=== PATIENT | female | born 1985 | race Caucasian/White ===

== ENCOUNTER 2020-04-01 13:34 | Outpatient (CLI) | payer OTHER, SELFPAY ==
[2020-04-01 15:13] LABS: Free T4 Free Thyroxine 0.86 ng/mL (0.78-2.19)
== END 2020-04-01 13:35 | disposition home or self-care (01) ==
PROVIDERS: PCP Nurse Practitioner Family; Visit Provider Nurse Practitioner Family
DX: E03.9 Hypothyroidism, unspecified (principal)
CPT/HCPCS: 36415; 84439; 84443

== ENCOUNTER 2020-04-13 18:16 | Emergency (ER) | payer BC, OTHER, SELFPAY ==
--- NOTE | ~2020-04-13 | XR_ITS ---
EXAMINATION: XR chest 1V portable DATE: 04/13/2020 19:24 INDICATION: Shortness of breath and cough. TECHNIQUE: A single frontal view of the chest was obtained. COMPARISON: Chest 2 views 06/12/2017 FINDINGS: The chest demonstrates clear lungs without pneumonia, pleural effusion, or pneumothorax. Th e heart size is normal. IMPRESSION: 1. No acute cardiopulmonary disease. Reviewed, dictated and finalized at location A. T SUPPORT SPECIALIST
[2020-04-13 18:21] VITALS: BP 142/91; PULSE 70; RESP 18; TEMP 36.4; O2SAT 99
[2020-04-13 18:38] VITALS: BP 143/58; PULSE 73; RESP 18; O2SAT 97
--- NOTE | 2020-04-13 19:32 | ED.URI ---
HPI - URI/Sore Throat General Chief Complaint: Upper Respiratory Infection Stated Complaint: Cough Time Seen by Provider: 04/13/20 18:40 Source: patient Mode of arrival: ambulatory Limitations: no limitations History of Present Illness HPI Narrative: Patient 34-year-old female who presents with 3 days duration of congestion rhinorrhea nonproductive cough body aches possible sick contacts noted at work patient denies vomiting diarrhea dyspnea. On arrival patient in no distress has not taken anything for her symptoms Related Data Home Medications Medication Instructions Recorded Confirmed Vitamin D3 Complete 03/10/19 albuterol sulfate INHALATION 03/10/19 cetirizine mg 03/10/19 citalopram mg 03/10/19 enalapril maleate 03/10/19 fluticasone propionate INTRANASAL 03/10/19 hydrochlorothiazide 03/10/19 levothyroxine 03/10/19 mirtazapine mg 03/10/19 montelukast mg 03/10/19 norethindrone-e.estradiol-iron tablet 03/10/19 [Microgestin Fe 1.5/30 (28)] tramadol mg 03/10/19 trazodone 03/10/19 famotidine 20 mg PO BID 04/13/20 Allergies Allergy/AdvReac Type Severity Reaction Status Date / Time Sulfa (Sulfonamide Allergy Unknown hives Verified 04/13/20 18:24 Antibiotics) adhesive tape AdvReac Intermediate skin turns Verified 04/13/20 18:24 red Review of Systems Review of Systems: All systems reviewed & are unremarkable except as noted in HPI and below PMFSH Social History Social History (Updated 04/13/20 @ 19:33 by Gregorio Felton PA-C) Smoking status: Never smoker Gender identity (if verbalized by the patient): Female Exam Narrative: Exam Narrative: GENERAL: Well-appearing, obese, and in no acute distress. HEAD: Normocephalic, atraumatic. EYES: PERRLA and EOMI. ENT: Nares clear, no rhinorrhea or epistaxis. Mucous membranes moist. CHEST: Clear to auscultation. No respiratory distress. No wheezes rales or rhonchi HEART: Regular rate and rhythm. No murmur heard. EXTREMITIES: Normal range of motion. No edema. SKIN: Warm, dry, no rash. NEURO: No focal deficits. Alert and oriented x3. PSYCH: Normal mood and affect. Course Course Emergency Course: Patient in the room no distress aware of case findings treatment plan and diagnosis. Patient will be tested for Covid advised to self quarantine to follow with primary care to get Covid results noting that this is the only way she can get them provided with reasons to return. Normal vital signs no pneumonia no hypoxemia will be treated symptomatically Vital Signs Vital signs: Vital Signs Temperature 97.6 F 04/13/20 18:21 Pulse Rate 70 04/13/20 18:21 Respiratory Rate 18 04/13/20 18:21 Blood Pressure 142/91 H 04/13/20 18:21 Pulse Oximetry 99 04/13/20 18:21 Temperature 97.6 F 04/13/20 18:21 Pulse Rate 73 04/13/20 18:38 Respiratory Rate 18 04/13/20 18:38 Blood Pressure 143/58 H 04/13/20 18:38 Pulse Oximetry 97 04/13/20 18:38 MDM - URI/Sore Throat MDM Narrative Medical decision making narrative: Patient in the room no distress felt appropriate for outpatient reevaluation Lab Data Labs: Lab Results 04/13/20 Range/Units 19:00 SARS-CoV-2 RNA (RT-PCR) Pending Discharge Plan Discharge Clinical Impression: Upper respiratory infection Patient Disposition: Home, Self-Care Condition: Stable Instructions: Antibiotic Form, COVID-19 (Coronavirus Disease 2019) (ED) Additional Instructions: Follow up with your primary care provider within 1-2 days to set up for reevaluation and to obtain your COVID-19 result. Go to ER for shortness of breath, difficulty breathing, chest pain, fever/chills, weakness, nauseau/vomitting, etc. or any other concerns. Self quarantine until you have received your results Take any prescribed medications as directed. Stay well-hydrated If you do not have a drug allergy to tylenol or motrin and can tolerate it then take tylenol or motrin as needed for
[2020-04-13 20:05] VITALS: BP 135/96; PULSE 65; RESP 18; O2SAT 96
[2020-04-15 19:06] LABS: SARS-CoV-2 RNA PCR Negative
== END 2020-04-13 20:08 | disposition home or self-care (01) ==
PROVIDERS: Emergency Medicine Emergency Medical Services; Emergency Provider Emergency Medicine; PCP Nurse Practitioner Family
DX: J06.9 Acute upper respiratory infection, unspecified (principal); Z20.822 Contact with and (suspected) exposure to COVID-19
CPT/HCPCS: 71045; 99283; C9803; U0003

== ENCOUNTER 2020-07-06 09:46 | Emergency (ER) | payer BC, SELFPAY ==
--- NOTE | 2020-07-06 09:51 | ED.GENADULT ---
HPI - General Adult General Chief complaint: Upper Respiratory Infection Stated complaint: left ear pain Time Seen by Provider: 07/06/20 09:51 Source: patient Mode of arrival: ambulatory Limitations: no limitations History of Present Illness HPI narrative: 34-year-old female patient presents to the [facility] with complaints of left ear pain that started yesterday. Patient denies fevers, body aches or chills. Patient states she does have history of seasonal allergies. Patient denies any discharge coming from the ear. Related Data Home Medications Medication Instructions Recorded Confirmed Vitamin D3 Complete 03/10/19 albuterol sulfate 2 puff INHALATION Q4-6H PRN 03/10/19 cetirizine mg 03/10/19 citalopram mg 03/10/19 enalapril maleate 03/10/19 hydrochlorothiazide 03/10/19 levothyroxine 175 mcg PO 4XW 03/10/19 07/06/20 mirtazapine mg 03/10/19 montelukast mg 03/10/19 tramadol 50 mg PO BID PRN 03/10/19 07/06/20 trazodone 03/10/19 levothyroxine 200 mcg PO 3XW 07/06/20 07/06/20 Allergies Allergy/AdvReac Type Severity Reaction Status Date / Time Sulfa (Sulfonamide Allergy Unknown hives Verified 07/06/20 10:09 Antibiotics) adhesive tape AdvReac Intermediate skin turns Verified 07/06/20 10:09 red Review of Systems Review of Systems: Narrative: CONSTITUTIONAL: Denies fever, chills, or sweats. EYES: Denies visual changes, redness, or discharge. ENT: Denies rhinorrhea, congestion, sore throat, positive left otalgia. CARDIOVASCULAR: Denies chest pain, palpitations, or edema. RESPIRATORY: Denies cough or dyspnea. GASTROINTESTINAL: Denies abdominal pain, nausea, vomiting, or diarrhea. GENITOURINARY: Denies dysuria or hematuria. SKIN: Denies rash or itching. MUSCULOSKELETAL: Denies back pain, joint pain, or myalgia. NEUROLOGIC: Denies headache, numbness, or weakness. PSYCHIATRIC: Denies anxiety or depression. [facility] Past Medical History Medical History (Updated 07/06/20 @ 10:18 by KASEY Cardozo) Anxiety Asthma Depression GERD (gastroesophageal reflux disease) Hypertension Hypothyroidism Musculoskeletal disorder Compression fracture L1-L2, right foot plantar fasciitis, bone spur Polycystic ovarian disease Seasonal allergies Urinary tract infection Social History Social History Smoking status: Never smoker Gender identity (if verbalized by the patient): Female Comments At the time of my signature I agree with nursing past medical history, surgical, social, and family history. There is no relevant family history pertinent to the presenting complaint. Exam Narrative: Exam Narrative: GENERAL: Well-appearing, well-nourished, and in no acute distress. HEAD: Normocephalic, atraumatic. EYES: PERRLA and EOMI. ENT: Nares clear, no rhinorrhea or epistaxis. Mucous membranes moist. Posterior pharynx with slight post nasal drip present. Left TM does have some erythema noted but no foreign bodies in the canal. NECK: Supple. No lymphadenopathy CHEST: Clear to auscultation. No respiratory distress. HEART: Regular rate and rhythm. No murmur heard. Normal peripheral pulses. ABDOMEN: Soft, nontender, nondistended, normal active bowel sounds. EXTREMITIES: Normal range of motion. No edema. SKIN: Warm, dry, no rash. NEURO: No focal deficits. Alert and oriented x3. Course Reevaluation(s) Reevaluation #1: Reevaluated patient notified her that she does appear to have an ear infection of the left ear. Discussed with patient we will discharge her home with antibiotics. Discussed with her she can take Tylenol and ibuprofen as needed for pain. Patient verbalized understanding denies any other questions or concerns at this time. Date: 07/06/20 Time: 10:21 Vital Signs Vital signs: Vital Signs Temperature 36.8 C 07/06/20 09:58 Pulse Rate 57 L 07/06/20 09:58 Respiratory Rate 16 07/06/20 09:58 Blood Pressure 148/80 H 07/06/20 09:58 Pulse
[2020-07-06 09:58] VITALS: BP 148/80; PULSE 57; RESP 16; TEMP 36.8; O2SAT 99
[2020-07-06 10:09] VITALS: BP 148/80; PULSE 57; RESP 16; TEMP 36.8; O2SAT 99
== END 2020-07-06 10:20 | disposition home or self-care (01) ==
PROVIDERS: Emergency Provider Nurse Practitioner Family; PCP Nurse Practitioner Family
DX: H66.92 Otitis media, unspecified, left ear (principal); F41.9 Anxiety disorder, unspecified; F32.9 Major depressive disorder, single episode, unspecified; J45.909 Unspecified asthma, uncomplicated; K21.9 Gastro-esophageal reflux disease without esophagitis; I10 Essential (primary) hypertension; E03.9 Hypothyroidism, unspecified; E28.2 Polycystic ovarian syndrome
CPT/HCPCS: 99213; G0463

== ENCOUNTER 2021-01-17 14:34 | Emergency (ER) | payer BC, SELFPAY ==
--- NOTE | ~2021-01-17 | XR_ITS ---
EXAMINATION: XR ankle LT min 3V EXAM DATE: 01/17/2021 15:04 INDICATION: Fall X 1 Wk,Lateral Malleolus Pain. TECHNIQUE: Left ankle frontal, lateral and oblique projections obtained and reviewed. Comparison is m michael to prior examination from 02/11/2014. FINDINGS: The left ankle mortise appears intact. There is moderate-sized inferior calcaneal spur. On the steep oblique projection of the ankle, there is lucency along the cortex of the 5th metatarsal base which is suspected most likely a congenital appearance to the contour, correlating with prior a nkle x-ray. This finding has been indicated on the exam; please exclude superimposed acute finding by checking for point tenderness. Otherwise unremarkable exam. IMPRESSION: Left 5th metatarsal base lucency suspected most likely congenital contour groove but clin ical correlation recommended. Reviewed, dictated and finalized at location B. IMPRESSION: Left 5th metatarsal base lucency suspected most likely congenital c ontour groove but clinical correlation recommended.
[2021-01-17 14:44] VITALS: BP 127/88; PULSE 59; RESP 20; TEMP 36.4; O2SAT 99
--- NOTE | 2021-01-17 16:26 | ED.LOWEXIN ---
HPI - Extremity Injury (Lower) General Chief Complaint: Extremity Injury, Lower Stated Complaint: L FOOT/ANKLE PAIN Time Seen by Provider: 01/17/21 15:58 Source: patient History of Present Illness HPI Narrative: Patient presents with left ankle pain. Patient reports she sprained her ankle a few weeks ago continued to work. She also reports a couple days ago she was bowling a lot since that she has had increased pain to her left ankle she was concerned so wanted to come to the ER for evaluation. Pain is achy, constant, radiates up her leg, worse with ambulation and moving her ankle. She denies any focal numbness or weakness. Related Data Home Medications Medication Instructions Recorded Confirmed cetirizine 10 mg PO DAILY 03/10/19 07/06/20 citalopram 20 mg PO QAM 03/10/19 07/06/20 enalapril maleate 10 mg PO DAILY 03/10/19 07/06/20 hydrochlorothiazide 25 mg PO DAILY 03/10/19 07/06/20 levothyroxine 175 mcg PO 4XW 03/10/19 07/06/20 mirtazapine 15 mg PO HS 03/10/19 07/06/20 montelukast 10 mg PO HS 03/10/19 07/06/20 tramadol 50 mg PO BID PRN 03/10/19 07/06/20 trazodone 100 mg PO HS 03/10/19 07/06/20 acetaminophen [Tylenol Extra 500 mg PO Q6H PRN 07/06/20 07/06/20 Strength] cholecalciferol (vitamin D3) 125 mcg PO DAILY 07/06/20 07/06/20 [Vitamin D3] epinephrine 0.3 mg SUBCUT ONCE 07/06/20 07/06/20 levonorgestrel [Mirena] 1 device INTRAUTERINE ONCE 07/06/20 07/06/20 levothyroxine 200 mcg PO 3XW 07/06/20 07/06/20 Allergies Allergy/AdvReac Type Severity Reaction Status Date / Time Sulfa (Sulfonamide Allergy Unknown hives Verified 01/17/21 16:10 Antibiotics) adhesive tape AdvReac Intermediate skin turns Verified 01/17/21 16:10 red Review of Systems Review of Systems: CONSTITUTIONAL: Denies fever, chills, or sweats. EYES: Denies visual changes, redness, or discharge. ENT: Denies rhinorrhea, congestion, sore throat, or otalgia. CARDIOVASCULAR: Denies chest pain, palpitations, or edema. RESPIRATORY: Denies cough or dyspnea. GASTROINTESTINAL: Denies abdominal pain, nausea, vomiting, or diarrhea. GENITOURINARY: Denies dysuria or hematuria. SKIN: Denies rash or itching. MUSCULOSKELETAL: Denies back pain, joint pain, or myalgia. NEUROLOGIC: Denies headache, numbness, or weakness. PSYCHIATRIC: Denies anxiety or depression. All systems reviewed & are unremarkable except as noted in HPI and below PMFSH Past Medical History Medical History Anxiety Asthma Depression GERD (gastroesophageal reflux disease) Hypertension Hypothyroidism Musculoskeletal disorder Compression fracture L1-L2, right foot plantar fasciitis, bone spur Polycystic ovarian disease Seasonal allergies Urinary tract infection Social History Social History Smoking status: Never smoker Gender identity (if verbalized by the patient): Female Exam Narrative: GENERAL: Well-appearing, well-nourished, and in no acute distress. HEAD: Normocephalic, atraumatic. EYES: PERRLA and EOMI. ENT: Nares clear, no rhinorrhea or epistaxis. Mucous membranes moist. NECK: Supple. No masses. No JVD EXTREMITIES: Normal range of motion. Mild diffuse tenderness around the left ankle no ligamentous laxity. Patient has 5 out of 5 strength with dorsi and plantar flexion. Sensation intact to light touch on the left foot. No obvious deformity SKIN: Warm, dry, no rash. NEURO: No focal deficits. Alert and oriented x3. PSYCH: Normal mood and affect. Course Reevaluation(s) Reevaluation #1: Imaging reviewed with patient. Patient comfortable outpatient plan. Date: 01/17/21 Time: 16:22 Vital Signs Vital signs: Vital Signs Temperature 36.4 C L 01/17/21 14:44 Pulse Rate 59 L 01/17/21 14:44 Respiratory Rate 20 01/17/21 14:44 Blood Pressure 127/88 01/17/21 14:44 Pulse Oximetry 99 01/17/21 14:44 Temperature 36.4 C L 01/17/21 14:44 Pulse Ra
[2021-01-17 17:12] VITALS: BP 134/92; PULSE 60; RESP 16; O2SAT 100
== END 2021-01-17 17:13 | disposition home or self-care (01) ==
PROVIDERS: Emergency Provider Emergency Medicine; PCP Nurse Practitioner Family
DX: S93.402A Sprain of unspecified ligament of left ankle, initial encounter (principal); S96.912A Strain of unspecified muscle and tendon at ankle and foot level, left foot, initial encounter; J45.909 Unspecified asthma, uncomplicated; K21.9 Gastro-esophageal reflux disease without esophagitis; I10 Essential (primary) hypertension; E03.9 Hypothyroidism, unspecified; F41.9 Anxiety disorder, unspecified; F32.A Depression, unspecified; E28.2 Polycystic ovarian syndrome; Z87.440 Personal history of urinary (tract) infections; X58.XXXA Exposure to other specified factors, initial encounter; Y93.54 Activity, bowling
CPT/HCPCS: 73610; 99283

== ENCOUNTER 2021-04-04 15:20 | Emergency (ER) | payer BC, SELFPAY ==
--- NOTE | ~2021-04-04 | XR_ITS ---
EXAMINATION: XR chest 1V portable EXAM DATE: 04/04/2021 17:29 INDICATION: Cough. TECHNIQUE: Portable AP frontal chest x-ray was obtained. Comparison is made to prior examination from 04/13/2020. FINDINGS: The lungs are clear. There are no pleural effusions. The cardiomediastinal silhouette is within normal limits. There is no pneumothorax suspected. The bones and soft tissues are unremarkab le. IMPRESSION: No acute cardiopulmonary findings. Reviewed, dictated and finalized at location A. AWAKE COUNSELOR
[2021-04-04 15:47] VITALS: BP 145/94; PULSE 60; RESP 12; TEMP 36.1; O2SAT 100
[2021-04-04] MEDS: IBUPROFEN 600 MG TABLET PO (18:15)
[2021-04-04] MEDS: ONDANSETRON HCL ODT 4 MG TABLET PO (18:15)
--- NOTE | 2021-04-04 18:25 | ED.GENADULT ---
HPI - General Adult General Chief complaint: Upper Respiratory Infection Stated complaint: COVID S/SX BOYFRIEND COVID+ Time Seen by Provider: 04/04/21 17:07 Source: RN notes reviewed History of Present Illness HPI narrative: Patient presents emergency department from home for COVID-19 symptoms. Patient states that symptoms began 3 days ago states that she has had rhinorrhea with sinus pressure associated with mild sore throat a cough that has been nonproductive and nausea. Patient states that her boyfriend tested positive for Covid and she is concerned that she has it. She denies any fevers or chills chest pain shortness of breath abdominal pain vomiting diarrhea or any other symptoms patient states she did receive the COVID-19 vaccinations. States that she is on Flonase and Mucinex at home Related Data Home Medications Medication Instructions Recorded Confirmed cetirizine 10 mg PO DAILY 03/10/19 07/06/20 citalopram 20 mg PO QAM 03/10/19 07/06/20 enalapril maleate 10 mg PO DAILY 03/10/19 07/06/20 hydrochlorothiazide 25 mg PO DAILY 03/10/19 07/06/20 levothyroxine 175 mcg PO 4XW 03/10/19 07/06/20 mirtazapine 15 mg PO HS 03/10/19 07/06/20 montelukast 10 mg PO HS 03/10/19 07/06/20 tramadol 50 mg PO BID PRN 03/10/19 07/06/20 trazodone 100 mg PO HS 03/10/19 07/06/20 acetaminophen [Tylenol Extra 500 mg PO Q6H PRN 07/06/20 07/06/20 Strength] cholecalciferol (vitamin D3) 125 mcg PO DAILY 07/06/20 07/06/20 [Vitamin D3] epinephrine 0.3 mg SUBCUT ONCE 07/06/20 07/06/20 levonorgestrel [Mirena] 1 device INTRAUTERINE ONCE 07/06/20 07/06/20 levothyroxine 200 mcg PO 3XW 07/06/20 07/06/20 Allergies Allergy/AdvReac Type Severity Reaction Status Date / Time Sulfa (Sulfonamide Allergy Unknown hives Verified 01/17/21 16:10 Antibiotics) adhesive tape AdvReac Intermediate skin turns Verified 01/17/21 16:10 red Review of Systems Review of Systems: Gen.: Denies fevers or chills ENT: See HPI Respiratory: Denies shortness of breath with cough CV: Denies chest pain or palpitations GI: Denies abdominal pain emesis or diarrhea reports nausea denies Musculoskeletal: Denies back pain or muscle pain Neuro: Denies numbness, tingling, weakness or focal weakness Skin: Denies rash Except as documented, all other systems reviewed and negative [facility] Past Medical History Medical History Anxiety Asthma Depression GERD (gastroesophageal reflux disease) Hypertension Hypothyroidism Musculoskeletal disorder Compression fracture L1-L2, right foot plantar fasciitis, bone spur Polycystic ovarian disease Seasonal allergies Urinary tract infection Social History Social History Smoking status: Never smoker Gender identity (if verbalized by the patient): Female Exam Narrative: APPEARANCE: No acute distress, nontoxic, resting in bed EYES: EOMI HEENT: Normocephalic, atraumatic, TMs clear bilaterally nares patent or mucosa moist erythema of posterior pharynx bilateral tonsils no exudate uvula midline tolerating own secretions RESPIRATORY: No respiratory distress Clear to auscultation bilaterally with no rhonchi wheezing or rales. CARDIOVASCULAR: Regular rate and rhythm without murmurs rubs or gallops. ABDOMINAL: Soft, nontender, nondistended, no rebound or guarding MUSCULOSKELETAl: Moves all extremities. No clubbing, cyanosis or edema. NEURO: Awake and alert. Following commands, speech normal, no focal deficits SKIN:: Warm, dry. No rashes lesions or abrasions PSYCHIATRIC: Normal affect/mood, Course Course Emergency Course: Discussed with patient results of workup and diagnosis. Discussed need for follow-up with primary care, proper use of medication, and reasons to return to the emergency department. Patient understands and agrees to current treatment planYou need to remain on self-isolation until the results of her C
[2021-04-04 18:53] VITALS: BP 139/86; PULSE 64; RESP 14; O2SAT 100
[2021-04-05 16:52] LABS: SARS-CoV-2 RNA PCR Positive
== END 2021-04-04 18:53 | disposition home or self-care (01) ==
PROVIDERS: Emergency Provider Emergency Medicine; PCP Nurse Practitioner Family
DX: U07.1 COVID-19 (principal); E03.9 Hypothyroidism, unspecified; I10 Essential (primary) hypertension; F41.9 Anxiety disorder, unspecified
CPT/HCPCS: 71045; 87804; 99283; A9270; C9803; U0003; U0005

== ENCOUNTER 2021-04-24 13:55 | Outpatient (CLI) | payer BC, SELFPAY ==
[2021-04-24 14:48] LABS: Alanine Aminotransferase 24 U/L (4-35); Albumin Level 4.5 g/dL (3.5-5.1); Alkaline Phosphatase 81 U/L (38-126); Anion Gap 8 mmol/L (8-16); Aspartate Amino Transferase 21 U/L (14-36); Bilirubin,Total 0.5 mg/dL (0.2-1.3); Blood Urea Nitrogen 17 mg/dL (7-17); Calcium 9.2 mg/dL (8.4-10.2); Carbon Dioxide 29 mmol/L (22-30); Chloride 102 mmol/L (98-107); Cholesterol 208 mg/dL (0-200); Estimated Glomerular Filt Rate > 60; Glucose 93 mg/dL (65-110); HDL Direct 34 mg/dL; Potassium 3.9 mmol/L (3.4-5.0); Sodium 139 mmol/L (137-145); Triglycerides 293 mg/dL (<150)
[2021-04-24 14:59] LABS: LDL Cholesterol Direct 109 mg/dL
== END 2021-04-24 13:56 | disposition home or self-care (01) ==
PROVIDERS: PCP Nurse Practitioner Family; Visit Provider Nurse Practitioner Family
DX: E03.9 Hypothyroidism, unspecified (principal); I10 Essential (primary) hypertension
CPT/HCPCS: 36415; 80053; 80061; 84443

== ENCOUNTER 2021-11-25 13:06 | Outpatient (CLI) | payer BC, SELFPAY ==
[2021-11-25 14:18] LABS: Alanine Aminotransferase 29 U/L (6-35); Albumin Level 4.7 g/dL (3.5-5.1); Alkaline Phosphatase 87 U/L (38-126); Aspartate Amino Transferase 28 U/L (14-36); Bilirubin,Total 0.4 mg/dL (0.2-1.3)
== END 2021-11-25 13:07 | disposition home or self-care (01) ==
PROVIDERS: PCP Nurse Practitioner Family; Visit Provider Podiatrist Foot & Ankle Surgery
DX: B35.1 Tinea unguium (principal)
CPT/HCPCS: 36415; 80076

== ENCOUNTER 2022-04-20 17:13 | Emergency (ER) | payer OTHER, MEDICAID, SELFPAY ==
--- NOTE | 2022-04-20 17:15 | ED.URI ---
HPI - URI/Sore Throat General Chief Complaint: Ear Stated Complaint: Ear Pain/Congestion Time Seen by Provider: 04/20/22 17:14 Source: patient Mode of arrival: ambulatory Limitations: no limitations History of Present Illness HPI Narrative: Dedra is a 36-year-old female patient presenting to the clinic today with complaints of ear pain, cough, and chest congestion times 2-3 days. She reports no fever or chills. Reports that she is hearing herself wheeze at nighttime when she is lying flat. She denies any shortness of breath or chest pain MD elicited complaint: cough, nasal congestion and other (Ear foreign body, ear pain) Related Data Home Medications Medication Instructions Recorded Confirmed cetirizine 10 mg tablet 10 mg PO DAILY 03/10/19 04/20/22 citalopram 20 mg tablet 20 mg PO QAM 03/10/19 04/20/22 levothyroxine 175 mcg tablet 175 mcg PO 4XW 03/10/19 04/20/22 mirtazapine 15 mg tablet 15 mg PO HS 03/10/19 04/20/22 montelukast 10 mg tablet 10 mg PO HS 03/10/19 04/20/22 acetaminophen 500 mg tablet 500 mg PO Q6H PRN Pain 07/06/20 04/20/22 (Tylenol Extra Strength) cholecalciferol (vitamin D3) 125 125 mcg PO DAILY 07/06/20 04/20/22 mcg (5,000 unit) tablet (Vitamin D3) epinephrine 0.3 mg/0.3 mL 0.3 mg subcut ONCE 07/06/20 04/20/22 injection syringe levonorgestrel 20 mcg/24 hours (8 1 device intrauterine ONCE 07/06/20 04/20/22 yrs) 52 mg intrauterine device (Mirena) levothyroxine 200 mcg capsule 200 mcg PO 3XW 07/06/20 04/20/22 Allergies Allergy/AdvReac Type Severity Reaction Status Date / Time Sulfa (Sulfonamide Allergy Unknown hives Verified 01/17/21 16:10 Antibiotics) adhesive tape AdvReac Intermediate skin turns Verified 01/17/21 16:10 red Review of Systems Review of Systems: Pertinent positives per HPI. Patient denies any fever, chills, rash, headache, visual changes, dizziness, shortness of breath, chest pain, palpitations, nausea, vomiting, diarrhea, constipation, abdominal pain, or any urinary issues. [facility] Past Medical History Medical History Anxiety Asthma Depression GERD (gastroesophageal reflux disease) Hypertension Hypothyroidism Musculoskeletal disorder Compression fracture L1-L2, right foot plantar fasciitis, bone spur Polycystic ovarian disease Seasonal allergies Urinary tract infection Social History Social History Smoking status: Never smoker Gender identity (if verbalized by the patient): Female Comments At the time of my signature, I reviewed and agree with the nursing past medical, surgical, social, and family history. There is no relevant family history pertinent to the patient complaint. Exam Narrative: General: Well-developed, obese, in no apparent distress Head: Normocephalic, atraumatic Eyes: Pupils equally round and reactive to light bilaterally, EOM intact, sclera and conjunctive clear, no discharge, lids normal Ears: TMs intact, dull, bulging, rubber foreign body in left ear canal-removed using hemostats and lighted ear curette, ear canals clear, no drainage, grossly hearing normal. Nose: Nares patent, clear nasal discharge, no inflammation, no sinus tenderness. Mouth: Oral pharynx without lesions or masses, good dentition, MMM. Neck: Supple, trachea midline, no enlargement of anterior or posterior cervical nodes, no thyroid masses or goiter palpable. Cardio: Regular rate and rhythm, s1 and s2 normal, no murmur appreciated. Resp: Clear to auscultation bilaterally, no rhonchi, rales, wheezing or rubs Course Course Emergency Course: Portions of this record may have been created with voice recognition software. Level of Care: Express Care Visit Vital Signs Vital signs: Vital signs reviewed MDM - URI/Sore Throat MDM Narrative Medical decision making narrative: At the time of visit patient is resting comforta
[2022-04-20 17:22] VITALS: BP 130/66; PULSE 88; RESP 20; TEMP 37.1; O2SAT 98
== END 2022-04-20 17:43 | disposition home or self-care (01) ==
PROVIDERS: Emergency Provider Nurse Practitioner Family; PCP Nurse Practitioner Family
DX: H69.80 Other specified disorders of Eustachian tube, unspecified ear (principal); J40 Bronchitis, not specified as acute or chronic; T16.2XXA Foreign body in left ear, initial encounter; I10 Essential (primary) hypertension; E03.9 Hypothyroidism, unspecified; X58.XXXA Exposure to other specified factors, initial encounter
CPT/HCPCS: 99213; G0463

== ENCOUNTER 2022-08-30 18:49 | Emergency (ER) | payer OTHER, BC, SELFPAY ==
[2022-08-30 18:55] VITALS: BP 120/85; PULSE 79; RESP 16; TEMP 36.9; O2SAT 99
--- NOTE | 2022-08-30 18:55 | ED.URI ---
HPI - URI/Sore Throat General Chief Complaint: Upper Respiratory Infection Stated Complaint: Headache/Shortness Of Breath Source: patient and RN notes reviewed History of Present Illness HPI Narrative: 36-year-old female presents to urgent care with complaints of congestion, headache, and pressure in her face for the last 3 days. Patient reports ear pressure bilaterally. Patient states she has been coughing and this morning had take her albuterol inhaler because she felt like she was wheezing. Patient denies any fevers, chills, vomiting, diarrhea, throat pain. Patient reports chest pain when she coughs that radiates to her back. Patient states she normally takes Singulair and cetirizine daily but she has been out of her cetirizine for 3 days. Related Data Home Medications Medication Instructions Recorded Confirmed cetirizine 10 mg tablet 10 mg PO DAILY 03/10/19 08/30/22 citalopram 20 mg tablet 20 mg PO QAM 03/10/19 08/30/22 levothyroxine 175 mcg tablet 175 mcg PO 4XW 03/10/19 08/30/22 mirtazapine 15 mg tablet 15 mg PO HS 03/10/19 08/30/22 montelukast 10 mg tablet 10 mg PO HS 03/10/19 08/30/22 acetaminophen 500 mg tablet 500 mg PO Q6H PRN Pain 07/06/20 04/20/22 (Tylenol Extra Strength) cholecalciferol (vitamin D3) 125 125 mcg PO DAILY 07/06/20 08/30/22 mcg (5,000 unit) tablet (Vitamin D3) epinephrine 0.3 mg/0.3 mL 0.3 mg subcut ONCE 07/06/20 04/20/22 injection syringe levonorgestrel 21 mcg/24 hours (8 1 device intrauterine ONCE 07/06/20 08/30/22 yrs) 52 mg intrauterine device (Mirena) albuterol sulfate 90 mcg/actuation 2 puff inhalation QID PRN 08/30/22 08/30/22 aerosol inhaler Shortness Of Breath Or Wheezing enalapril maleate 10 mg tablet 10 mg PO DAILY 08/30/22 08/30/22 famotidine 20 mg tablet 20 mg PO DAILY 08/30/22 08/30/22 hydrochlorothiazide 25 mg tablet 25 mg PO DAILY 08/30/22 08/30/22 tramadol 50 mg tablet 50 mg PO DAILY 08/30/22 08/30/22 Allergies Allergy/AdvReac Type Severity Reaction Status Date / Time adhesive tape Allergy Intermediate skin turns Verified 08/30/22 19:05 red Sulfa (Sulfonamide Allergy Unknown hives Verified 08/30/22 19:05 Antibiotics) Review of Systems Review of Systems: Pertinent positives and pertinent negatives per HPI. [facility] Past Medical History Medical History Anxiety Asthma Depression GERD (gastroesophageal reflux disease) Hypertension Hypothyroidism Musculoskeletal disorder Compression fracture L1-L2, right foot plantar fasciitis, bone spur Polycystic ovarian disease Seasonal allergies Urinary tract infection Social History Social History Smoking status: Never smoker Gender identity (if verbalized by the patient): Female Comments At the time of my signature, I reviewed and agree with the nursing past medical, surgical, social, and family history. There is no relevant family history pertinent to the patient complaint. Exam Narrative: GENERAL: This is a well-nourished, well-developed patient, in no apparent distress. HEAD: normocephalic, atraumatic. EYES: Sclera clear/white. Vision is grossly intact. EARS: External ears normal, auditory canals clear and without drainage, TMs normal without perforation. Hearing grossly intact. NOSE: External nose normal with no obvious nasal discharge, nares without redness, no rhinorrhea. Slightly congested. THROAT: Mucous membranes moist, posterior pharynx clear. NECK: Neck supple, non-tender without lymphadenopathy, masses or thyromegaly. CARDIOVASCULAR: Regular rate and rhythm without murmurs, gallops, or rubs. RESPIRATORY: Clear to auscultation. Breath sounds equal bilaterally. No wheezes, rales, or rhonchi. SKIN: warm, intact with no suspicious lesions or rash, good texture and turgor. NEURO: awake, alert, and oriented to person, place and time. There were no obvious focal neurol
== END 2022-08-30 19:15 | disposition home or self-care (01) ==
PROVIDERS: Emergency Provider Nurse Practitioner Family
DX: J06.9 Acute upper respiratory infection, unspecified (principal); K21.9 Gastro-esophageal reflux disease without esophagitis; I10 Essential (primary) hypertension; E03.9 Hypothyroidism, unspecified; E28.2 Polycystic ovarian syndrome; J45.909 Unspecified asthma, uncomplicated; F41.9 Anxiety disorder, unspecified; F32.A Depression, unspecified
CPT/HCPCS: 99211; G0463

== ENCOUNTER 2023-03-17 15:41 | Emergency (ER) | payer OTHER, MEDICAID, SELFPAY ==
--- NOTE | ~2023-03-17 | XR_ITS ---
EXAMINATION: XR chest 2V Exam Date/Time: 03/17/2023 17:30 CASINO DEALER HISTORY: sob, cough WITH MID ANTERIOR CHEST PAIN X 4 DAYS Comparison: 04/04/2021. RESULT: Lines, tubes, and devices: None. Lungs and pleura: Clear. Cardiomediastinal silhouette: Stable. Other: No acute osseous or upper abdominal finding. IMPRESSION: No acute cardiopulmonary process. Reviewed, dictated and finalized at location K. NO DEALER
[2023-03-17 16:03] VITALS: BP 163/86; PULSE 70; RESP 16; TEMP 37.1; O2SAT 97
[2023-03-17 17:01] LABS: Influenza A QL RT-PCR Negative (Negative); Influenza B QL RT-PCR Negative (Negative); RSV RNA, RT-PCR Negative (Negative); SARS-CoV-2 RNA PCR Negative (Negative)
--- NOTE | 2023-03-17 17:10 | ECG_ITS ---
Measurements Intervals [place] Rate: 61 P: 38 ID: 161 QRS: 59 QRSD: 114 T: 14 QT: 419 QTc: 424 Interpretive Statements SINUS RHYTHM POSSIBLE LEFT ATRIAL ENLARGEMENT [-0.1mV P WAVE IN V1/V2] INFERIOR MYOCARDIAL INFARCTION , PROBABLY OLD [40+ ms Q WAVE AND/OR ST/T ABNORMALITY IN II/aVF] ABNORMAL ECG NO PREVIOUS ECG AVAILABLE FOR COMPARISON Electronically Signed On 03-18-2023 13:52:15 HYDRO SPRAYER OPERATOR by Fan Valencia M.D.
--- NOTE | 2023-03-17 17:12 | ED.URI ---
HPI - URI/Sore Throat General Chief Complaint: Upper Respiratory Infection Stated Complaint: URI, boyfriend has RSV Time Seen by Provider: 03/17/23 16:16 Source: patient Mode of arrival: ambulatory Limitations: no limitations History of Present Illness HPI Narrative: This is a 37 year old female that presents to the ER for cold symptoms present over the last 3 days. Reports cough, congestion, sore throat, wheezing and shortness of breath. Reports her boyfriend recently tested positive for RSV so she was concerned she may have it. Reports chest pain with coughing. Denies fevers. Related Data Home Medications Medication Instructions Recorded Confirmed cetirizine 10 mg tablet 10 mg PO DAILY 03/10/19 08/30/22 citalopram 20 mg tablet 20 mg PO QAM 03/10/19 08/30/22 levothyroxine 175 mcg tablet 175 mcg PO 4XW 03/10/19 08/30/22 mirtazapine 15 mg tablet 15 mg PO HS 03/10/19 08/30/22 montelukast 10 mg tablet 10 mg PO HS 03/10/19 08/30/22 acetaminophen 500 mg tablet 500 mg PO Q6H PRN Pain 07/06/20 08/30/22 (Tylenol Extra Strength) cholecalciferol (vitamin D3) 125 125 mcg PO DAILY 07/06/20 08/30/22 mcg (5,000 unit) tablet (Vitamin D3) levonorgestrel 21 mcg/24 hours (8 1 device intrauterine ONCE 07/06/20 08/30/22 yrs) 52 mg intrauterine device (Mirena) albuterol sulfate 90 mcg/actuation 2 puff inhalation QID PRN 08/30/22 08/30/22 aerosol inhaler Shortness Of Breath Or Wheezing enalapril maleate 10 mg tablet 10 mg PO DAILY 08/30/22 08/30/22 famotidine 20 mg tablet 20 mg PO DAILY 08/30/22 08/30/22 hydrochlorothiazide 25 mg tablet 25 mg PO DAILY 08/30/22 08/30/22 tramadol 50 mg tablet 50 mg PO DAILY 08/30/22 08/30/22 Allergies Allergy/AdvReac Type Severity Reaction Status Date / Time adhesive tape Allergy Intermediate skin turns Verified 08/30/22 19:05 red Sulfa (Sulfonamide Allergy Unknown hives Verified 08/30/22 19:05 Antibiotics) Review of Systems Review of Systems: CONSTITUTIONAL: Denies fever ENT: Report congestion, sore throat. Denies otalgia. CARDIOVASCULAR: Reports chest pain. Denies edema. RESPIRATORY: Reports cough and dyspnea. All systems reviewed & are unremarkable except as noted in HPI and below PMFSH Past Medical History Medical History Anxiety Asthma Depression GERD (gastroesophageal reflux disease) Hypertension Hypothyroidism Musculoskeletal disorder Compression fracture L1-L2, right foot plantar fasciitis, bone spur Polycystic ovarian disease Seasonal allergies Urinary tract infection Social History Social History Smoking status: Never smoker Gender identity (if verbalized by the patient): Female Exam Narrative: GENERAL: Well-appearing, well-nourished, and in no acute distress. HEAD: Normocephalic, atraumatic. EYES: EOMI. ENT: Nares clear, no rhinorrhea or epistaxis. Mucous membranes moist. Oropharynx without tonsillar hypertrophy exudate or other lesions. Bilateral TMs pearly chacon non-bulging NECK: Supple. No adenopathy or masses. CHEST: Clear to auscultation. No respiratory distress. No wheezes rales or rhonchi HEART: Regular rate and rhythm. No murmur heard. Normal peripheral pulses. EXTREMITIES: Normal range of motion. No edema. SKIN: Warm, dry, no rash. NEURO: No focal deficits. Alert and oriented x3. PSYCH: Normal mood and affect Course Course Emergency Course: patient updated on her workup and agrees with plan of care Vital Signs Vital signs: Vital Signs Temperature 98.7 F 03/17/23 16:03 Pulse Rate 70 03/17/23 16:03 Respiratory Rate 16 03/17/23 16:03 Blood Pressure 163/86 H 03/17/23 16:03 Pulse Oximetry 97 03/17/23 16:03 Temperature 98.7 F 03/17/23 16:03 Pulse Rate 70 03/17/23 16:03 Respiratory Rate 16 03/17/23 16:03 Blood Pressure 163/86 H 03/17/23 16:03 Pulse Oximetry 97 03/17/23 16:03
[2023-03-17 18:09] LABS: Basophils Absolute Auto 0.1 K/mm3 (0.0-0.1); Basophils Percent Auto 0.6 % (0.2-1.2); Eosinophils Absolute Auto 0.2 K/mm3 (0-0.3); Eosinophils Percent Auto 2.4 % (0-4.4); Hematocrit 40.7 % (37.0-47.0); Hemoglobin 13.2 g/dL (12.0-15.0); Immature Granulocyte Absolute 0.05 K/mm3 (0.00-0.031); Immature Granulocyte Percent A 0.5 % (0-0.5); Lymphocytes Absolute Auto 2.79 K/mm3 (0.9-3.2); Lymphocytes Percent Auto 28.3 % (18.3-44.2); Mean Corpuscular HGB Conc 32.4 g/dl (32-36); Mean Corpuscular Hemoglobin 29.5 pg (26-34); Mean Corpuscular Volume 91.1 fl (80-100); Mean Platelet Volume 10.4 fl (7.4-10.4); Monocytes Absolute Auto 0.7 K/mm3 (0.1-0.6); Monocytes Percent Auto 6.6 % (2.6-8.5); Neutrophils Absolute Auto 6.1 K/mm3 (1.3-6.7); Neutrophils Percent Auto 61.6 % (45.5-73.1); Platelet Count Result 286 k/mm3 (150-375); Red Blood Count 4.47 M/mm3 (4.2-5.4); Red Cell Distribution Width 12.6 % (11.5-14.5); White Blood Count 9.9 K/mm3 (4.5-10.0)
[2023-03-17 18:19] LABS: Anion Gap 8 mmol/L (8-16); Blood Urea Nitrogen 12 mg/dL (7-17); Calcium 9.9 mg/dL (8.4-10.2); Carbon Dioxide 27 mmol/L (22-30); Chloride 102 mmol/L (98-107); Estimated CRCL calculation 139 ml/min; Estimated Glomerular Filt Rate > 60; Glucose 83 mg/dL (65-110); Potassium 3.9 mmol/L (3.4-5.0); Sodium 137 mmol/L (137-145)
[2023-03-17 18:31] LABS: Troponin I < 0.012 ng/mL (0.000-0.034)
== END 2023-03-17 19:20 | disposition home or self-care (01) ==
PROVIDERS: Emergency Provider Physician Assistant
DX: B34.9 Viral infection, unspecified (principal); Z20.822 Contact with and (suspected) exposure to COVID-19; J45.909 Unspecified asthma, uncomplicated; I10 Essential (primary) hypertension; E03.9 Hypothyroidism, unspecified; E28.2 Polycystic ovarian syndrome; K21.9 Gastro-esophageal reflux disease without esophagitis; F41.9 Anxiety disorder, unspecified; Z87.440 Personal history of urinary (tract) infections; R94.31 Abnormal electrocardiogram [ECG] [EKG]
CPT/HCPCS: 36415; 71046; 80048; 84484; 85025; 87637; 93005; 99283

== ENCOUNTER 2023-05-18 15:56 | Emergency (ER) | payer OTHER, MEDICAID, SELFPAY ==
--- NOTE | ~2023-05-18 | US_ITS ---
EXAMINATION: US venous doppler LE RT DATE: 05/18/2023 17:50 INDICATION: Right lower limb pain TECHNIQUE: Grayscale ultrasound images without and with compression and Doppler ultrasound images of the right lower extremity veins were obtained. COMPARISON: None. FINDINGS: The visualized portions of right common femoral vein, profunda (deep) femoral vein, femoral vein, pop liteal vein, peroneal trunk, posterior tibial veins, peroneal veins and greater saphenous vein outflo w are patent. IMPRESSION: 1. No deep venous thrombosis in the right lower limb. Reviewed, dictated and finalized at location A. STRIAL MANUFACTURING TECHNICIAN
[2023-05-18 16:07] VITALS: BP 157/102; PULSE 61; RESP 20; TEMP 36.5; O2SAT 99
[2023-05-18 18:15] VITALS: BP 129/94; PULSE 62; RESP 16; TEMP 36.3; O2SAT 100
--- NOTE | 2023-05-18 19:12 | ED.GENADULT ---
HPI - General Adult General Chief complaint: Extremity Injury, Lower Stated complaint: knee pain Time Seen by Provider: 05/18/23 17:51 Source: patient Mode of arrival: ambulatory Limitations: no limitations History of Present Illness HPI narrative: This is a 29-year-old female who presents to the ED with chief complaint of right posterior knee pain for the past couple of days. Reports she has had pain in this knee for the past 6 months and has been seeing an orthopedic doctor and was told she has arthritis. Today she comes in because the pain is more posterior rather than anterior she is worried about blood clot. No history of DVT. Denies fevers, chills, nausea, vomiting. Denies numbness or weakness. Related Data Home Medications Medication Instructions Recorded Confirmed cetirizine 10 mg tablet 10 mg PO DAILY 03/10/19 08/30/22 citalopram 20 mg tablet 20 mg PO QAM 03/10/19 08/30/22 levothyroxine 175 mcg tablet 175 mcg PO 4XW 03/10/19 08/30/22 mirtazapine 15 mg tablet 15 mg PO HS 03/10/19 08/30/22 montelukast 10 mg tablet 10 mg PO HS 03/10/19 08/30/22 acetaminophen 500 mg tablet 500 mg PO Q6H PRN Pain 07/06/20 08/30/22 (Tylenol Extra Strength) cholecalciferol (vitamin D3) 125 125 mcg PO DAILY 07/06/20 08/30/22 mcg (5,000 unit) tablet (Vitamin D3) levonorgestrel 21 mcg/24 hours (8 1 device intrauterine ONCE 07/06/20 08/30/22 yrs) 52 mg intrauterine device (Mirena) albuterol sulfate 90 mcg/actuation 2 puff inhalation QID PRN 08/30/22 08/30/22 aerosol inhaler Shortness Of Breath Or Wheezing enalapril maleate 10 mg tablet 10 mg PO DAILY 08/30/22 08/30/22 famotidine 20 mg tablet 20 mg PO DAILY 08/30/22 08/30/22 hydrochlorothiazide 25 mg tablet 25 mg PO DAILY 08/30/22 08/30/22 tramadol 50 mg tablet 50 mg PO DAILY 08/30/22 08/30/22 Allergies Allergy/AdvReac Type Severity Reaction Status Date / Time adhesive tape Allergy Intermediate skin turns Verified 05/18/23 18:17 red Sulfa (Sulfonamide Allergy Unknown hives Verified 05/18/23 18:17 Antibiotics) Review of Systems Review of Systems: All systems as dictated in [facility] Past Medical History Medical History Anxiety Asthma Depression GERD (gastroesophageal reflux disease) Hypertension Hypothyroidism Musculoskeletal disorder Compression fracture L1-L2, right foot plantar fasciitis, bone spur Polycystic ovarian disease Seasonal allergies Urinary tract infection Social History Social History Smoking status: Never smoker Gender identity (if verbalized by the patient): Female Exam Narrative: GENERAL: Well-appearing, well-nourished, and in no acute distress. Morbidly obese. HEAD: Normocephalic, atraumatic. EYES: PERRLA and EOMI. ENT: Nares clear, no rhinorrhea or epistaxis. Mucous membranes moist. Oropharynx without tonsillar hypertrophy exudate or other lesions. NECK: Supple. No adenopathy or masses. CHEST: No respiratory distress. Clear to auscultation. No wheezes rales or rhonchi HEART: Regular rate and rhythm. No murmur heard. Normal peripheral pulses. ABDOMEN: Soft, nontender, nondistended, normal active bowel sounds. MSK: Near full passive range of motion of the right knee. Extension is full, although it is painful. No redness, swelling of the knee. Medial and lateral joint line tenderness present. Mild tenderness to the posterior right knee. Left knee benign. Ambulatory. SKIN: Warm, dry, no rash. NEURO: Alert and oriented x3. No focal deficits. PSYCH: Normal mood and affect. Course Vital Signs Vital signs: Vital Signs Temperature 97.7 F 05/18/23 16:07 Pulse Rate 61 05/18/23 16:07 Respiratory Rate 20 05/18/23 16:07 Blood Pressure 157/102 H 05/18/23 16:07 Pulse Oximetry 99 05/18/23 16:07 Oxygen Delivery Room Air 05/18/23 16:07 Temperature 97.4 F L 05/18/23 18
[2023-05-18 19:57] VITALS: BP 153/97; PULSE 58; RESP 16; O2SAT 100
== END 2023-05-18 21:03 | disposition home or self-care (01) ==
PROVIDERS: Emergency Provider Physician Assistant
DX: M25.561 Pain in right knee (principal); G89.29 Other chronic pain; F41.9 Anxiety disorder, unspecified; J45.909 Unspecified asthma, uncomplicated; F32.A Depression, unspecified; K21.9 Gastro-esophageal reflux disease without esophagitis; I10 Essential (primary) hypertension; E03.9 Hypothyroidism, unspecified
CPT/HCPCS: 93971; 99284

== ENCOUNTER 2023-09-15 12:00 | Emergency (ER) | payer OTHER, MEDICAID, SELFPAY ==
[2023-09-15 12:08] VITALS: BP 148/59; PULSE 71; RESP 18; TEMP 36.6; O2SAT 98
--- NOTE | 2023-09-15 12:36 | PC.NURSE ---
in br to obtain ua spec.
--- NOTE | 2023-09-15 13:03 | ED.NAVMDI ---
HPI - Nausea/Vomiting/Diarrhea General Chief complaint: Nausea/Vomiting/Diarrhea Stated complaint: Diarrhea/Nausea/Abdominal Pain Source: patient and RN notes reviewed Mode of arrival: ambulatory Limitations: no limitations History of Present Illness HPI Narrative: 37-year-old female presented for complaint of nausea and diarrhea; onset yesterday. Reports one episode of diarrhea last night. She was able to eat a few cookies today without diarrhea. Endorses nausea and blood on toilet tissue, history of hemorrhoids. Denies significant abdominal pain, fevers or lethargy. denies hematuria, vomiting, flank pain, constipation. Related Data Home Medications Medication Instructions Recorded Confirmed cetirizine 10 mg tablet 10 mg PO DAILY 03/10/19 08/30/22 citalopram 20 mg tablet 20 mg PO QAM 03/10/19 08/30/22 levothyroxine 175 mcg tablet 175 mcg PO 4XW 03/10/19 08/30/22 mirtazapine 15 mg tablet 15 mg PO HS 03/10/19 08/30/22 montelukast 10 mg tablet 10 mg PO HS 03/10/19 08/30/22 acetaminophen 500 mg tablet 500 mg PO Q6H PRN Pain 07/06/20 08/30/22 (Tylenol Extra Strength) cholecalciferol (vitamin D3) 125 125 mcg PO DAILY 07/06/20 08/30/22 mcg (5,000 unit) tablet (Vitamin D3) levonorgestrel 21 mcg/24 hr (up to 1 device intrauterine ONCE 07/06/20 08/30/22 8 years) 52 mg intrauterine device (Mirena) albuterol sulfate 90 mcg/actuation 2 puff inhalation QID PRN 08/30/22 08/30/22 aerosol inhaler Shortness Of Breath Or Wheezing enalapril maleate 10 mg tablet 10 mg PO DAILY 08/30/22 08/30/22 hydrochlorothiazide 25 mg tablet 25 mg PO DAILY 08/30/22 08/30/22 tramadol 50 mg tablet 50 mg PO DAILY 08/30/22 08/30/22 PreserVision AREDS-2 09/15/23 azelastine 137 mcg (0.1 %) nasal intranasal 09/15/23 spray aerosol beclomethasone dipropionate 80 inhalation 09/15/23 mcg/actuation HFA breath activated aerosol (Qvar RediHaler) celecoxib 200 mg capsule mg 09/15/23 epinephrine 09/15/23 escitalopram oxalate 10 mg tablet mg 09/15/23 09/15/23 gabapentin 300 mg capsule mg 09/15/23 hydrochlorothiazide 25 mg tablet mg 09/15/23 omeprazole 20 mg capsule,delayed mg 09/15/23 release trazodone 100 mg tablet mg 09/15/23 Allergies Allergy/AdvReac Type Severity Reaction Status Date / Time adhesive tape Allergy Intermediate skin turns Verified 09/15/23 12:13 red Sulfa (Sulfonamide Allergy Unknown hives Verified 09/15/23 12:13 Antibiotics) Review of Systems Review of Systems: CONSTITUTIONAL: Denies body aches, fever, chills ENT: Denies rhinorrhea, congestion CARDIOVASCULAR: Denies chest pain, palpitations, or edema. RESPIRATORY: Denies cough or dyspnea. GASTROINTESTINAL: Endorses nausea, diarrhea. Denies vomiting hematemesis GENITOURINARY: Denies dysuria, hematuria, or CVA tenderness. SKIN: Denies rash, itching, or wounds. MUSCULOSKELETAL: Denies back pain, joint pain, or myalgia. NEUROLOGIC: Denies headache, numbness, tingling, or weakness. All systems reviewed & are unremarkable except as noted in HPI and below PMFSH Past Medical History Medical History Anxiety Asthma Depression GERD (gastroesophageal reflux disease) Hypertension Hypothyroidism Musculoskeletal disorder Compression fracture L1-L2, right foot plantar fasciitis, bone spur Polycystic ovarian disease Seasonal allergies Urinary tract infection Social History Social History Smoking status: Never smoker Gender identity (if verbalized by the patient): Female Comments At time of signature, I have reviewed and agree with nursing past medical, surgical, social and family history unless otherwise noted. Please see nursing chart for further information. There is no relevant family history pertinent to the presenting complaint Exam Narrative: GENERAL: Well-appearing, and in no acute distress. EYES: EOMI. Conjunc
== END 2023-09-15 13:12 | disposition home or self-care (01) ==
PROVIDERS: Emergency Provider Nurse Practitioner Family
DX: R19.7 Diarrhea, unspecified (principal); J45.909 Unspecified asthma, uncomplicated; K21.9 Gastro-esophageal reflux disease without esophagitis; I10 Essential (primary) hypertension; E03.9 Hypothyroidism, unspecified; E28.2 Polycystic ovarian syndrome
CPT/HCPCS: 81003; 87086; 87088; 99213; G0463

== ENCOUNTER 2023-09-28 11:22 | Outpatient (CLI) | payer OTHER, MEDICAID, SELFPAY ==
[2023-09-28 12:10] LABS: Anion Gap 9 mmol/L (4-12); Blood Urea Nitrogen 20 mg/dL (7-17); Calcium 9.1 mg/dL (8.4-10.2); Carbon Dioxide 27 mmol/L (22-30); Chloride 102 mmol/L (98-107); Estimated Glomerular Filt Rate > 60; Glucose 89 mg/dL (65-110); Potassium 4.5 mmol/L (3.4-5.0); Sodium 138 mmol/L (137-145)
== END 2023-09-28 11:23 | disposition home or self-care (01) ==
LOC: ANHSURGERY 11:30
PROVIDERS: Anesthesiology; PCP Nurse Practitioner Family; Visit Provider Obstetrics & Gynecology
DX: Z01.818 Encounter for other preprocedural examination (principal); Z79.899 Other long term (current) drug therapy
CPT/HCPCS: 36415; 80048

== ENCOUNTER 2023-09-29 00:26 | Day surgery (SDC) | payer OTHER, MEDICAID, SELFPAY ==
[2023-09-27 11:35] VITALS: BMI 60.0
--- NOTE | 2023-09-27 11:45 | PC.NURSE ---
Report to the Outpatient Waiting Room, entrance under the green pavilion located off [facility], at time _1130_ on date _[id number]_. Planned Procedure Time: _130pm_. Time changes happen often and if your time is changed the preop area will call you the afternoon before. - You and your visitor will be asked to self-screen and do not enter if you have any COVID symptoms. - A mask is optional within the hospital at this time. Patients may have clear liquids (water, carbonated beverages, clear teas, apple juice) until 3 hours prior to surgery with a maximum of 20 ounces. - No food from midnight until time of surgery Take the following medications with a SIP of water the morning of surgery: ___Escitalopram, Gabapentin, Levothyroxine, Qvar, Flonase DO NOT STOP ANY OF YOUR OTHER PRESCRIPTION MEDICATIONS PRIOR TO SURGERY ?EXCEPT THE FOLLOWING Medications to discontinue per physician ____All vitamins Date to take last dose_stop now. Please no make-up, nail serbian, hairspray, perfume, deodorant, or body powder the day of surgery. No jewelry (including any body piercings) or valuables the day of surgery, leave them at home. Please take a shower or bath the night before, or the morning of, surgery with an antibacterial soap. Wear comfortable, loose fitting clothing. - Jewelry must be removed prior to entering the operating room. Rings and piercings that are not removed may be cut off. - The hospital will not accept responsibility for valuables. - Please leave all valuables, including medications, at home the day of surgery. If you are going home after surgery, a licensed [employer] company truck driver must drive you home. - NO public transportation without another adult if you receive anesthesia. - We recommend that an adult stay with you for 24 hours following discharge. - We also recommend that you do not drive, make important decision, drink alcoholic beverages, or take any drugs that were not prescribed by your health care provider for at least 24 hours after your discharge time. Follow any additional instructions given to you from your surgeon. If you or anyone in your household have experienced Covid symptoms in the past week, please notify your surgeon or the nurse liaison at the phone number below for possible testing. Telephone instructions given to ___Dedra and asked if any additional questions and then verbalized understanding. Patient advised to call surgeon office or pre surgery nurse liaison [phone] if any additional questions.
[2023-09-29] VITALS (13 sets, daily range): BP systolic 116–161; BP diastolic 54–86; PULSE 65–82; RESP 12–20; TEMP 36.4–36.6; O2SAT 92–100; BMI 59.3
[2023-09-29] MEDS: LACTATED RINGERS 1,000 ML 30 ML IV CONT ×2 (10:55→14:10)
--- NOTE | 2023-09-29 11:24 | WPDHPUPDATE1 ---
History and Physical Update Update Date/Time: 09/29/23 11:24 History and Physical has been reviewed, including an updated exam of the patient. There are NO changes in the patient's condition. Risks, benefits, and alternatives have been discussed and questions answered. Patient agrees to proceed with procedure.
[2023-09-29] MEDS: KETOROLAC 15 MG/ML VIAL (*BKC) IV PUSH (11:25)
[2023-09-29] MEDS: ACETAMINOPHEN 500 MG TABLET 1000 MG PO (11:25)
--- NOTE | 2023-09-29 11:46 | WPDANESEPPF ---
Anes - Initial Pre Proc Eval Procedure: Operation Date: 09/29/23 13:30 Proposed Procedures p Laparoscopic Left Ovarian Cystectomy - Julio César Rosado MD Date/Time: 09/29/23 11:46 Surgeon: Julio César Rosado MD Pre Op Diagnosis: Left ovary cyst Patient Data Age: 37 Gender: F Height: 1.59 m Weight: 149.6 kg Last Vital Signs Temp 36.4 C 09/29/23 10:40 Pulse 70 09/29/23 10:40 Resp 18 09/29/23 10:40 BP 139/86 09/29/23 10:40 Pulse Ox 98 09/29/23 10:40 O2 Del Method Room Air 09/29/23 10:40 Allergies Allergy/AdvReac Type Severity Reaction Status Date / Time adhesive tape Allergy Intermediate skin turns Verified 09/29/23 10:53 red Sulfa (Sulfonamide Allergy Unknown hives Verified 09/29/23 10:53 Antibiotics) Home Medications Medication Instructions Recorded Confirmed Type cetirizine 10 mg tablet 10 mg PO DAILY 03/10/19 09/27/23 History levothyroxine 175 mcg tablet 175 mcg PO 4XW 03/10/19 09/29/23 History fluticasone propionate 50 2 spray intranasal DAILY #9.9 mL 04/13/20 09/29/23 Rx mcg/actuation nasal spray,suspension (Flonase Allergy Relief) acetaminophen 500 mg tablet 500 mg PO Q6H PRN Pain 07/06/20 09/27/23 History (Tylenol Extra Strength) levonorgestrel 21 mcg/24 hr (up to 1 device intrauterine ONCE 07/06/20 09/27/23 History 8 years) 52 mg intrauterine device (Mirena) albuterol sulfate 90 mcg/actuation 2 puff inhalation QID PRN 08/30/22 09/27/23 History aerosol inhaler Shortness Of Breath Or Wheezing enalapril maleate 10 mg tablet 10 mg PO DAILY 08/30/22 09/27/23 History hydrochlorothiazide 25 mg tablet 25 mg PO DAILY 08/30/22 09/27/23 History tramadol 50 mg tablet 50 mg PO DAILY 08/30/22 09/27/23 History PreserVision AREDS-2 1 tab-cap PO BID 09/15/23 09/29/23 History azelastine 137 mcg (0.1 %) nasal 1 spray intranasal HS 09/15/23 09/27/23 History spray aerosol escitalopram oxalate 10 mg tablet 10 mg PO QAM 09/15/23 09/29/23 History gabapentin 300 mg capsule 300 mg PO TID 09/15/23 09/29/23 History omeprazole 20 mg capsule,delayed 20 mg PO BID 09/15/23 09/27/23 History release trazodone 100 mg tablet 100 mg PO HS 09/15/23 09/27/23 History Lactobacillus 25 billion 1 cap PO DAILY 09/27/23 09/29/23 History cell-Bifido 25 billion [id number] capsule ascorbic acid (vitamin C) 1,000 mg 1 g PO BID 09/27/23 09/29/23 History tablet (Vitamin C) beclomethasone dipropionate 80 2 inh inhalation BID 09/27/23 09/27/23 History mcg/actuation HFA breath activated aerosol (Qvar RediHaler) cholecalciferol (vitamin D3) 50 100 mcg PO DAILY 09/27/23 09/29/23 History mcg (2,000 unit) capsule (Vitamin D3) cyanocobalamin (vitamin B-12) 5,000 mcg sublingual DAILY 09/27/23 09/29/23 History 5,000 mcg sublingual tablet (Vitamin B-12) epinephrine 0.3 mg/0.3 mL 0.3 mg IM Q4H PRN Allergic Reaction 09/27/23 09/27/23 History injection, auto-injector ibuprofen 200 mg tablet 200 mg PO Q6H PRN Pain 09/27/23 09/27/23 History meloxicam 15 mg tablet 15 mg PO QPM 09/27/23 09/27/23 History multivitamin 1 tablet PO DAILY 09/27/23 09/29/23 History Patient hx anesthesia problems: other (low oxygen) Family hx anesthesia problems: none Results Review: All pre-operative results and documents have been reviewed as part of the pre-operative evaluation. [facility] Past Medical History Medical History Anxiety Asthma Depression GERD (gastroesophageal reflux disease) Hypertension Hypothyroidism Musculoskeletal disorder Compression fracture L1-L2, right foot plantar fasciitis, bone spur Polycystic ovarian disease Seasonal allergies Urinary tract infection Social History Social History Smoking status: Never smoker Living arrangements: with family Gender identity (if verbalized by the patient): Female Spiritual care concerns:
--- NOTE | 2023-09-29 12:59 | P.OP_ITS ---
Procedure Note - Detailed Date of Procedure 09/29/23 Pre-op Diagnosis Left ovary cyst Post-op Diagnosis Same Procedure Performed Diagnostic laparoscopy Surgeon Julio César Rosado MD Anesthesia General Indications Pelvic pain Findings 5 cm left ovarian cyst, otherwise normal pelvic anatomy Description of Procedure The patient was taken to the operating room. She was prepped and draped in the dorsal lithotomy position after induction general anesthesia. A 5 mm incision was made with a scalpel on the abdominal skin in the left upper quadrant of the abdomen. A 5 mm trocar was inserted into the intra-abdominal cavity under direct visualization the scope. In the same fashion a 5 mm left lower quadrant trocar was inserted and a 5 mm infraumbilical trocar was inserted. left ovarian cystectomy was performed. It was non was LigaSure cautery. The entire roof of the cyst was removed. This was done with LigaSure cautery. The cyst capsule was then removed with dissection. The open surface on the ovary w as then cauterized thoroughly. It was hemostatic at the end of the cystectomy. The pelvis was irrigated. The pneumoperitoneum was reduced. The trocars were removed. Skin was closed with subcuticular 4 micro. The patient's incisions were covered with Dermabond. She was taken recovery room in stable condition. Sponge lap and needle counts were correct x2. Estimated Blood Loss 10 Pathology Yes Complications No immediate complications Condition Stable Disposition Same day
[2023-09-29] MEDS: fentaNYL CITRATE INJ (*CRX) 100 MCG/2 ML VIAL 25 MCG IV PUSH ×8 (13:29→14:11)
[2023-09-29] MEDS: HYDROmorphone HCL INJ (*CRX) 1 MG/ML SYR IV PUSH ×3 (13:50→14:16)
[2023-09-29] MEDS: oxyCODONE HCL (*CRX) 5 MG TAB IR PO (14:47)
== END 2023-09-29 16:00 | disposition home or self-care (01) ==
PROVIDERS: PCP Nurse Practitioner Family; Visit Provider Obstetrics & Gynecology
PROC: (CPT 49320; principal; 2023-09-29 13:30)
DX: N83.12 Corpus luteum cyst of left ovary (principal); N83.02 Follicular cyst of left ovary; I10 Essential (primary) hypertension; K21.9 Gastro-esophageal reflux disease without esophagitis; E03.9 Hypothyroidism, unspecified; J45.909 Unspecified asthma, uncomplicated; F32.A Depression, unspecified; F41.9 Anxiety disorder, unspecified; M79.9 Soft tissue disorder, unspecified; E66.01 Morbid (severe) obesity due to excess calories; Z68.43 Body mass index [BMI] 50.0-59.9, adult; Z79.51 Long term (current) use of inhaled steroids; Z79.1 Long term (current) use of non-steroidal anti-inflammatories (NSAID); Z79.891 Long term (current) use of opiate analgesic
CPT/HCPCS: 58662; 36415; 80048; 88305; A9270; J0330; J1100; J1170; J1885; J2250; J2405; J2704; J3010; J7030; J7120

== ENCOUNTER 2023-10-08 11:11 | Emergency (ER) | payer MEDICAID, SELFPAY ==
[2023-10-08 11:23] VITALS: BP 152/79; PULSE 79; RESP 16; TEMP 36.6; O2SAT 98
--- NOTE | 2023-10-08 11:54 | ED.GENADULT ---
HPI - General Adult General Chief complaint: Upper Respiratory Infection Stated complaint: throat/fever Source: patient Mode of arrival: ambulatory Limitations: no limitations History of Present Illness HPI narrative: Patient presents for evaluation of sore throat since October 02 of this year. She went to the emergency department at [facility] on October 05. Her strep, COVID, influenza, RSV test were all negative. She was given a prescription for prednisone. Symptoms persist. She is also using Cepacol lozenges. She has underlying sleep apnea but is not using a CPAP. She denies any fever, chills, nausea, vomiting cough, shortness of breath. She does have some nasal congestion and postnasal drainage. She attributes these symptoms to allergies. She missed her last weekly allergy shot. Related Data Home Medications Medication Instructions Recorded Confirmed cetirizine 10 mg tablet 10 mg PO DAILY 03/10/19 09/27/23 levothyroxine 175 mcg tablet 175 mcg PO 4XW 03/10/19 09/29/23 acetaminophen 500 mg tablet 500 mg PO Q6H PRN Pain 07/06/20 09/27/23 (Tylenol Extra Strength) levonorgestrel 21 mcg/24 hr (up to 1 device intrauterine ONCE 07/06/20 09/27/23 8 years) 52 mg intrauterine device (Mirena) albuterol sulfate 90 mcg/actuation 2 puff inhalation QID PRN 08/30/22 09/27/23 aerosol inhaler Shortness Of Breath Or Wheezing enalapril maleate 10 mg tablet 10 mg PO DAILY 08/30/22 09/27/23 hydrochlorothiazide 25 mg tablet 25 mg PO DAILY 08/30/22 09/27/23 tramadol 50 mg tablet 50 mg PO DAILY 08/30/22 09/27/23 PreserVision AREDS-2 1 tab-cap PO BID 09/15/23 09/29/23 azelastine 137 mcg (0.1 %) nasal 1 spray intranasal HS 09/15/23 09/27/23 spray escitalopram oxalate 10 mg tablet 10 mg PO QAM 09/15/23 09/29/23 gabapentin 300 mg capsule 300 mg PO TID 09/15/23 09/29/23 omeprazole 20 mg capsule,delayed 20 mg PO BID 09/15/23 09/27/23 release trazodone 100 mg tablet 100 mg PO HS 09/15/23 09/27/23 Lactobacillus 25 billion 1 cap PO DAILY 09/27/23 09/29/23 cell-Bifido 25 billion [id number] capsule ascorbic acid (vitamin C) 1,000 mg 1 g PO BID 09/27/23 09/29/23 tablet (Vitamin C) beclomethasone dipropionate 80 2 inh inhalation BID 09/27/23 09/27/23 mcg/actuation HFA breath activated aerosol (Qvar RediHaler) cholecalciferol (vitamin D3) 50 100 mcg PO DAILY 09/27/23 09/29/23 mcg (2,000 unit) capsule (Vitamin D3) cyanocobalamin (vitamin B-12) 5,000 mcg sublingual DAILY 09/27/23 09/29/23 5,000 mcg sublingual tablet (Vitamin B-12) epinephrine 0.3 mg/0.3 mL 0.3 mg IM Q4H PRN Allergic Reaction 09/27/23 09/27/23 injection, auto-injector ibuprofen 200 mg tablet 200 mg PO Q6H PRN Pain 09/27/23 09/27/23 meloxicam 15 mg tablet 15 mg PO QPM 09/27/23 09/27/23 multivitamin 1 tablet PO DAILY 09/27/23 09/29/23 Allergies Allergy/AdvReac Type Severity Reaction Status Date / Time adhesive tape Allergy Intermediate skin turns Verified 09/29/23 10:53 red Sulfa (Sulfonamide Allergy Unknown hives Verified 09/29/23 10:53 Antibiotics) Review of Systems Review of Systems: CONSTITUTIONAL: Denies fever, chills, or sweats. EYES: Denies visual changes, redness, or discharge. ENT: Reports sinus congestion, postnasal drainage, sore throat. CARDIOVASCULAR: Denies chest pain, palpitations, or edema. RESPIRATORY: Denies cough or dyspnea. GASTROINTESTINAL: Denies abdominal pain, nausea, vomiting, or diarrhea. GENITOURINARY: Denies dysuria or hematuria. SKIN: Denies rash or itching. MUSCULOSKELETAL: Denies back pain, joint pain, or myalgia. NEUROLOGIC: Denies headache, numbness, dizziness, or weakness. PSYCHIATRIC: Denies anxiety or depression. [facility] Past Medical History Medical History Anxiety Asthma Depression GERD (gastroesophageal reflux disease) Hypertension Hypothyroidism Musculoskeletal disorder Compression fracture L1-L2, right foot ramu
[2023-10-08 12:06] LABS: EDSTREPNEGPOS1 Presumptive Negative
== END 2023-10-08 12:05 | disposition home or self-care (01) ==
PROVIDERS: Emergency Provider Nurse Practitioner; PCP Nurse Practitioner Family
DX: J02.9 Acute pharyngitis, unspecified (principal); G47.30 Sleep apnea, unspecified; Z91.199 Patient's noncompliance with other medical treatment and regimen due to unspecified reason; J45.909 Unspecified asthma, uncomplicated; K21.9 Gastro-esophageal reflux disease without esophagitis; I10 Essential (primary) hypertension; E03.9 Hypothyroidism, unspecified; E28.2 Polycystic ovarian syndrome; F41.9 Anxiety disorder, unspecified; F32.A Depression, unspecified
CPT/HCPCS: 87081; 87880; 99213; G0463

== ENCOUNTER 2023-11-05 16:39 | Emergency (ER) | payer MEDICAID, SELFPAY ==
--- NOTE | ~2023-11-05 | XR_ITS ---
EXAMINATION: XR lumbar spine 2-3V DATE: 11/05/2023 17:31 INDICATION: Chronic low back pain TECHNIQUE: Anteroposterior and lateral views of the lumbar spine, and cone-down lateral view of the l umbosacral junction were obtained. COMPARISON: None. FINDINGS: Hypoplastic riblets at a transitional thoracolumbar segment. There are 5 more caudal nonrib-bearing l umbar segments, L1-L5 the spinous process of L5 remains developmentally unfused. Alignment is normal. Vertebral body heights are normal. Moderate disc height loss at L4-L5. Mild disc height loss at L5-S 1. Visualized portion of the sacrum and bilateral sacroiliac joints are normal. IMPRESSION: 1. Moderate lower lumbar spondylosis. Reviewed, dictated and finalized at location A.
[2023-11-05 16:52] VITALS: BP 157/90; PULSE 98; RESP 18; O2SAT 98
[2023-11-05 17:11] LABS: BEDSIDEPREGUCG Negative
[2023-11-05 17:12] LABS: Add Urine Microscopic? NO; Appearance Urine Clear (Clear); Bilirubin Urine Negative (Negative); Blood Urine Negative (Negative); Color Urine Yellow (Yellow); Glucose Urine UA Negative (Negative); Ketones Urine Negative (Negative); Leukocyte Esterase Ur Negative LEU/UL (Negative); Nitrate Urine Negative (Negative); Protein Urine Negative (Negative); Specific Grav Ur 1.011 (1.001-1.035); Urobilinogen Urine 0.2 mg/dL (<2.0)
--- NOTE | 2023-11-05 17:13 | ED.GENADULT ---
HPI - General Adult General Chief complaint: Back Pain/Injury Stated complaint: back pain Time Seen by Provider: 11/05/23 17:13 patient presents with lower back pain that radiates down left leg. patient states the pain has been increasing for 1 month. patient has a hx of back pain. patient is under pain management. patient also having urinary frequency. no other complaints. PE: A&OX3, BS non-labored, tenderness to Lumbar spine, patient ambulating with no assistance History of Present Illness HPI narrative: 37 y/o female presents with lower back pain that radiates down her left leg that has been going on for a month. patient denies any trauma or injury. patient is under a pain contract with pcp and has been taken tramadol. patient denies imaging. no other complaints. patient is currently being treated with abx for a UTI. Onset (ago): month(s) Related Data Home Medications Medication Instructions Recorded Confirmed cetirizine 10 mg tablet 10 mg PO DAILY 03/10/19 09/27/23 levothyroxine 175 mcg tablet 175 mcg PO 4XW 03/10/19 09/29/23 acetaminophen 500 mg tablet 500 mg PO Q6H PRN Pain 07/06/20 09/27/23 (Tylenol Extra Strength) levonorgestrel 21 mcg/24 hr (up to 1 device intrauterine ONCE 07/06/20 09/27/23 8 years) 52 mg intrauterine device (Mirena) albuterol sulfate 90 mcg/actuation 2 puff inhalation QID PRN 08/30/22 09/27/23 aerosol inhaler Shortness Of Breath Or Wheezing enalapril maleate 10 mg tablet 10 mg PO DAILY 08/30/22 09/27/23 hydrochlorothiazide 25 mg tablet 25 mg PO DAILY 08/30/22 09/27/23 tramadol 50 mg tablet 50 mg PO DAILY 08/30/22 09/27/23 PreserVision AREDS-2 1 tab-cap PO BID 09/15/23 09/29/23 azelastine 137 mcg (0.1 %) nasal 1 spray intranasal HS 09/15/23 09/27/23 spray escitalopram oxalate 10 mg tablet 10 mg PO QAM 09/15/23 09/29/23 gabapentin 300 mg capsule 300 mg PO TID 09/15/23 09/29/23 omeprazole 20 mg capsule,delayed 20 mg PO BID 09/15/23 09/27/23 release trazodone 100 mg tablet 100 mg PO HS 09/15/23 09/27/23 Lactobacillus 25 billion 1 cap PO DAILY 09/27/23 09/29/23 cell-Bifido 25 billion [id number] capsule ascorbic acid (vitamin C) 1,000 mg 1 g PO BID 09/27/23 09/29/23 tablet (Vitamin C) beclomethasone dipropionate 80 2 inh inhalation BID 09/27/23 09/27/23 mcg/actuation HFA breath activated aerosol (Qvar RediHaler) cholecalciferol (vitamin D3) 50 100 mcg PO DAILY 09/27/23 09/29/23 mcg (2,000 unit) capsule (Vitamin D3) cyanocobalamin (vitamin B-12) 5,000 mcg sublingual DAILY 09/27/23 09/29/23 5,000 mcg sublingual tablet (Vitamin B-12) epinephrine 0.3 mg/0.3 mL 0.3 mg IM Q4H PRN Allergic Reaction 09/27/23 09/27/23 injection, auto-injector ibuprofen 200 mg tablet 200 mg PO Q6H PRN Pain 09/27/23 09/27/23 meloxicam 15 mg tablet 15 mg PO QPM 09/27/23 09/27/23 multivitamin 1 tablet PO DAILY 09/27/23 09/29/23 Allergies Allergy/AdvReac Type Severity Reaction Status Date / Time adhesive tape Allergy Intermediate skin turns Verified 11/05/23 16:51 red Sulfa (Sulfonamide Allergy Unknown hives Verified 11/05/23 16:51 Antibiotics) Review of Systems Review of Systems: All systems reviewed & are unremarkable except as noted in HPI and below Musculoskeletal: Musculoskeletal: Reports back pain PMFSH Past Medical History Medical History Anxiety Asthma Depression GERD (gastroesophageal reflux disease) Hypertension Hypothyroidism Musculoskeletal disorder Compression fracture L1-L2, right foot plantar fasciitis, bone spur Polycystic ovarian disease Seasonal allergies Urinary tract infection Surgical History Surgical History History of removal of ovarian cyst Family History Family History Mother Family history non-contributory Social History Social History (Reviewed
[2023-11-05] MEDS: methylPREDNISolone SOD SUCC 125 MG VIAL IM (18:34)
[2023-11-05 18:42] VITALS: BP 130/75; PULSE 70; RESP 18; TEMP 36.6; O2SAT 95
== END 2023-11-05 18:42 | disposition home or self-care (01) ==
LOC: ANHED 18:34
PROVIDERS: Emergency Provider Nurse Practitioner Family; PCP Nurse Practitioner Family
DX: M54.42 Lumbago with sciatica, left side (principal); M54.16 Radiculopathy, lumbar region; N39.0 Urinary tract infection, site not specified; J45.909 Unspecified asthma, uncomplicated; I10 Essential (primary) hypertension; E03.9 Hypothyroidism, unspecified; E28.2 Polycystic ovarian syndrome; K21.9 Gastro-esophageal reflux disease without esophagitis; F32.A Depression, unspecified; F41.9 Anxiety disorder, unspecified
CPT/HCPCS: 72100; 81003; 81025; 96372; 99283; J2919

== ENCOUNTER 2023-11-15 15:58 | Emergency (ER) | payer MEDICAID, SELFPAY ==
--- NOTE | ~2023-11-15 | US_ITS ---
EXAMINATION: US venous doppler LE RT DATE: 11/15/2023 18:14 INDICATION: R LE swelling and pain . TECHNIQUE: Grayscale images without and with compression and Doppler images of the right lower extrem ity veins were obtained. COMPARISON: None FINDINGS: The right common femoral vein, profunda (deep) femoral vein, femoral vein, popliteal vein, peroneal v ein, posterior tibial veins, and greater saphenous vein are patent. IMPRESSION: Patent right lower extremity veins. No evidence of deep venous thrombosis. Reviewed, dictated and finalized at location K.
--- NOTE | ~2023-11-15 | XR_ITS ---
XR knee RT 3V Ordering provider: Eusebia Greco History: . pain RT knee . Comparison: None. FINDINGS: BONES: No acute fracture or dislocation. JOINT SPACES: Normal. SOFT TISSUES: Normal. IMPRESSION: No acute osseous abnormality right knee. Reviewed, dictated and finalized at location A.
[2023-11-15 16:38] VITALS: BP 147/71; PULSE 60; RESP 17; TEMP 36.6; O2SAT 99
--- NOTE | 2023-11-15 17:39 | ED.LOWEXIN ---
HPI - Extremity Injury (Lower) General Chief Complaint: Extremity Injury, Lower Stated Complaint: right knee pain Time Seen by Provider: 11/15/23 17:36 Source: patient and family Mode of arrival: wheelchair Limitations: no limitations History of Present Illness HPI Narrative: HPI: Pt is a 38-year-old female who presents to the ER with R lower extremity pain. It is tender at rest, but increases in pain when she stands and upon palpitation. Pt reports she's never had a blood clot before. On November 09, pt reports she shifted her weight and felt a pop. She went to [facility] that day and had a negative x-ray. Pt has a follow-up appointment scheduled for Wednesday. She reports the pain in her leg became intense today. MD complaint: leg injury Injury: Right: knee Type of Injury: eversion Severity scale (1-10): 10 Relieving factors: NSAID and rest Exacerbating factors: weight bearing, movement and palpation Associated symptoms: snap/pop sensation and swelling Treatments prior to arrival: NSAIDS and other (muscle relaxants) Related Data Home Medications Medication Instructions Recorded Confirmed cetirizine 10 mg tablet 10 mg PO DAILY 03/10/19 09/27/23 levothyroxine 175 mcg tablet 175 mcg PO 4XW 03/10/19 09/29/23 acetaminophen 500 mg tablet 500 mg PO Q6H PRN Pain 07/06/20 09/27/23 (Tylenol Extra Strength) levonorgestrel 21 mcg/24 hr (up to 1 device intrauterine ONCE 07/06/20 09/27/23 8 years) 52 mg intrauterine device (Mirena) albuterol sulfate 90 mcg/actuation 2 puff inhalation QID PRN 08/30/22 09/27/23 aerosol inhaler Shortness Of Breath Or Wheezing enalapril maleate 10 mg tablet 10 mg PO DAILY 08/30/22 09/27/23 hydrochlorothiazide 25 mg tablet 25 mg PO DAILY 08/30/22 09/27/23 tramadol 50 mg tablet 50 mg PO DAILY 08/30/22 09/27/23 PreserVision AREDS-2 1 tab-cap PO BID 09/15/23 09/29/23 azelastine 137 mcg (0.1 %) nasal 1 spray intranasal HS 09/15/23 09/27/23 spray escitalopram oxalate 10 mg tablet 10 mg PO QAM 09/15/23 09/29/23 gabapentin 300 mg capsule 300 mg PO TID 09/15/23 09/29/23 omeprazole 20 mg capsule,delayed 20 mg PO BID 09/15/23 09/27/23 release trazodone 100 mg tablet 100 mg PO HS 09/15/23 09/27/23 Lactobacillus 25 billion 1 cap PO DAILY 09/27/23 09/29/23 cell-Bifido 25 billion [id number] capsule ascorbic acid (vitamin C) 1,000 mg 1 g PO BID 09/27/23 09/29/23 tablet (Vitamin C) beclomethasone dipropionate 80 2 inh inhalation BID 09/27/23 09/27/23 mcg/actuation HFA breath activated aerosol (Qvar RediHaler) cholecalciferol (vitamin D3) 50 100 mcg PO DAILY 09/27/23 09/29/23 mcg (2,000 unit) capsule (Vitamin D3) cyanocobalamin (vitamin B-12) 5,000 mcg sublingual DAILY 09/27/23 09/29/23 5,000 mcg sublingual tablet (Vitamin B-12) epinephrine 0.3 mg/0.3 mL 0.3 mg IM Q4H PRN Allergic Reaction 09/27/23 09/27/23 injection, auto-injector ibuprofen 200 mg tablet 200 mg PO Q6H PRN Pain 09/27/23 09/27/23 meloxicam 15 mg tablet 15 mg PO QPM 09/27/23 09/27/23 multivitamin 1 tablet PO DAILY 09/27/23 09/29/23 Allergies Allergy/AdvReac Type Severity Reaction Status Date / Time adhesive tape Allergy Intermediate skin turns Verified 11/05/23 16:51 red Sulfa (Sulfonamide Allergy Unknown hives Verified 11/05/23 16:51 Antibiotics) Review of Systems Review of Systems: All systems reviewed & are unremarkable except as noted in HPI. All systems reviewed & are unremarkable except as noted in HPI and below PMFSH Past Medical History Medical History Anxiety Asthma Depression GERD (gastroesophageal reflux disease) Hypertension Hypothyroidism Musculoskeletal disorder Compression fracture L1-L2, right foot plantar fasciitis, bone spur Polycystic ovarian disease Seasonal allergies Urinary tract infection Surgical History Surgical History
== END 2023-11-15 18:48 | disposition home or self-care (01) ==
LOC: ANHED 18:44
PROVIDERS: Emergency Provider Registered Nurse; PCP Nurse Practitioner Family
DX: S86.911A Strain of unspecified muscle(s) and tendon(s) at lower leg level, right leg, initial encounter (principal); I10 Essential (primary) hypertension; E03.9 Hypothyroidism, unspecified; E28.2 Polycystic ovarian syndrome; J45.909 Unspecified asthma, uncomplicated; F41.9 Anxiety disorder, unspecified; F32.A Depression, unspecified; Z87.440 Personal history of urinary (tract) infections; Z79.899 Other long term (current) drug therapy; X50.9XXA Other and unspecified overexertion or strenuous movements or postures, initial encounter
CPT/HCPCS: 73562; 93971; 99284

== ENCOUNTER 2023-11-27 12:31 | Emergency (ER) | payer MEDICAID, SELFPAY ==
[2023-11-27 12:40] VITALS: BP 136/89; PULSE 84; RESP 20; TEMP 36.9; O2SAT 97
--- NOTE | 2023-11-27 12:57 | ED.URI ---
HPI - URI/Sore Throat General Chief Complaint: Upper Respiratory Infection Stated Complaint: cough/drainage/headache Time Seen by Provider: 11/27/23 12:57 Source: patient, RN notes reviewed and old records reviewed Mode of arrival: ambulatory Limitations: no limitations History of Present Illness HPI Narrative: 38 year old female presents to express care with complaints of cough, sinus congestion and headache which started this morning and she felt tired yesterday. She reports that her boyfriend has been ill since Wednesday with similar symptoms and he tested positive for COVID today. Patient has not taken any OTC medication for her symptoms. no fever noted. Patient does have a history of asthma no tachypnea noted, SAO2 97% on room air MD elicited complaint: cough Pertinent past history: asthma Onset (ago): day(s) (since yesterday fatigue headache and cough this morning) Severity: moderate Description of mucous: yellow Able to tolerate fluids by mouth: Yes Treatments prior to arrival: none Related Data Home Medications Medication Instructions Recorded Confirmed levothyroxine 175 mcg tablet 175 mcg PO DAILY 03/10/19 11/27/23 levonorgestrel 21 mcg/24 hr (up to 1 device intrauterine ONCE 07/06/20 11/27/23 8 years) 52 mg intrauterine device (Mirena) albuterol sulfate 90 mcg/actuation 2 puff inhalation QID PRN 08/30/22 11/27/23 aerosol inhaler Shortness Of Breath Or Wheezing enalapril maleate 10 mg tablet 10 mg PO DAILY 08/30/22 11/27/23 hydrochlorothiazide 25 mg tablet 25 mg PO DAILY 08/30/22 11/27/23 tramadol 50 mg tablet 50 mg PO DAILY 08/30/22 11/27/23 azelastine 137 mcg (0.1 %) nasal 1 spray intranasal HS 09/15/23 11/27/23 spray escitalopram oxalate 10 mg tablet 10 mg PO QAM 09/15/23 11/27/23 gabapentin 300 mg capsule 300 mg PO TID 09/15/23 11/27/23 omeprazole 20 mg capsule,delayed 20 mg PO BID 09/15/23 11/27/23 release trazodone 100 mg tablet 100 mg PO HS 09/15/23 11/27/23 ascorbic acid (vitamin C) 1,000 mg 1 g PO BID 09/27/23 11/27/23 tablet (Vitamin C) beclomethasone dipropionate 80 2 inh inhalation BID 09/27/23 11/27/23 mcg/actuation HFA breath activated aerosol (Qvar RediHaler) cholecalciferol (vitamin D3) 50 100 mcg PO DAILY 09/27/23 11/27/23 mcg (2,000 unit) capsule (Vitamin D3) cyanocobalamin (vitamin B-12) 5,000 mcg sublingual DAILY 09/27/23 11/27/23 5,000 mcg sublingual tablet (Vitamin B-12) epinephrine 0.3 mg/0.3 mL 0.3 mg IM Q4H PRN Allergic Reaction 09/27/23 11/27/23 injection, auto-injector meloxicam 15 mg tablet 15 mg PO QPM 09/27/23 11/27/23 multivitamin 1 tablet PO DAILY 09/27/23 11/27/23 celecoxib 200 mg capsule 200 mg PO DAILY 11/27/23 11/27/23 cetirizine 10 mg tablet 10 mg PO DAILY 11/27/23 11/27/23 enalapril maleate 10 mg tablet 10 mg PO DAILY 11/27/23 11/27/23 Allergies Allergy/AdvReac Type Severity Reaction Status Date / Time adhesive tape Allergy Intermediate skin turns Verified 11/27/23 13:08 red Sulfa (Sulfonamide Allergy Unknown hives Verified 11/27/23 13:08 Antibiotics) Review of Systems Review of Systems: CONSTITUTIONAL: Reports malaise,no chills, sweats, or fever. EYES: Denies visual changes, redness, or discharge. ENT: Reports rhinorrhea, congestion, sinus pain,no otalgia and no sore throat. CARDIOVASCULAR: Denies chest pain, palpitations, or edema. RESPIRATORY: Reports productive cough.? Denies dyspnea. GASTROINTESTINAL: Denies abdominal pain, nausea, vomiting, diarrhea SKIN: Denies rash or itching. MUSCULOSKELETAL: Denies myalgia. NEUROLOGIC: Reports headache. All systems reviewed & are unremarkable except as noted in HPI and below PMFSH Past Medical History Medical History Anxiety Asthma Depression GERD (gastroesophageal reflux disease) Hypertension Hypothyroidism Musculoskeletal disorder Compression fracture L1-L2, right foot plantar fasciitis, bone spur Polyc
== END 2023-11-27 13:40 | disposition home or self-care (01) ==
PROVIDERS: Emergency Provider Registered Nurse; PCP Nurse Practitioner Family
DX: R05.9 Cough, unspecified (principal); J34.89 Other specified disorders of nose and nasal sinuses; Z20.822 Contact with and (suspected) exposure to COVID-19; J45.909 Unspecified asthma, uncomplicated; K21.9 Gastro-esophageal reflux disease without esophagitis; I10 Essential (primary) hypertension; E03.9 Hypothyroidism, unspecified; E28.2 Polycystic ovarian syndrome; F41.9 Anxiety disorder, unspecified; F32.A Depression, unspecified
CPT/HCPCS: 87426; 99213; G0463

== ENCOUNTER 2024-03-30 16:06 | Emergency (ER) | payer OTHER, SELFPAY ==
--- NOTE | ~2024-03-30 | XR_ITS ---
EXAMINATION: XR chest 2V Exam Date/Time: 03/30/2024 18:11 TRANSLATOR DEAF HISTORY: productive cough Comparison: 03/17/2023. RESULT: Lines, tubes, and devices: None. Lungs and pleura: Clear. Cardiomediastinal silhouette: Stable. Other: No acute osseous or upper abdominal finding. IMPRESSION: No acute cardiopulmonary process. Reviewed, dictated and finalized at location K. SLATOR DEAF
[2024-03-30 16:28] VITALS: BP 146/79; PULSE 72; RESP 18; TEMP 36.2; O2SAT 97
--- NOTE | 2024-03-30 16:28 | ED.NAVMDI ---
HPI - Nausea/Vomiting/Diarrhea General Chief complaint: Nausea/Vomiting/Diarrhea <Magi Veronica PA-C - Last Filed: 04/03/24 18:25> Stated complaint: n/v/d <Magi Veronica PA-C - Last Filed: 04/03/24 18:25> Time Seen by Provider: 03/30/24 16:29 <Magi Veronica PA-C - Last Filed: 04/03/24 18:25> Focused HPI: This is a 38 year old female that presents to the ER for symptoms ongoing over the last weeks. Reports diarrhea, headache, productive cough. She has been wheezing and feeling short of breath. GENERAL: Well-appearing, well-nourished, and in no acute distress. HEAD: Normocephalic, atraumatic. CHEST: No respiratory distress. Mild expiratory wheezing HEART: Regular rate and rhythm.? NEURO: ?Alert and oriented x3. Patient screened in triage and initial orders placed.? ?Additional care and disposition to be based upon?diagnostic testing and treatment. <Magi Veronica PA-C - Last Filed: 04/03/24 18:25> Focused HPI: This is a 38 year old female that presents to the ER for symptoms ongoing over the last weeks. Reports diarrhea, headache, productive cough. She has been wheezing and feeling short of breath. GENERAL: Well-appearing, well-nourished, and in no acute distress. HEAD: Normocephalic, atraumatic. CHEST: No respiratory distress. Mild expiratory wheezing HEART: Regular rate and rhythm.? NEURO: ?Alert and oriented x3. Patient screened in triage and initial orders placed.? ?Additional care and disposition to be based upon?diagnostic testing and treatment. <Geovanna King PA-C - Last Filed: 03/31/24 00:40> Source: patient <PHILIPPE Palacios Last Filed: 03/31/24 00:40> Mode of arrival: ambulatory <PHILIPPE Palacios Last Filed: 03/31/24 00:40> Limitations: no limitations <PHILIPPE Palacios Last Filed: 03/31/24 00:40> History of Present Illness HPI Narrative: Upon my evaluation, patient reports that she had diarrhea last week, which has since resolved. Denies abdominal pain, nausea, vomiting. Denies rectal bleeding or melena. Reports having cough and congestion over the past couple of days, as well as wheezing. States a few of her family members at [facility] have been sick as well. Denies fevers. <Geovanna King PA-C - Last Filed: 03/31/24 00:40> Related Data Home medications: Home Medications ?Medication ?Instructions ?Recorded ?Confirmed ?Last Taken ?Type levothyroxine 175 mcg tablet 175 mcg PO DAILY 03/10/19 11/27/23 09/29/23 09:00 History levonorgestrel (Mirena) 1 device intrauterine ONCE 07/06/20 11/27/23 Unknown History albuterol sulfate 90 mcg/actuation 2 puff inhalation QID PRN 08/30/22 11/27/23 Unknown History aerosol inhaler Shortness Of Breath Or Wheezing enalapril maleate 10 mg tablet 10 mg PO DAILY 08/30/22 11/27/23 Unknown History hydrochlorothiazide 25 mg tablet 25 mg PO DAILY 08/30/22 11/27/23 Unknown History tramadol 50 mg tablet 50 mg PO DAILY 08/30/22 11/27/23 Unknown History azelastine 137 mcg (0.1 %) nasal 1 spray intranasal HS 09/15/23 11/27/23 Unknown History spray escitalopram oxalate 10 mg tablet 10 mg PO QAM 09/15/23 11/27/23 09/29/23 09:00 History gabapentin 300 mg capsule 300 mg PO TID 09/15/23 11/27/23 09/29/23 09:00 History omeprazole 20 mg capsule,delayed 20 mg PO BID 09/15/23 11/27/23 Unknown History release trazodone 100 mg tablet 100 mg PO HS 09/15/23 11/27/23 Unknown History ascorbic acid (vitamin C) 1,000 mg 1 g PO BID 09/27/23 11/27/23 09/27/23 History tablet (Vitamin C) beclomethasone dipropionate 80 2 inh inhalation BID 09/27/23 11/27/23 Unknown History mcg/actuation HFA breath activated aerosol (Qvar RediHaler) cholecalciferol (vitamin D3) 50 100 mcg PO DAILY 09/27/23 11/27/23 09/27/23 History mcg (2,000 unit) capsule (Vitamin D3) cyanocobalamin (vitamin B-12) 5,000 mcg sublingual DAILY 09/27/23 11/27/23 09/27/23 History 5,000 mcg sublingual tablet (Vitamin B-12) epinephrine 0.3 mg/0.3 mL 0.3 mg IM Q4H PRN Allergic Reaction 09/27/23 11/27/23 Unknown History injection, auto-injector meloxicam 15 mg tablet 15 mg PO QPM 09/27/23 11/27/23 Unknown History multivitamin 1 tablet PO DAILY 09/27/23 11/27/23 09/27/23 History celecoxib 200 mg capsule 200 mg PO DAILY 11/27/23 11/27/23 Unknown History cetirizine 10 mg tablet 10 mg PO DAILY 11/27/23 11/27/23 Unknown History enalapril maleate 10 mg tablet 10 mg PO DAILY 11/27/23 11/27/23 Unknown History <Magi Veronica PA-C - Last Filed: 04/03/24 18:25> Allergies/Adverse reactions: Allergies Allergy/AdvReac Type Severity Reaction Status Date / Time adhesive tape Allergy Intermediate skin turns Verified 11/27/23 13:08 red Sulfa (Sulfonamide Allergy Unknown hives Verified 11/27/23 13:08 Antibiotics) <Magi Veronica PA-C - Last Filed: 04/03/24 18:25> Review of Systems Review of Systems: All systems reviewed & are unremarkable except as noted in HPI. <Geovanna King PA-C - Last Filed: 03/31/24 00:40> All systems reviewed & are unremarkable except as noted in HPI and below <Geovanna King PA-C - Last Filed: 03/31/24 00:40> [facility] Past Medical History Medical History: Medical History Anxiety Depression Hypothyroidism Musculoskeletal disorder Compression fracture L1-L2, right foot plantar fasciitis, bone spur Urinary tract infection Polycystic ovarian disease GERD (gastroesophageal reflux disease) Asthma Hypertension Seasonal allergies <Magi Veronica PA-C - Last Filed: 04/03/24 18:25> Surgical History Surgical History: Surgical History Hx of spinal surgery History of removal of ovarian cyst <Magi Veronica PA-C - Last Filed: 04/03/24 18:25> Family History Family History: Family History Mother Family history non-contributory <Magi Veronica PA-C - Last Filed: 04/03/24 18:25> Social History Social History: Social History Smoking status: Never smoker Substance use: never Living arrangements: with family Gender identity (if verbalized by the patient): Female Spiritual care concerns: No <Magi Veronica PA-C - Last Filed: 04/03/24 18:25> Exam Narrative: GENERAL: Well appearing, morbidly obese with BMI of 59.2, non-toxic, in no acute distress. HEAD: Normocephalic, atraumatic. RESPIRATORY: Airway patent, respirations nonlabored. Slightly coarse breath sounds bilaterally in bases. Scattered expiratory wheezing, mostly present throughout right upper lung zones. Hoarse quality to voice. CARDIOVASCULAR: Regular rate and rhythm without murmurs, rubs, or gallops. ABDOMINAL: Soft, nontender, nondistended. Normoactive BS. MUSCULOSKELETAL: Moves all extremities. No gross deformities. SKIN: Warm, dry, normal color. NEURO: A&O X3. Speech clear. Cranial nerves II-XII grossly intact. Steady gait. No ataxic movements. PSYCHIATRIC: Appropriate mood and affect. Normal interaction. <Geovanna King PA-C - Last Filed: 03/31/24 00:40> Course Vital Signs Vital signs: Vital Signs Temperature 97.2 F L 03/30/24 16:28 Pulse Rate 72 03/30/24 16:28 Respiratory Rate 18 03/30/24 16:28 Blood Pressure 146/79 H 03/30/24 16:28 Pulse Oximetry 97 03/30/24 16:28 Oxygen Delivery Room Air 03/30/24 16:28 Temperature 97.2 F L 03/30/24 16:28 Pulse Rate 74 03/31/24 00:15 Respiratory Rate 20 03/31/24 00:15 Blood Pressure 107/90 03/31/24 00:15 Pulse Oximetry 95 03/31/24 00:15 Oxygen Delivery Room Air 03/30/24 16:28 <Magi Veronica PA-C - Last Filed: 04/03/24 18:25> Vital Signs Temperature 97.2 F L 03/30/24 16:28 Pulse Rate 72 03/30/24 16:28 Respiratory Rate 18 03/30/24 16:28 Blood Pressure 146/79 H 03/30/24 16:28 Pulse Oximetry 97 03/30/24 16:28 Oxygen Delivery Room Air 03/30/24 16:28 Temperature 97.2 F L 03/30/24 16:28 Pulse Rate 74 03/31/24 00:15 Respiratory Rate 20 03/31/24 00:15 Blood Pressure 107/90 03/31/24 00:15 Pulse Oximetry 95 03/31/24 00:15 Oxygen Delivery Room Air 03/30/24 16:28 <Geovanna King PA-C - Last Filed: 03/31/24 00:40> MDM - Nausea/Vomiting/Diarrhea MDM Narrative Medical decision making narrative: Patient presented to ED with report of diarrhea last week, now having URI symptoms over the last couple of days. Vital signs are stable upon arrival. Patient is in no acute distress. Given initial breathing treatment upon arrival to the ED with improvement. She does still have slight wheezing upon my evaluation. Will repeat breathing treatment. Laboratory studies are unremarkable. White blood cell count is 10.2. CMP is unremarkable. Stable electrolytes. UA is clear. Viral swabs are negative. CXR is clear. Patient is denying any abdominal pain to suggest need for further imaging. Patient is PERC negative, very low suspicion for PE, no evidence of DVT on exam. Discussed likelihood of a viral URI and continued supportive management of such. Patient has denied any fevers. Low suspicion for pneumonia. Given presence of recurrent wheezing with possible underlying asthma, will discharge patient on short course of steroids. She was given prednisone here. She does have an inhaler at home she can use. Discussed additional [id number] therapies to try. Recommended close follow-up with PCP for further evaluation. Given strict return precautions. She agrees with plan. Discharged in stable condition. <Geovanna King PA-C - Last Filed: 03/31/24 00:40> Medical Records Attestation: I reviewed the patient's medical records. <Geovanna King PA-C - Last Filed: 03/31/24 00:40> Lab Data Attestation: I reviewed the patient's lab results. <Geovanna King PA-C - Last Filed: 03/31/24 00:40> Result diagrams: 03/30/24 18:07 03/30/24 18:07 <Magi Veronica PA-C - Last Filed: 04/03/24 18:25> Labs: Lab Results 03/30/24 03/30/24 03/30/24 Range/Units 18:07 21:26 22:42 WBC 10.2 H (4.5-10.0) K/mm3 RBC 4.14 L (4.2-5.4) M/mm3 Hgb 12.5 (12.0-15.0) g/dL Hct 37.6 (37.0-47.0) % MCV 90.8 (80-100) fl MCH 30.2 (26-34) pg MCHC 33.2 (32-36) g/dl RDW 12.6 (11.5-14.5) % Plt Count 266 (150-375) k/mm3 MPV 10.8 H (7.4-10.4) fl Immature Gran % (Auto) 0.5 (0-0.5) % Neut % (Auto) 66.4 (45.5-73.1) % Lymph % (Auto) 21.0 (18.3-44.2) % Wilkin % (Auto) 7.0 (2.6-8.5) % Eos % (Auto) 4.6 H (0-4.4) % Baso % (Auto) 0.5 (0.2-1.2) % Lymph # (Auto) 2.14 (0.9-3.2) K/mm3 Wilkin # (Auto) 0.7 H (0.1-0.6) K/mm3 Eos # (Auto) 0.5 H (0-0.3) K/mm3 Baso # (Auto) 0.1 (0.0-0.1) K/mm3 Abs Immat Gran (auto) 0.05 H (0.00-0.031) K/mm3 Absolute Neuts (auto) 6.8 H (1.3-6.7) K/mm3 Absolute Nucleated RBC 0.000 (0.0-0.012) K/mm3 Nucleated RBC % 0.0 (0.0-0.2) % Sodium 136 L (137-145) mmol/L Potassium 3.7 (3.4-5.0) mmol/L Chloride 104 (98-107) mmol/L Carbon Dioxide 30 (22-30) mmol/L Anion Gap 2 L (4-12) mmol/L BUN 14 D (7-17) mg/dL Creatinine 0.90 (0.7-1.0) mg/dL Estim Creat Clear Calc 103 ml/min Estimated GFR > 60 (59 - ) Glucose 89 (65-110) mg/dL Calcium 8.7 (8.4-10.2) mg/dL Total Bilirubin 0.3 (0.2-1.3) mg/dL AST 28 (14-36) U/L ALT 27 (6-35) U/L Alkaline Phosphatase 90 (38-126) U/L Total Protein 7.0 (6.3-8.2) g/dL Albumin 3.9 (3.5-5.1) g/dL Lipase 127 (23-300) U/L Urine Color Yellow (Yellow) Urine Appearance Clear (Clear) Urine pH 6.0 (5.0-9.0) Ur Specific Liberal 1.019 (1.001-1.035) Urine Protein Negative (Negative) mg/dL Urine Glucose (UA) Negative (Negative) mg/dL Urine Ketones Negative (Negative) mg/dL Ur Blood (Man) Negative (Negative) Urine Nitrate Negative (Negative) Urine Bilirubin Negative (Negative) Urine Urobilinogen 0.2 (<2.0) mg/dL Leukocyte Esterase Rfl Negative (Negative) ESTHER/UL Urine Test Negative Influenza A (RT-PCR) Negative (Negative) Influenza B (RT-PCR) Negative (Negative) RSV (RT-PCR) Negative (Negative) SARS-CoV-2 RNA (RT-PCR) Negative (Negative) <Magi Veronica PA-C - Last Filed: 04/03/24 18:25> Lab Results 03/30/24 03/30/24 03/30/24 Range/Units 18:07 21:26 22:42 WBC 10.2 H (4.5-10.0) K/mm3 RBC 4.14 L (4.2-5.4) M/mm3 Hgb 12.5 (12.0-15.0) g/dL Hct 37.6 (37.0-47.0) % MCV 90.8 (80-100) fl MCH 30.2 (26-34) pg MCHC 33.2 (32-36) g/dl RDW 12.6 (11.5-14.5) % Plt Count 266 (150-375) k/mm3 MPV 10.8 H (7.4-10.4) fl Immature Gran % (Auto) 0.5 (0-0.5) % Neut % (Auto) 66.4 (45.5-73.1) % Lymph % (Auto) 21.0 (18.3-44.2) % Wilkin % (Auto) 7.0 (2.6-8.5) % Eos % (Auto) 4.6 H (0-4.4) % Baso % (Auto) 0.5 (0.2-1.2) % Lymph # (Auto) 2.14 (0.9-3.2) K/mm3 Wilkin # (Auto) 0.7 H (0.1-0.6) K/mm3 Eos # (Auto) 0.5 H (0-0.3) K/mm3 Baso # (Auto) 0.1 (0.0-0.1) K/mm3 Abs Immat Gran (auto) 0.05 H (0.00-0.031) K/mm3 Absolute Neuts (auto) 6.8 H (1.3-6.7) K/mm3 Absolute Nucleated RBC 0.000 (0.0-0.012) K/mm3 Nucleated RBC % 0.0 (0.0-0.2) % Sodium 136 L (137-145) mmol/L Potassium 3.7 (3.4-5.0) mmol/L Chloride 104 (98-107) mmol/L Carbon Dioxide 30 (22-30) mmol/L Anion Gap 2 L (4-12) mmol/L BUN 14 D (7-17) mg/dL Creatinine 0.90 (0.7-1.0) mg/dL Estim Creat Clear Calc 103 ml/min Estimated GFR > 60 (59 - ) Glucose 89 (65-110) mg/dL Calcium 8.7 (8.4-10.2) mg/dL Total Bilirubin 0.3 (0.2-1.3) mg/dL AST 28 (14-36) U/L ALT 27 (6-35) U/L Alkaline Phosphatase 90 (38-126) U/L Total Protein 7.0 (6.3-8.2) g/dL Albumin 3.9 (3.5-5.1) g/dL Lipase 127 (23-300) U/L Urine Color Yellow (Yellow) Urine Appearance Clear (Clear) Urine pH 6.0 (5.0-9.0) Ur Specific Liberal 1.019 (1.001-1.035) Urine Protein Negative (Negative) mg/dL Urine Glucose (UA) Negative (Negative) mg/dL Urine Ketones Negative (Negative) mg/dL Ur Blood (Man) Negative (Negative) Urine Nitrate Negative (Negative) Urine Bilirubin Negative (Negative) Urine Urobilinogen 0.2 (<2.0) mg/dL Leukocyte Esterase Rfl Negative (Negative) ESTHER/UL Urine Test Negative Influenza A (RT-PCR) Negative (Negative) Influenza B (RT-PCR) Negative (Negative) RSV (RT-PCR) Negative (Negative) SARS-CoV-2 RNA (RT-PCR) Negative (Negative) <Geovanna King PA-C - Last Filed: 03/31/24 00:40> Imaging Data Attestation: I personally reviewed and interpreted this imaging study as follows: <Geovanna King PA-C - Last Filed: 03/31/24 00:40> Radiologist's impression: ITS Impressions Chest X-Ray 03/30/24 18:22 IMPRESSION: No acute cardiopulmonary process. <PHILIPPE Palacios Last Filed: 03/31/24 00:40> Critical Care Time Critical Care Time Critical Care Time: No <Magi Veronica PA-C - Last Filed: 04/03/24 18:25> Discharge Plan Discharge Clinical Impression: Wheezing Upper respiratory infection Qualifiers: URI type: unspecified URI Qualified Code(s): J06.9 - Acute upper respiratory infection, unspecified <PHILIPPE Pate Last Filed: 04/03/24 18:25> Patient Disposition: Home, Self-Care <PHILIPPE Pate Last Filed: 04/03/24 18:25> Condition: Stable <PHILIPPE Pate Last Filed: 04/03/24 18:25> Instructions: Antibiotic Form, Upper Respiratory Infection (ED), Viral Syndrome (ED), Cold Symptoms (ED) <PHILIPPE Pate Last Filed: 04/03/24 18:25> Additional Instructions: Your testing for influenza, RSV, COVID was negative. Your chest x-ray was clear. You likely have a viral upper respiratory infection. Continue inhaler as needed for wheezing. Take steroid pack as prescribed. Stay well-hydrated at home. Recommend electrolyte rich fluids, Gatorade, Pedialyte, body armor. Utilize Tylenol and Ibuprofen for discomfort and/or fevers. Recommend kjzq-oem-wqelhia cough and cold medicines for symptom relief, Delsym, Mucinex, DayQuil, NyQuil, Sudafed, Robitussin, TheraFlu. Follow with primary care doctor upon resolution of symptoms. Return to the ED if you experience chest pain, worsening difficulty breathing, unable to keep down food or drink, severe pain, or any other symptoms of concern. <PHILIPPE Pate Last Filed: 04/03/24 18:25> Patient Language: Bangladeshi <PHILIPPE Pate Last Filed: 04/03/24 18:25> Prescriptions: New methylprednisolone [Medrol (Paco)] 4 mg tablets,dose pack See Rx Instructions PO .COMPLEX Qty: 21 0RF Rx Instructions: orally per package directions No Action levothyroxine 175 mcg tablet 175 mcg PO DAILY Mirena 20 mcg/24 hours (6 yrs) 52 mg Intrauterine Device 1 device INTRAUTERINE ONCE tramadol 50 mg tablet 50 mg PO DAILY enalapril maleate 10 mg tablet 10 mg PO DAILY hydrochlorothiazide 25 mg tablet 25 mg PO DAILY albuterol sulfate 90 mcg/actuation Hfa Aerosol Inhaler 2 puff INHALATION QID PRN (Reason: Shortness Of Breath Or Wheezing) trazodone 100 mg tablet 100 mg PO HS gabapentin 300 mg capsule 300 mg PO TID omeprazole 20 mg capsule,delayed release(DR/EC) 20 mg PO BID azelastine 137 mcg (0.1 %) aerosol,spray 1 spray INTRANASAL HS escitalopram oxalate 10 mg tablet 10 mg PO QAM cetirizine 10 mg tablet 10 mg PO DAILY enalapril maleate 10 mg tablet 10 mg PO DAILY celecoxib 200 mg capsule 200 mg PO DAILY (DME) [employer] Card Home Tst Kit See Rx Instructions .Route Qty: 1 0RF Rx Instructions: As directed fluticasone propionate [Flonase Allergy Relief] 50 mcg/actuation spray,suspension 2 spray intranasal DAILY Qty: 9.9 0RF Rx Instructions: administer into each nostril epinephrine 0.3 mg/0.3 mL Auto-Injector 0.3 mg IM Q4H PRN (Reason: Allergic Reaction) multivitamin Tablet 1 tablet PO DAILY ascorbic acid (vitamin C) [Vitamin C] 1,000 mg Tablet 1 g PO BID meloxicam 15 mg tablet 15 mg PO QPM cholecalciferol (vitamin D3) [Vitamin D3] 50 mcg (2,000 unit) Capsule 100 mcg PO DAILY cyanocobalamin (vitamin B-12) [Vitamin B-12] 5,000 mcg Tablet, Sublingual 5,000 mcg SUBLINGUAL DAILY Qvar RediHaler 80 mcg/actuation HFA aerosol breath activated 2 inh INHALATION BID methocarbamol 750 mg tablet 750 mg PO TID Qty: 14 0RF <Magi Veronica PA-C - Last Filed: 04/03/24 18:25> Follow-up/Referrals: Dominique,RONALD Mckinney [Primary Care Provider] - <Magi Veronica PA-C - Last Filed: 04/03/24 18:25> Stand Alone Forms: Work/School Release IP <Magi Veronica PA-C - Last Filed: 04/03/24 18:25> Time of Disposition: 23:41 <Magi Veronica PA-C - Last Filed: 04/03/24 18:25> 23:41 <Geovanna King PA-C - Last Filed: 03/31/24 00:40>
[2024-03-30] MEDS: predniSONE 20 MG TABLET 40 MG PO (17:56)
[2024-03-30] MEDS: IPRATROPIUM 0.5 MG/ALBUTEROL SULFATE 2.5 MG AMPUL.NEB 3 ML INHALATION ×2 (18:02→23:10)
[2024-03-30 18:03] VITALS: BP 127/77; PULSE 61; RESP 19; O2SAT 100
[2024-03-30 18:24] LABS: Basophils Absolute Auto 0.1 K/mm3 (0.0-0.1); Basophils Percent Auto 0.5 % (0.2-1.2); Eosinophils Absolute Auto 0.5 K/mm3 (0-0.3); Eosinophils Percent Auto 4.6 % (0-4.4); Hematocrit 37.6 % (37.0-47.0); Hemoglobin 12.5 g/dL (12.0-15.0); Immature Granulocyte Absolute 0.05 K/mm3 (0.00-0.031); Immature Granulocyte Percent A 0.5 % (0-0.5); Lymphocytes Absolute Auto 2.14 K/mm3 (0.9-3.2); Mean Corpuscular HGB Conc 33.2 g/dl (32-36); Mean Corpuscular Hemoglobin 30.2 pg (26-34); Mean Corpuscular Volume 90.8 fl (80-100); Mean Platelet Volume 10.8 fl (7.4-10.4); Monocytes Absolute Auto 0.7 K/mm3 (0.1-0.6); Neutrophils Absolute Auto 6.8 K/mm3 (1.3-6.7); Neutrophils Percent Auto 66.4 % (45.5-73.1); Platelet Count Result 266 k/mm3 (150-375); Red Blood Count 4.14 M/mm3 (4.2-5.4); Red Cell Distribution Width 12.6 % (11.5-14.5); White Blood Count 10.2 K/mm3 (4.5-10.0)
[2024-03-30 18:39] LABS: Alanine Aminotransferase 27 U/L (6-35); Albumin Level 3.9 g/dL (3.5-5.1); Alkaline Phosphatase 90 U/L (38-126); Anion Gap 2 mmol/L (4-12); Aspartate Amino Transferase 28 U/L (14-36); Bilirubin,Total 0.3 mg/dL (0.2-1.3); Blood Urea Nitrogen 14 mg/dL (7-17); Calcium 8.7 mg/dL (8.4-10.2); Carbon Dioxide 30 mmol/L (22-30); Chloride 104 mmol/L (98-107); Estimated CRCL calculation 103 ml/min; Estimated Glomerular Filt Rate > 60; Glucose 89 mg/dL (65-110); Lipase 127 U/L (23-300); Potassium 3.7 mmol/L (3.4-5.0); Sodium 136 mmol/L (137-145)
[2024-03-30 19:00] LABS: Influenza A QL RT-PCR Negative (Negative); Influenza B QL RT-PCR Negative (Negative); RSV RNA, RT-PCR Negative (Negative); SARS-CoV-2 RNA PCR Negative (Negative)
[2024-03-30 21:36] LABS: Add Urine Microscopic? NO; Appearance Urine Clear (Clear); Bilirubin Urine Negative (Negative); Blood Urine Negative (Negative); Color Urine Yellow (Yellow); Glucose Urine UA Negative (Negative); Ketones Urine Negative (Negative); Leukocyte Esterase Ur Negative LEU/UL (Negative); Nitrate Urine Negative (Negative); Protein Urine Negative (Negative); Specific Grav Ur 1.019 (1.001-1.035); Urobilinogen Urine 0.2 mg/dL (<2.0)
[2024-03-30 22:00] VITALS: BP 120/72; PULSE 65; RESP 18; O2SAT 95
--- NOTE | 2024-03-30 22:44 | PC.NURSE ---
Lab called to add on urine hcg.
[2024-03-30 22:49] LABS: Pregnancy On Board Control Positive; Urine Pregnancy Test Negative
[2024-03-31 00:15] VITALS: BP 107/90; PULSE 74; RESP 20; O2SAT 95
== END 2024-03-31 00:39 | disposition home or self-care (01) ==
PROVIDERS: Physician Assistant; Emergency Provider Physician Assistant; PCP Nurse Practitioner Family
DX: J06.9 Acute upper respiratory infection, unspecified (principal); R06.2 Wheezing; Z20.822 Contact with and (suspected) exposure to COVID-19; F41.9 Anxiety disorder, unspecified; F32.A Depression, unspecified; E03.9 Hypothyroidism, unspecified; Z87.440 Personal history of urinary (tract) infections; K21.9 Gastro-esophageal reflux disease without esophagitis; I10 Essential (primary) hypertension
CPT/HCPCS: 36415; 71046; 80053; 81003; 81025; 83690; 85025; 87637; 94640; 99283; J7512

== ENCOUNTER 2024-07-31 18:23 | Emergency (ER) | payer OTHER, SELFPAY ==
--- OUTSIDE RECORDS SUMMARY | 2024-07-31 18:44 | XMS_ITS | Encounter Summary ---
Author Organization [facility] Healthcare Address [address] [place] [address] Care Team Providers Care Logistics System Engineer Name Role Phone Allyson Jason DPM Unavailable [phone] Faye Fox NP Primary Care Provider [phone] Encounter Details Date Type Department Care Team (Late st Contact Info) Description 07/28/2024 [facility] Post Discharge Follow up phone call [address] [address] Rosana Morales I., DELMI Social History Tobacco Use Types Packs/Day Years Used Date Smoking Tobacco: Never Passive Smoke Exposure: Past Smokeless Tobacco: Never Alcohol Use Standard Drinks/Week Comments No 0 (1 standard drink = 0.6 oz pur e alcohol) [facility] Utilities Answer Date Recorded In the past 12 months has [employer], gas, oil, or water [employer] threatened to shut off services in your home? Yes 07/24/2024 Social Connection and Isolat ion Panel [NHANES] Answer Date Recorded In a typical week, how many times do you talk on the phone with family, friends, or neighbors? Twice a week 07/24/2024 How often do you get togethe r with friends or relatives? More than three times a week 07/24/2024 How often do you attend chur or church services? Never 07/24/2024 Do you belong to any clubs o r organizations such as scientology groups, unions, fraternal or athletic groups, or school groups? No 07/24/2024 How often do you attend meet ings of the clubs or organizations you belong to? Never 07/24/2024 Are you , , di vorced, , never , or living with a partner? Living with partner 07/24/2024 AUDIT-C Answer Date Recorded Q1: How often do you have a drink containing alc ohol? Never 07/21/2024 Average Number of Drinks Not on file 025 Frequency of Binge Drinking Not on file 07/04 Overall Financial Resource Strain (CARDIA) Answe r Date Recorded How hard is it for you to pa y for the very basics like food, housing, medical care, and heating? Hard 07/24/2024 Hunger Vital Sign Answer Date Recorded Within the past 12 months, y ou worried that your food would run out before you got the money to buy more. Sometimes true Within the past 12 months, t he food you bought just didn't last and you didn't have money to get more. Sometimes true PRAPARE - Transportation Answer Date Re corded In the past 12 months, has l ack of transportation kept you from medical appointments or from getting medications? No 07/05 In the past 12 months, has l ack of transportation kept you from meetings, work, or from getting things needed for daily living? No 07/24/2024 Housing Stability Vital Sign Answer Syed e Recorded In the last 12 months, was t here a time when you were not able to pay the mortgage or rent on time? Yes 07/24/2024 In the past 12 months, how m any times have you moved where you were living? 0 07/24/2024 At any time in the past 12 m [facility], were you homeless or living in a long-term (including now)? No 07/24/2024 Personal Safety Answer Date Recorded Have you ever been in or are you currently in a harmful physical or emotional relationship or is someone making you feel afraid or unsafe? 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
--- OUTSIDE RECORDS SUMMARY | 2024-07-31 18:44 | XMS_ITS | Clinical Summary ---
Author Organization [facility] Address [address] [place] [address] Phone Care Team Providers Care Project Manager/Team Coach Name Role Phone Regan Gale DPM Unavailable [phone] Faye Fox APRN Primary Care Provider Allergies Active Allergy Reactions Criticality Noted Date Comments Sulfa Antibiotics Hives 04/03/2016 Adhesive Tape Rash 05/02/2017 Medications enalapril (VASOTEC) 10 MG Tablet Take 10 mg by mouth daily. Active hydroCHLOROthi azide 25 MG Tablet Take 25 mg by mouth daily. Active Fluticasone Furoate 27.5 MCG/SPRAY Suspension 2 Puffs by Nasal route daily. Active cetirizine (ZYRTEC) 10 MG Tablet Take 10 mg by mouth daily. Active citalopram (CELEXA) 20 MG Tablet Take 20 mg by mouth daily. Active montelukast (SINGULAIR) 10 MG Tablet Take 10 mg by mouth every evening. Active traZODone (DESYREL) 100 MG Tablet Take 100 mg by mouth 2 times daily. Active Cholecalcifero l (VITAMIN D) 2000 UNIT Tablet Take 2,000 Units by mouth daily. Active mirtazapine (REMERON) 15 MG Tablet Take 15 mg by mouth nightly. Active levothyroxine (SYNTHROID) 175 MCG TabletIndicati ons:tue, thur, sat, sun Take 175 mcg by mouth daily. Indications: tue, thur, sat, sun Active Acetaminophen (TYLENOL PO) Take 500 mg by mouth as needed. Active EPINEPHrine (EPIPEN) 0.3 MG/0.3ML Solution Prefilled Syringe by Intramuscular route once. Active levothyroxine (SYNTHROID) 200 MCG TabletIndicati ons:mon, wed, fri Take 200 mcg by mouth Every other day. Indications: mon, wed, fri Active SYRINGE-NEEDLE , DISP, 3 ML (B-D 3CC LUER-RACHID SYR 25GX5/8 ) 25G X 5/8 3 ML Misc Active levonorgestrel (Mirena, 52 MG,) 20 MCG/24HR IUD Mirena 20 mcg/24 hours (7 yrs) 52 mg intrauterine device Take by intrauterine route. Active other by Other route. *Allergy shot Active albuterol 108 (90 Base) MCG/ACT Aerosol Solution take 2 Puffs by inhalation every 6 hours as needed for Wheezing. 6.7 g 3 Active traMADol (ULTRAM) 50 MG Tablet Take 50 mg by mouth daily. Active fluticasone (FLONASE) 50 MCG/ACT Suspension 1-2 Sprays by Nasal route daily. Use in each nostril as directed. Active ibuprofen (MOTRIN) 600 MG Tablet Take 1 Tablet by mouth every 6 hours as needed for Moderate or more severe pain. 30 Tablet 4 Active traMADol (ULTRAM) 50 MG TabletIndicati ons:Cyst of left ovary Take 1 Tablet by mouth every 8 hours as needed for Moderate or more severe pain. 12 Tablet 4 Active Qvar RediHaler 80 MCG/ACT AEROSOL, BREATH ACTIVATED take 2 Puffs by inhalation 2 times daily. Active omeprazole (PriLOSEC) 20 MG CAPSULE DELAYED RELEASE Take 20 mg by mouth daily. Active gabapentin (NEURONTIN) 300 MG Capsule Take 300 mg by mouth 3 times daily. Active escitalopram (LEXAPRO) 10 MG Tablet TAKE 1 TABLET BY MOUTH ONCE DAILY. APPOINTMENT DUE 08/08/24 Active meloxicam (MOBIC) 15 MG Tablet Take 1 Tablet by mouth daily. 4 Active Topiramate 50 MG Tablet Take half tablet (25 mg) po twice a day for one week, then one tablet po twice a day 5 Active fluconazole (DIFLUCAN) 150 MG Tablet Take 1 tablet today, repeat dose in 72 hours 2 Tablet 5 Active amoxicillin-cl avulanate (AUGMENTIN) 875-125 MG Tablet Take 1 Tablet by mouth 2 times daily for 10 days. 20 Tablet 5 025 Active Problems No known active problems Encounters Date Type Department Care Team Description 07/16/2024 Results Follow-Up [facility] [address] [place] [address] Rachelle Cervantes APRN, CNP POCT UA AUTOMATED W/O MICRO, POC INFLUENZA A AND B BY MOLECULAR, POC SARS-COV-2 BY MOLECULAR, Additional followed-up results: 2 07/15/2024 11:55 AM CDT Urgent Care Visit [facility] [address] [place] [address] Rachelle Cervantes APRN, CNP Vaginal discharge (Primary Dx); Urinary frequency; Acute cough; Acute non-recurrent pansinusitis Discharge Disposition: Discharged to home or Selfcare 07/15/2024 Travel 05/25/2024 12:15 PM [facility] Urgent Care Visit [facility] [address] [place] [address] Rachelle Cervantes APRN, CNP Acute non-recurrent maxillary sinusitis (Primary Dx); Acute cough Discharge Disposition: Discharged to home or Selfcare 05/25/2024 Travel from Last 3 Months Immunizations Immunization Administration Dates Next Due Influenza Vaccine, Quadrivalent, PF 01/13/2021,1 Influenza Vaccine,unspecified Formulation 2020,01/05/2018 Influenza, Injectable, Quadrivalent 01/15/2016 Pneumococcal Vaccine Adult - 23 Valent 5 TDAP Vaccine 06/23/2019 Social History Tobacco Use Types Packs/Day Years Used Date Smoking Tobacco: Never Smokeless Tobacco: Never Tobacco Cessation:Counseling Given: No Alcohol Use Standard Drinks/Week Comments No 0 (1 standard drink = 0.6 oz pur e alcohol) Comments No Sex and Gender Information Value Date Recorded Sex Assigned at Not on file Legal Sex Female 2:10 PM CDT Gender Identity Not on file Sexual Orientation Not on file Last Filed Vital Signs Vital Sign Reading Time Taken Comments Blood Pressure 136/72 07/15/2024 11:57 AM CDT Pulse 78 07/15/2024 11:57 AM CDT Temperature 36.8 C (98.2 F) 07/15/2024 11:57 AM CDT Respiratory Rate 16 07/15/2024 11:57 AM CDT Oxygen Saturation 98% 07/15/2024 11:57 AM CDT Inhaled Oxygen Concentration - - Weight 154.2 kg (340 lb) 12/02/2023 3:48 PM CDT Height 158.8 cm (5' 2.5 ) 12/02/2023 3:48 PM CDT Body Mass Index 61.2 12/02/2023 3:48 PM CDT Plan of Treatment Health Maintenance Due Date Last Done Comments Hepatitis C Virus (HCV) Screening 1984 Pap Smear 2005 Cervical Cancer Screening (CCS) 2014 HPV/Cotest 2014 SARS-COV-2 Immunization ( season) 2023 01/22/2023, 03/12/2022, 06/30/2021, Additional history exists Td Immunization Every 10 Years (Adults With 1 Tdap) 06/22/2029 06/23/2019, 08/05/1999 Respiratory Syncytial Virus (RSV) Immunization (Adult) (1 - 1-dose 75+ series) 11/09/2059 Hepatitis B Immunization Completed 000, 09/09/1999, 08/05/1999 DTaP/Tdap/Td Immunization Discontinued 2019, 08/05/1999, 05/11/1990, Additional history exists Pneumococcal Immunization Combined Aged Out 01/22/2023, 11/29/2014 No longer eligibl e based on patient's age to complete this topic Influenza Immunization Completed , 01/22/2023, 12/22/2021, Additional history exists Meningococcal Immunization (ACWY) Aged Out No longer eligible based on patient's age to complete this topic Rotavirus Immunization Aged Out No lo nger eligible based on patient's age to complete this topic Procedures Procedure Name Priority Date/Time Associated Diagnosis Comments VAGINITIS SCREEN, MOLECULAR Routine 07/15/2024 12:56 PM CDT Vaginal discharge CULTURE, URINE Routine 07/15/2024 12:55 PM CDT Urinary frequency POCT UA AUTOMATED W/O MICRO Routine 07/15/2024 12:20 PM CDT Urinary frequency POC GROUP A STREP BY MOLECULAR Routine 07/15/2024 12:09 PM CDT Acute cough POC SARS-COV-2 BY MOLECULAR Routine 07/15/2024 12:09 PM CDT Acute cough POC INFLUENZA A AND B BY MOLECULAR Routine 07/15/2024 12:06 PM CDT Acute cough POC INFLUENZA A AND B BY MOLECULAR Routine 05/25/2024 1:14 PM [facility] Acute cough POC SARS-COV-2 BY MOLECULAR Routine 05/25/2024 12:45 PM [facility] Acute cough from Last 3 Months Results * (ABNORMAL) VAGINITIS SCREEN, MOLECULAR (07/15/2024 12:56 PM CDT) TRICHOMONAS NOT DETECTED NOT DETECTED 07/16/2024 12:[address] [facility] BACTERIAL VAGINOSIS NOT DETECTED NOT DETECTED 07/16/2024 12:[address] [facility] ALISA NOT DETECTED NOT DETECTED 07/16/2024 12:[address] [facility] Comment: Alisa group Not detected with the following possible Alisa species: Alisa albicans and/or Alisa tropicalis and/or Alisa parapsilosis and/or Alisa dubliniensis ALISA GLABRATA DETECTED(A) NOT DETECTED 07/16/2024 12:[address] [facility] ALISA KRUSEI NOT DETECTED NOT DETECTED 07/16/2024 12:[address] [facility] Other VAGINAL STRUCTURE / Unknown Non-Phlebotomy Collection / Unknown 07/15/2024 12:56 PM CDT 07/15/2024 12:56 PM CDT Rachelle Cervantes APRN, CNP MICROBIOLOGY - GEN ERAL ORDERABLES Final Result Performing Organization Address [facility] Co de Phone Number [facility] [address] [place] [address], [place] * CULTURE, URINE (07/15/2024 12:55 PM CDT) Pathologist [facility] [place] CULTURE RESULTS COAGULASE-NEGATIVE STAPHYLOCOCCUS, NOT STAPHYLOCOCCUS SAPROPHYTICUS 07/16/2024 8:[address] [facility] Comment:ALSO MIXED GROWTH OF DISTAL URETHRA CONTAMINANTS. Culture URINE SPECIMEN OBTAINED BY CLEAN CATCH PROCEDURE / Unknown Non-Phlebotomy Collection / Unknown 07/15/2024 12:55 PM CDT 07/15/2024 12:55 PM CDT Rachelle Cervantes APRN, CNP MICROBIOLOGY - GEN ERAL ORDERABLES Final Result Performing Organization Address [facility] Co de Phone Number [facility] [address] [place] [address], [place] * (ABNORMAL) POCT UA AUTOMATED W/O MICRO (07/15/2024 12:20 PM CDT) POC UA SPECIFIC GRAVITY 1.010 URINE PH 8.0 5.0 - 9.0 POC URINE LEUKOCYTES Negative Negative Jaime/uL POC URINE NITRITE Negative Negative POC URINE PROTEIN Negative Negative mg/dL POC URINE GLUCOSE Norm Negative, Norm mg/dL POC URINE KETONE Negative Negative mg/dL POC URINE UROBILINOGEN Norm Norm, 0.2 E.U./dL (mg/dL), 1 E.U./dL (mg/dL) POC URINE BILIRUBIN Negative Negative mg/dL POC URINE BLOOD INSTRUMENT 50 Toby/uL(A) Negative Toby/uL POC URINE COLOR Yellow POC URINE CLARITY Cloudy Urine 07/15/2024 12:2 0 PM CDT Rachelle Cervantes APRN, GRAVEL SCREENER POINT OF CARE TEST ING (MANUAL) Final Result * POC SARS-COV-2 BY MOLECULAR (07/15/2024 12:09 PM CDT) Only the most recent of2 resultswithin the time period is included. SARSCOV2 Negative Negative, INVALID PROCEDURE CONTROL Valid 07/15/2024 12:0 9 PM CDT Rachelle Cervantes APRN, GRAVEL SCREENER POINT OF CARE TEST ING (MANUAL) Final Result * POC GROUP A STREP BY MOLECULAR (07/15/2024 12:09 PM CDT) STREP A DNA Negative Negative, Invalid PROCEDURE CONTROL Valid 07/15/2024 12:0 9 PM CDT Rachelle Cervantes APRN, GRAVEL SCREENER POINT OF CARE TEST ING (MANUAL) Final Result * POC INFLUENZA A AND B BY MOLECULAR (07/15/2024 12:06 PM CDT) Only the most recent of2 resultswithin the time period is included. INFLUENZA A RNA Negative Negative, Invalid INFLUENZA B RNA Negative Negative, Invalid PROCEDURE CONTROL Valid 07/15/2024 12:0 6 PM CDT Rachelle Cervantes APRN, GRAVEL SCREENER POINT OF CARE TEST ING (MANUAL) Final Result from Last 3 Months Insurance MEDICAID [facility] Care Teams Project Manager/Team Coach Relationship Specialty Start Date End Date Faye Fox APRN [address] [facility], [address] [place] [address] PCP - General Family Medicine 08/25/18 Regan Gale DPM Consulting Physician Podiatry 09/09/16
--- OUTSIDE RECORDS SUMMARY | 2024-07-31 18:44 | XMS_ITS | Clinical Summary ---
Author Organization [facility] Address [address] [place] [address] Care Team Providers Care Canoe Inspector Name Role Phone Allyson Jason DPM Unavailable [phone] Faye Fox NP Primary Care Provider [phone] Allergies Active Allergy Reactions Criticality Noted Date Comments Adhesive Tape-Silicones Rash,Redness Medium Sulfa (Sulfonamide Antibiotics) Hives Medium Medications azelastine (ASTELIN) 137 mcg (0.1 %) nasal spray Administer 1 spray into affected nostril(s) nightly 017 Active levothyroxine (SYNTHROID) 175 mcg tablet Take 1 tablet (175 mcg total) by mouth daily before breakfast 018 Active hydroCHLOROthiazi de (HYDRODIURIL) 25 mg tablet Take 1 tablet (25 mg total) by mouth daily with dinner Active cholecalciferol (VITAMIN D-3) 2000 unit tablet Take 2 tablets (4,000 Units total) by mouth daily Active fluticasone (VERAMYST) 27.5 mcg/actuation nasal spray Administer 2 sprays into each nostril daily Active cetirizine (ZyrTEC) 10 mg tablet Take 1 tablet (10 mg total) by mouth daily 017 Active enalapril (VASOTEC) 10 mg tablet Take 1 tablet (10 mg total) by mouth daily before breakfast Active EPINEPHrine 0.3 mg/0.3 mL auto-injection syringe Inject 0.3 mL (0.3 mg total) into the muscle as instructed as needed for anaphylaxis 018 Active albuterol HFA (PROVENTIL HFA,VENTOLIN HFA,PROAIR HFA) 90 mcg/actuation inhaler Inhale 1-2 puffs every 6 (six) hours as needed for wheezing 1 each 024 2024 Active beclomethasone dipropionate (Qvar RediHaler) 80 mcg/actuation inhaler Inhale 2 puffs 2 (two) times a day Rinse mouth with water after use. Do not swallow. Active omeprazole 20 mg tablet,delayed release (DR/EC) Take 1 tablet (20 mg total) by mouth 2 (two) times a day Active traZODone (DESYREL) 100 mg tablet Take 1 tablet (100 mg total) by mouth nightly Active gabapentin (NEURONTIN) 300 mg capsule Take 1 capsule (300 mg total) by mouth 3 (three) times a day Active escitalopram (LEXAPRO) 10 mg tablet Take 1 tablet (10 mg total) by mouth daily Active traMADoL (ULTRAM) 50 mg tablet Take 1 tablet (50 mg total) by mouth every evening Active ibuprofen (ADVIL,MOTRIN) 600 mg tablet Take 1 tablet (600 mg total) by mouth every 6 (six) hours as needed for pain Active acetaminophen (TYLENOL) 500 mg tablet Take 2 tablets (1,000 mg total) by mouth every 6 (six) hours as needed for pain Active vit C,G-Ad-ygpfw-lute in-zeaxan 250-90-40-1 mg capsule Take 1 capsule by mouth 2 (two) times a day Active cranberry apmi-V-vfvcjial coag 250-30-15 mg tablet Take 1 capsule by mouth daily Active cyanocobalamin (Vitamin B-12) 2,500 mcg tablet, sublingualIndicat ions:Prevention of Vitamin B12 Deficiency Take 2 tablets (5,000 mcg total) by mouth daily Active ascorbic acid (vitamin C) 1,000 mg tablet Take 2 tablets (2,000 mg total) by mouth daily Active levETIRAcetam (KEPPRA) 500 mg tablet Take 1 tablet (500 mg total) by mouth 2 (two) times a day 60 tablet 1 025 2024 Active montelukast (SINGULAIR) 10 mg tablet Take 1 tablet (10 mg total) by mouth nightly 017 2024 Discontinued famotidine (PEPCID) 20 mg tablet Take 1 tablet (20 mg total) by mouth 2 (two) times a day 018 2024 Discontinued mirtazapine (REMERON) 15 mg tablet Take 1 tablet (15 mg total) by mouth nightly 018 2024 Discontinued citalopram (CeleXA) 20 mg tablet Take 1 tablet (20 mg total) by mouth daily 018 2024 Discontinued ondansetron ODT (ZOFRAN-ODT) 4 mg disintegrating tablet Take 1 tablet (4 mg total) by mouth as needed 018 2024 Discontinued enoxaparin (LOVENOX) 40 mg/0.4 mL syringe Inject 0.4 mL (40 mg total) under the skin daily 21 mL 022 2024 Discontinued(S top Taking at Discharge) promethazine-DM (PROMETHAZINE-DM) 1.25-3 mg/mL syrupIndications: Influenza B Take 5 mL by mouth 4 (four) times a day as needed for cough (And runny nose) Collaborating physician Abdiaziz Ramírez MD 118 mL 1 023 2024 Discontinued phenylephrine (JUDITH-SYNEPHRINE) 0.25 % nasal sprayIndications: Influenza B,Nasal congestion Administer 1 spray into each nostril every 4 (four) hours as needed for congestion Collaborating physician Abdiaziz Ramírez MD 15 mL 023 2024 Discontinued benzonatate (TESSALON) 100 mg capsuleIndication s:Cough Take 1 capsule (100 mg total) by mouth every 8 (eight) hours 21 capsule 024 2024 Discontinued nitrofurantoin monohydrate (MACROBID) 100 mg capsule Take 1 capsule (100 mg total) by mouth 2 (two) times a day 10 capsule 024 2024 Discontinued amoxicillin-clavu lanate (AUGMENTIN) 875-125 mg per tablet Take 1 tablet by mouth every 12 (twelve) hours 14 tablet 024 2024 Discontinued(S top Taking at Discharge) topiramate (TOPAMAX) 50 mg tabletIndications :Chronic migraine without aura without status migrainosus, not intractable Take half tablet (25 mg) po twice a day for one week, then one tablet po twice a day 60 tablet 3 025 2024 Discontinued(S top Taking at Discharge) rizatriptan OFFICE ADMIN (MAXALT-OFFICE ADMIN) 10 mg disintegrating tabletIndications :Migraine Take 1 tablet (10 mg total) by mouth every 2 (two) hours as needed for migraine May repeat in 2 hours if unresolved. Do not exceed 30 mg in 24 hours. 9 tablet 3 025 2024 Discontinued(S top Taking at Discharge) meloxicam (MOBIC) 15 mg tabletIndications :Acute medial meniscus tear of right knee, subsequent encounter Take 1 tablet by mouth once daily 30 tablet 025 2024 Discontinued(S top Taking at Discharge) fluconazole (DIFLUCAN) 150 mg tablet Take 1 tablet (150 mg total) by mouth once 2024 Discontinued(S top Taking at Discharge) amoxicillin-clavu lanate (AUGMENTIN) 875-125 mg per tabletIndications :Upper Respiratory/HEENT Infection Take 1 tablet (875 mg of amoxicillin total) by mouth 2 (two) times a day for 5 days 10 tablet 025 2024 Active Problems Problem Noted Date Diagnosed Date Breakthrough seizure 07/21/2024 Seizure disorder, complex partial 06/20/2024 Syncope and collapse 06/20/2024 Chronic migraine without aur a without status migrainosus, not intractable 06/20/2024 Influenza B 02/24/2023 Nasal congestion 02/24/2023 Acquired cavovarus foot deformity, left 03/09/20 Overview (03/09/2022): Added automatically from request for surgery [id number] Plantar fascial fibromatosis 03/09/2022 Overview (03/09/2022): Added automatically from request for surgery [id number] Calcaneal spur of left foot 03/09/2022 Overview (03/09/2022): Added automatically from request for surgery [id number] Tendonitis, Achilles, left 03/09/2022 Overview (03/09/2022): Added automatically from request for surgery [id number] Upper respiratory tract infection 10/11/2017 Acute bronchospasm due to viral infection 2017 Acute maxillary sinusitis 06/07/2017 Acute bronchitis 06/07/2017 Acute bronchospasm 06/07/2017 Encounters Date Type Department Care Team Description 07/31/2024 Telephone [facility] [address] [place] [phone] Preeti Wagner NP 07/28/2024 [facility] Post Discharge Follow up phone call [facility] [address] [place] [address] Rosana Morales RN 07/25/2024 Orders Only [facility] [address] [place] [address] [address] [place] [address] Preeti Wagner NP Syncope and collapse (Primary Dx) 07/25/2024 Telephone [facility] [address] [place] [address] [address] [place] [phone] Preeti Wagner, CRANE ASSEMBLER 07/21/2024 3:12 PM CDT - 07/26/2024 1:39 PM CDT Hospital Encounter [facility] [address] [place] [address] Rich Rodgers MD Nikolic, Jelena, MD Quaizar, Huzaifa, MD Kheirkhahan, Nazanin, MD Breakthrough seizure (HCC) (Primary Dx); Psychogenic nonepileptic seizure; Seizure disorder, complex partial (HCC) Discharge Disposition: Discharge to home or self care 07/21/2024 2:49 PM CDT - 07/21/2024 11:59 PM CDT Hospital Encounter [facility] Emergency, Room R Discharge Disposition: Discharge to home or self care 07/21/2024 11:45 AM CDT - 07/21/2024 11:59 PM CDT Hospital Encounter [facility] [address] [place] [address] Syncope and collapse; Seizure disorder, complex partial (HCC) Discharge Disposition: Discharge to home or self care 07/20/2024 Telephone [facility] [address] [place] [address] Clementina Varma 07/20/2024 Telephone [facility] [address] [place] [address] Carlos A Humphreys MD 07/19/2024 Telephone [facility] [address] [place] [address] Carlos A Humphreys MD 06/20/2024 10:30 AM CDT Office Visit [facility] [address] [place] [address] Carlos A Humphreys MD Seizure disorder, complex partial (HCC) (Primary Dx); Syncope and collapse; Chronic migraine without aura without status migrainosus, not intractable 06/20/2024 Telephone [facility] [address] [place] [address] Carlos A Humphreys MD from Last 3 Months Surgical History Surgery Date Site/Laterality Comments BACK SURGERY 2013 BLADDER SURGERY Medical History Medical History Date Comments Hypertension Hypothyroidism Depression Polycystic disease, ovaries Back pain Pneumonia Asthma GERD (gastroesophageal reflux disease) Anxiety Family History Medical History Relation Name Comments Cancer Father Heart disease Mother bowel obstruction Mother Hypertension Sister 1 Mental illness Sister 1 Alcohol abuse Sister 2 Relation Name Status Comments Father Alive Mother Sister 1 Sister 2 Alive Social History Tobacco Use Types Packs/Day Years Used Date Smoking Tobacco: Never Passive Smoke Exposure: Past Smokeless Tobacco: Never Tobacco Cessation:Counseling Given: Not Answered Alcohol Use Standard Drinks/Week Comments No 0 (1 standard drink = 0.6 oz pur e alcohol) [facility] Utilities Answer Date Recorded In the past 12 months has [employer], gas, oil, or water company threatened to shut off services in your [...] 07/24/2024 How often do you attend chur ch or jewish services? Never 07/24/2024 Do you belong to any clubs o r organizations such as worship groups, unions, fraternal or athletic groups, or [...] any time in the past 12 m [facility], were you homeless or living in a detention (including now)? No 07/24/2024 Personal Safety Answer Date Recorded Have you ever been in or are you currently in a harmful physical or emotional relationship or is someone making you feel afraid or unsafe? 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 Gender Identity Not on file Sexual Orientation Not on file Obstetrics History Last Filed Vital Signs Vital Sign Reading Time Taken Comments Blood Pressure 139/70 07/26/2024 10:51 AM CDT Pulse 74 07/26/2024 10:51 AM CDT Temperature 36.2 C (97.2 F) 07/26/2024 10:51 AM CDT Respiratory Rate 16 07/26/2024 10:51 AM CDT Oxygen Saturation 94% 07/26/2024 10:51 AM CDT Inhaled Oxygen Concentration - - Weight 149 kg (328 lb 7.8 oz) 07/24/2024 2:53 AM CDT Height 157.5 cm (5' 2.01 ) 07/21/2024 11:50 PM C DT Body Mass Index 60.07 07/21/2024 11:50 PM CDT Plan of Treatment Health Maintenance Due Date Last Done Comments Cervical Cancer Screening 1984 Depression Screening 1984 Hepatitis C Screening 1984 Regular Well Visit/Exam 18-64 2002 Pneumococcal vaccine <65 (2 of 2 - PCV) 11/30/2015 11/29/2014 Covid-19 Vaccine ( season) 2023 03/12/2022, 06/30/2021, 09/18/2020, Additional history exists Influenza Vaccine (Season Ended) 2024 01/22/2023, 12/22/2021, 01/13/2021, Additional history exists DTaP/Tdap/Td Vaccine (7 - Td or Tdap) 06/22/2029 06/23/2019, 08/05/1999, 05/11/1990, Additional history exists Varicella Vaccines Completed 10/08/1999, 09/09/1999 Hepatitis B Screening Completed 03/11/2000 , 09/09/1999, 08/05/1999 HPV Vaccines Aged Out No longer eligi ble based on patient's age to complete this topic Medical Devices Implanted Type Area Knowledge Engineer Device Identifier Shelf Expiration Date Model / Serial / Lot [employer] S[employer] [place] Drill Guide Punch Tap Set Implant Achilles [id number] - [id number] Implanted:Qty: 1 on 04/03/2022 by Allyson Jason DPM at [facility] Left: Foot [employer] [id number] 12/03/2024 [id number] / / [id number] Procedures Procedure Name Priority Date/Time Associated Diagnosis Comments EGFR Routine 07/26/2024 6:27 AM CDT DIFFERENTIAL AUTO Routine 07/26/2024 6:2 7 AM CDT CBC WITH AUTO DIFFERENTIAL Routine 07/26/2024 6:27 AM CDT COMPREHENSIVE METABOLIC PANEL Routine 07/26/2024 6:27 AM CDT EGFR Routine 07/25/2024 9:22 AM CDT DIFFERENTIAL AUTO Routine 07/25/2024 9:2 2 AM CDT CBC WITH AUTO DIFFERENTIAL Routine 07/25/2024 9:22 AM CDT COMPREHENSIVE METABOLIC PANEL Routine 07/25/2024 9:22 AM CDT EEG Routine 07/24/2024 3:41 PM CDT EGFR Routine 07/24/2024 8:55 AM CDT DIFFERENTIAL AUTO Routine 07/24/2024 8:5 5 AM CDT CBC WITH AUTO DIFFERENTIAL Routine 07/24/2024 8:55 AM CDT COMPREHENSIVE METABOLIC PANEL Routine 07/24/2024 8:55 AM CDT MRI BRAIN W WO CONTRAST IP Routine 07/24/2024 7:05 AM CDT ECG 12-LEAD Routine 07/23/2024 8:02 PM CDT EGFR Routine 07/23/2024 8:59 AM CDT DIFFERENTIAL AUTO Routine 07/23/2024 8:5 9 AM CDT CBC WITH AUTO DIFFERENTIAL Routine 07/23/2024 8:59 AM CDT COMPREHENSIVE METABOLIC PANEL Routine 07/23/2024 8:59 AM CDT LACTATE Routine 07/22/2024 2:12 PM CDT PROLACTIN Routine 07/22/2024 7:53 AM CDT EGFR Routine 07/22/2024 7:53 AM CDT DIFFERENTIAL AUTO Routine 07/22/2024 7:5 3 AM CDT CBC WITH AUTO DIFFERENTIAL Routine 07/22/2024 7:53 AM CDT MAGNESIUM Routine 07/22/2024 7:53 AM CDT COMPREHENSIVE METABOLIC PANEL Routine 07/22/2024 7:53 AM CDT DRUGS OF ABUSE SCREEN, URINE WITH REFLEX CONFIRMATION Routine 07/22/2024 6:00 AM CDT URINALYSIS AND REFLEX TO MICROSCOPIC AND CULTURE STAT 07/22/2024 6:00 AM CDT XR CHEST 1 VIEW ED Urgent/IP Urgent 07/21/2024 11:[address] HEAD WO CONTRAST ED 07/21/2024 5 :06 PM CDT EGFR STAT 07/21/2024 3:48 PM CDT DIFFERENTIAL AUTO STAT 07/21/2024 3:4 8 PM CDT HCG, BLOOD, QUANTITATIVE STAT 07/21/2024 3:48 PM CDT SEPSIS LACTATE WITH REFLEX STAT 07/21/2024 3:48 PM CDT MAGNESIUM Routine 07/21/2024 3:48 PM CDT COMPREHENSIVE METABOLIC PANEL STAT 07/21/2024 3:48 PM CDT CBC WITH AUTO DIFFERENTIAL STAT 07/21/2024 3:48 PM CDT EEG Routine 07/21/2024 1:15 PM CDT Syncope and collapse Seizure disorder, complex partial (HCC) from Last 3 Months Results * eGFR (07/26/2024 6:27 AM CDT) eGFR 86 >=60 mL/min/1. 73 m2 Comment: Interpretive Data Reference Interval Normal >/= 90 mL/min/1.73m2 Mildly decreased* 60 - 89 mL/min/1.73m2 Mildly to moderately decreased 45 - 59 mL/min/1.73m2 Moderately to severely decreased 30 - 44 mL/min/1.73m2 Severely decreased 15 - 29 mL/min/1.73m2 Kidney Failure < 15 mL/min/1.73m2 *Relative to young adult level Estimated glomerular filtration rate is determined by the 2020 CKD-EPI equation recommended by the National Kidney Foundation (A Unifying Approach to GFR Estimation: Recommendations of the NKF-ASK Task Force on Reassessing the Inclusion of Race in Diagnosing Kidney Disease, JASN 202). The CKD-EPI equation should not be used for patients with unstable renal function and has not been validated in children and those over 70. Current interpretive data was last reviewed 2021. Blood 07/26/2024 6:27 AM CDT 07/26/2024 7:05 AM CDT us Alena Masters MD LAB BLOOD ORDERABLES Fi nal Result [facility] [address] [place] [address] * (ABNORMAL) Differential, auto (07/26/2024 6:27 AM CDT) Neutrophil abs 7.56(H) 1.50 - 6.50 K/cumm Imm gran abs 0.07 0.00 - 0.10 K/cumm [facility] Lymphocyte abs 3.17 0.80 - 3.30 K/cumm [facility]) Monocyte abs 0.93(H) 0.20 - 0.80 K/cumm [facility]) Eosinophil abs 0.40 0.00 - 0.50 K/cumm [facility]) Basophil abs 0.09 0.00 - 0.10 K/cumm [facility]) Neutrophil pct 61.9 % [facility] Comment: Interpretive Data Percent cell count reference ranges are not reported, since discordance with absolute values may lead to misinterpretation of CBC data. Current Interpretive Data was last revised on 2017. Imm gran pct 0.6 % [facility] Comment: Interpretive Data Percent cell count reference ranges are not reported, since discordance with absolute values may lead to misinterpretation of CBC data. Current Interpretive Data was last revised on 2017. Lymphocyte pct 25.9 % [facility] Comment: Interpretive Data Percent cell count reference ranges are not reported, since discordance with absolute values may lead to misinterpretation of CBC data. Current Interpretive Data was last revised on 2017. Monocyte pct 7.6 % [facility]) Comment: Interpretive Data Percent cell count reference ranges are not reported, since discordance with absolute values may lead to misinterpretation of CBC data. Current Interpretive Data was last revised on 2017. Eosinophil pct 3.3 % [facility] Comment: Interpretive Data Percent cell count reference ranges are not reported, since discordance with absolute values may lead to misinterpretation of CBC data. Current Interpretive Data was last revised on 2017. Basophil pct 0.7 % [facility] Comment: Interpretive Data Percent cell count reference ranges are not reported, since discordance with absolute values may lead to misinterpretation of CBC data. Current Interpretive Data was last revised on 2017. Blood 07/26/2024 6:27 AM CDT 07/26/2024 7:05 AM CDT us Alena Masters MD LAB BLOOD ORDERABLES Fi nal Result [facility] [address] [place] [address] * (ABNORMAL) CBC with auto differential (07/26/2024 6:27 AM CDT) WBC 12.22(H) 3.80 - 9.90 K/cumm Hgb 13.4 11.9 - 15.5 g/dL [facility] Hct 40.0 35.6 - 45.5 % [facility] Plt 290 150 - 400 K/cumm [facility] MPV 10.5 9.1 - 12.3 fL [facility] RBC 4.49 3.90 - 5.20 M/cumm [facility] MCV 89.1 81.3 - 96.4 fL [facility] MCH 29.8 27.1 - 33.3 pg [facility] MCHC 33.5 32.3 - 35.7 g/dL [facility] RDW CV 12.5 11.1 - 14.9 % [facility] RDW SD 40.9 35.7 - 48.1 fL [facility] NRBC abs 0.00 0.00 - 0.01 K/cumm [facility]) Blood 07/26/2024 6:27 AM CDT 07/26/2024 7:05 AM CDT us Alena Masters MD LAB BLOOD ORDERABLES Fi nal Result [facility] [address] [place] [address] * Comprehensive metabolic panel (07/26/2024 6:27 AM CDT) Sodium 140 135 - 145 mmol/L Potassium, pl 3.7 3.3 - 4.9 mmol/L [facility] Chloride 103 97 - 110 mmol/L [facility] CO2 25 22 - 32 mmol/L [facility] Anion gap 12 2 - 15 mmol/L [facility] BUN 14 6 - 25 mg/dL [facility] Creatinine 0.88 0.60 - 1.10 mg/dL [facility] Glucose 85 70 - 199 mg/dL [facility] Comment: Interpretive Data Fasting glucose >/= 126 mg/dl is diagnostic for diabetes. Fasting is defined as no caloric intake for at least 8 hours. Fasting glucose between 100 mg/dl to 125 mg/dl is diagnostic of prediabetes. In a patient with classic symptoms of hyperglycemia or hyperglycemic crisis, a random glucose >/= 200 mg/dl is diagnostic for diabetes. In the absence of unequivocal hyperglycemia, results should be confirmed by repeat testing. The classification and Diagnosis of Diabetes Diabetes Care 2021; 46: S19-S40. Current interpretive data was last revised 2022. Calcium 9.2 8.5 - 10.3 mg/dL [facility] Bilirubin, total 0.2 0.1 - 1.2 mg/dL [facility]) Protein, pl 6.8 6.5 - 8.5 g/dL [facility] Albumin 3.8 3.5 - 5.0 g/dL [facility]) Alk phos 86 40 - 130 Units/L [facility] ALT 19 7 - 45 Units/L [facility] AST 18 10 - 45 Units/L [facility]) Comment:Slightly Hemolyzed S pecimen Blood 07/26/2024 6:27 AM CDT 07/26/2024 7:05 AM CDT Alena Masters MD LAB BLOOD ORDERABLES Fi nal Result Performing Organization Address City/[facility] Co de Phone Number [facility] ([place]) [address] [facility] [place] [address] * eGFR (07/25/2024 9:22 AM CDT) eGFR 89 >=60 mL/min/1. 73 m2 Comment: Interpretive Data Reference Interval Normal >/= 90 mL/min/1.73m2 Mildly decreased* 60 - 89 mL/min/1.73m2 Mildly to moderately decreased 45 - 59 mL/min/1.73m2 Moderately to severely decreased 30 - 44 mL/min/1.73m2 Severely decreased 15 - 29 mL/min/1.73m2 Kidney Failure < 15 mL/min/1.73m2 *Relative to young adult level Estimated glomerular filtration rate is determined by the 2020 CKD-EPI equation recommended by the National Kidney Foundation (A Unifying Approach to GFR Estimation: Recommendations of the NKF-ASK Task Force on Reassessing the Inclusion of Race in Diagnosing Kidney Disease, JASN 2020). The CKD-EPI equation should not be used for patients with unstable renal function and has not been validated in children and those over 70. Current interpretive data was last reviewed 2021. Blood 07/25/2024 9:22 AM CDT 07/25/2024 10:14 AM CDT Alena Masters MD LAB BLOOD ORDERABLES Fi nal Result Performing Organization Address City/[facility] Co de Phone Number [facility] [address] [place] [address] * (ABNORMAL) Differential, auto (07/25/2024 9:22 AM CDT) Neutrophil abs 8.44(H) 1.50 - 6.50 K/cumm Imm gran abs 0.05 0.00 - 0.10 K/cumm [facility] ([place] Lymphocyte abs 2.45 0.80 - 3.30 K/cumm [facility] ([place]) Monocyte abs 0.62 0.20 - 0.80 K/cumm [facility]) Eosinophil abs 0.32 0.00 - 0.50 K/cumm [facility] ([place]) Basophil abs 0.07 0.00 - 0.10 K/cumm [facility] ([place]) Neutrophil pct 70.6 % [facility] Comment: Interpretive Data Percent cell count reference ranges are not reported, since discordance with absolute values may lead to misinterpretation of CBC data. Current Interpretive Data was last revised on 2017. Imm gran pct 0.4 % [facility] ([place]) Comment: Interpretive Data Percent cell count reference ranges are not reported, since discordance with absolute values may lead to misinterpretation of CBC data. Current Interpretive Data was last revised on 2017. Lymphocyte pct 20.5 % [facility]) Comment: Interpretive Data Percent cell count reference ranges are not reported, since discordance with absolute values may lead to misinterpretation of CBC data. Current Interpretive Data was last revised on 2017. Monocyte pct 5.2 % [facility] ([place]) Comment: Interpretive Data Percent cell count reference ranges are not reported, since discordance with absolute values may lead to misinterpretation of CBC data. Current Interpretive Data was last revised on 2017. Eosinophil pct 2.7 % [facility] ([place]) Comment: Interpretive Data Percent cell count reference ranges are not reported, since discordance with absolute values may lead to misinterpretation of CBC data. Current Interpretive Data was last revised on 2017. Basophil pct 0.6 % [facility]) Comment: Interpretive Data Percent cell count reference ranges are not reported, since discordance with absolute values may lead to misinterpretation of CBC data. Current Interpretive Data was last revised on 2017. Blood 07/25/2024 9:22 AM CDT 07/25/2024 10:14 AM CDT us Alena Masters MD LAB BLOOD ORDERABLES Fi nal Result [facility] ([place] [address] [facility] [place] [address] * (ABNORMAL) CBC with auto differential (07/25/2024 9:22 AM CDT) [facility] WBC 11.95(H) 3.80 - 9.90 K/cumm Hgb 13.5 11.9 - 15.5 g/dL [facility] Hct 40.6 35.6 - 45.5 % [facility] Plt 279 150 - 400 K/cumm [facility] MPV 10.8 9.1 - 12.3 fL [facility] RBC 4.53 3.90 - 5.20 M/cumm [facility] [facility] MCV 89.6 81.3 - 96.4 fL [facility] MCH 29.8 27.1 - 33.3 pg [facility] MCHC 33.3 32.3 - 35.7 g/dL [facility] RDW CV 12.6 11.1 - 14.9 % [facility] RDW SD 41.1 35.7 - 48.1 fL [facility] NRBC abs 0.00 0.00 - 0.01 K/cumm [facility] Blood 07/25/2024 9:22 AM CDT 07/25/2024 10:14 AM CDT us Alena Masters MD LAB BLOOD ORDERABLES nal Result [facility] [address] [place] [address] * (ABNORMAL) Comprehensive metabolic panel (07/25/2024 9:22 AM CDT) [facility] Sodium 140 135 - 145 mmol/L Potassium, pl 3.1(L) 3.3 - 4.9 mmol/L [facility] Chloride 103 97 - 110 mmol/L [facility] CO2 22 22 - 32 mmol/L [facility] Anion gap 15 2 - 15 mmol/L [facility] ([place] BUN 12 6 - 25 mg/dL [facility] ([place]) Creatinine 0.85 0.60 - 1.10 mg/dL [facility] ([place]) Glucose 129 70 - 199 mg/dL [facility] ([place]) Comment: Interpretive Data Fasting glucose >/= 126 mg/dl is diagnostic for diabetes. Fasting is defined as no caloric intake for at least 8 hours. Fasting glucose between 100 mg/dl to 125 mg/dl is diagnostic of prediabetes. In a patient with classic symptoms of hyperglycemia or hyperglycemic crisis, a random glucose >/= 200 mg/dl is diagnostic for diabetes. In the absence of unequivocal hyperglycemia, results should be confirmed by repeat testing. The classification and Diagnosis of Diabetes Diabetes Care 202; 46: S19-S40. Current interpretive data was last revised 2022. Calcium 8.9 8.5 - 10.3 mg/dL [facility] ([place]) Bilirubin, total 0.3 0.1 - 1.2 mg/dL [facility] ([place]) Protein, pl 6.8 6.5 - 8.5 g/dL [facility] ([place]) Albumin 4.0 3.5 - 5.0 g/dL [facility] ([place]) Alk phos 89 40 - 130 Units/L [facility] ([place] ALT 16 7 - 45 Units/L [facility] AST 13 10 - 45 Units/L [facility] ([place] Blood 07/25/2024 9:22 AM CDT 07/25/2024 10:14 AM CDT us Alena Masters MD LAB BLOOD ORDERABLES Fi nal Result [facility] [address] [place] [address] * EEG (07/24/2024 3:41 PM CDT) Anatomical Region Laterality Modality Other Narrative Procedure Note Ladan Elizondo MD - 07/21/2024 12:00 AM CDT REQUESTING Carlos A Humphreys MD. INDICATIONS Ms. David is a 38-year-old with chief complaints of episodes ofpossible seizure-like activity. EEG was obtained using [id number]/20 system of electrode placement. Background activity consisted ofbilateral, synchronous, posterior dominant alpha range activity. Recordshows spontaneous variability. Frequent muscle artifacts movement.Drowsiness with identified ocular signs and attenuation of background. Nofocal, lateralized, or epileptiform abnormalities were noted. IMPRESSION This EEG reveals evidence of normal wakefulness and drowsiness. Clinicalcourse recommended. Job ID/Internal Job ID: [id number] us Joann Mitchell MD NEUROLOGY ORDERABLES Susana l Result * eGFR (07/24/2024 8:55 AM CDT) eGFR 76 >=60 mL/min/1. 73 m2 Comment: Interpretive Data Reference Interval Normal >/= 90 mL/min/1.73m2 Mildly decreased* 60 - 89 mL/min/1.73m2 Mildly to moderately decreased 45 - 59 mL/min/1.73m2 Moderately to severely decreased 30 - 44 mL/min/1.73m2 Severely decreased 15 - 29 mL/min/1.73m2 Kidney Failure < 15 mL/min/1.73m2 *Relative to young adult level Estimated glomerular filtration rate is determined by the 2020 CKD-EPI equation recommended by the National Kidney Foundation (A Unifying Approach to GFR Estimation: Recommendations of the NKF-ASK Task Force on Reassessing the Inclusion of Race in Diagnosing Kidney Disease, JASN 2020). The CKD-EPI equation should not be used for patients with unstable renal function and has not been validated in children and those over 70. Current interpretive data was last reviewed 2021. Blood 07/24/2024 8:55 AM CDT 07/24/2024 9:33 AM CDT us Alena Masters MD LAB BLOOD ORDERABLES Fi nal Result [facility] [place] [address] [place] [address] * (ABNORMAL) Differential, auto (07/24/2024 8:55 AM CDT) Neutrophil abs 6.83(H) 1.50 - 6.50 K/cumm Imm gran abs 0.06 0.00 - 0.10 K/cumm [facility] ([place]) Lymphocyte abs 2.26 0.80 - 3.30 K/cumm [facility] ([place]) Monocyte abs 0.66 0.20 - 0.80 K/cumm [facility] ([place]) Eosinophil abs 0.31 0.00 - 0.50 K/cumm [facility] ([place]) Basophil abs 0.06 0.00 - 0.10 K/cumm [facility] ([place]) Neutrophil pct 67.1 % [facility] ([place]) Comment: Interpretive Data Percent cell count reference ranges are not reported, since discordance with absolute values may lead to misinterpretation of CBC data. Current Interpretive Data was last revised on 2017. Imm gran pct 0.6 % [facility] ([place]) Comment: Interpretive Data Percent cell count reference ranges are not reported, since discordance with absolute values may lead to misinterpretation of CBC data. Current Interpretive Data was last revised on 2017. Lymphocyte pct 22.2 % [facility] ([place]) Comment: Interpretive Data Percent cell count reference ranges are not reported, since discordance with absolute values may lead to misinterpretation of CBC data. Current Interpretive Data was last revised on 2017. Monocyte pct 6.5 % [facility] ([place]) Comment: Interpretive Data Percent cell count reference ranges are not reported, since discordance with absolute values may lead to misinterpretation of CBC data. Current Interpretive Data was last revised on 2017. Eosinophil pct 3.0 % [facility] ([place] Comment: Interpretive Data Percent cell count reference ranges are not reported, since discordance with absolute values may lead to misinterpretation of CBC data. Current Interpretive Data was last revised on 2017. Basophil pct 0.6 % [facility] ([place]) Comment: Interpretive Data Percent cell count reference ranges are not reported, since discordance with absolute values may lead to misinterpretation of CBC data. Current Interpretive Data was last revised on 2017. Blood 07/24/2024 8:55 AM CDT 07/24/2024 9:33 AM CDT us Alena Masters MD LAB BLOOD ORDERABLES Fi nal Result [facility] ([place]) [address] [facility] [place] [address] * (ABNORMAL) CBC with auto differential (07/24/2024 8:55 AM CDT) WBC 10.18(H) 3.80 - 9.90 K/cumm Hgb 13.4 11.9 - 15.5 g/dL [facility] ([place]) Hct 39.5 35.6 - 45.5 % [facility] ([place]) Plt 295 150 - 400 K/cumm [facility] ([place]) MPV 10.6 9.1 - 12.3 fL [facility] ([place]) RBC 4.50 3.90 - 5.20 M/cumm [facility] ([place]) MCV 87.8 81.3 - 96.4 fL [facility] ([place]) MCH 29.8 27.1 - 33.3 pg [facility] ([place]) MCHC 33.9 32.3 - 35.7 g/dL [facility] ([place]) RDW CV 12.5 11.1 - 14.9 % [facility] ([place]) RDW SD 40.1 35.7 - 48.1 fL [facility] ([place]) NRBC abs 0.00 0.00 - 0.01 K/cumm [facility] ([place]) Blood 07/24/2024 8:55 AM CDT 07/24/2024 9:33 AM CDT us Alena Masters MD LAB BLOOD ORDERABLES Fi nal Result [facility] ([place]) [address] [facility] [place] [address] * (ABNORMAL) Comprehensive metabolic panel (07/24/2024 8:55 AM CDT) Sodium 139 135 - 145 mmol/L Potassium, pl 3.5 3.3 - 4.9 mmol/L [facility] ([place]) Chloride 102 97 - 110 mmol/L [facility] ([place]) CO2 21(L) 22 - 32 mmol/L [facility] ([place]) Anion gap 16(H) 2 - 15 mmol/L [facility] ([place]) BUN 11 6 - 25 mg/dL [facility] ([place]) Creatinine 0.97 0.60 - 1.10 mg/dL [facility] ([place]) Glucose 120 70 - 199 mg/dL [facility] ([place]) Comment: Interpretive Data Fasting glucose >/= 126 mg/dl is diagnostic for diabetes. Fasting is defined as no caloric intake for at least 8 hours. Fasting glucose between 100 mg/dl to 125 mg/dl is diagnostic of prediabetes. In a patient with classic symptoms of hyperglycemia or hyperglycemic crisis, a random glucose >/= 200 mg/dl is diagnostic for diabetes. In the absence of unequivocal hyperglycemia, results should be confirmed by repeat testing. The classification and Diagnosis of Diabetes Diabetes Care 2021; 46: S19-S40. Current interpretive data was last revised 2022. Calcium 9.0 8.5 - 10.3 mg/dL [facility] ([place]) Bilirubin, total <0.2 0.1 - 1.2 mg/dL [facility] ([place]) Protein, pl 7.1 6.5 - 8.5 g/dL [facility] ([place]) Albumin 4.2 3.5 - 5.0 g/dL [facility] ([place]) Alk phos 97 40 - 130 Units/L [facility] ALT 17 7 - 45 Units/L [facility] ([place]) AST 20 10 - 45 Units/L [facility] ([place]) Comment:Slightly Hemolyzed S pecimen Blood 07/24/2024 8:55 AM CDT 07/24/2024 9:33 AM CDT Alena Masters MD LAB BLOOD ORDERABLES Fi nal Result [facility] ([place]) [address] [place] [address] * MRI Brain W WO Contrast (07/24/2024 7:05 AM CDT) Anatomical Region Laterality Modality Head and Neck N/A Magnetic Resonan ce 07/24/2024 9:08 AM CDT Narrative 07/24/2024 9:23 AM CDT EXAM DESCRIPTION: MRI BRAIN W WO CONTRAST REASON FOR STUDY: seizures New onset of seizures 3 on Wednesday, 1 Wednesday. Patient has longstanding history of migraine headaches. No prior history of epilepsy. she was witnessed to have seizure-like activity. She was postictal afterwards. Patient came into the ED with the above symptoms. Vitals were stable. Patient was confused. Imaging was negative. Patient was on 50 mg of Topamax which was increased to 100 mg twice a day. She was given loading dose of Keppra and was subsequently admitted as the patient was not back to her baseline self. TECHNIQUE: Multiplanar imaging includes noncontrast T1, T2, FLAIR, diffusion with ADC map and post contrast T1 sequences. Additional sequence(s) sensitive to blood products. Images stored on PACS. CONTRAST TYPE/DOSE: 20mL of GADOTERATE MEGLUMINE 0.5 MMOL/ML INTRAVENOUS SOLUTION (SO) injected via intravenous COMPARISON: CT head without contrast dated 07/21/2024. FINDINGS: There is no diffusion restriction to suggest acute/recent infarction. No parenchymal susceptibility signal to indicate blood degradation products. The size and configuration of the ventricles and sulci normal for the patient's age. There is no hydrocephalus. The basilar cisterns are maintained. Prominent granulation along the left posterior fossa. Coronal oblique T2 and T2 weighted FLAIR sequences through the temporal lobes were obtained as a part of the protocol. There is mild asymmetric prominence of the temporal horn of the right lateral ventricle but no associated FLAIR hyperintense signal. Request clinical correlation. Some of the postcontrast sequences are degraded by motion related artifact. No convincing enhancing parenchymal mass within the of the limited postcontrast sequences. The bilateral globes are symmetric. Right frontal sinus foamy secretions. Mild scattered mucosal thickening in the remainder of the paranasal sinuses. IMPRESSION: 1. No acute infarction. 2. Mild asymmetry in the size of the mesial temporal lobes without associated FLAIR hyperintense signal. Request clinical correlation. 3. Foamy secretions in the right frontal sinus can be seen with acute sinusitis in the proper clinical scenario. THIS IS AN ELECTRONICALLY VERIFIED FINAL REPORT 07/24/2024 9:23 AM - Electronically signed by Kip Crowe D.O. AP: AP Report ID: [id number] Reading Location: [id number] Procedure Note Kip Crowe, DO - 07/24/2024 EXAM DESCRIPTION: MRI BRAIN W WO CONTRAST REASON FOR STUDY: seizures New onset of seizures 3 on Wednesday, 1 Wednesday. Patient has longstanding history of migraine headaches. No prior history of epilepsy. she was witnessed to have seizure-like activity. She was postictal afterwards. Patient came into the ED with the above symptoms. Vitals were stable. Patient was confused. Imaging was negative. Patient was on 50 mg ofTopamax which was increased to 100 mg twice a day. She was given loading doseof Keppra and was subsequently admitted as the patient was not back to her baseline self. TECHNIQUE: Multiplanar imaging includes noncontrast T1, T2, FLAIR,diffusion with ADC map and post contrast T1 sequences. Additional sequence(s)sensitive to blood products. Images stored on PACS. CONTRAST TYPE/DOSE: 20mL of GADOTERATE MEGLUMINE 0.5 MMOL/ML INTRAVENOUS SOLUTION (SO) injected via intravenous COMPARISON: CT head without contrast dated 07/21/2024. FINDINGS: There is no diffusion restriction to suggest acute/recent infarction. No parenchymal susceptibility signal to indicate blood degradationproducts. The size and configuration of the ventricles and sulci normal for the patient's age. There is no hydrocephalus. The basilar cisterns are maintained. Prominent granulation along the left posterior fossa. Coronal oblique T2 and T2 weighted FLAIR sequences through the temporallobes were obtained as a part of the protocol. There is mild asymmetricprominence of the temporal horn of the right lateral ventricle but no associatedFLAIR hyperintense signal. Request clinical correlation. Some of the postcontrast sequences are degraded by motion relatedartifact. No convincing enhancing parenchymal mass within the of the limited postcontrast sequences. The bilateral globes are symmetric. Right frontal sinus foamy secretions. Mild scattered mucosal thickening in the remainder of the paranasalsinuses. IMPRESSION: 1. No acute infarction. 2. Mild asymmetry in the size of the mesial temporal lobes without associated FLAIR hyperintense signal. Request clinical correlation. 3. Foamy secretions in the right frontal sinus can be seen with acute sinusitis in the proper clinical scenario. THIS IS AN ELECTRONICALLY VERIFIED FINAL REPORT 07/24/2024 9:23 AM - Electronically signed by Kip Crowe D.O. AP: AP Report ID: [id number] Reading Location: [place] [id number] Alena Masters MD IMG MRI PROCEDURES Susana l Result * ECG 12 lead (07/23/2024 8:02 PM CDT) 07/23/2024 8:02 PM CDT Narrative [facility] - 07/24/2024 6:41 AM CDT Vent Rate: 74 bpm RR Interval: 808 msec PA Interval: 156 msec QRS Duration: 121 msec QT Interval: 398 msec QTC Interval: 425 msec P-R-T Joseph: 43 - 78 - 33 degrees IMPRESSION: SINUS RHYTHM POSSIBLE LEFT ATRIAL ENLARGEMENT [-0.1mV P WAVE IN V1/V2] POSSIBLE RIGHT VENTRICULAR CONDUCTION DELAY [RSR (QR) IN V1/V2] INFERIOR MYOCARDIAL INFARCTION [40+ ms Q WAVE AND/OR ST/T ABNORMALITY IN II/aVF], OF INDETERMINATE AGE ABNORMAL ECG Electronically Signed By: Darwin Kingsley MD Alena Masters MD ECG ORDERABLES Final R esult [facility] * eGFR (07/23/2024 8:59 AM CDT) eGFR 76 >=60 mL/min/1. 73 m2 Comment: Interpretive Data Reference Interval Normal >/= 90 mL/min/1.73m2 Mildly decreased* 60 - 89 mL/min/1.73m2 Mildly to moderately decreased 45 - 59 mL/min/1.73m2 Moderately to severely decreased 30 - 44 mL/min/1.73m2 Severely decreased 15 - 29 mL/min/1.73m2 Kidney Failure < 15 mL/min/1.73m2 *Relative to young adult level Estimated glomerular filtration rate is determined by the 2020 CKD-EPI equation recommended by the National Kidney Foundation (A Unifying Approach to GFR Estimation: Recommendations of the NKF-ASK Task Force on Reassessing the Inclusion of Race in Diagnosing Kidney Disease, JASN 2020). The CKD-EPI equation should not be used for patients with unstable renal function and has not been validated in children and those over 70. Current interpretive data was last reviewed 2021. Blood 07/23/2024 8:59 AM CDT 07/23/2024 9:24 AM CDT us Alena Masters MD LAB BLOOD ORDERABLES [facility] Result [facility] ([place] [address] Department of Laboratories [place], [place] [id number] * Differential, auto (07/23/2024 8:59 AM CDT) Neutrophil abs 5.59 1.50 - 6.50 K/cumm Imm gran abs 0.03 0.00 - 0.10 K/cumm [facility] ([place]) Lymphocyte abs 2.49 0.80 - 3.30 K/cumm [facility] ([place]) Monocyte abs 0.47 0.20 - 0.80 K/cumm [facility] ([place]) Eosinophil abs 0.25 0.00 - 0.50 K/cumm [facility] ([place]) Basophil abs 0.06 0.00 - 0.10 K/cumm [facility] ([place]) Neutrophil pct 62.9 % [facility] ([place] Comment: Interpretive Data Percent cell count reference ranges are not reported, since discordance with absolute values may lead to misinterpretation of CBC data. Current Interpretive Data was last revised on 2017. Imm gran pct 0.3 % [facility] ([place]) Comment: Interpretive Data Percent cell count reference ranges are not reported, since discordance with absolute values may lead to misinterpretation of CBC data. Current Interpretive Data was last revised on 2017. Lymphocyte pct 28.0 % [facility] ([place]) Comment: Interpretive Data Percent cell count reference ranges are not reported, since discordance with absolute values may lead to misinterpretation of CBC data. Current Interpretive Data was last revised on 2017. Monocyte pct 5.3 % [facility] ([place]) Comment: Interpretive Data Percent cell count reference ranges are not reported, since discordance with absolute values may lead to misinterpretation of CBC data. Current Interpretive Data was last revised on 2017. Eosinophil pct 2.8 % [facility] ([place] Comment: Interpretive Data Percent cell count reference ranges are not reported, since discordance with absolute values may lead to misinterpretation of CBC data. Current Interpretive Data was last revised on 2017. Basophil pct 0.7 % [facility] ([place]) Comment: Interpretive Data Percent cell count reference ranges are not reported, since discordance with absolute values may lead to misinterpretation of CBC data. Current Interpretive Data was last revised on 2017. Blood 07/23/2024 8:59 AM CDT 07/23/2024 9:26 AM CDT us Alena Masters MD LAB BLOOD ORDERABLES Fi nal Result [facility] ([place] [address] [place] [address] * CBC with auto differential (07/23/2024 8:59 AM CDT) WBC 8.89 3.80 - 9.90 K/cumm Hgb 13.1 11.9 - 15.5 g/dL [facility] ([place]) Hct 39.5 35.6 - 45.5 % [facility] ([place] Plt 292 150 - 400 K/cumm [facility] MPV 10.5 9.1 - 12.3 fL [facility] ([place]) RBC 4.41 3.90 - 5.20 M/cumm [facility] ([place]) MCV 89.6 81.3 - 96.4 fL [facility] ([place]) MCH 29.7 27.1 - 33.3 pg [facility] MCHC 33.2 32.3 - 35.7 g/dL [facility] ([place]) RDW CV 12.7 11.1 - 14.9 % [facility] RDW SD 41.5 35.7 - 48.1 fL [facility] ([place]) NRBC abs 0.00 0.00 - 0.01 K/cumm [facility] ([place]) Blood 07/23/2024 8:59 AM CDT 07/23/2024 9:26 AM CDT us Alena Masters MD LAB BLOOD ORDERABLES [facility] Result [facility] ([place]) [address] [place] [address] * Comprehensive metabolic panel (07/23/2024 8:59 AM CDT) Sodium 140 135 - 145 mmol/L Potassium, pl 3.4 3.3 - 4.9 mmol/L [facility] ([place]) Chloride 104 97 - 110 mmol/L [facility]) CO2 23 22 - 32 mmol/L [facility] ([place]) Anion gap 13 2 - 15 mmol/L [facility] BUN 15 6 - 25 mg/dL [facility] ([place]) Creatinine 0.97 0.60 - 1.10 mg/dL [facility] Glucose 118 70 - 199 mg/dL [facility] ([place]) Comment: Interpretive Data Fasting glucose >/= 126 mg/dl is diagnostic for diabetes. Fasting is defined as no caloric intake for at least 8 hours. Fasting glucose between 100 mg/dl to 125 mg/dl is diagnostic of prediabetes. In a patient with classic symptoms of hyperglycemia or hyperglycemic crisis, a random glucose >/= 200 mg/dl is diagnostic for diabetes. In the absence of unequivocal hyperglycemia, results should be confirmed by repeat testing. The classification and Diagnosis of Diabetes Diabetes Care 2021; 46: S19-S40. Current interpretive data was last revised 2022. Calcium 8.9 8.5 - 10.3 mg/dL [facility] ([place]) Bilirubin, total 0.3 0.1 - 1.2 mg/dL [facility] ([place]) Protein, pl 6.6 6.5 - 8.5 g/dL [facility] ([place]) Albumin 3.9 3.5 - 5.0 g/dL [facility] ([place]) Alk phos 81 40 - 130 Units/L [facility] ([place] ALT 16 7 - 45 Units/L [facility] AST 15 10 - 45 Units/L [facility] ([place]) Blood 07/23/2024 8:59 AM CDT 07/23/2024 9:24 AM CDT Alena Masters MD LAB BLOOD ORDERABLES Fi nal Result [facility] ([place] [address] [place] [address] * Lactate (07/22/2024 2:12 PM CDT) Lactate 1.6 0.7 - 2.0 mmol/L Blood 07/22/2024 2:12 PM CDT 07/22/2024 2:17 PM CDT Ho Barraza MD LAB BLOOD ORDERABLES Final Re sult [facility] ([place]) [address] [facility] [place] [address] * eGFR (07/22/2024 7:53 AM CDT) eGFR 81 >=60 mL/min/1. 73 m2 Comment: Interpretive Data Reference Interval Normal >/= 90 mL/min/1.73m2 Mildly decreased* 60 - 89 mL/min/1.73m2 Mildly to moderately decreased 45 - 59 mL/min/1.73m2 Moderately to severely decreased 30 - 44 mL/min/1.73m2 Severely decreased 15 - 29 mL/min/1.73m2 Kidney Failure < 15 mL/min/1.73m2 *Relative to young adult level Estimated glomerular filtration rate is determined by the 2020 CKD-EPI equation recommended by the National Kidney Foundation (A Unifying Approach to GFR Estimation: Recommendations of the NKF-ASK Task Force on Reassessing the Inclusion of Race in Diagnosing Kidney Disease, JASN 2020). The CKD-EPI equation should not be used for patients with unstable renal function and has not been validated in children and those over 70. Current interpretive data was last reviewed 2021. Blood 07/22/2024 7:53 AM CDT 07/22/2024 8:27 AM CDT us Alena Masters MD LAB BLOOD ORDERABLES nal Result [facility] ([place]) [address] [place] [address] * Differential, auto (07/22/2024 7:53 AM CDT) Neutrophil abs 5.13 1.50 - 6.50 K/cumm Imm gran abs 0.02 0.00 - 0.10 K/cumm [facility] ([place]) Lymphocyte abs 2.76 0.80 - 3.30 K/cumm [facility] ([place]) Monocyte abs 0.67 0.20 - 0.80 K/cumm [facility] ([place]) Eosinophil abs 0.25 0.00 - 0.50 K/cumm [facility] ([place]) Basophil abs 0.06 0.00 - 0.10 K/cumm [facility] ([place]) Neutrophil pct 57.8 % [facility] ([place]) Comment: Interpretive Data Percent cell count reference ranges are not reported, since discordance with absolute values may lead to misinterpretation of CBC data. Current Interpretive Data was last revised on 2017. Imm gran pct 0.2 % [facility] ([place]) Comment: Interpretive Data Percent cell count reference ranges are not reported, since discordance with absolute values may lead to misinterpretation of CBC data. Current Interpretive Data was last revised on 2017. Lymphocyte pct 31.0 % [facility] ([place]) Comment: Interpretive Data Percent cell count reference ranges are not reported, since discordance with absolute values may lead to misinterpretation of CBC data. Current Interpretive Data was last revised on 2017. Monocyte pct 7.5 % [facility] ([place]) Comment: Interpretive Data Percent cell count reference ranges are not reported, since discordance with absolute values may lead to misinterpretation of CBC data. Current Interpretive Data was last revised on 2017. Eosinophil pct 2.8 % [facility] ([place]) Comment: Interpretive Data Percent cell count reference ranges are not reported, since discordance with absolute values may lead to misinterpretation of CBC data. Current Interpretive Data was last revised on 2017. Basophil pct 0.7 % [facility] ([place]) Comment: Interpretive Data Percent cell count reference ranges are not reported, since discordance with absolute values may lead to misinterpretation of CBC data. Current Interpretive Data was last revised on 2017. Blood 07/22/2024 7:53 AM CDT 07/22/2024 8:27 AM CDT us Alena Masters MD LAB BLOOD ORDERABLES Fi nal Result [facility] ([place]) [address] [place] [address] * CBC with auto differential (07/22/2024 7:53 AM CDT) WBC 8.89 3.80 - 9.90 K/cumm Hgb 13.5 11.9 - 15.5 g/dL [facility] ([place] Hct 39.8 35.6 - 45.5 % [facility] Plt 302 150 - 400 K/cumm [facility] ([place] MPV 10.3 9.1 - 12.3 fL [facility] RBC 4.51 3.90 - 5.20 M/cumm [facility] ([place]) MCV 88.2 81.3 - 96.4 fL [facility] ([place] MCH 29.9 27.1 - 33.3 pg [facility] ([place] MCHC 33.9 32.3 - 35.7 g/dL [facility] ([place] RDW CV 12.7 11.1 - 14.9 % [facility] ([place] RDW SD 41.1 35.7 - 48.1 fL [facility] NRBC abs 0.00 0.00 - 0.01 K/cumm [facility] Blood 07/22/2024 7:53 AM CDT 07/22/2024 8:27 AM CDT us Alena Masters MD LAB BLOOD ORDERABLES Fi nal Result [facility] ([place]) [address] [place] [address] * Prolactin (07/22/2024 7:53 AM CDT) Prolactin 16.8 4.8 - 23.3 ng/mL Comment:Testing performed by : [facility], [address] [place] [address]., [id number] Blood 07/22/2024 7:53 AM CDT 07/22/2024 5:11 PM CDT us Ho Barraza MD LAB BLOOD ORDERABLES Final Re sult [facility] ([place]) [address] [place] [address] * Magnesium (07/22/2024 7:53 AM CDT) Magnesium 2.0 1.4 - 2.5 mg/dL Blood 07/22/2024 7:53 AM CDT 07/22/2024 8:27 AM CDT us Alena Masters MD LAB BLOOD ORDERABLES nal Result [facility] ([place]) [address] [place] [address] * Comprehensive metabolic panel (07/22/2024 7:53 AM CDT) Sodium 137 135 - 145 mmol/L Potassium, pl 3.8 3.3 - 4.9 mmol/L [facility] ([place]) Chloride 102 97 - 110 mmol/L [facility] ([place] CO2 24 22 - 32 mmol/L [facility] ([place]) Anion gap 11 2 - 15 mmol/L [facility] ([place]) BUN 14 6 - 25 mg/dL [facility] ([place]) Creatinine 0.92 0.60 - 1.10 mg/dL [facility] ([place]) Glucose 86 70 - 199 mg/dL [facility] ([place]) Comment: Interpretive Data Fasting glucose >/= 126 mg/dl is diagnostic for diabetes. Fasting is defined as no caloric intake for at least 8 hours. Fasting glucose between 100 mg/dl to 125 mg/dl is diagnostic of prediabetes. In a patient with classic symptoms of hyperglycemia or hyperglycemic crisis, a random glucose >/= 200 mg/dl is diagnostic for diabetes. In the absence of unequivocal hyperglycemia, results should be confirmed by repeat testing. The classification and Diagnosis of Diabetes Diabetes Care 202; 46: S19-S40. Current interpretive data was last revised 2022. Calcium 9.1 8.5 - 10.3 mg/dL [facility] ([place]) Bilirubin, total 0.3 0.1 - 1.2 mg/dL [facility] ([place]) Protein, pl 6.8 6.5 - 8.5 g/dL [facility] ([place]) Albumin 4.1 3.5 - 5.0 g/dL [facility] ([place]) Alk phos 89 40 - 130 Units/L [facility] ([place]) ALT 17 7 - 45 Units/L [facility] ([place]) AST 15 10 - 45 Units/L [facility] ([place]) Blood 07/22/2024 7:53 AM CDT 07/22/2024 8:27 AM CDT Alena Masters MD LAB BLOOD ORDERABLES Fi nal Result [facility] ([place]) [address] [place] [address] * Drugs of Abuse Screen, Urine with Reflex Confirmation (07/22/2024 6:00 AM CDT) Amphetamine, ur Not Detected CutOff 500ng/mL Comment: Interpretive Data - Amphetamines: Samples containing greater than 500 ng/mL d-methamphetamine or other cross-reacting amphetamine compounds are reported as positive. Amphetamine immunoassays are subject to significant false positive rates due to cross-reactivity of non-amphetamine drugs. Confirmatory testing required for definitive results. Current Interpretive Data was last reviewed 2022. Barbiturates, ur Not Detected CutOff 200ng/mL [facility] ([place]) Comment: Interpretive Data - Barbiturates: Samples containing greater than 200 ng/mL secobarbital or other cross-reacting barbiturate compounds are reported as positive. False positive and false negative results are possible. Confirmatory testing required for definitive results. Current Interpretive Data was last reviewed 2022. Benzodiazepines, ur Not Detected CutOff 100ng/mL [facility] ([place]) Comment: Interpretive Data - Benzodiazepines: Samples containing greater than 100 ng/mL nordiazepam or other cross-reacting compounds are reported as positive. False positive and false negative results are possible. Confirmatory testing required for definitive results. Current Interpretive Data was last reviewed 2022. Cannabinoids, ur Not Detected CutOff 50 ng/mL [facility] ([place]) Comment: Interpretive Data - Cannabinoids: Samples containing greater than 50 ng/mL delta-9 THC -COOH or other cross- reacting compounds are reported as positive. False positive and false negative results are possible. Confirmatory testing required for definitive results. Current Interpretive Data was last reviewed 2022. Cocaine, ur Not Detected CutOff 150ng/mL [facility] ([place]) Comment: Interpretive Data - Cocaine: Samples containing greater than 150 ng/mL benzoylecgonine or other cross- reacting compounds are reported as positive. False positive and false negative results are possible. Confirmatory testing required for definitive results. Current Interpretive Data was last reviewed 2022. Fentanyl, Ur Not Detected CutOff 5 ng/mL [facility] ([place]) Comment: Interpretive Data - Fentanyl: Samples containing greater than 5 ng/mL norfentanyl, fentanyl, or other cross-reacting fentanyl compounds are reported as positive. False positive and false negative results are possible. Confirmatory testing required for definitive results. Current Interpretive Data was last reviewed 2023. Methadone, ur Not Detected CutOff 300ng/mL [facility] ([place]) Comment: Interpretive Data - Methadone: Samples containing greater than 300 ng/mL d,l-methadone or other cross-reacting compounds are reported as positive. False positive and false negative results are possible. Confirmatory testing required for definitive results. Current Interpretive Data was last reviewed 2022. Opiates, ur Not Detected CutOff 300ng/mL [facility] ([place]) Comment: Interpretive Data - Opiates: Samples containing greater than 300 ng/mL morphine or other cross-reacting compounds are reported as positive. False positive and false negative results are possible. Confirmatory testing required for definitive results. Current Interpretive Data was last reviewed 2022. Oxycodone, ur Not Detected CutOff 100ng/mL [facility] ([place]) Comment: Interpretive Data - Oxycodone: Samples containing greater than 100 ng/mL oxycodone or other cross-reacting compounds are reported as positive. False positive and false negative results are possible. Confirmatory testing required for definitive results. Current Interpretive Data was last reviewed 2022. Phencyclidine, ur Not Detected CutOff 25 ng/mL [facility] ([place]) Comment: Interpretive Data - Phencyclidine: Samples containing greater than 25 ng/mL phencyclidine or other cross-reacting compounds are reported as positive. False positive and false negative results are possible. Confirmatory testing required for definitive results. Current Interpretive Data was last reviewed 2022. Urine Creatinine 97 mg/dL [facility] ([place]) Comment: Interpretive Data Urine Creatinine: < 10 mg/dL is extremely dilute = or > 10 but < 20 mg/dL is dilute = or > 20 mg/dL is normal Current Interpretive Data was last revised on 2017. Urine 07/22/2024 6:00 AM CDT 07/22/2024 6:13 AM CDT Narrative [facility] ([place]) - 07/22/2024 7:01 AM CDT Drug of Abuse screening is performed by immunoassay for medical purposes only. This is not to be used for Pain Management purposes. If Detected, confirmation testing will be performed for Amphetamines, Cocaine, Fentanyl, Methadone, Opiates, Oxycodone or Phencyclidine. us Alena Masters MD LAB URINE ORDERABLES [facility] Result [facility] ([place]) [address] [place] [address] * Urinalysis reflex to microscopic and culture Urine (07/22/2024 6:00 AM CDT) Color, ur Yellow Yellow Clarity, ur Clear Clear [facility] ([place]) Specific gravity, ur 1.014 1.003 - 1.030 [facility] ([place]) pH, urine 6.5 [facility] ([place]) Comment: Interpretive Data U rine pH is affected by diet, medications, systemic acid-base disturbances, and renal tubular function. pH may affect urinary stone formation. For example, urine pH below 6.0 may help reduce the tendency for calcium phosphate stones and pH greater than 6.0 may reduce the tendency for uric acid stone formation. Source: [facility] [employer] Current Interpretive Data was last revised on 2017 Protein, ur ql Negative Negative [facility] ([place]) Glucose, ur ql Negative Negative [facility] ([place]) Ketones, ur Negative Negative [facility] ([place]) Bilirubin, ur Negative Negative [facility] ([place]) Blood, ur Negative Negative [facility] ([place]) Urobilinogen, ur <2.0 <2.0 mg/dL [facility] ([place]) Nitrite, ur Negative Negative [facility] ([place]) Leukocyte esterase, ur Negative Negative [facility] ([place]) UA reflex comment Reflex conditions for microscopic UA and culture not met. [facility] ([place]) Urine 07/22/2024 6:00 AM CDT 07/22/2024 6:13 AM CDT Alena Masters MD LAB MICROBIOLOGY - GENE [facility] ORDERABLES Final Result [facility] ([place]) [address] [place] [address] * XR Chest 1 View (07/21/2024 11:15 PM CDT) Anatomical Region Laterality Modality Body, Chest N/A Computed Radiogr aphy 07/22/2024 1:06 AM CDT Narrative 07/22/2024 1:07 AM CDT EXAM DESCRIPTION: XR CHEST 1 VIEW REASON FOR STUDY: assess for pneumonia Assess for pneumonia. Pt arrived today due to seizure like activity. Hx of asthma, anxiety, HTN Non smoker TECHNIQUE: 1 radiographic view(s) of the chest. COMPARISON: 04/24/2024 FINDINGS: LUNGS: No focal opacity, pleural effusion, or pneumothorax. HEART/MEDIASTINUM: Cardiac silhouette normal in size. Mediastinal and hilar contours appear normal. LINES/TUBES: None. BONES: No acute osseous abnormality. IMPRESSION: No acute cardiopulmonary abnormality. THIS IS AN ELECTRONICALLY VERIFIED FINAL REPORT 07/22/2024 1:07 AM - Electronically signed by Channing Villanueva M.D. KT: COLTEN Report ID: [id number] Reading Location: [id number] Procedure Note Channing Villanueva MD - 07/22/2024 EXAM DESCRIPTION: XR CHEST 1 VIEW REASON FOR STUDY: assess for pneumonia Assess for pneumonia. Pt arrived today due to seizure like activity. Hxof asthma, anxiety, HTN Non smoker TECHNIQUE: 1 radiographic view(s) of the chest. COMPARISON: 04/24/2024 FINDINGS: LUNGS: No focal opacity, pleural effusion, or pneumothorax. HEART/MEDIASTINUM: Cardiac silhouette normal in size. Mediastinal andhilar contours appear normal. LINES/TUBES: None. BONES: No acute osseous abnormality. IMPRESSION: No acute cardiopulmonary abnormality. THIS IS AN ELECTRONICALLY VERIFIED FINAL REPORT 07/22/2024 1:07 AM - Electronically signed by Channing Villanueva M.D. KT: KT Report ID: [id number] Reading Location: [id number] Adryanfortino Stephen Masters MD IMG XR PROCEDURES Final Result * CT Head WO Contrast (07/21/2024 5:06 PM CDT) Anatomical Region Laterality Modality Head and Neck N/A Computed Tomogra phy 07/21/2024 5:46 PM CDT Narrative 07/21/2024 5:48 PM CDT EXAM DESCRIPTION: CT HEAD WO CONTRAST REASON FOR STUDY: Mental status change, unknown cause Seizure like activity today TECHNIQUE: Axial images acquired through the brain without intravenous contrast. Images stored on PACS. Automated exposure control was used as a dose optimization technique for this examination. COMPARISON: 04/14/2017 FINDINGS: BRAIN: No hemorrhage, edema or mass effect. No recent infarct. The chacon-white matter differentiation is preserved. No cerebral or cerebellar atrophy. Normal size and morphology of the ventricular system. No acute intraventricular hemorrhage. Basal cisterns are patent. No midline shift. EXTRA-AXIAL SPACES: No fluid collections. No masses. CALVARIUM: No fracture. SINUSES/MASTOIDS: Mild mucosal thickening of the ethmoid air cells. Otherwise, no fluid or mucosal thickening. ORBITS: No significant abnormality. OTHER: No other significant abnormality. IMPRESSION: No acute intracranial findings. THIS IS AN ELECTRONICALLY VERIFIED FINAL REPORT 07/21/2024 5:48 PM - Electronically signed by Eleazar Sequeira M.D. AT: AT Report ID: [id number] Reading Location: [id number] Procedure Note Eleazar Sequeira MD - 07/21/2024 EXAM DESCRIPTION: CT HEAD WO CONTRAST REASON FOR STUDY: Mental status change, unknown cause Seizure like activity today TECHNIQUE: Axial images acquired through the brain without intravenous contrast. Images stored on PACS. Automated exposure control was used asa dose optimization technique for this examination. COMPARISON: 04/14/2017 FINDINGS: BRAIN: No hemorrhage, edema or mass effect. No recent infarct. The chacon-white matter differentiation is preserved. No cerebral or cerebellar atrophy. Normal size and morphology of the ventricular system. No acute intraventricular hemorrhage. Basal cisterns are patent. No midlineshift. EXTRA-AXIAL SPACES: No fluid collections. No masses. CALVARIUM: No fracture. SINUSES/MASTOIDS: Mild mucosal thickening of the ethmoid air cells. Otherwise, no fluid or mucosal thickening. ORBITS: No significant abnormality. OTHER: No other significant abnormality. IMPRESSION: No acute intracranial findings. THIS IS AN ELECTRONICALLY VERIFIED FINAL REPORT 07/21/2024 5:48 PM - Electronically signed by Eleazar Sequeira M.D. AT: AT Report ID: [id number] Reading Location: [id number] us Rich Rodgers MD IMG CT PROCEDURES Final Resu lt * Sepsis Lactate w/ Reflex (07/21/2024 3:48 PM CDT) Pathologist [facility] Sepsis Lactate 1.8 0.7 - 2.0 mmol/L Blood 07/21/2024 3:48 PM CDT 07/21/2024 3:52 PM CDT us Rich Rodgers MD LAB BLOOD ORDERABLES Final R esult [facility] [place]) [address] [place] [address] * eGFR (07/21/2024 3:48 PM CDT) eGFR >90 >=60 mL/min/1. 73 m2 Comment: Interpretive Data Reference Interval Normal >/= 90 mL/min/1.73m2 Mildly decreased* 60 - 89 mL/min/1.73m2 Mildly to moderately decreased 45 - 59 mL/min/1.73m2 Moderately to severely decreased 30 - 44 mL/min/1.73m2 Severely decreased 15 - 29 mL/min/1.73m2 Kidney Failure < 15 mL/min/1.73m2 *Relative to young adult level Estimated glomerular filtration rate is determined by the 2020 CKD-EPI equation recommended by the National Kidney Foundation (A Unifying Approach to GFR Estimation: Recommendations of the NKF-ASK Task Force on Reassessing the Inclusion of Race in Diagnosing Kidney Disease, JASN 2020). The CKD-EPI equation should not be used for patients with unstable renal function and has not been validated in children and those over 70. Current interpretive data was last reviewed 2021. Blood 07/21/2024 3:48 PM CDT 07/21/2024 3:53 PM CDT Rich Rodgers MD LAB BLOOD ORDERABLES Final R esult [facility] ([place]) [address] Department of Laboratories [place] [id number] * (ABNORMAL) Differential, auto (07/21/2024 3:48 PM CDT) Neutrophil abs 8.00(H) 1.50 - 6.50 K/cumm Imm gran abs 0.04 0.00 - 0.10 K/cumm [facility] ([place]) Lymphocyte abs 2.51 0.80 - 3.30 K/cumm [facility] ([place]) Monocyte abs 0.70 0.20 - 0.80 K/cumm [facility] ([place]) Eosinophil abs 0.20 0.00 - 0.50 K/cumm [facility] ([place]) Basophil abs 0.06 0.00 - 0.10 K/cumm [facility] ([place]) Neutrophil pct 69.6 % [facility] ([place]) Comment: Interpretive Data Percent cell count reference ranges are not reported, since discordance with absolute values may lead to misinterpretation of CBC data. Current Interpretive Data was last revised on 2017. Imm gran pct 0.3 % [facility] ([place]) Comment: Interpretive Data Percent cell count reference ranges are not reported, since discordance with absolute values may lead to misinterpretation of CBC data. Current Interpretive Data was last revised on 2017. Lymphocyte pct 21.8 % [facility] ([place]) Comment: Interpretive Data Percent cell count reference ranges are not reported, since discordance with absolute values may lead to misinterpretation of CBC data. Current Interpretive Data was last revised on 2017. Monocyte pct 6.1 % [facility] ([place]) Comment: Interpretive Data Percent cell count reference ranges are not reported, since discordance with absolute values may lead to misinterpretation of CBC data. Current Interpretive Data was last revised on 2017. Eosinophil pct 1.7 % [facility] ([place]) Comment: Interpretive Data Percent cell count reference ranges are not reported, since discordance with absolute values may lead to misinterpretation of CBC data. Current Interpretive Data was last revised on 2017. Basophil pct 0.5 % [facility] ([place]) Comment: Interpretive Data Percent cell count reference ranges are not reported, since discordance with absolute values may lead to misinterpretation of CBC data. Current Interpretive Data was last revised on 2017. Blood 07/21/2024 3:48 PM CDT 07/21/2024 3:52 PM CDT us Rich Rodgers MD LAB BLOOD ORDERABLES Final R esult [facility] ([place]) [address] [place] [address] * (ABNORMAL) CBC with auto differential (07/21/2024 3:48 PM CDT) WBC 11.51(H) 3.80 - 9.90 K/cumm Hgb 13.5 11.9 - 15.5 g/dL [facility] ([place]) Hct 39.9 35.6 - 45.5 % [facility] ([place]) Plt 307 150 - 400 K/cumm [facility] ([place]) MPV 10.7 9.1 - 12.3 fL [facility] ([place]) RBC 4.52 3.90 - 5.20 M/cumm [facility] ([place]) MCV 88.3 81.3 - 96.4 fL [facility] ([place]) MCH 29.9 27.1 - 33.3 pg [facility] ([place]) MCHC 33.8 32.3 - 35.7 g/dL [facility] ([place]) RDW CV 12.7 11.1 - 14.9 % [facility] ([place]) RDW SD 41.2 35.7 - 48.1 fL [facility] ([place]) NRBC abs 0.00 0.00 - 0.01 K/cumm [facility] ([place]) Blood 07/21/2024 3:48 PM CDT 07/21/2024 3:52 PM CDT Rich Rodgers MD LAB BLOOD ORDERABLES Final R esult Performing Organization Address [facility] Co de Phone Number [facility] ([place]) [address] [place] [address] * hCG, blood, quantitative (07/21/2024 3:48 PM CDT) hCG, quant <5.0 0.0 - 5.0 IUnits/L Comment: Interpretive Data Male: < 5 IU/L Non- premenopausal Female: <5 IU/L The Amor hCG Beta Quant assay procedure was used. Results from different manufacturers or methods may not be comparable. Serial testing should be performed using the same method. Interpretive Data was last revised on 2023 Blood 07/21/2024 3:48 PM CDT 07/21/2024 3:52 PM CDT Rich Rodgers MD LAB BLOOD ORDERABLES Final R esult Performing Organization Address City/[facility]/ZIP Co de Phone Number [facility] ([place]) [address] [employer] [place] [address] * Magnesium (07/21/2024 3:48 PM CDT) Magnesium 1.9 1.4 - 2.5 mg/dL Blood 07/21/2024 3:48 PM CDT 07/21/2024 3:53 PM CDT Rich Rodgers MD LAB BLOOD ORDERABLES Final R esult [facility] ([place]) [address] [place] [address] * (ABNORMAL) Comprehensive metabolic panel (07/21/2024 3:48 PM CDT) Sodium 136 135 - 145 mmol/L Potassium, pl 3.7 3.3 - 4.9 mmol/L [facility] ([place]) Chloride 101 97 - 110 mmol/L [facility] ([place]) CO2 21(L) 22 - 32 mmol/L [facility] ([place]) Anion gap 13 2 - 15 mmol/L [facility] ([place]) BUN 15 6 - 25 mg/dL [facility] Creatinine 0.83 0.60 - 1.10 mg/dL [facility] ([place]) Glucose 117 70 - 199 mg/dL [facility] ([place]) Comment: Interpretive Data Fasting glucose >/= 126 mg/dl is diagnostic for diabetes. Fasting is defined as no caloric intake for at least 8 hours. Fasting glucose between 100 mg/dl to 125 mg/dl is diagnostic of prediabetes. In a patient with classic symptoms of hyperglycemia or hyperglycemic crisis, a random glucose >/= 200 mg/dl is diagnostic for diabetes. In the absence of unequivocal hyperglycemia, results should be confirmed by repeat testing. The classification and Diagnosis of Diabetes Diabetes Care 2021; 46: S19-S40. Current interpretive data was last revised 2022. Calcium 9.3 8.5 - 10.3 mg/dL [facility] ([place]) Bilirubin, total 0.2 0.1 - 1.2 mg/dL [facility] ([place]) Protein, pl 7.1 6.5 - 8.5 g/dL [facility] ([place]) Albumin 4.4 3.5 - 5.0 g/dL [facility] ([place]) Alk phos 98 40 - 130 Units/L [facility]) ALT 19 7 - 45 Units/L [facility] ([place]) AST 16 10 - 45 Units/L [facility] ([place]) Comment:Slightly Hemolyzed S pecimen Blood 07/21/2024 3:48 PM CDT 07/21/2024 3:53 PM CDT us Rich Rodgers MD LAB BLOOD ORDERABLES Final R esult [facility] ([place]) [address] [place] [address] * EEG (07/21/2024 1:15 PM CDT) Anatomical Region Laterality Modality EEG Narrative Procedure Note Ladan Elizondo MD - 07/24/2024 12:00 AM CDT REQUESTING PHYSICIAN Dr Elizondo Ms. David is a 38-year-old with episodes of seizure-like activity.EEG was obtained using International 10/20 system of electrode placement.Background activity consisted of bilateral, synchronous, posteriordominant alpha range activity. Record shows spontaneous variability.Drowsiness was identified with ocular signs and attenuation of background.Patient had an episode of jerking movements during the EEG recording. Itrevealed muscle activity. There is no corresponding EEG changes noted.No focal, lateralized, or epileptiform abnormalities were noted. IMPRESSION This EEG reveals evidence of: Normal wakefulness and drowsiness. The abnormal jerky movements were nonepileptic with no evidence of EEGchanges. Clinical correlation is recommended. Job ID/Internal Job ID: [id number] us Carlos A Humphreys MD NEUROLOGY ORDERABLES Fi nal Result from Last 3 Months Insurance [facility] WORK[employer] COMPENSATION [facility] Advance Directives For more information, please contact: [phone] * Full Code (Latest Code Status on File) Date Activated Date Inactivated Comments 07/21/2024 6:34 PM 07/26/2024 5:44 PM Care Teams Canoe Inspector Relationship Specialty Start Date End Date Faye Fox NP [address] [place] [address] [address] [place] [address] PCP - General Nurse Practitioner 11/22/23 Allyson Jason DPM [address] [place] [address] Consulting Physician Foot and Ankle Surg 04/03/22
--- OUTSIDE RECORDS SUMMARY | 2024-07-31 18:44 | XMS_ITS ---
Author Organization [facility] Address [address] [place] [address] Phone Care Team Providers Care Postmaster Relief Name Role Phone Regan Gale DPM Unavailable [phone] Faye Fox APRN Primary [facility] Provider [facility] Status:Enrolled (Active) Start date:05/03/2024 Enrollment date:05/03/2024 Related social drivers of health:Intimate Partner Violence, Social Connections, Alcohol Use, Financial Resource Strain, Depression, Stress, Physical Activity, Food Insecurity, Transportation Needs, Housing Stability, Utilities Continued Care and Services Coordination
--- OUTSIDE RECORDS SUMMARY | 2024-07-31 18:44 | XMS_ITS | Encounter Summary ---
Author Organization [facility] Healthcare Address [address] [place] [address] Care Team Providers Care Advanced Manager Name Role Phone Allyson Jason DPM Unavailable [phone] Faye Fox NP Primary Care Provider [phone] Encounter Details Date Type Department Care Team (Late st Contact Info) Description 07/31/2024 Telephone [facility] [address] [place] [address] [address] [place] [address] Preeti Wagner NP [address] [place] [address] [address] [place] [address] Social History Tobacco Use Types Packs/Day Years Used Date Smoking Tobacco: Never Passive Smoke Exposure: Past Smokeless Tobacco: Never Alcohol Use Standard Drinks/Week Comments No 0 (1 standard drink = 0.6 oz pur e alcohol) [facility] Utilities Answer Date Recorded In the past 12 months has [employer] electric, gas, oil, or water company threatened to [...] week 07/24/2024 How often do you attend [facility] or taoism services? Never 07/24/2024 Do you belong to any clubs o r organizations such as hinduism groups, unions, fraternal or athletic groups, or [...] any time in the past 12 m [facility], were you homeless or living in a care home (including now)? No 07/24/2024 Personal Safety Answer Date Recorded Have you ever been in or are you currently in a harmful physical or emotional relationship or is someone making you feel afraid or unsafe? 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:55 AM PHYSICIAN IN PRIVATE PRACTICE Gender Identity Not on file Sexual Orientation Not on file documented as of this encounter Miscellaneous Notes * Telephone Encounter - Ernestine Majano MA - 07/31/2024 1:45 PM CDT LVM * Telephone Encounter - Westley Macias - 07/31/2024 11:28 AM CDT Patient ([phone]) and significant other/Kavon called. Stated that [facility] cannot accept her insurance for the video EEG. Requested to speak with you about what can be done at this point to help her. Can be reached at [phone] and [phone]. documented in this encounter Plan of Treatment Not on file documented as of this encounter Visit Diagnoses Not on filedocumented in this encounter Care Teams Advanced Manager Relationship Specialty Start Date End Date Faye Fox NP [address] [place] [address] [address] [place] [address] PCP - General Nurse Practitioner 11/22/23 Allyson Jason DPM [address] [facility] [place] [address] Consulting Physician Foot and Ankle Surg 04/03/22 documented as of this encounter
--- OUTSIDE RECORDS SUMMARY | 2024-07-31 18:44 | XMS_ITS | Encounter Summary ---
Author Organization [facility] Healthcare Address [address] [place] [address] Care Team Providers Care Typewriter Aligner Name Role Phone Allyson Jason DPM Unavailable [phone] Faye Fox NP Primary Care Provider [phone] Encounter Details Date Type Department Care Team (Late st Contact Info) Description 07/25/2024 Telephone [facility] [address] [place] [address] [address] [place] [address] Preeti Wagner NP [address] [place] [address] [address] [place] [address] Social History Tobacco Use Types Packs/Day Years Used Date Smoking Tobacco: Never Passive Smoke Exposure: Past Smokeless Tobacco: Never Alcohol Use Standard Drinks/Week Comments No 0 (1 standard drink = 0.6 oz pur e alcohol) [facility] Utilities Answer Date Recorded In the past 12 months has [employer] electric, gas, oil, or water company threatened [...] week 07/24/2024 How often do you attend [facility] or islam services? Never 07/24/2024 Do you belong to any clubs o r organizations such as mu-ism groups, unions, fraternal or athletic groups, or [...] any time in the past 12 m [facility], were you homeless or living in a alf (including now)? No 07/24/2024 Personal Safety Answer Date Recorded Have you ever been in or are you currently in a harmful physical or emotional relationship or is someone making you feel afraid or unsafe? 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:55 AM CARD SELLER Gender Identity Not on file Sexual Orientation Not on file documented as of this encounter Miscellaneous Notes * Telephone Encounter - Ernestine Griffin MA - 07/25/2024 1:58 PM CDT Pt's s/o informed. * Telephone Encounter - Vicky Douglas - 07/25/2024 1:22 PM CDT Patient's s/o Kavon called stating they need to schedule a hospital f/u visit so a video EEG can beordered. Does patient need to be seen in the office first or can an order just be placed for the test? documented in this encounter Plan of Treatment Not on file documented as of this encounter Visit Diagnoses Not on filedocumented in this encounter Care Teams Typewriter Aligner Relationship Specialty Start Date End Date Faye Fox NP [address] [place] [address] [address] [place] [address] PCP - General Nurse Practitioner 11/22/23 Allyson Jason DPM [address] [facility] [place] [address] Consulting Physician Foot and Ankle Surg 04/03/22 documented as of this encounter
--- OUTSIDE RECORDS SUMMARY | 2024-07-31 18:44 | XMS_ITS | Clinical Summary ---
Author Organization [facility] [email or web address] Address [address] [place] [address] Care Team Providers Care News Library Director Name Role Phone Faye Fox ERICK-ASSISTANT TEACHER Primary Care Provider Source Comments [facility],non-owned Affiliates and Associated Physician Practices is amultiple site organization consisting of ambulatory clinics and hospital sitesin [place], [place], [place] and [place]. This disclosure is being madepursuant to the Care Everywhere program and may not contain all information available regarding this patient. Last updated 17.[facility] Allergies Active Allergy Reactions Criticality Noted Date Comments Adhesive Sensitivity Rash Medium 09/23/2016 Sulfa Drugs Itching Medium 03/13/2010 Medications * Be aware that medications may not be up to date on this document. Alwaysverify current medications with the patient. hydrochlorothia zide (HYDRODIURIL) 25 MG tablet Take 1 (one) tablet by mouth once daily Active enalapril (VASOTEC) 10 MG tablet Take 1 (one) tablet by mouth once daily Active levothyroxine (SYNTHROID) 175 MCG tablet Take 1 (one) tablet by mouth once daily 8 Active Cyanocobalamin (B-12) 2500 MCG Take 2 (two) tablets by mouth once daily Active Multiple Vitamins-Minera ls (ONE-A-DAY WOMENS PO) Take 1 tablet by mouth once daily Active levonorgestrel (Mirena, 52 MG,) 20 MCG/DAY IUD 21 (twenty one) devices by Intrauterine route as directed Active vitamin C (Ascorbic Acid) 1000 MG tablet Take 2 (two) tablets by mouth once daily Active traMADol (Ultram) 50 MG tablet Take 1 (one) tablet by mouth once daily as needed 3 Active gabapentin (Neurontin) 300 MG capsule Take 1 (one) capsule by mouth 3 times daily Active escitalopram (Lexapro) 10 MG tablet Take 1 (one) tablet by mouth once daily Active traZODone (Desyrel) 100 MG tablet Take 1 (one) tablet by mouth at bedtime Active acetaminophen (Tylenol) 500 MG capsule Take 1 (one) capsule by mouth as needed for Fever or Pain Active Syringe/Needle, Disp, (SYRINGE 3CC/25GX5/8 ) 25G X 5/8 3 ML MISC For use as directed with Allergy serum 30 Each 3 4 Active Qvar RediHaler 80 MCG/ACT inhaler Inhale 2 (two) puffs by mouth 2 times daily 4 Active omeprazole (PriLOSEC) 20 MG capsuleIndicati ons:Globus sensation,Laryn gopharyngeal reflux (LPR),Gastroeso phageal reflux disease, unspecified whether esophagitis present Take 1 (one) capsule by mouth 2 times daily, before breakfast and supper 120 capsule 3 4 Active albuterol HFA (Proventil; Ventolin; Proair) 108 (90 Base) MCG/ACT inhaler Inhale 1 (one) puff to 2 (two) puffs by mouth every 6 hours as needed 4 11/27/19 25 Active Cholecalciferol 50 MCG (2000 UT) Take 1 (one) tablet by mouth once daily Active meloxicam (Mobic) 15 MG tablet Take 1 (one) tablet by mouth once daily 4 Active fluticasone propionate (Flonase) 50 MCG/ACT nasal spray USE 2 SPRAY(S) IN EACH NOSTRIL TWICE DAILY 16 g 4 Active cetirizine (ZyrTEC) 10 MG tablet Take 1 (one) tablet by mouth once daily 30 tablet 11 4 Active azelastine (Astelin) 0.1 % nasal spray Etoile 1 (one) spray into each nostril 2 times daily 16 mL 11 4 Active Additional Information Patient taking differently:1 spray Each NostrilDAILY, Reported on 05/29/2024 EPINEPHrine (Epipen) 0.3 MG/0.3ML auto-injector pen Inject 0.3 mL into muscle as needed for Anaphylaxis 0.6 mL Active NON FORMULARY REQUEST Allergy serum - takes weekly on Wednesday Active NON FORMULARY REQUEST Neilmedsinus rinse 3 times per day Active ibuprofen (Motrin) 600 MG tablet Take 1 (one) tablet by mouth every 6 hours as needed for Pain Active Multiple Vitamins-Minera ls (PRESERVISION AREDS PO) Take 1 capsule by mouth 2 times daily Active Probiotic Product (PROBIOTIC DAILY PO) Take 1 tablet by mouth once daily Active fluconazole (Diflucan) 150 MG tablet Take 1 (one) tablet by mouth 5 Active Active Problems Problem Noted Date Diagnosed Date Gastroesophageal reflux disease 05/19/2023 05/19/2023 Large tonsils 05/19/2023 05/19/2023 Low back pain 05/19/2023 05/19/2023 Headache 05/19/2023 05/19/2023 Neck pain 05/19/2023 05/19/2023 Snoring 05/19/2023 05/19/2023 Chronic otitis media 05/19/2023 05/19/2023 Morbid obesity with BMI of 60.0-69.9, adult 05/06 Memory problem 05/19/2023 PTSD (post-traumatic stress disorder) 05/19/2023 Leg cramps 05/19/2023 Chronic pain of both knees 05/19/2023 Persistent asthma without complication Sleep related bruxism 05/19/2023 SOB (shortness of breath) on exertion 05/19/2023 Sleep related rhythmic movement disorder 024 Sleep drunkenness 05/19/2023 Confusional arousals 05/19/2023 Nightmares 05/19/2023 Sleep talking 05/19/2023 Sleep-related hallucinations 05/19/2023 Night sweats 05/19/2023 Sleep related headaches 05/19/2023 Inadequate sleep hygiene 05/19/2023 Nocturia 05/19/2023 Restless legs syndrome (RLS) 05/19/2023 Shifting sleep-work schedule, affecting sleep Excessive daytime sleepiness 05/19/2023 Nasal congestion 02/24/2023 05/19/2023 Acquired cavovarus foot deformity, left 03/09/2005/19/2023 Overview (05/19/2023): Added automatically from request for surgery [id number] Calcaneal spur of left foot 03/09/202205/06 Overview (05/19/2023): Added automatically from request for surgery [id number] Plantar fascial fibromatosis 03/09/2022 Overview (05/19/2023): Added automatically from request for surgery [id number] Tendonitis, Achilles, left 03/09/202205/19 Overview (05/19/2023): Added automatically from request for surgery [id number] Urgency of urination 04/09/2019 05/19/2023 Overview (05/19/2023): Urgency of urination;Practice ID: 0001 Premenstrual dysphoric disorder 04/09/2019 05/19/2023 Overview (05/19/2023): Premenstrual dysphoric disorder;Practice ID: 0001 Urinary incontinence 04/19/2018 05/19/2023 Overview (05/19/2023): Unspecified urinary incontinence;Practice ID: 0001 Pelvic and perineal pain 04/19/2018 024 Overview (05/19/2023): Pelvic and perineal pain;Practice ID: 0001 Bloating 01/21/2018 Family history of colon cancer in mother 018 Overview (01/21/2018): Mother diagnosed with colon cancer at age 60. Patient underwent colonoscopy in 2015 which was normal. Wheezing 05/10/2017 05/19/2023 Allergic rhinitis 06/22/2016 Overview (09/20/2017): Overview: ICD-10 update Recurrent sinusitis 06/22/2016 Sleep disturbance 06/22/2016 Anxiety 01/08/2016 Overview (09/20/2017): Overview: May complicate management Chronic pain 01/08/2016 Overview (09/20/2017): Overview: Multiple sites including headaches May be multifactorial May complicate management Depression 01/08/2016 Overview (09/20/2017): Overview: Risk for CV disease Risk for seizures Contraindication for vasospastic agents, e.g., triptans May complicate management Essential hypertension 01/08/2016 Overview (09/20/2017): Overview: Risk for CV disease Risk for seizures Contraindication for vasospastic agents, e.g., triptans May complicate management Fatigue 01/08/2016 Overview (09/20/2017): Overview: May be multifactorial May complicate management Hypothyroidism 01/08/2016 Overview (09/20/2017): Overview: May complicate management Lack of exercise 01/08/2016 Overview (09/20/2017): Overview: Risk for CV disease Risk for seizures Contraindication for vasospastic agents, e.g., triptans May complicate management MAYI (obstructive sleep apnea) 01/08/2016 Overview (12/21/2023): 06/22/23 Respiratory Analysis: The patient's overall apnea-hypopnea index (AHI) was increased at 6.7 per hour while the respiratory effort-related arousal index was increased at 16.5 per hour. The overall respiratory disturbance index (RDI) was 23.2 per hour. The supine AHI was 12.1 per hour and the supine RERA index was 13.6 per hour. The lateral AHI was 0.8 per hour and the lateral RERA index was 19.5 per hour. The REM AHI was 43.3 per hour while the REM RERA index was 23.3 per hour. There were 0 obstructive apneas, 1 central apneas, 1 mixed apneas, 32 hypopneas, and 84 respiratory effort-related arousals (RERA). There was no evidence of periodic breathing. Oximetry Data: The minimum oxygen saturation was decreased at 86% during REM sleep and decreased at 83% during non-REM sleep. The time spent with oxygen saturation less than 90% was 31 minutes of the total diagnostic sleep time. End-tidal CO2 Data The patient underwent capnography with end-tidal carbon dioxide (ETCO2) monitoring while undergoing diagnostic polysomnography. The time spent with ETCO2 > 55 mmHg was 0 minute. Snoring Profile: Frequent, [id number] snoring was detected during this study. Periodic Limb Movements: The patient's periodic limb movement index was elevated at 20.6 per hour. Approximately 2% of the leg movements was associated with arousals. Risk for CV disease Risk for seizures Contraindication for vasospastic agents, e.g., triptans May complicate management Oral contraceptive use 01/08/2016 Overview (09/20/2017): Overview: Risk for CV disease Risk for seizures Contraindication for vasospastic agents, e.g., triptans May complicate management Personality disorder 01/08/2016 Overview (09/20/2017): Overview: May complicate management Spells of decreased attentiveness 01/08/2016 Overview (09/20/2017): Overview: May be multifactorial. Possible epilepsy (doubt) Carbuncle 08/29/2015 05/19/2023 Overview (05/19/2023): Carbuncle, unspecified;Practice ID: 0001 Abnormal uterine bleeding 05/29/20152023 Overview (05/19/2023): Other specified abnormal uterine and vaginal bleeding;Practice ID: 0001 Microscopic hematuria 05/29/2015 05/19/2023 Overview (05/19/2023): Other microscopic hematuria;Practice ID: 0001 Epigastric pain 04/12/2015 HNP (herniated nucleus pulposus), lumbar 013 05/19/2023 Encounters Date Type Department Care Team Description 07/20/2024 Patient Outreach [facility] [address] [place] [address] Beth Sprague, RN 06/26/2024 Telephone [facility] [address] [place] [phone] Marcia Read RN Appointment 06/07/2024 3:00 PM ENVELOPE CUTTER Office Visit [facility] - [facility] [address] [place] [phone] Zhang Dior III, MD Morbid obesity with BMI of 60.0-69.9, adult (Primary Dx); MAYI (obstructive sleep apnea); Hypothyroidism, unspecified type; Major depressive disorder, remission status unspecified, unspecified whether recurrent 06/07/2024 Travel 06/01/2024 11:00 AM ENVELOPE CUTTER - 06/01/2024 11:30 AM ENVELOPE CUTTER Surgery [facility] [address] [place] [address] Sourav Morales MD Not Performed EGD with bx to rule out H pylori and aspirate to rule out SIBO 06/01/2024 10:10 AM ENVELOPE CUTTER - 06/01/2024 12:47 PM ENVELOPE CUTTER Hospital Encounter [facility] [address] [place] [address] Sourav Morales MD Surgery General Discharge Disposition: Home or Self Care 06/01/2024 Travel 05/29/2024 11:30 AM ENVELOPE CUTTER Office Visit [facility] - [facility] [address] [place] [phone] Yeni Gabriel, AIR TRAFFIC CONTROL SPECIALIST CENTER-ASSISTANT TEACHER Gastroesophageal reflux disease, unspecified whether esophagitis present (Primary Dx) 05/29/2024 Travel 05/12/2024 11:40 AM ENVELOPE CUTTER Office Visit [facility] - Urology [facility] [facility] [place] [phone] Channing Springer PA Yeast infection of the vagina (Primary Dx); Urinary frequency; Urgency incontinence 05/12/2024 Travel from Last 3 Months Immunizations Immunization Administration Dates Next Due Covid Moderna primary monova lent 12+ yr 0.5mL 09/18/2020,08/21/2020 DTP, HISTORIC VACCINE 05/11/1990, 987,06/08/1985,1985,01/19/1985 FLU VACCINE QUAD IIV4 SPLIT 0.25 ML IM 01/05/2018,01/15/2016 HEP A PEDS 2 DOSE 03/11/2000 HEP B VACCINE 03/11/2000,09/09/1999,08/05/1999 HIB-PRP-T 4 DOSE 12/25/1986 Hep A Peds 3 Dose 09/09/1999 INFLUENZA VACCINE, CELL CULT URE, QUADR. (FLUCELVAX QUADRIVALENT; 6MO+) (CCIIV4) 01/22/2023 INFLUENZA VACCINE, QUADR. (F LUZONE; FLULAVAL; FLUARIX; AFLURIA QUADRIVALENT; 6MO+), 0.5 ML (IIV4) 12/22/2021,01/13/2021,01/27/2019 MMR VACCINE 05/11/1990,07/03/1986 PNEUMOCOCCAL PCV20 CONJ VAC IM 01/22/2023 PNEUMOCOCCAL PPSV23 11/29/2014 POLIO OPV 05/11/1990, 7,06/08/1985,1985,01/19/1985 TD (AGE 7-ADULT) 08/05/1999 TDAP (7yrs+) 06/23/2019 VARICELLA 10/08/1999,09/09/1999 Family History Medical History Relation Name Comments Cancer Father prostate Depression Father Heart Failure Father Hypertension Father Sleep Disorder - Sleep apnea Father RLS, no machine used Asthma Mother 70 Cancer Mother 70 colon Cancer - Colon Mother 70 ? dx- bow el obstruction complications Depression Mother 70 Heart Failure Mother 70 Hypertension Mother 70 Diabetes Paternal Aunt Anxiety Disorder Sister 1 dustin Bipolar Disorder Sister 1 dustin Depression Sister 1 dustin Hypertension Sister 1 dustin Sleep Disorder - Other Sister 1 dustin insom roderick Depression Sister 2 Relation Name Status Comments Father Alive Mother 70 Paternal Aunt Sister 1 dustin Alive Sister 2 Alive Social History Tobacco Use Types Packs/Day Years Used Date Smoking Tobacco: Never Smokeless Tobacco: Never Alcohol Use Standard Drinks/Week Comments Not Currently 0 (1 standard drink = 0.6 oz pure alcohol) past use on holiday/special events Education Answer Date Recorded What is the highest level of school you have completed or the highest degree you have received? 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 file Not on file Not on file Last Filed Vital Signs Vital Sign Reading Time Taken Comments Blood Pressure 143/79 06/07/2024 3:22 PM ENVELOPE CUTTER Pulse 66 06/07/2024 3:22 PM ENVELOPE CUTTER Temperature 36.6 C (97.8 F) 06/07/2024 3:22 PM ENVELOPE CUTTER Respiratory Rate 21 06/01/2024 12:00 PM ENVELOPE CUTTER Oxygen Saturation 98% 06/07/2024 3:22 PM ENVELOPE CUTTER Inhaled Oxygen Concentration - - Weight 147.4 kg (325 lb) 06/07/2024 3:22 PM ENVELOPE CUTTER Height 157.5 cm (5' 2 ) 06/07/2024 3:22 PM ENVELOPE CUTTER Body Mass Index 59.44 06/07/2024 3:22 PM ENVELOPE CUTTER Plan of Treatment Upcoming Encounters Date Type Department Care Team (Latest Contact Info) Description 08/01/2024 11:15 AM CDT Office Visit [facility] - ENT [address] [place] [phone] Jeff Dorman MD [address] [place] [address] [place] [address] 08/03/2024 1:30 PM CDT Office Visit [facility] - [facility] [address] [place] [address] [place] [phone] Zhang Dior III, MD [address] [place] [address] [address] [place] [phone] Lizbeth Fierro, PhD [address] [place] [address] 08/31/2024 10:00 AM CDT Hospital Encounter [facility] [address] [place] [phone] Sourav Morales MD [address] [place] [address] [address] [place] [address] Surgery General 08/31/2024 10:00 AM CDT - 08/31/2024 10:30 AM CDT Surgery [facility] [address] [place] [phone] Sourav Morales MD [address] [place] [address] [place] [address] EGD with bx to rule out H pylori and aspirate to rule out SIBO 09/18/2024 11:30 AM CDT Office Visit [facility] [address] [place] [phone] Yeni Gabriel, AIR TRAFFIC CONTROL SPECIALIST CENTER-ASSISTANT TEACHER [address] [place] [phone] 11/07/2024 10:30 AM CDT Office Visit [facility] - ENT [address] [place] [phone] Jeff Dorman MD [address] [place] [address] [place] [address] 11/10/2024 11:30 AM CDT Office Visit [facility] [address], [place] [phone] Savannah Castro PA-C [address] [facility] DEPT [place] [address] 03/14/2025 1:00 PM ENVELOPE CUTTER Office Visit [facility] - [address] [phone] Zhang Dior III, MD [address] [phone] Scheduled Procedures Name Priority Associated Diagnoses Date/Ti me ESOPHAGOGASTRODUODENOSCOPY ( EGD) DIAGNOSTIC Gastroesophageal reflux disease, unspecified whether esophagitis present 08/31/2024 10:00 AM CDT Health Maintenance Due Date Last Done Comments HIV SCREENING 11/09/1999 HEPATITIS C SCREENING 11/04/2002 COVID-19 VACCINE ( season) 2023 01/22/2023, 03/12/2022, 06/30/2021, Additional history exists DEPRESSION SCREENING 04/05/2024 PAP SMEAR 07/27/2025 07/27/2022 DTAP/TDAP/TD VACCINES (8 - Td or Tdap) 06/22/2029 06/23/2019, 08/05/1999, 05/11/1990, Additional history exists ZOSTER VACCINE (1 of 2) 2034 HIB VACCINE Completed 12/25/1986 HEPATITIS B VACCINE Completed 03/11/2000, 09/09/1999, 08/05/1999 PNEUMOCOCCAL VACCINE Completed 01/22/2023, 11/30/19 15 INFLUENZA VACCINE Completed 01/19/2024, , 12/22/2021, Additional history exists HPV VACCINE Aged Out No longer eligi ble based on patient's age to complete this topic MENINGOCOCCAL (Group B) VACCINE SHARED DECISION-MAKING Aged Out No longer eligible based on patient's age to complete this topic MENINGOCOCCAL GROUPS A/C/Y/W VACCINE Aged Out No longer eligible based on patient's age to complete this topic Goals Goal Patient Goal Type Associated Problems Recent Progress Patient-Stated? Author Medication Management General On track( 025 3:45 PM ENVELOPE CUTTER) Ayesha Sandoval RN Note: Expected end date: ongoing Interventions: Take all medications as prescribed Let your doctor know right away about any changes in your medications Make sure to request a refill of your medication at least one week prior to your last dose Procedures Procedure Name Priority Date/Time Associated Diagnosis Comments HCG URINE QUALITATIVE - POCT (IP) INTERFACED Routine 06/01/2024 10:32 AM ENVELOPE CUTTER HCG URINE QUAL POCT NOTIFICATION STAT 06/01/2024 10:29 AM ENVELOPE CUTTER Pre-op exam URINALYSIS AUTO - POINT OF CARE (AMB) [facility] Routine 05/12/2024 Yeast infection of the vagina from Last 3 Months Results * HCG URINE QUALITATIVE - POCT (IP) INTERFACED (06/01/2024 10:32 AM ENVELOPE CUTTER) HCG Qual Urine Negative Negative 06/01/2024 10:39 AM ENVELOPE CUTTER [facility] Urine URINE / Unknown 06/01/2024 1 0:32 AM ENVELOPE CUTTER 06/01/2024 10:39 AM ENVELOPE CUTTER us Sourav Morales MD LAB - POINT OF CARE ORDERABLES Final Result Performing Organization Address City/[facility]/ZIP Co de Phone Number [address] [phone], [facility] [phone] * HCG URINE QUAL POCT NOTIFICATION (06/01/2024 10:29 AM ENVELOPE CUTTER) Comment Notification Label Only - See Separate Report 06/01/2024 11:30 AM ENVELOPE CUTTER [facility] Urine URINE / Unknown 06/01/2024 1 0:29 AM ENVELOPE CUTTER 06/01/2024 10:29 AM ENVELOPE CUTTER Sourav Morales MD LAB - URINALYSIS ORDERABLES Fi nal Result [facility] [address] [place] [address], [facility] [phone] * URINALYSIS AUTO - POINT OF CARE (AMB) [facility] (05/12/2024) Glucose UA - Bilirubin UA POCT - Ketones UA POCT - Specific [place] UA 1.020 Blood Urine POCT 1+ pH UA 6.0 Protein UA - Urobilinogen UA - Nitrite UA - WBC UA - Urine URINE / Unknown 05/12/2024 Channing Leblanc LAB - POINT OF CARE ORDERABLES F inal Result from Last 3 Months Insurance [facility] * Guarantor: DEDRA PRITCHARD Account Type Relation to Patient Date of Phone Billing Address Personal/Family 1985 [address] [place] [phone] Advance Directives * Full Code (Latest Code Status on File) Date Activated Date Inactivated Comments 04/12/2015 3:43 AM 04/13/2015 12:28 PM Care Teams News Library Director Relationship Specialty Start Date End Date Faye Fox APRN-HECTOR [address] [facility] [address] [place], [place] [phone] PCP - General Nurse Practitioner Family 02/15/15
--- OUTSIDE RECORDS SUMMARY | 2024-07-31 18:44 | XMS_ITS | Clinical Summary ---
Author Organization [facility] / [facility] Address [address] [place] [address] Care Team Providers Care Night Shift Supervisor Name Role Phone Faye Fox NP Primary Care Provider [phone] Allergies Active Allergy Reactions Criticality Noted Date Comments Sulfa Antibiotics Hives 05/04/2017 Tape Rash Low 12/03/2018 Medications benzonatate (TESSALON PERLES) 100 MG capsule Take 1 capsule (100 mg total) by mouth 3 (three) times daily as needed for Cough. 20 capsule 05/04/2017 Active hydrocodone-archana taminophen 5-325 MG tablet Take 1 tablet by mouth every 4 (four) hours as needed for Pain. 10 tablet 05/04/2017 Active albuterol sulfate HFA 108 (90 Base) MCG/ACT inhaler Inhale 2 puffs into the lungs. 02/15/2015 Active ALPRAZolam 0.25 MG tablet Take 0.25 mg by mouth. Active citalopram 20 MG tablet Take 20 mg by mouth every morning. 04/28/2019 Active enalapril 10 MG tablet Take 10 mg by mouth daily. 04/26/2019 Active EPINEPHrine 0.3 MG/0.3ML injection Inject 0.3 mg into the muscle. 12/23/2017 Active vitamin D2, ergocalciferol, 63811 UNITS capsule Take 50,000 Units by mouth. Active esomeprazole (NEXIUM) 20 MG capsule Take 20 mg by mouth. Active famotidine 20 MG tablet Take 20 mg by mouth. 05/02/2017 Active hydrochlorothia zide 25 MG tablet Take 25 mg by mouth daily. Active levothyroxine 175 MCG tablet TAKE 1 TAB BY MOUTH ONCE A DAY IN THE MORNING ON Wednesday AND Wednesday04/17/2019 Active metFORMIN 500 MG tablet Take 500 mg by mouth. Active metoclopramide 10 MG tablet Take 10 mg by mouth. Active mirtazapine 15 MG tablet Take 15 mg by mouth. 11/18/2017 Active mometasone-form oterol 200-5 MCG/ACT Aerosol Inhale 2 puffs into the lungs 2 (two) times daily. Active montelukast 10 MG tablet Take 10 mg by mouth nightly at bedtime. at bedtime. 04/15/2019 Active Norethindrone, Contraceptive, 0.35 MG tablet Take 1 tablet by mouth daily. 05/05/2019 Active [place] 3 1000 MG Cap Take by mouth daily. Active oxybutynin XL 5 MG 24 hr tablet Take 5 mg by mouth daily. 0 09/14/2018 Active ranitidine 300 MG tablet Take 300 mg by mouth 2 (two) times daily. 02/17/2019 Active sertraline 100 MG tablet Take 150 mg by mouth. Active tolterodine LA 4 MG 24 hr capsule 3 08/02/2018 Active traMADol 50 MG tablet TAKE 1 TABLET BY MOUTH EVERY 12 HOURS NEEDED FOR SEVERE PAIN 04/19/2019 Active trazodone 100 MG tablet Take 100 mg by mouth nightly at bedtime. 04/28/2019 Active azithromycin (ZITHROMAX) 250 MG tablet Take 2 tablets by mouth on day one then 1 daily for four days. 6 tablet 02/19/2023 Active Active Problems No known active problems Family History Medical History Relation Comments Cancer Father Heart Disease Father Cancer Mother Depression Mother Heart Disease Mother Hyperlipidemia Mother Rheumatoid Arthritis Mother Relation Status Comments Father Alive Mother Social History Tobacco Use Types Packs/Day Years Used Date Smoking Tobacco: Never Smokeless Tobacco: Never Tobacco Cessation:Counseling Given: Not Answered Alcohol Use Standard Drinks/Week Comments No 0 (1 standard drink = 0.6 oz pur e alcohol) Comments No Sex and Gender Information Value Date Recorded Sex Assigned at Female 02/22/2023 6:27 AM MANAGER GREEN Legal Sex Female 1:13 AM CDT Gender Identity Female 02/22/2023 6:27 AM MANAGER GREEN Sexual Orientation Straight 02/22/2023 6: 27 AM MANAGER GREEN Last Filed Vital Signs Vital Sign Reading Time Taken Comments Blood Pressure 166/88 04/22/2023 1:08 PM MANAGER GREEN Pulse 86 04/22/2023 1:08 PM MANAGER GREEN Temperature 36.4 C (97.6 F) 04/22/2023 1:08 PM MANAGER GREEN Respiratory Rate 18 04/22/2023 1:08 PM MANAGER GREEN Oxygen Saturation 99% 04/22/2023 1:08 PM MANAGER GREEN Inhaled Oxygen Concentration - - Weight 153.8 kg (339 lb 1.1 oz) 04/22/2023 1:08 PM MANAGER GREEN Height 160 cm (5' 3 ) 04/22/2023 1:08 PM MANAGER GREEN Body Mass Index 60.06 04/22/2023 1:08 PM MANAGER GREEN Plan of Treatment Health Maintenance Due Date Last Done Comments Cervical Cancer Screening Pap Smear (Age 30 to 64) Every 3 Years 1984 Annual Physical 11/09/1987 Hepatitis C 2002 Hepatitis B Vaccines (1 of 3 - 19+ 3-dose series) 11/09/2003 Cervical Cancer Screening Pap with HPV Testing (Age 30 to 64) Every 5 Years 2014 Cervical Cancer Screening with HPV 2014 COVID-19 Vaccine ( season) 2023 01/22/2023, 03/12/2022, 06/30/2021, Additional history exists PHQ-2 (Physician [facility] [place]) 04/05/2024 DTaP, Tdap and Td Vaccines (2 - Td or Tdap) 06/22/2029 06/23/2019 Pneumococcal Vaccine: Pediatrics (0 to 5 Years) and At-Risk Patients (6 to 49 Years) Aged Out 01/22/2023, 11/29/2014 No longer eligibl e based on patient's age to complete this topic HPV Vaccines Aged Out No longer eligi ble based on patient's age to complete this topic Meningococcal B Vaccine Aged Out No l onger eligible based on patient's age to complete this topic Meningococcal Vaccine Aged Out No glo michel eligible based on patient's age to complete this topic RSV Immunizations Under 20 Months Aged Out No longer eligible based on patient's age to complete this topic Insurance [id number] [place] [id number] [employer] Care Teams Night Shift Supervisor Relationship Specialty Start Date End Date Faye Fox NP [address] [facility] [address] [place] [address] PCP - General 06/30/16
--- OUTSIDE RECORDS SUMMARY | 2024-07-31 18:44 | XMS_ITS | Referral Summary ---
Author Organization [facility] Address [address] [place] [address] Care Team Providers Care Exceptional Children Teacher Name Role Phone Eren Allyson Dodson DPM Unavailable [phone] Faye Fox NP Primary Care Provider [phone] Encounters Date Type Department Care Team Description 07/31/2024 Telephone [facility] [address] [facility] [address] [place] [address] Preeti Wagner NP 07/28/2024 [facility] Post Discharge Follow up phone call [address] [address] Rosana Morales RN 07/21/2024 3:12 PM CDT - 07/26/2024 1:39 PM CDT Hospital Encounter [address] [address] Rich Rodgers MD Nikolic, Jelena, MD Quaizar, Huzaifa, MD Kheirkhahan, Nazanin, MD Breakthrough seizure (HCC) (Primary Dx); Psychogenic nonepileptic seizure; Seizure disorder, complex partial (HCC) Discharge Disposition: Discharge to home or self care 07/25/2024 Orders Only [facility] [address] [facility] [address] [place] [address] Preeti Wagner NP Syncope and collapse (Primary Dx) 07/25/2024 Telephone [facility] [address] [place] [address] [address] [address] Preeti Wagner NP 07/21/2024 2:49 PM CDT - 07/21/2024 11:59 PM CDT Hospital Encounter [facility] Emergency, Room R Discharge Disposition: Discharge to home or self care 07/21/2024 11:45 AM CDT - 07/21/2024 11:59 PM CDT Hospital Encounter [facility]rological Disorders Testing [address] [place] [address] Syncope and collapse; Seizure disorder, complex partial (HCC) Discharge Disposition: Discharge to home or self care 07/20/2024 Telephone [facility] [address] [place] [address] Clementina Varma 07/20/2024 Telephone [facility] [address] [place] [address] [address], [place] [address] Carlos A Humphreys MD 07/19/2024 Telephone [facility] [address] [place] [address] [address] [address] Carlos A Humphreys MD 06/20/2024 Telephone [facility] [address] [place] [address] [address] [address] Carlos A Humphreys MD 06/20/2024 10:30 AM CDT Office Visit [facility] [address] [place] [address] [address] [address] Carlos A Humphreys MD Seizure disorder, complex partial (HCC) (Primary Dx); Syncope and collapse; Chronic migraine without aura without status migrainosus, not intractable from Last 3 Months Allergies Active Allergy Reactions Criticality Noted Date Comments Adhesive Tape-Silicones Rash,Redness Medium Sulfa (Sulfonamide Antibiotics) Hives Medium Medications azelastine (ASTELIN) 137 mcg (0.1 %) nasal spray Administer 1 spray into affected nostril(s) nightly 017 Active levothyroxine (SYNTHROID) 175 mcg tablet Take 1 tablet (175 mcg total) by mouth daily before breakfast Active hydroCHLOROthiazi de (HYDRODIURIL) 25 mg tablet [...] hours as needed for pain Active vit C,P-Dc-lsacm-lute in-zeaxan 250-90-40-1 mg capsule Take 1 capsule by mouth 2 (two) times a day Active cranberry fzwu-N-lmcbjrmo coag 250-30-15 mg tablet Take 1 capsule [...] mouth every 12 (twelve) hours 14 tablet 2024 Discontinued(S top Taking at Discharge) topiramate (TOPAMAX) 50 mg tabletIndications :Chronic migraine without aura without status migrainosus, not intractable Take half tablet (25 mg) po twice a day for one week, then one tablet po twice a day 60 tablet 3 025 2024 Discontinued(S top Taking at Discharge) rizatriptan GAS LINE INSTALLER (MAXALT-GAS LINE INSTALLER) 10 mg disintegrating tabletIndications :Migraine Take 1 [...] (03/09/2022): Added automatically from request for surgery [id number] Plantar fascial fibromatosis 03/09/2022 Overview (03/09/2022): Added automatically from request for surgery [id number] Calcaneal spur of left foot 03/09/2022 Overview (03/09/2022): Added automatically from request for surgery [id number] Tendonitis, Achilles, left 03/09/2022 Overview (03/09/2022): Added automatically from request for surgery [id number] Upper respiratory tract infection 10/11/2017 Acute bronchospasm due to viral infection 2017 Acute maxillary sinusitis 06/07/2017 Acute bronchitis 06/07/2017 Acute bronchospasm 06/07/2017 Social History Tobacco Use Types Packs/Day Years Used Date Smoking Tobacco: Never Passive Smoke Exposure: Past Smokeless Tobacco: Never Tobacco Cessation:Counseling Given: Not Answered Alcohol Use Standard Drinks/Week Comments No 0 (1 standard drink = 0.6 oz pur e alcohol) [facility] Utilities Answer Date Recorded In the past 12 months has [employer], gas, oil, or water [employer] threatened to shut off services in your [...] week 07/24/2024 How often do you attend [facility] or alevism services? Never 07/24/2024 Do you belong to any clubs o r organizations such as jew groups, unions, fraternal or athletic groups, or [...] any time in the past 12 m [facility], were you homeless or living in a halfway (including now)? No 07/24/2024 Personal Safety Answer Date Recorded Have you ever been in or are you currently in a harmful physical or emotional relationship or is someone making you feel afraid or unsafe? 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:55 AM [employer] Gender Identity Not on file Sexual Orientation [...] 07/21/2024 11:50 PM CDT Plan of Treatment Not on file Medical Devices Implanted Type Area Insurance Verification Representative Device Identifier Shelf Expiration Date Model / Serial / Lot [employer] [place] Drill Guide Punch Tap Set Implant Achilles [id number] - [id number] Implanted:Qty: 1 on 04/03/2022 by Allyson Jason DPM at [facility] Left: Foot [employer] [id number] 12/03/2024 [id number] / / [id number] Procedures Procedure Name Priority Date/Time Associated Diagnosis [...] BLOOD ORDERABLES Fi nal Result [facility] ([place]) [address] [facility] Department [place] [address] * (ABNORMAL) Differential, auto (07/26/2024 6:27 AM [...] Fi nal Result [facility] ([place]) [address] [facility] Department [place] [address] * (ABNORMAL) CBC with auto differential (07/26/2024 [...] ([place]) MCH 29.8 27.1 - 33.3 pg [facility] ([place]) MCHC 33.5 32.3 - 35.7 g/dL [facility] ([place]) RDW CV 12.5 11.1 - 14.9 % [facility] ([place]) RDW SD 40.9 35.7 - 48.1 fL [facility] ([place]) NRBC abs 0.00 0.00 - 0.01 K/cumm [facility] ([place]) Blood 07/26/2024 6:27 AM CDT 07/26/2024 7:05 AM CDT us Alena Masters MD LAB BLOOD ORDERABLES nal Result [facility] ([place]) [address] [facility] Department [place] [address] * Comprehensive metabolic panel (07/26/2024 6:27 AM CDT) Sodium 140 135 - 145 mmol/L Potassium, pl 3.7 3.3 - 4.9 mmol/L [facility] ([place]) Chloride 103 97 - 110 mmol/L [facility]) CO2 25 22 - 32 mmol/L [facility]) Anion gap 12 2 - 15 mmol/L [facility] ([place]) BUN 14 6 - 25 mg/dL [facility] ([place]) Creatinine 0.88 0.60 - 1.10 mg/dL [facility] ([place]) Glucose 85 70 - 199 mg/dL [facility] ([place]) Comment: Interpretive Data [...] 2022. Calcium 9.2 8.5 - 10.3 mg/dL [facility] ([place]) Bilirubin, total 0.2 0.1 - 1.2 mg/dL [facility] ([place]) Protein, pl 6.8 6.5 - 8.5 g/dL [facility] ([place]) Albumin 3.8 3.5 - 5.0 g/dL [facility] ([place]) Alk phos 86 40 - 130 Units/L [facility] ([place]) ALT 19 7 - 45 Units/L [facility] ([place]) AST 18 10 - 45 Units/L [facility] ([place]) Comment:Slightly Hemolyzed S pecimen Blood 07/26/2024 6:27 AM CDT 07/26/2024 7:05 AM CDT us Alena Masters MD LAB BLOOD ORDERABLES Fi nal Result [facility] ([place]) [address] [facility] Department [place] [address] * eGFR (07/25/2024 9:22 AM CDT) eGFR [...] BLOOD ORDERABLES Fi nal Result [facility] ([place] [address] [facility] Department [place] [address] * (ABNORMAL) Differential, auto (07/25/2024 9:22 AM CDT) Neutrophil abs 8.44(H) 1.50 - 6.50 K/cumm Imm gran abs 0.05 0.00 - 0.10 K/cumm [facility] ([place]) Lymphocyte abs 2.45 0.80 - 3.30 K/cumm [...] us Alena Masters MD LAB BLOOD ORDERABLES [facility] Result [facility] ([place]) [address] [facility] Department [place] [address] * (ABNORMAL) CBC with auto differential (07/25/2024 9:22 AM CDT) WBC 11.95(H) 3.80 - 9.90 K/cumm Hgb 13.5 11.9 - 15.5 g/dL [facility] ([place]) Hct 40.6 35.6 - 45.5 % [facility] ([place]) Plt 279 150 - 400 K/cumm [facility] ([place]) MPV 10.8 9.1 - 12.3 fL [facility] ([place]) RBC 4.53 3.90 - 5.20 M/cumm [facility] ([place]) MCV 89.6 81.3 - 96.4 fL [facility] ([place]) MCH 29.8 27.1 - 33.3 pg [facility] ([place]) MCHC 33.3 32.3 - 35.7 g/dL [facility] ([place]) RDW CV 12.6 11.1 - 14.9 % [facility] ([place]) RDW SD 41.1 35.7 - 48.1 fL [facility] ([place]) NRBC abs 0.00 0.00 - 0.01 K/cumm [facility] ([place]) Blood 07/25/2024 9:22 AM CDT 07/25/2024 10:14 AM CDT us Alena Masters MD LAB BLOOD ORDERABLES nal Result [facility] ([place]) [address] [facility] Department [place] [address] * (ABNORMAL) Comprehensive metabolic panel (07/25/2024 9:22 AM CDT) Sodium 140 135 - 145 mmol/L Potassium, pl 3.1(L) 3.3 - 4.9 mmol/L [facility] ([place]) Chloride 103 97 - 110 mmol/L [facility] ([place]) CO2 22 22 - 32 mmol/L [facility] ([place]) Anion gap 15 2 - 15 mmol/L [facility] ([place]) BUN 12 6 - 25 mg/dL [facility] ([place]) Creatinine 0.85 0.60 - 1.10 mg/dL [facility] ([place]) Glucose 129 70 - 199 mg/dL [facility] ([place]) [...] ([place]) AST 13 10 - 45 Units/L [facility] ([place]) Blood 07/25/2024 9:22 AM CDT 07/25/2024 10:14 AM CDT us Alena Masters MD LAB BLOOD ORDERABLES Fi nal Result [facility] [place]) [address] [facility] Department [place] [address] * EEG (07/24/2024 3:41 PM CDT) Anatomical Region Laterality Modality Other Narrative Procedure Note Ladan Elizondo MD - 07/21/2024 12:00 AM CDT REQUESTING Carlos A Humphreys MD. INDICATIONS Ms. David is a 38-year-old with chief complaints of episodes ofpossible seizure-like activity. EEG was obtained using Yjhsroucigrmx31/20 system of electrode placement. Background activity consisted ofbilateral, synchronous, posterior dominant alpha range activity. Recordshows spontaneous variability. Frequent muscle artifacts movement.Drowsiness with identified ocular signs and attenuation of background. Nofocal, lateralized, or epileptiform abnormalities were noted. IMPRESSION This EEG reveals evidence of normal wakefulness and drowsiness. Clinicalcourse recommended. Job ID/Internal Job ID: [id number] Joann Mitchell MD NEUROLOGY ORDERABLES Susana l [...] LAB BLOOD ORDERABLES Fi nal Result [facility] ([place]) [address] [facility] Department [place] [address] * (ABNORMAL) Differential, auto (07/24/2024 8:55 AM [...] ORDERABLES nal Result [facility] ([place]) [address] [facility] Department [place] [address] * (ABNORMAL) CBC with auto differential (07/24/2024 [...] RDW CV 12.5 11.1 - 14.9 % [facility] ([place]) RDW SD 40.1 35.7 - 48.1 fL [facility] ([place]) NRBC abs 0.00 0.00 - 0.01 K/cumm [facility] ([place]) Blood 07/24/2024 8:55 AM CDT 07/24/2024 9:33 AM CDT us Alena Masters MD LAB BLOOD ORDERABLES nal Result [facility] ([place]) [address] [facility] Department [place] [address] * (ABNORMAL) Comprehensive metabolic panel (07/24/2024 8:55 AM CDT) Sodium 139 135 - 145 mmol/L Potassium, pl 3.5 3.3 - 4.9 mmol/L [facility] ([place]) Chloride 102 97 - 110 mmol/L [facility] ([place] CO2 21(L) 22 - 32 mmol/L [facility] ([place]) Anion gap 16(H) 2 - 15 mmol/L [facility] ([place]) BUN 11 6 - 25 mg/dL [facility] ([place]) Creatinine 0.97 0.60 - 1.10 mg/dL [facility] ([place]) Glucose 120 70 - 199 mg/dL [facility] ([place]) Comment: Interpretive Data Fasting glucose >/= [...] 2022. Calcium 9.0 8.5 - 10.3 mg/dL [facility] ([place]) Bilirubin, total <0.2 0.1 - 1.2 [...] Fi nal Result [facility] ([place]) 1 [facility] Department [place] [address] * MRI Brain W WO Contrast (07/24/2024 [...] Kip Crowe D.O. AP: AP Report ID: [id number] Reading Location: [place] [address] Procedure Note Kip Crowe, DO - 07/24/2024 [...] Electronically signed by Kip Crowe D.O. AP: LEILA Report ID: [id number] Reading Location: [id number] us Alena Masters MD IMG MRI PROCEDURES Susana l Result * ECG 12 lead (07/23/2024 8:02 PM CDT) 07/23/2024 8:02 PM CDT Narrative [facility] - 07/24/2024 6:41 AM CDT Vent Rate: 74 bpm RR Interval: 808 msec AL Interval: 156 msec QRS Duration: 121 msec QT Interval: 398 msec QTC Interval: 425 msec P-R-T Dows: 43 - 78 - 33 degrees IMPRESSION: SINUS RHYTHM POSSIBLE LEFT ATRIAL ENLARGEMENT [-0.1mV P WAVE IN V1/V2] POSSIBLE RIGHT VENTRICULAR CONDUCTION DELAY [RSR (QR) IN V1/V2] INFERIOR MYOCARDIAL INFARCTION [40+ ms Q WAVE AND/OR ST/T ABNORMALITY IN II/aVF], OF INDETERMINATE AGE ABNORMAL ECG Electronically Signed By: Darwin Kingsley MD us Alena Masters MD ECG ORDERABLES Final R esult [facility] * eGFR (07/23/2024 8:59 AM CDT) [...] BLOOD ORDERABLES Fi nal Result [facility] [place]) [address] [facility] Department [place] [address] * Differential, auto (07/23/2024 8:59 AM CDT) [...] Neutrophil pct 62.9 % [facility] ([place]) Comment: Interpretive [...] Fi nal Result [facility] ([place]) [address] [facility] Department [place] [address] * CBC with auto differential (07/23/2024 8:59 AM CDT) WBC 8.89 3.80 - 9.90 K/cumm Hgb 13.1 11.9 - 15.5 g/dL [facility] ([place]) Hct 39.5 35.6 - 45.5 % [facility] ([place]) Plt 292 150 - 400 K/cumm [facility] ([place]) MPV 10.5 9.1 - 12.3 fL [facility] ([place]) RBC 4.41 3.90 - 5.20 M/cumm [facility] ([place]) MCV 89.6 81.3 - 96.4 fL [facility] ([place]) MCH 29.7 27.1 - 33.3 pg [facility] ([place]) MCHC 33.2 32.3 - 35.7 g/dL [facility] ([place]) RDW CV 12.7 11.1 - 14.9 % [facility] ([place]) RDW SD 41.5 35.7 - 48.1 fL [facility] ([place]) NRBC abs 0.00 0.00 - 0.01 K/cumm [facility] ([place] Blood 07/23/2024 8:59 AM CDT 07/23/2024 9:26 AM CDT us Alena Masters MD LAB BLOOD ORDERABLES Fi nal Result [facility] ([place]) 1 [facility] Department [place] [address] * Comprehensive metabolic panel (07/23/2024 8:59 AM CDT) Sodium 140 135 - 145 mmol/L Potassium, pl 3.4 3.3 - 4.9 mmol/L [facility] ([place]) Chloride 104 97 - 110 mmol/L [facility] ([place]) CO2 23 22 - 32 mmol/L [facility] ([place]) Anion gap 13 2 - 15 mmol/L [facility] ([place]) BUN 15 6 - 25 mg/dL [facility] ([place]) Creatinine 0.97 0.60 - 1.10 mg/dL [facility] ([place]) Glucose 118 70 - 199 mg/dL [facility] ([place]) [...] MD LAB BLOOD ORDERABLES Fi nal Result [facility] ([place]) 1 [facility] Department [place] [address] * Lactate (07/22/2024 2:12 PM CDT) [facility] Lactate 1.6 0.7 - 2.0 mmol/L Blood 07/22/2024 2:12 PM CDT 07/22/2024 2:17 PM CDT us Ho Barraza MD LAB BLOOD ORDERABLES Final Re sult [facility] ([place]) [address] [place] [address] [place] [address] * eGFR (07/22/2024 7:53 AM CDT) [facility] eGFR 81 >=60 mL/min/1. 73 m2 Comment: [...] BLOOD ORDERABLES Fi nal Result [facility] ([place] 1 [facility] Department [place] [address] * Differential, auto (07/22/2024 7:53 AM CDT) [...] Fi nal Result [facility] ([place]) [address] [facility] Department [place] [address] * CBC with auto differential (07/22/2024 7:53 AM CDT) WBC 8.89 3.80 - 9.90 K/cumm Hgb 13.5 11.9 - 15.5 g/dL [facility] ([place]) Hct 39.8 35.6 - 45.5 % [facility] ([place]) Plt 302 150 - 400 K/cumm [facility] ([place]) MPV 10.3 9.1 - 12.3 fL [facility] ([place]) RBC 4.51 3.90 - 5.20 M/cumm [facility] ([place]) MCV 88.2 81.3 - 96.4 fL [facility] ([place]) MCH 29.9 27.1 - 33.3 pg [facility] ([place]) MCHC 33.9 32.3 - 35.7 g/dL [facility] ([place]) RDW CV 12.7 11.1 - 14.9 % [facility] ([place]) RDW SD 41.1 35.7 - 48.1 fL [facility] ([place]) NRBC abs 0.00 0.00 - 0.01 K/cumm [facility] ([place]) Blood 07/22/2024 7:53 AM CDT 07/22/2024 8:27 AM CDT us Alena Masters MD LAB BLOOD ORDERABLES Fi nal Result [facility] ([place]) 1 [facility] Department [place] [address] * Prolactin (07/22/2024 7:53 AM CDT) Prolactin 16.8 4.8 - 23.3 ng/mL Comment:Testing performed by : [facility], [address] [place] [address], [place]., [address] Blood 07/22/2024 7:53 AM CDT 07/22/2024 5:11 PM CDT Ho Barraza MD LAB BLOOD ORDERABLES Final Re sult [facility] ([place]) 1 [facility] [place] [address] * Magnesium (07/22/2024 7:53 AM CDT) Magnesium 2.0 1.4 - 2.5 mg/dL Blood 07/22/2024 7:53 AM CDT 07/22/2024 8:27 AM CDT Alena Masters MD LAB BLOOD ORDERABLES Fi nal Result Performing Organization Address [facility]/ZIP Co de Phone Number [facility] ([place]) 1 [facility] [place] [address] * Comprehensive metabolic panel (07/22/2024 7:53 AM CDT) Sodium 137 135 - 145 mmol/L Potassium, pl 3.8 3.3 - 4.9 mmol/L [facility] ([place]) Chloride 102 97 - 110 mmol/L [facility] ([place]) CO2 24 22 - 32 mmol/L [facility] ([place]) Anion gap 11 2 - 15 mmol/L [facility] ([place]) BUN 14 6 - 25 mg/dL [facility] ([place]) Creatinine 0.92 0.60 - 1.10 mg/dL [facility] ([place]) Glucose 86 70 - 199 mg/dL [facility] ([place]) Comment: Interpretive Data Fasting glucose [...] CDT Alena Masters MD LAB BLOOD ORDERABLES nal Result [facility] ([place]) 1 [facility] Department [place] [address] * Drugs of Abuse Screen, Urine with Reflex Confirmation (07/22/2024 6:00 AM CDT) Pathologist [facility] Amphetamine, ur Not Detected CutOff 500ng/mL Comment: Interpretive Data - Amphetamines: Samples containing greater than 500 ng/mL d-methamphetamine or other cross-reacting amphetamine compounds are reported as positive. Amphetamine immunoassays are subject to significant false positive rates due to cross-reactivity of non-amphetamine drugs. Confirmatory testing required for definitive results. Current Interpretive Data was last reviewed 2022. Barbiturates, ur Not Detected CutOff 200ng/mL [facility] ([place]) Comment: Interpretive Data - Barbiturates: Samples containing greater than 200 ng/mL secobarbital or other cross-reacting barbiturate compounds are reported as positive. False positive and false negative results are possible. Confirmatory testing required for definitive results. Current Interpretive Data was last reviewed 2022. Benzodiazepines, ur Not Detected CutOff 100ng/mL [facility] ([place]) Comment: Interpretive Data - Benzodiazepines: Samples containing greater than 100 ng/mL nordiazepam or other cross-reacting compounds are reported as positive. False positive and false negative results are possible. Confirmatory testing required for definitive results. Current Interpretive Data was last reviewed 2022. Cannabinoids, ur Not Detected CutOff 50 ng/mL [facility] ([place]) Comment: Interpretive Data - Cannabinoids: Samples containing greater than 50 ng/mL delta-9 THC -COOH or other cross- reacting compounds are reported as positive. False positive and false negative results are possible. Confirmatory testing required for definitive results. Current Interpretive Data was last reviewed 2022. Cocaine, ur Not Detected CutOff 150ng/mL [facility] ([place]) Comment: Interpretive Data - Cocaine: Samples [...] Phencyclidine, ur Not Detected CutOff 25 ng/mL [facility] ([place]) Comment: Interpretive Data - Phencyclidine: Samples containing greater than 25 ng/mL phencyclidine or other cross-reacting compounds are reported as positive. False positive and false negative results are possible. Confirmatory testing required for definitive results. Current Interpretive Data was last reviewed 2022. Urine Creatinine 97 mg/dL [facility] ([place]) Comment: Interpretive Data Urine Creatinine: < 10 mg/dL is extremely dilute = or > 10 but < 20 mg/dL is dilute = or > 20 mg/dL is normal Current Interpretive Data was last revised on 2017. Urine 07/22/2024 6:00 AM CDT 07/22/2024 6:13 AM CDT Narrative [facility] - 07/22/2024 7:01 AM CDT Drug of Abuse screening is performed by immunoassay for medical purposes only. This is not to be used for Pain Management purposes. If Detected, confirmation testing will be performed for Amphetamines, Cocaine, Fentanyl, Methadone, Opiates, Oxycodone or Phencyclidine. Alena Masters MD LAB URINE ORDERABLES [facility] Result [facility] 1 [facility] Department [place] [address] * Urinalysis reflex to microscopic and culture Urine (07/22/2024 6:00 AM CDT) Color, ur Yellow Yellow Clarity, ur Clear Clear [facility] ([place]) Specific gravity, ur 1.014 1.003 - 1.030 [facility] ([place]) pH, urine 6.5 [facility] ([place]) Comment: Interpretive Data U rine pH is affected by diet, medications, systemic acid-base disturbances, and renal tubular function. pH may affect urinary stone formation. For example, urine pH below 6.0 may help reduce the tendency for calcium phosphate stones and pH greater than 6.0 may reduce the tendency for uric acid stone formation. Source: [facility] [employer] Current Interpretive Data was last revised on [...] Alena Masters MD LAB MICROBIOLOGY - [facility] ORDERABLES Final Result [facility] ([place]) 1 [facility] Department [place] [address] * XR Chest 1 View (07/21/2024 11:15 [...] Channing Villanueva M.D. KT: COLTEN Report ID: [id number] Reading Location: [id number] Procedure Note Channing Villanueva MD - 07/22/2024 [...] Channing Villanueva M.D. KT: COLTEN Report ID: [id number] Reading Location: [id number] Alena Masters MD IMG XR PROCEDURES Final Result [...] Eleazar Sequeira M.D. AT: AT Report ID: [id number] Reading Location: [id number] Procedure Note Eleazar Sequeira MD - 07/21/2024 [...] Eleazar Sequeira M.D. AT: AT Report ID: [id number] Reading Location: [id number] us Rich Rodgers MD IMG CT PROCEDURES Final Resu lt * Sepsis Lactate w/ Reflex (07/21/2024 3:48 PM CDT) [facility] Sepsis Lactate 1.8 0.7 - 2.0 mmol/L Blood 07/21/2024 3:48 PM CDT 07/21/2024 3:52 PM CDT Rich Rodgers MD LAB BLOOD ORDERABLES Final R esult Performing Organization Address City/[facility]/ZIP Co de Phone Number SANJAY [facility] ([place]) [address] [place] [address] [place] [address] * eGFR (07/21/2024 3:48 PM CDT) [facility] eGFR >90 >=60 mL/min/1. 73 m2 Comment: [...] LAB BLOOD ORDERABLES Final R esult [facility] ([place]) 1 [facility] Department [place] [address] * (ABNORMAL) Differential, auto (07/21/2024 3:48 PM [...] BLOOD ORDERABLES Final R esult [facility] ([place]) 1 [facility] Department [place] [address] * (ABNORMAL) CBC with auto differential (07/21/2024 3:48 PM CDT) Pathologist [facility] WBC 11.51(H) 3.80 - 9.90 K/cumm Hgb 13.5 11.9 - 15.5 g/dL [facility] ([place]) Hct 39.9 35.6 - 45.5 % [facility] ([place]) Plt 307 150 - 400 K/cumm [facility] ([place]) MPV 10.7 9.1 - 12.3 fL [facility] ([place]) RBC 4.52 3.90 - 5.20 M/cumm [facility] ([place]) MCV 88.3 81.3 - 96.4 fL [facility] ([place]) MCH 29.9 27.1 - 33.3 pg [facility] ([place]) MCHC 33.8 32.3 - 35.7 g/dL [facility] ([place]) RDW CV 12.7 11.1 - 14.9 % [facility] ([place]) RDW SD 41.2 35.7 - 48.1 fL [facility] ([place]) NRBC abs 0.00 0.00 - 0.01 K/cumm [facility] ([place]) Blood 07/21/2024 3:48 PM CDT 07/21/2024 3:52 PM CDT us Rich Rodgers MD LAB BLOOD ORDERABLES Final R esult [facility] ([place]) 1 [facility] Department [place] [address] * hCG, blood, quantitative (07/21/2024 3:48 PM CDT) Pathologist [facility] hCG, quant <5.0 0.0 - 5.0 IUnits/L [...] LAB BLOOD ORDERABLES Final R esult [facility]JAY [facility] ([place]) 1 [facility] [place] [address] * Magnesium (07/21/2024 3:48 PM CDT) Pathologist [facility] Magnesium 1.9 1.4 - 2.5 mg/dL Blood 07/21/2024 3:48 PM CDT 07/21/2024 3:53 PM CDT Rich Rodgers MD LAB BLOOD ORDERABLES Final R critical access hospital Performing Organization Address City/[facility]/ZIP Co de Phone Number [facility]AY [facility] ([place]) 1 [place] [address] * (ABNORMAL) Comprehensive metabolic panel (07/21/2024 3:48 PM CDT) Sodium 136 135 - 145 mmol/L Potassium, pl 3.7 3.3 - 4.9 mmol/L [facility] ([place]) Chloride 101 97 - 110 mmol/L [facility] ([place]) CO2 21(L) 22 - 32 mmol/L [facility] ([place]) Anion gap 13 2 - 15 mmol/L [facility] ([place]) BUN 15 6 - 25 mg/dL [facility] ([place]) Creatinine 0.83 0.60 - 1.10 mg/dL [facility] ([place]) Glucose 117 70 - 199 mg/dL [facility] ([place]) Comment: Interpretive Data [...] MD LAB BLOOD ORDERABLES Final R esult [facility] ([place] 1 [facility] Department [place] [address] * EEG (07/21/2024 1:15 PM CDT) Anatomical [...] correlation is recommended. Job ID/Internal Job ID: [id number] Carlos A Humphreys MD NEUROLOGY ORDERABLES Fi nal Result from Last 3 Months Insurance [employer] GENERIC Advance Directives For more information, please contact: [phone] * Full Code (Latest Code Status on File) Date Activated Date Inactivated Comments 07/21/2024 6:34 PM 07/26/2024 5:44 PM Care Teams Exceptional Children Teacher Relationship Specialty Start Date End Date Faye Fox NP [address] [place] [address] [address] [place] [address] PCP - General Nurse Practitioner 11/22/23 Allyson Jason DPM [address] [place] [address] Consulting Physician Foot and Ankle Surg 04/03/22
--- OUTSIDE RECORDS SUMMARY | 2024-07-31 18:44 | XMS_ITS | Encounter Summary ---
Author Organization [facility] Address [address] [place] [address] Phone Care Team Providers Care Ship Harbor Pilot Name Role Phone ShahlaRegan DPM Unavailable Faye Fox APRN Primary Care Provider [phone] Encounter Details Date Type Department Care Team (Late st Contact Info) Description 07/16/2024 Results Follow-Up [facility] - [facility] - [facility] [address] [place] [address] Rachelle Cervantes APRN, REGION MANAGER [address] [place] [address] POCT UA AUTOMATED W/O MICRO, POC INFLUENZA A AND B BY MOLECULAR, POC SARS-COV-2 BY MOLECULAR, Additional followed-up results: 2 Social History Tobacco Use Types Packs/Day Years [...] on filedocumented in this encounter Care Teams Ship Harbor Pilot Relationship Specialty Start Date End Date Faye Fox APRN [address] [facility], [address] [place] [address] PCP - General Family Medicine 08/25/18 Regan Gale DPM Consulting Physician Podiatry 09/09/16 documented as of this encounter
--- OUTSIDE RECORDS SUMMARY | 2024-07-31 18:44 | XMS_ITS | Encounter Summary ---
Author Organization [facility] Address [address] [facility] [place] [address] Care Team Providers Care Hatchery Helper Name Role Phone Faye Fox MARRIAGE AND FAMILY TEACHER-DICTAPHONE OPERATOR Primary Care Provider Encounter Details Date Type Department Care Team (Late st Contact Info) Description 07/27/2019 Lab Requisition [facility] [address] [place] [address] Charan Rogel MD Social History Tobacco Use Types Packs/Day Years Used Date Smoking Tobacco: Never Smokeless Tobacco: Never Alcohol Use Standard Drinks/Week Comments No 0 (1 standard drink = 0.6 oz pure alcohol) past use on holiday/special events Comments No Sex and Gender Information Value Date Recorded Sex Assigned at Not on file Legal Sex Female 9:41 AM ACCELERATOR SYSTEMS DIRECTOR Gender Identity Not on file Sexual Orientation Not on file documented as of this encounter Functional Status * Is person deaf or have serious hearing difficulty? Answer Date of Assessment Author No 09/23/2016 10:38 AM Radha Pérez RN * Is person blind or have serious difficulty seeing? Answer Date of Assessment Author No 09/23/2016 10:38 AM Radha Pérez RN * Does person have serious difficulty walking/climbing stairs? Answer Date of Assessment Author Yes 09/23/2016 10:38 AM Radha Pérez RN * Does person have difficulty dressing/bathing? Answer Date of Assessment Author No 09/23/2016 10:38 AM CDT Radha Winters RN * Does person have difficulty doing errands alone? Answer Date of Assessment Author Yes 09/23/2016 10:38 AM CDT Radha Winters RN documented as of this encounter Mental Status * Does person have difficulty concentrating/remembering/making decisions? Answer Entry Date Author No 09/23/2016 10:38 AM CDT Radha Winters RN documented in this encounter Plan of Treatment Upcoming Encounters Date Type Department Care Team (Latest Contact Info) Description 08/01/2024 11:15 AM CDT Office Visit [facility] - ENT [address] [place] [phone] Jeff Dorman MD [address] [place] [address] [place] [address] 08/03/2024 1:30 PM CDT Office Visit [facility] - GI [address] [place] [phone] Zhang Dior III, MD [address] [place] [address] 2L [place] [phone] Lizbeth Fierro, PhD [address] [place] [address] 08/31/2024 10:00 AM CDT Hospital Encounter [facility] [address] [place] [address] Sourav Morales MD [address] [place] [address] [address] [place] [address] Surgery General 08/31/2024 10:00 AM CDT - 08/31/2024 10:30 AM CDT Surgery [facility] [address] [place] [phone] Sourav Morales MD [address] [place] [address] [address] [place] [address] EGD with bx to rule out H pylori and aspirate to rule out SIBO 09/18/2024 11:30 AM CDT Office Visit [facility] - GI [address] [place] [phone] Yeni Gabriel, MARRIAGE AND FAMILY TEACHER-DICTAPHONE OPERATOR [address] [place] [phone] 11/07/2024 10:30 AM CDT Office Visit [facility] - ENT [address] [place] [phone] Jeff Dorman MD [address] [place] [address] [place] [address] 11/10/2024 11:30 AM CDT Office Visit [facility] - GI [address] [place] [phone] Savannah Castro PA-C [address] [facility] DEPT [place] [phone] 03/14/2025 1:00 PM ACCELERATOR SYSTEMS DIRECTOR Office Visit [facility] - GI [address] [place] [phone] Zhang Dior III, MD [address] [place] [address] [place] [phone] Scheduled Procedures Name Priority Associated Diagnoses Date/Ti or ESOPHAGOGASTRODUODENOSCOPY ( EGD) DIAGNOSTIC Gastroesophageal reflux disease, unspecified whether esophagitis present 08/31/2024 10:00 AM CDT documented as of this encounter Goals Goal Patient Goal Type Associated Problems Recent Progress Patient-Stated? Author Medication Management General On track( 025 3:45 PM ACCELERATOR SYSTEMS DIRECTOR) Ayesha Sandoval RN Note: Expected end date: ongoing Interventions: Take all medications as prescribed Let your doctor know right away about any changes in your medications Make sure to request a refill of your medication at least one week prior to your last dose documented as of this encounter Procedures Procedure Name Priority Date/Time Associated Diagnosis Comments SARS-COV-2 (COVID-19) IN HOUSE Routine 07/27/2019 8:25 AM CDT documented in this encounter Results * SARS-COV-2 (COVID-19) IN HOUSE (07/27/2019 8:25 AM CDT) COVID-19 PCR Not detected Not detected, Invalid 07/27/2019 11:13 PM CDT [facility] Microbiology SPECIMEN FROM NASOPHARYNGEAL STRUCTURE / Unknown Collection / Unknown 07/27/2019 8:25 AM CDT 07/27/2019 1:18 PM CDT Narrative [facility] - 07/27/2019 11:13 PM CDT This Real Time RT-PCR assay was developed and its performance characteristics determined by [facility]. This test has been authorized by the Food and Drug administration (FDA)under an Emergency Use Authorization (EUA). This test has been validated in accordance with the FDA's guidance document Policy for Diagnostic Testing in Laboratories Certified to perform High Complexity Testing under CLIA prior to Emergency Use Authorization for Coronavirus Disease-2019 during the Public Health Emergency issued on June 03, 2019. FDA independent review of this validation is pending. This test is only authorized for the duration of time the declaration that circumstances exist justifying the authorization of emergency use of in vitro diagnostic tests for detection of SARS-CoV-2 virus and/or diagnosis of COVID-19 infection under section 564(b)(1) of the Act, 21 U.S.C 360bbb-3 (b)(1), unless the authorization is terminated or revoked sooner. us Charan Rogel MD LAB - MICROBIOLOGY ORDERABL ES Final Result [facility] [address] [place] [address], [facility] [phone] documented in this encounter Visit Diagnoses Not on filedocumented in this encounter Additional Health Concerns Infection Onset Date Last Indicated Resolved Time COVID-19 Under Investigation 04/29/2024 04/29/2024 04/29/2024 4:51 AM ACCELERATOR SYSTEMS DIRECTOR documented as of this encounter Care Teams Hatchery Helper Relationship Specialty Start Date End Date Faye Fox APRN-HECTOR [address] [place] [phone] PCP - General Nurse Practitioner Family 02/15/15 documented as of this encounter
--- OUTSIDE RECORDS SUMMARY | 2024-07-31 18:45 | XMS_ITS | Clinical Summary ---
Author Organization [facility] Address [address] [place] [address] Phone Care Team Providers Care Garbage Stoker Name Role Phone Unavailable Primary Care Provider Unavailabl e Allergies Active Allergy Reactions Criticality Noted Date Comments Adhesive Tape-Silicones Rash Low 10/26/2012 Sulfa (Sulfonamide Antibiotics) Hives High 10/04 Medications ergocalciferol (VITAMIN D2) 50,000 unit Oral capsule Take 50,000 Units by mouth. Active multivitamin (DAILY-MARIANO) Oral tablet Take 1 Tab by mouth daily. Active omega-3 fatty acids-fish oil 300-1,000 mg Oral Cap Take by mouth daily. Active vit B cmplx 3-FA-Vit C-Biotin (RENAVITE-RX RX) 1-60-300 mg-mg-mcg Oral Tab Take 1 Tab by mouth daily. Active ECHINACEA 1X ORAL Take by mouth. Active ascorbic acid (VITAMIN C) 1,000 mg Oral Tab Take 1,000 mg by mouth daily. Active cetirizine (ZYRTEC) 1 mg/mL Oral Soln Take 1 mg by mouth Daily LATE. Active mometasone-formot wendy (DULERA) 200-5 mcg/actuation Inhalation inhaler Take 2 Puffs by inhalation 2 times daily. Active enalapril (VASOTEC) 10 mg Oral tablet Take 10 mg by mouth daily. Active hydrochlorothiazi de 25 mg Oral tablet Take 25 mg by mouth daily. Active levothyroxine 150 mcg Oral tablet Take 150 mcg by mouth daily centrifugal spinner. Active medroxyPROGESTERo ne (PROVERA) 10 mg Oral tablet Take 10 mg by mouth daily. Active metFORMIN (GLUCOPHAGE) 500 mg Oral tablet Take 500 mg by mouth 2 times daily with meals. Active esomeprazole (NEXIUM) 20 mg Oral CpDR Take 20 mg by mouth daily before breakfast. Active beclomethasone dipropionate (QNASL) 80 mcg/actuation Both Nostril HFAA Administer in each nostril. Active sertraline (ZOLOFT) 100 mg Oral tablet Take 100 mg by mouth daily. Active ALPRAZolam (XANAX) 0.25 mg Oral tablet Take 0.25 mg by mouth 1 time daily as needed. Active HYDROcodone-aceta minophen (NORCO) 5-325 mg Oral tablet Take 1-2 Tabs by mouth every 4 hours as needed for Pain. 60 Tab 0 3 Active cyclobenzaprine (FLEXERIL) 10 mg Oral tablet Take 1 Tab by mouth 3 times daily as needed for Spasm. 40 Tab 1 3 Active Active Problems Problem Noted Date Diagnosed Date HNP (herniated nucleus pulposus), lumbar 013 Social History Tobacco Use Types Packs/Day Years Used Date Smoking Tobacco: Never Alcohol Use Standard Drinks/Week Comments No 0 (1 standard drink = 0.6 oz pur e alcohol) Comments No Sex and Gender Information Value Date Recorded Sex Assigned at Not on file Legal Sex Female 4:54 AM SUPERVISOR BRAIDING Gender Identity Not on file Sexual Orientation Not on file Last Filed Vital Signs Vital Sign Reading Time Taken Comments Blood Pressure 115/60 11/02/2012 1:29 PM CDT Pulse 70 11/02/2012 1:29 PM CDT Temperature 36.1 C (97 F) 11/02/2012 1:29 PM CDT Respiratory Rate 16 11/02/2012 1:29 PM CDT Oxygen Saturation 96% 11/02/2012 1:29 PM CDT Inhaled Oxygen Concentration - - Weight 109.3 kg (241 lb) 11/01/2012 8:47 AM CDT Height 160 cm (5' 3 ) 10/26/2012 2:48 PM CDT Body Mass Index 42.69 10/26/2012 2:48 PM CDT Plan of Treatment Health Maintenance Due Date Last Done Comments DTAP/TDAP/TD VACCINES (1 - Tdap) 11/09/2003 HEPATITIS B VACCINES (1 of 3 - 19+ 3-dose series) 11/09/2003 HPV/Cotest (21-29) 2005 CERVICAL CANCER SCREENING 2014 HPV/Cotest (30-65) 2014 PAP SMEAR 2014 INFLUENZA VACCINE (#1) 2023 HPV VACCINES Aged Out No longer eligi ble based on patient's age to complete this topic Medical Devices Implanted Type Area Bag Washer Device Identifier Shelf Expiration Date Model / Serial / Lot Sealant Floseal W/ Adptr 10ml [id number] - [id number] Implanted:Qty: 1 on 11/01/2012 at [facility] Sealant [employer] 12/04/2013 [id number] / / [id number] Insurance [facility] BLUE ACCESS CHOICE Advance Directives For more information, please contact: [phone] * Full Code (Latest Code Status on File) Date Activated Date Inactivated Comments 11/01/2012 8:36 AM 11/02/2012 5:19 PM
--- OUTSIDE RECORDS SUMMARY | 2024-07-31 18:45 | XMS_ITS | Encounter Summary ---
Author Organization [facility] Address [address] [place] [address] Phone Care Team Providers Care Agency Cashier Name Role Phone Regan Gale DPM Unavailable [phone] Faye Fox APRN Primary Care Provider [phone] Reason for Referral * PT/OT/ST (Routine) - Authorized Specialty Diagnoses / Procedures Referred By Pratima goss Referred To Contact Physical Therapy Diagnoses Low back pain, unspecified back pain laterality, unspecified chronicity, unspecified whether sciatica present Faye Fox APRN [address], [address] [place] [address] Phone: tel: fax: [facility] [address] [facility], [address] [address] Phone: tel: fax: Referral ID Status Reason Start Date Expiration Date V isits Requested Visits Authorized [id number] Authorized 11/15/2023 50 14 Scheduling Instructions Encounter Details Date Type Department Care Team (Latest Contact Info) Description 11/15/2023 Transcribe Orders [facility] [address] [place] [address] Faye FoxERICK [address] [facility], [address] [place] [address] Low back pain, unspecified back pain laterality, unspecified chronicity, unspecified whether sciatica present (Primary Dx) Social History Tobacco Use Types Packs/Day Years [...] as of this encounter Plan of Treatment Scheduled Referrals Name Type Priority Associated Diagnoses Orde r Schedule PHYSICAL THERAPY REFERRAL Outpatient Referral Routine Low back pain, unspecified back pain laterality, unspecified chronicity, unspecified whether sciatica present Expected: 11/15/2023, Expires: 11/14/2024 documented as of this encounter Visit Diagnoses Diagnosis Low back pain, unspecified back pain laterality, unspecified chronicity, unspecified whether sciatica present- Primary documented in this encounter Additional Health Concerns Infection Onset Date Last Indicated Resolved Time Respiratory Rule-Out 05/25/2024 05/25/2024 025 1:28 PM ADULT CROSSING GUARD COVID - 19 05/25/2024 05/25/2024 05/25/2024 1:00 PM ADULT CROSSING GUARD Respiratory Rule-Out 07/15/2024 07/15/2024 025 12:20 PM CDT COVID - 19 07/15/2024 07/15/2024 07/15/2024 12:1 9 PM CDT documented as of this encounter Care Teams Agency Cashier Relationship Specialty Start Date End Date Faye FoxERICK [address] [place] [address] PCP - General Family Medicine 08/25/18 Regan Gale DPM Consulting Physician Podiatry 09/09/16 documented as of this encounter
--- OUTSIDE RECORDS SUMMARY | 2024-07-31 18:45 | XMS_ITS | Data Portability ---
Author Organization [facility] Address [address] [place] [address] [place] [address] Care Team Providers Care Home Health Assistant Name Role Phone DEMETRIUS KAM Primary Care Provider [phone] Assessment Encounter Date Assessment Date Assessment LastModified by Organization Details LastModified Time 12/15/2023 12/15/2023 Patient stated had painful urination and lower abdomen pain. Dipped urine and will send for culture. Per SP will send antibiotic to patients pharmacy. [email or web address] Not available 12/15/2023 16:29:28 Plan of Treatment Reminders Order Date Submit Date Provider Last Modified By Organization Details Last Modified Time Details Appointments UTI 2024 02:00P M RN SCHEDULE Not available Not available Not available Lab urinalysi s, dipstick 2024 025 [email or web address], [address], [address], [place], [address], 05/25/2024 12:34:02 urinalysi s, dipstick 2023 024 [email or web address] [facility] [address], [place], [address], 03/09/2024 14:32:25 unlisted lab - women's health swab plus, BIRGIT 2023 024 [facility] (Lab), [address], [place], [address], 02/12/2024 15:29:12 urinalysi s, dipstick 2023 024 [email or web address] [facility], [address], [place], [address], 02/10/2024 12:51:30 culture, urine 2023 024 [facility] (Lab), [address], [place], [address], 02/12/2024 15:29:13 urinalysi s, dipstick 2023 024 [email or web address] [facility], [address], [place], [address], 12/15/2023 16:29:04 Referral urologist referral 2023 024 [facility] Urology [facility], [address], [address], 04/08/2024 04:02:35 Procedures None recorded. Surgeries None recorded. Imaging None recorded. Medication Orders fluconazo le 150 mg tablet 2024 025 [facility] [place], [address], 05/25/2024 12:35:25 Macrobid 100 mg capsule 2024 025 [facility], [address] [place], [address], 05/25/2024 12:35:11 fluconazo le 150 mg tablet 2023 024 [facility], [address] [place], [address], 03/09/2024 13:30:18 Patient TargetsNo targets recorded. Patient InstructionsNo instructions recorded. Reason for Referral Urologist Referral for Urina ry symptoms Referring Physician: Mariangel Alcantara, SPINNERET PERSON, Encounter Date: 03/09/2024 Results Created Date Observation Date Name Description Value Unit Range Abnormal Flag Note LastModifiedBy Organization Detail LastModifiedTime 12/15/19 24 12/15/2023 CULTU RE: URINE result report SEE RESULT S BELOW Test: Cultu re: Urine Speci men Sourc e: Urine - Clean Catch Speci men Type: Urine Speci men Date: 2023 1558 Resul t Date: 2023 0532 Resul t Statu s: Final resul t Abnor mal: No Resul ting Lab: [facility] [address] [facility] [address] Tel: CULTU RE ----- ----- ----- --- No growt h in 1 day (dete ction level of 10,00 0 colon ies / ml.) Not Available [facility] (Lab) [address], [place], [address], 12/17/2023 06:36:02 12/15/19 24 12/15/2023 urina lysis , dipst ick Leukocytes Trace Not Available Damien larsen [address], [place], [address], 12/15/2023 16:28:00 12/15/19 24 12/15/2023 urina lysis , dipst ick Nitrite Negati ve Not Available [facility] [address], [place], [address], 12/15/2023 16:28:00 12/15/19 24 12/15/2023 urina lysis , dipst ick Urobilinogen Normal Not Available Enrique garcia [address], [place], [address], 12/15/2023 16:28:00 12/15/19 24 12/15/2023 urina lysis , dipst ick Protein Negati ve Not Available Deisi [address], [place], [address], 12/15/2023 16:28:00 12/15/19 24 12/15/2023 urina lysis , dipst ick pH 7 Not Available [facility] [address], [place], [address], 12/15/2023 16:28:00 12/15/19 24 12/15/2023 urina lysis , dipst ick Specific Lankin 1.010 Not Available [facility] [address], [place], [address], 12/15/2023 16:28:00 12/15/19 24 12/15/2023 urina lysis , dipst ick Ketone Negati ve Not Available [facility] [address], [place], [address], 12/15/2023 16:28:00 12/15/19 24 12/15/2023 urina lysis , dipst ick Bilirubin Negati ve Not Available [facility] [address], [place], [address], 12/15/2023 16:28:00 12/15/19 24 12/15/2023 urina lysis , dipst ick Glucose Normal Not Available [facility] [address], [place], [address], 12/15/2023 16:28:00 12/15/19 24 12/15/2023 urina lysis , dipst ick Color Dark Yellow Not Available [facility] [address], [place], [address], 12/15/2023 16:28:00 02/10/20 24 02/10/2024 WOMEN 'S HEALT H SWAB PLUS, BIRGIT bacterial vaginosis (bv), tma Negati ve negati ve Not Available [facility] (Lab) [address], [place], [address], 02/12/2024 15:29:12 02/10/20 24 02/10/2024 WOMEN 'S HEALT H SWAB PLUS, BIRGIT judy species, tma Negati ve negati ve Not Available [facility] (Lab) [address] [facility], [place], [address], 02/12/2024 15:29:12 02/10/20 24 02/10/2024 WOMEN 'S HEALT H SWAB PLUS, BIRGIT judy glabrata, tma Positi ve negati ve abnormal Not Available [facility] (Lab) [address] [facility], [place], [address], 02/12/2024 15:29:12 02/10/20 24 02/10/2024 [facility] BIRGIT trichomonas vaginalis, tma Negati ve negati ve Not Available [facility] (Lab) [address] [place], [address], 02/12/2024 15:29:12 02/10/20 24 02/10/2024 [facility], BIRGIT chlamydia trachomatis, PCR Negati ve negati ve Not Available [facility] (Lab) [address] [place], [address], 02/12/2024 15:29:12 02/10/20 24 02/10/2024 [facility], BIRGIT neisseria gonorrhoeae, PCR Negati ve negati ve Bacte rial vagin osis detec ts the follo wing bacte pedrito assoc iated with bacte rial vagin osis (BV): Lacto bacil jaqui (L. gasse ri, L. crisp atus and L. jense latonia), Gardn erell a vagin leidy, and Atopo bium vagin ae. A singl e quali tativ e resul t is repor chad base on instr ument softw are to deter mine BV posit abby or negat abby statu s. The Polina [facility] speci es group tests for C. albic ans, C. tropi calis , C. parap andrew is, C. herminioli maxim is. Testi ng is perfo rmed using the Trans cript ion Media chad Ampli ficat ion metho d. Tests for Polina da glabr stanley, Trich omona s vagin leidy, Chlam ydia trach omati s, and Neiss eria gonor rhoea e are also inclu ded in this panel . Not Available [facility] (Lab) [address] [facility], [place], [address], 02/12/2024 15:29:12 02/10/20 24 02/10/2024 CULTU RE: URINE result report SEE RESULT S BELOW Test: Cultu re: Urine Speci men Sourc e: Urine - Clean Catch Speci men Type: Urine Speci men Date: 2023 1302 Resul t Date: 2023 1426 Resul t Statu s: Final resul t Abnor mal: No Resul ting Lab: [facility] [address] [facility] [address] Tel: CULTU RE ----- ----- ----- --- Cultu re resul t (>=3 organ isms prese nt) indic ates possi ble conta minat ion. Repea t cultu re if sympt oms indic ate. Not Available [facility] (Lab) [address] , [place], [address], 02/12/2024 15:29:13 02/10/20 24 02/10/2024 urina lysis , dipst ick Leukocytes + Not Available [facility] [address], [place], [address], 02/10/2024 12:50:42 02/10/20 24 02/10/2024 urina lysis , dipst ick Nitrite Neg Not Available [facility] [address], [place], [address], 02/10/2024 12:50:42 02/10/20 24 02/10/2024 urina lysis , dipst ick Urobilinogen Normal Not Available Enrique garcia [address], [place], [address], 02/10/2024 12:50:42 02/10/20 24 02/10/2024 urina lysis , dipst ick Protein Trace Not Available [facility] [address], [place], [address], 02/10/2024 12:50:42 02/10/20 24 02/10/2024 urina lysis , dipst ick pH 6 Not Available [facility] [address], [place], [address], 02/10/2024 12:50:42 02/10/20 24 02/10/2024 urina lysis , dipst ick Specific Lankin 1.025 Not Available [facility] [address], [place], [address], 02/10/2024 12:50:42 02/10/20 24 02/10/2024 urina lysis , dipst ick Ketone Neg Not Available [facility] [address], [place], [address], 02/10/2024 12:50:42 02/10/20 24 02/10/2024 urina lysis , dipst ick Bilirubin Neg Not Available Elida fonseca [address], [place], [address], 02/10/2024 12:50:42 02/10/20 24 02/10/2024 urina lysis , dipst ick Glucose Normal Not Available [facility] [address], [place], [address], 02/10/2024 12:50:42 02/10/20 24 02/10/2024 urina lysis , dipst ick Appearance Dark Not Available Damien larsen [address], [place], [address], 02/10/2024 12:50:42 02/10/20 24 02/10/2024 urina lysis , dipst ick Color Yellow Not Available [facility] [address], [place], [address], 02/10/2024 12:50:42 03/09/20 24 03/09/2024 CULTU RE: URINE result report SEE RESULT S BELOW Test: Cultu re: Urine Speci men Sourc e: Urine - Clean Catch Speci men Type: Urine Speci men Date: 2023 1322 Resul t Date: 2023 1410 Resul t Statu s: Final resul t Abnor mal: No Resul ting Lab: [facility] [address] [facility] [address] Tel: CULTU RE ----- ----- ----- --- No growt h in 1 day (dete ction level of 10,00 0 colon ies / ml.) Not Available [facility] (Lab) [address], [place], [address], 03/11/2024 15:14:48 03/09/20 24 03/09/2024 urina lysis , dipst ick Leukocytes Trace Not Available [facility] [address], [place], [address], 03/09/2024 14:31:38 03/09/20 24 03/09/2024 urina lysis , dipst ick Nitrite Negati ve Not Available [facility] [address], [place], [address], 03/09/2024 14:31:38 03/09/20 24 03/09/2024 urina lysis , dipst ick Urobilinogen Normal Not Available Elizabeth jose [address], [place], [address], 03/09/2024 14:31:38 03/09/20 24 03/09/2024 urina lysis , dipst ick Protein Trace Not Available [facility] [address], [place], [address], 03/09/2024 14:31:38 03/09/20 24 03/09/2024 urina lysis , dipst ick pH 6 Not Available [facility] [address], [place], [address], 03/09/2024 14:31:38 03/09/20 24 03/09/2024 urina lysis , dipst ick Blood + Not Available [facility] [address], [place], [address], 03/09/2024 14:31:38 03/09/20 24 03/09/2024 urina lysis , dipst ick Specific Lankin 1.030 Not Available [facility] [address], [place], [address], 03/09/2024 14:31:38 03/09/20 24 03/09/2024 urina lysis , dipst ick Ketone Negati ve Not Available [facility] [address], [place], [address], 03/09/2024 14:31:38 03/09/20 24 03/09/2024 urina lysis , dipst ick Bilirubin Negati ve Not Available [facility] [address], [place], [address], 03/09/2024 14:31:38 03/09/20 24 03/09/2024 urina lysis , dipst ick Glucose Normal Not Available [facility] [address], [place], [address], 03/09/2024 14:31:38 05/25/19 25 05/25/2024 CULTU RE: URINE result report SEE RESULT S BELOW Test: Cultu re: Urine Speci men Sourc e: Urine - Clean Catch Speci men Type: Urine Speci men Date: 2024 1424 Resul t Date: 20240 Resul t Statu s: Final resul t Abnor mal: No Resul ting Lab: [facility] [address] [facility] [address] Tel: CULTU RE ----- ----- ----- --- No growt h in 1 day (dete ction level of 10,00 0 colon ies / ml.) Not Available [facility] (Lab) [address], [place], [address], 05/28/2024 23:59:02 05/25/19 25 05/25/2024 urina lysis , dipst ick Leukocytes trace Not Available [facility] [address], [place], [address], 05/25/2024 12:29:44 05/25/19 25 05/25/2024 urina lysis , dipst ick Nitrite neg Not Available [facility] [address], [place], [address], 05/25/2024 12:29:44 05/25/19 25 05/25/2024 urina lysis , dipst ick Urobilinogen neg Not Available [facility] jose [address], [place], [address], 05/25/2024 12:29:44 05/25/19 25 05/25/2024 urina lysis , dipst ick Protein pos Not Available [facility] [address], [place], [address], 05/25/2024 12:29:44 05/25/19 25 05/25/2024 urina lysis , dipst ick pH 6 Not Available [facility] [address], [place], [address], 05/25/2024 12:29:44 05/25/19 25 05/25/2024 urina lysis , dipst ick Specific Lankin 1.010 Not Available [facility] [address], [place], [address], 05/25/2024 12:29:44 05/25/19 25 05/25/2024 urina lysis , dipst ick Ketone neg Not Available [facility] [address], [place], [address], 05/25/2024 12:29:44 05/25/19 25 05/25/2024 urina lysis , dipst ick Bilirubin neg Not Available [facility] [address], [place], [address], 05/25/2024 12:29:44 05/25/19 25 05/25/2024 urina lysis , dipst ick Glucose neg Not Available [facility] [address], [place], [address], 05/25/2024 12:29:44 05/25/19 25 05/25/2024 urina lysis , dipst ick Appearance dark Not Available [facility] [address], [place], [address], 05/25/2024 12:29:44 05/25/19 25 05/25/2024 urina lysis , dipst ick Color yellow Not Available [facility] [address], [place], [address], 05/25/2024 12:29:44 09/20/19 24 09/20/2023 US, pelvi s No observ ation record ed. [email or web address] [facility] [address], [place], [address], 09/20/2023 18:14:53 09/20/19 24 09/20/2023 US, trans vagin al No observ ation record ed. [email or web address] [facility] [address], [place], [address], 09/20/2023 18:14:43 09/20/19 24 09/20/2023 US, pelvi s No observ ation record ed. [email or web address] [address], [place], [address], 09/20/2023 22:00:52 Result Notes None recorded. Problems Name Problem SNOMED Code Status Onset Date Resolution Date Notes Provider Name and Address Organization Details Recorded Time Micturit ion finding Completed 201809/09/2020 Unspecif ied urinary incontin ence;Pra ctice ID: 0001 Patricia Sampson [facility] 17:35:09 Pelvic and perineal pain 957622535 Completed 201809/09/2020 Pelvic and perineal pain;Pra ctice ID: 0001 Patriciaajay Sampson [facility] 17:35:48 Acute vaginiti s 78530714 Completed 201809/09/2020 Acute vaginiti s;Practi ce ID: 0001 Patricia Sampson [facility] 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 17:35:58 Insertio n of intraute rine contrace ptive device Completed 201809/09/2020 Encounte r for insertio n of intraute rine contrace ptive device;P ractice ID: 0001 Patricia Sampson [facility] 17:36:06 Pregnanc y test negative [id number] Completed 201809/09/2020 Encounte r for pregnanc y test, result negative ;Practic e ID: 0001 [facility] 17:35:50 Vaginola bial hernia Completed 201802/03/2021 Other specifie d noninfla mmatory disorder s of vagina;P ractice ID: 0001 Susan Valladares [facility] 18:08:02 Premenst rual dysphori c disorder 713521 Completed 201909/09/2020 Premenst rual dysphori c disorder ;Practic e ID: 0001 Patricia Sampson [facility] 17:35:54 Finding of desire for urinatio n 627102672 Completed 201909/09/2020 Urgency of urinatio n;Practi ce ID: 0001 [facility] 17:35:19 Adult health examinat ion Completed 201409/09/2020 Routine general medical examinat ion at a health care facility ;Practic e ID: 0001 [facility] 17:35:04 Speciali d medical examinat ion Completed 201409/09/2020 Routine gynecolo gical examinat ion;Prac radha ID: 0001 [facility] 17:36:01 Abnormal uterine bleeding [id number] 100 Completed 201509/09/2020 Other specifie d abnormal uterine and vaginal bleeding ;Practic e ID: 0001 [facility] 17:35:00 Microsco pic hematuri a [id number] Completed 201509/09/2020 Other microsco pic hematuri a;Practi ce ID: 0001 [facility] 17:35:45 Carbuncl e [id number] Completed 201509/09/2020 Carbuncl e, unspecif ied;Prac radha ID: 0001 Patricia chavez [facility] 17:35:07 Emotiona l state finding Completed 201709/09/2020 Other specifie d anxiety disorder s;Practi ce ID: 0001 Patricia chavez [facility] 17:35:14 Evaluati on finding Completed 201709/09/2020 Hematuri a, unspecif ied;Prac radha ID: 0001 Patricia Sampson [facility] 17:35:15 Leukocyt osis [id number] Completed 201409/09/2020 LEUKOCYT OSIS NOS;Shonna rded Elsewher e: No Locat ion: [facility] S ource: EHR Office Administrator kenzie: N Practi ce ID: 0001 Edil lable Time: 10:00:00 AM Patriciaajay Sampson [facility] 17:35:43 Contrace ption care manageme nt Completed 201809/09/2020 Encounte r for contrace ptive manageme nt, unspecif ied;Shonna rded Elsewher e: No Locat ion: [facility] S ource: EHR Office Administrator kenzie: N Practi ce ID: 0001 Edil lable Time: 03:45:00 PM Patricia chavez [facility] 17:35:11 Urinary tract infectio us disease 51471092 Completed 201409/09/2020 UTI;Shonna rded Elsewher e: No Locat ion: [facility] S ource: EHR Office Administrator kenzie: N Practi ce ID: 0001 Edil lable Time: 10:00:00 AM Patriciaajay Sampson [facility] 17:36:[address] Concept Completed 201509/09/2020 Encntr for general adult medical exam w/o abnormal findings ;Recorde d Elsewher e: No Locat ion: Elida fonseca [facility] S ource: EHR Office Administrator kenzie: N [place] ce ID: 0001 Edil lable Time: 03:30:00 PM Patricia chavez [facility] 17:35:57 Problem Notes None recorded. Procedures Surgical History Date Name Laterality Status Provider Name and Address Organization Details Recorded Time 09/29/19 24 LAPAROSCOPIC OVARIAN CYSTECTOMY (SURG) completed Sami Weiss [facility] 09/29/2023 14:53:03 11/08/19 20 I&D completed Julio César Rosado MD [address], [place], [address], [facility] 2019 17:06:27 10/18/19 19 Date of Last Pap Smear completed LUPE Ibarra [facility] 05/25/2024 11:01:00 procedure on back completed Patricia Sampson [facility] 09/09/2020 16:25:24 [facility] 11:00:46 Colonoscopy completed [facility] 05/25/2024 11:00:46 Imaging Results Imaging Date Name Status LastModified by Organization Details LastModified Time 09/20/2023 US, pelvis completed [email or web address] [facility] [address], [place], [address], 09/20/2023 18:14:53 09/20/2023 US, transvaginal completed [email or web address] Elida fonseca [address], [place], [address], 09/20/2023 18:14:43 09/20/2023 US, pelvis completed [email or web address] [address], [place], [address], 09/20/2023 22:00:52 Procedure Notes None recorded. Medical Equipment None Reported. Allergies Allergen ID Allergen Name Allergen Category Reaction Reaction Severity Criticality Documentation Date Start Date Code Code System Note Provider Name and Address Organization Details Recorded Time 1727 Substance with sulfonami de structure and antibacte rial mechanism of action (substanc e) medicatio n hives Not available Not available 11/20/2019 21212 8003 SNOMED Suzan Hedy [facility] 0 17:23:05 55094 adhesive tape environme nt,medica tion itching Not available Not available 03/09/2023 03132 UNK Patricia Sampson [facility] 3 15:41:19 Medications Name Sig Start Date Stop Date Status Note LastModified by Organization Details LastModified Time celecoxib 200 mg capsule TAKE 1 CAPSULE BY MOUTH ONCE DAILY 03/09 completed Not Available Not Available Not Available cyclobenz aprine 10 mg tablet TAKE 1 TABLET BY MOUTH THREE TIMES DAILY NEEDED FOR 7 DAYS 02/03 completed Not Available Not Available Not Available amoxicill in 500 mg capsule TAKE 1 CAPSULE BY MOUTH THREE TIMES DAILY FOR 7 DAYS 09/30 completed Not Available Not Available Not Available Mirena 21 mcg/24 hr (up to 8 years) 52 mg intrauter ine device Take by intraute rine route. active Not Available Not Available No t Available fluconazo le 100 mg tablet TAKE 2 TABLETS BY MOUTH ON DAY ONE; THEN TAKE 1 TABLET ONCE DAILY FOR 14 DAYS 07/06 completed Not Available Not Available Not Available methocarb lizzie 500 mg tablet TAKE 1 TABLET BY MOUTH EVERY 8 HOURS NEEDED FOR 5 DAYS 03/09 completed Not Available Not Available Not Available levothyro xine 175 mcg tablet TAKE 1 TABLET BY MOUTH ONCE DAILY active Not Available Not Available No t Available promethaz ine-DM 6.25 mg-15 mg/5 mL oral syrup 05/25 completed Not Available Not Available Not Available prednison e 10 mg tablet TAKE 2 TABLETS BY MOUTH ONCE DAILY FOR 5 DAYS THEN TAKE 1 & 1/2 (ONE & ONE-HALF ) ONCE DAILY FOR 5 DAYS THEN TAKE 1 TAB ONCE DAILY FOR 5 DAYS THEN TAKE 1/2 (ONE-CL F) TAB ONCE DAILY FOR 6 DAYS 03/09 completed Not Available Not Available Not Available enalapril maleate 10 mg tablet TAKE 1 TABLET BY MOUTH ONCE DAILY active Not Available Not Available No t Available clindamyc in HCl 300 mg capsule Take 1 capsule every 8 hours by oral route. 12/01 completed Not Available Not Available Not Available albuterol sulfate 2.5 mg/3 mL (0.083 %) solution for nebulizat ion 05/28 completed Not Available Not Available Not Available citalopra m 40 mg tablet 05/28 completed Not Available Not Available Not Available BD Luer-Isatu Syringe 3 mL 25 x 5/8 USE DIRECTED WITH ALLERGY SERUM 10/04 completed Not Available Not Available Not Available loperamid e 2 mg capsule TAKE 2 CAPSULES BY MOUTH INITIALL Y FOLLOWED BY 1 CAP WITH EACH LOOSE STOOL. MAX 6 CAPS PER DAY active Not Available Not Available No t Available trazodone 50 mg tablet take 1 tablet by oral route 3 times every day after meals 05/28 completed Prescrib ed Elsewher e: Yes Loca tion: [facility] odify By: amkarely Fonseca ncosalbador DateTime : 11/20/19 18 04:00:00 PM Not Available Not Available Not Available cetirizin e 10 mg tablet TAKE 1 TABLET BY MOUTH ONCE DAILY active Not Available Not Available No t Available azithromy jonathon 250 mg tablet TAKE 2 TABLETS BY MOUTH ON DAY 1, AND THEN TAKE 1 TABLET BY MOUTH ONCE A DAY ON DAY 2 THROUGH DAY 5 03/09 completed Not Available Not Available Not Available Vitamin B-1 50 mg tablet 11/08 completed Prescrib ed Elsewher e: Yes Loca tion: [facility] odify By: [email or web address] z Encoun vicente DateTime : 11/27/19 15 10:00:00 AM Not Available Not Available Not Available cetirizin e 5 mg tablet take 1 tablet by oral route every day 05/28 completed Prescrib ed Elsewher e: Yes [facility] By: amkuhthelma ramirezuntestefania DateTime : 11/20/19 18 04:00:00 PM Not Available Not Available Not Available ibuprofen 800 mg tablet TAKE ONE TABLET BY MOUTH EVERY 8 HOURS NEEDED FOR MODERATE OR MORE SEVERE PAIN 05/14 completed Not Available Not Available Not Available Lidocaine Viscous 2 % mucosal solution RINSE AND GARGLE 15 ML BY MOUTH THREE TIMES DAILY FOR 5 DAYS 07/06 completed Not Available Not Available Not Available nystatin 100,000 unit/gram topical ointment APPLY OINTMENT TOPICALL Y TWICE DAILY 05/14 completed Not Available Not Available Not Available fluconazo le 150 mg tablet TAKE 1 TABLET BY MOUTH TODAY, REPEAT DOSE IN 72 HOURS active Not Available Not Available No t Available benzonata te 200 mg capsule active Not Available Not Available Not Available citalopra m 10 mg tablet take 1 tablet by oral route every day 05/28 completed Prescrib ed Elsewher e: Yes [facility] By: amkarely ramirezunter DateTime : 11/20/19 18 04:00:00 PM Not Available Not Available Not Available valacyclo vir 1 gram tablet TAKE 1 TABLET BY MOUTH EVERY 12 HOURS FOR 7 DAYS active Not Available Not Available No t Available ranitidin e 300 mg tablet 05/28 completed Not Available Not Available Not Available hydrocodo ne 5 mg-acetam inophen 325 mg tablet take 1-2 tablet by oral route every 6 hours as needed for pain 04/10 completed Prescrib ed Elsewher e: No [facility] By: [email or web address] Encounte r DateTime : 04/10/19 01:00:00 PM Not Available Not Available Not Available enalapril maleate 20 mg tablet take 1 tablet by oral route every day 05/28 completed Prescrib ed Elsewher e: Yes Loca tion: [facility] odify By: jarrod ramirezuntestefania DateTime : 11/27/19 10:00:00 AM Not Available Not Available Not Available meloxicam 15 mg tablet TAKE 1 TABLET BY MOUTH ONCE DAILY active Not Available Not Available No t Available promethaz ine 12.5 mg tablet TAKE 1 TABLET BY MOUTH EVERY 6 HOURS FOR NAUSEA AND VOMITING . TAKE 3 DOSES DURING THE DAY. LAST DOSE NO LATER THAN 4 HOURS BEFORE BEDTIME 05/14 completed Not Available Not Available Not Available ondansetr on HCl 4 mg tablet 05/28 completed Not Available Not Available Not Available famotidin e 40 mg tablet TAKE 1 2 (ONE HALF) TABLET BY MOUTH TWICE DAILY 05/14 completed Not Available Not Available Not Available prednison e 20 mg tablet 05/25 completed Not Available Not Available Not Available terconazo le 0.8 % vaginal cream APPLY 1 APPLICAT ORFUL VAGINALL Y ONCE DAILY FOR 3 DAYS 05/25 completed Not Available Not Available Not Available penicilli n V potassium 500 mg tablet 05/28 completed Not Available Not Available Not Available ciproflox acin 500 mg tablet TAKE 1 TABLET BY MOUTH EVERY 12 HOURS active Not Available Not Available No t Available omeprazol e 40 mg capsule,d elayed release 05/28 completed Not Available Not Available Not Available tramadol 50 mg tablet TAKE 1 TABLET BY MOUTH ONCE DAILY NEEDED. APPOINTM ENT DUE 08/08/24 active Not Available Not Available No t Available ketorolac 10 mg tablet TAKE 1 TABLET BY MOUTH EVERY 6 HOURS NEEDED FOR MODERATE TO SEVERE PAIN 05/28 completed Not Available Not Available Not Available nystatin- triamcino lone 100,000 unit/gram -0.1 % topical ointment 05/25 completed Not Available Not Available Not Available meloxicam 7.5 mg tablet TAKE 1 TABLET BY MOUTH TWICE DAILY 03/09 completed Not Available Not Available Not Available oxycodone -acetamin ophen 5 mg-325 mg tablet TAKE 1 TABLET BY MOUTH EVERY 4 HOURS NEEDED FOR PAIN 03/09 completed Not Available Not Available Not Available terbinafi ne HCl 250 mg tablet TAKE 1 TABLET BY MOUTH ONCE DAILY 05/14 completed Not Available Not Available Not Available ceftriaxo 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[place] 1 gram vial from pharmacy and return to clinic for IM injectio n 10/04 completed Not Available Not Available Not Available amoxicill in 875 mg tablet 05/28 completed Not Available Not Available Not Available citalopra m 20 mg tablet active Not Available Not Available Not Available Metrogel Vaginal 0.75 % (37.5 mg/5 gram) insert 1 applicat orful by vaginal route every day at bedtime for 5 nights 11/08 completed Prescrib ed Elsewher e: No Locat ion: [facility] odify By: marcelino z Encoun ter DateTime : 03/31/20 17 04:54:54 PM Not Available Not Available Not Available famotidin e 20 mg tablet active Not Available Not Available Not Available methocarb lizzie 750 mg tablet TAKE 1 TABLET BY MOUTH THREE TIMES DAILY active Not Available Not Available No t Available DOK 100 mg capsule 05/28 completed Not Available Not Available Not Available Prilosec 10 mg capsule,d elayed release take 2 capsule by oral route every day before a meal 11/08 completed Prescrib ed Elsewher e: Yes Loca tion: [facility] odify By: marcelino z Encoun ter DateTime : 11/27/19 15 10:00:00 AM Not Available Not Available Not Available trazodone 100 mg tablet TAKE 1 TABLET BY MOUTH ONCE DAILY AT BEDTIME active Not Available Not Available No t Available dicyclomi ne 20 mg tablet active Not Available Not Available Not Available ranitidin e 75 mg tablet take 1 tablet by oral route 2 times every day with glass of water 04/10 completed Prescrib ed Elsewher e: Yes [facility] odify By: kian Walker r DateTime : 11/20/19 18 04:00:00 PM Not Available Not Available Not Available Synthroid 25 mcg tablet take 1 tablet by oral route every day 02/02 completed Prescrib ed Elsewher e: No Locat ion: [facility] odify By: shahnaz Han nter DateTime : 05/31/19 16 01:04:36 PM Not Available Not Available Not Available meclizine 25 mg tablet TAKE 1 TABLET BY MOUTH THREE TIMES DAILY NEEDED FOR DIZZINES S 05/14 completed Not Available Not Available Not Available benzonata te 100 mg capsule active Not Available Not Available Not Available rizatript an 10 mg disintegr ating tablet TAKE 1 TABLET BY MOUTH EVERY 2 HOURS NEEDED FOR MIGRAINE . MAY REPEAT IN 2 HOURS IF UNRESOLV ED. DO NOT EXCEED 30 MG IN 24 HOURS active Not Available Not Available No t Available hydrocodo ne 7.5 mg-acetam inophen 325 mg tablet TAKE 1 TABLET BY MOUTH EVERY 6 HOURS NEEDED FOR PAIN 05/28 completed Not Available Not Available Not Available cephalexi n 500 mg capsule 05/25 completed Not Available Not Available Not Available erythromy jonathon 5 mg/gram (0.5 %) eye ointment APPLY A SMALL AMOUNT ON EYELID TWICE DAILY 05/28 completed Not Available Not Available Not Available oseltamiv ir 75 mg capsule TAKE 1 CAPSULE BY MOUTH TWICE DAILY FOR 5 DAYS 03/09 completed Not Available Not Available Not Available Prozac 20 mg capsule take 1 capsule by oral route every day in the morning 02/02 completed Prescrib ed Elsewher e: No Locat ion: [facility] odify By: shahnaz tz Emely ntestefania DateTime : 11/28/19 16 03:30:00 PM Not Available Not Available Not Available levothyro xine 125 mcg tablet take 1 tablet by oral route every day 05/28 completed Prescrib ed Elsewher e: Yes Loca tion: [facility] odify By: jarrod knapp DateTime : 11/27/19 15 10:00:00 AM Not Available Not Available Not Available Keflex 500 mg tablet Take 1 capsule twice a day by oral route for 7 days. 10/07 completed Not Available Not Available Not Available promethaz ine 25 mg tablet TAKE 1 TABLET BY MOUTH THREE TIMES DAILY NEEDED FOR NAUSEA AND VOMITING 05/25 completed Not Available Not Available Not Available hydrochlo rothiazid e 12.5 mg capsule take 2 capsule by oral route every day 05/28 completed Prescrib ed Elsewher e: Yes Loca tion: [facility] odify By: jarrod nkapp DateTime : 11/27/19 15 10:00:00 AM Not Available Not Available Not Available gabapenti n 300 mg capsule TAKE 1 CAPSULE BY MOUTH THREE TIMES DAILY. APPOINTM ENT DUE 08/08/2014 . active Not Available Not Available No t Available omeprazol e 20 mg capsule,d elayed release TAKE 1 CAPSULE BY MOUTH TWICE DAILY. BEFORE BREAKFAS T AND SUPPER active Not Available Not Available No t Available cephalexi n 500 mg tablet Take 1 tablet every 12 hours by oral route for 7 days. 03/09 completed Not Available Not Available Not Available amoxicill in 250 mg capsule take 1 capsule by oral route every 8 hours 04/10 completed Prescrib ed [facility] e: Yes Loca tion: [facility] odify By: kian Walker r DateTime : 02/04/20 19 01:00:00 PM Not Available Not Available Not Available monteluka [facility] 10 mg tablet 05/25 completed Not Available Not Available Not Available levothyro xine 200 mcg tablet TAKE 1 TAB BY MOUTH ONCE DAILY IN THE MORNING ON Wednesday AND 05/28 completed Not Available Not Available Not Available hydrochlo rothiazid e 25 mg tablet TAKE 1 TABLET BY MOUTH ONCE DAILY active Not Available Not Available No t Available diclofena c sodium 50 mg tablet,de layed release TAKE 1 TABLET BY MOUTH THREE TIMES DAILY STOP TAKING 7 DAYS PRIOR TO SURGERY 05/14 completed Not Available Not Available Not Available mirtazapi ne 15 mg tablet active Not Available Not Available Not Available azelastin e 137 mcg (0.1 %) nasal spray USE 1 SPRAY(S) IN EACH NOSTRIL TWICE DAILY active Not Available Not Available No t Available epinephri ne 0.3 mg/0.3 mL injection , auto-inje ctor active Not Available Not Available Not Available ibuprofen 600 mg tablet TAKE 1 TABLET BY MOUTH EVERY 6 HOURS NEEDED FOR MODERATE OR MORE SEVERE PAIN active Not Available Not Available No t Available cefuroxim e axetil 500 mg tablet TAKE 1 TABLET BY MOUTH TWICE DAILY FOR 10 DAYS 05/28 completed Not Available Not Available Not Available levofloxa jonathon 500 mg tablet 05/28 completed Not Available Not Available Not Available methylpre dnisolone 4 mg tablets in a dose pack TAKE DIRECTED ON PACKAGE active Not Available Not Available No t Available albuterol sulfate HFA 90 mcg/actua tion aerosol inhaler INHALE 1 TO 2 PUFFS BY MOUTH EVERY 6 HOURS NEEDED FOR WHEEZING active Not Available Not Available No t Available Vitamin D2 1,250 mcg (50,000 unit) capsule take 1 capsule by oral route every week 11/19 completed Prescrib ed Elsewher e: Yes Loca tion: [facility] odify By: jarret Fonseca ncounter DateTime : 11/27/19 10:00:00 AM Not Available Not Available Not Available norethind zunilda (contrace ptive) 0.35 mg tablet TAKE 1 TABLET BY MOUTH ONCE DAILY 09/09 completed Not Available Not Available Not Available sertralin e 20 mg/mL oral concentra te take 2.5 millilit er by oral route every day and mix with 4 oz. (1/2 cup) of water, charly catrachito, lemon/li me soda, lemonade or orange juice ONLY 04/13 completed Prescrib ed Elsewher e: Yes Loca tion: [facility] odify By: [email or web address] Fonseca ncounter DateTime : 11/27/19 10:00:00 AM Not Available Not Available Not Available ondansetr on 4 mg disintegr ating tablet 05/25 completed Not Available Not Available Not Available fluticaso ne propionat e 50 mcg/actua tion nasal spray,evangelista pension USE 2 SPRAY(S) IN EACH NOSTRIL TWICE DAILY active Not Available Not Available No t Available loratadin e 10 mg tablet TAKE 1 TABLET BY MOUTH DAILY NEEDED FOR ALLERGY SYMPTOMS 05/28 completed Not Available Not Available Not Available naproxen 500 mg tablet 05/25 completed Not Available Not Available Not Available metoclopr amide 10 mg tablet active Not Available Not Available No t Available amoxicill in 875 mg-potass ium clavulana te 125 mg tablet TAKE 1 TABLET BY MOUTH TWICE DAILY FOR 10 DAYS active Not Available Not Available No t Available tobramyci n 0.3 %-dexamet hasone 0.1 % eye drops,evangelista pension active Not Available Not Available Not Available Bactrim DS 800 mg-160 mg tablet Take 1 tablet every day by oral route. 05/28 completed Not Available Not Available Not Available Vitamin C 500 mg capsule,e xtended release 11/08 completed Prescrib ed Elsewher e: Yes Loca tion: [facility] odify By: [email or web address] z Encoun ter DateTime : 11/27/19 15 10:00:00 AM Not Available Not Available Not Available escitalop sara 10 mg tablet TAKE 1 TABLET BY MOUTH ONCE DAILY active Not Available Not Available No t Available cyclobenz aprine 5 mg tablet TAKE 1 TABLET BY MOUTH THREE TIMES DAILY FOR 5 DAYS 05/14 completed Not Available Not Available Not Available topiramat e 50 mg tablet TAKE 1/2 OF A TABLET BY MOUTH TWICE DAILY FOR 1 WEEK, THEN 1 TABLET TWICE A DAY active Not Available Not Available No t Available Ortho-Cyc jj (28) 0.25 mg-35 mcg tablet take 1 tablet by oral route every day 04/10 completed Prescrib ed Elsewher e: No Locat ion: [facility] odify By: smccarlene villasenor DateTime : 10/21/19 09:47:39 AM Not Available Not Available Not Available nitrofura ntoin monohydra te/macroc rystals 100 mg capsule Take 1 capsule twice a day by oral route for 5 days. active Not Available Not Available No t Available Flovent HFA 110 mcg/actua tion aerosol inhaler active Not Available Not Available Not Available acetamino phen 09/30 completed Not Available Not Available Not Available Vitamin C active Not Available Not Gayatri ilable Not Available famotidin e 09/30 completed Not Available Not Available Not Available azelastin e 09/30 completed Not Available Not Available Not Available Vitamin D3 active Not Available Not Available Not Available cetirizin e 09/30 completed Not Available Not Available Not Available tramadol ER 100 mg tablet,ex tended release 24 hr take 1 tablet by oral route every day 05/28 completed Prescrib ed Elsewher e: Yes [facility] odify By: amkarely knapp DateTime : 11/20/19 18 04:00:00 PM Not Available Not Available Not Available ClearLax 17 gram/dose oral powder DISSOLVE 17 GRAMS IN LIQUID AND DRINK BY MOUTH NEEDED EVERY OTHER DAY 02/03 completed Not Available Not Available Not Available Women's One Daily 18 mg iron-400 mcg-500 mg Ca tablet 11/08 completed Prescrib ed Elsewher e: Yes Loca tion: [facility] odify By: [email or web address] zhang DateTime : 11/27/19 15 10:00:00 AM Not Available Not Available Not Available Daysee 0.15 mg-30 mcg (84)/10 mcg(7) tablets,3 month dose pack take 1 tablet by oral route every day 11/09 completed Prescrib ed Elsewher e: No Locat ion: [facility] odify By: hakeem zhang DateTime : 11/09/19 18 11:15:00 AM Not Available Not Available Not Available Virtussin AC 10 mg-100 mg/5 mL oral liquid TAKE 5 ML BY MOUTH EVERY 6 HOURS NEEDED FOR COUGH 09/09 completed Not Available Not Available Not Available Blisovi Fe 1.5/30 (28) 1.5 mg-30 mcg (21)/75 mg (7) tablet take 1 tablet by oral route every day 12/09 completed Prescrib ed Elsewher e: No Locat ion: [facility] odify By: monica villasenor DateTime : 11/10/19 18 04:16:10 PM Not Available Not Available Not Available Qvar RediHaler 80 mcg/actua tion HFA breath activated aerosol INHALE 2 PUFFS BY MOUTH TWICE DAILY active Not Available Not Available No t Available Fluzone Quad (PF) 60 mcg (15 mcg x 4)/0.5 mL IM syringe 02/03 completed Not Available Not Available Not Available One-A-Day Women's Complete( vK) active Not Available Not Available Not Available BinaxNOW COVID-19 Ag Self Test kit USE DIRECTED 03/09 completed Not Available Not Available Not Available Vitals Date Recorded Body height Body mass index (BMI) Body weight Systolic blood pressure Diastolic blood pressure Provider Name and Address Organization Details Last Updated DateTime 10/05/2023 157.48 cm 60.7 kg/m2 458208.6 7 g 129 mm[Hg] 82 mm[Hg] Lindsay Murillo PA - [facility] 4 12:09:57 Date Recorded Body height Provider Name an d Address Organization Details Last Updated DateTime 12/15/2023 157.48 cm [facility] 12/15/2023 16:27:09 Date Recorded Body height Body mass index (BMI) Body weight Systolic blood pressure Diastolic blood pressure Provider Name and Address Organization Details Last Updated DateTime 02/10/2024 157.48 cm 60.7 kg/m2 722186.6 7 g 149 mm[Hg] 82 mm[Hg] [facility] 12:50:34 Date Recorded Body height Body mass index (BMI) Body weight Systolic blood pressure Diastolic blood pressure Provider Name and Address Organization Details Last Updated DateTime 03/09/2024 157.48 cm 60.2 kg/m2 586102.8 9 g 116 mm[Hg] 76 mm[Hg] [facility] 4 12:59:09 Date Recorded Body height Body mass index (BMI) Body weight Systolic blood pressure Diastolic blood pressure Provider Name and Address Organization Details Last Updated DateTime 05/25/2024 157.48 cm 60.9 kg/m2 612460.2 6 g 149 mm[Hg] 88 mm[Hg] LUPE Ibarra [facility] 5 12:11:04 Social History Question Answer Notes LastModified by Organizat ion Details LastModified Time Tobacco Smoking Status Never Smoker Svetlana chavez [facility] 07/07/2023 12:36:41 Do You Have An Advance Directive? No Information n ot available 09/09/2020 What Is Your Level Of Alcohol Consumption? None [email or web address] Information not available 05/25/2024 Are You Blind Or Do You Have Difficulty Seeing? No Information n ot available 09/09/2020 What Is Your Level Of Caffeine Consumption? Moderate Information not available 09/09/2020 How Much Tobacco Do You Chew? None Information not available 09/09/2020 In The 14 Days Before Symptom Onset, Have You Had Close Contact With A Laboratory-confirm ed COVID-19 While That Case Was Ill? No Information n ot available 09/09/2020 In The 14 Days Before Symptom Onset, Have You Had Close Contact With A Person Who Is Under Investigation For COVID-19 While That Person Was Ill? No Information not available 09/09/2020 Have You Been To An Area Known To Be High Risk For COVID-19? No Information not available 09/09/2020 Are You Deaf Or Do You Have Serious Difficulty Hearing? No Information not available 09/09/2020 What Type Of Diet Are You Following? REGULAR Information n ot available 09/09/2020 What Is The Highest Grade Or Level Of School You Have Completed Or The Highest Degree You Have Received? 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 No Information not available 09/09/2020 Do You Use Protection During Sex? No Information not available 09/09/2020 Do You Use Your Seat Belt Or Car Seat Routinely? Yes Information not available 09/09/2020 Are You Sexually Active? No [email or web address] Information not available 05/25/2024 Do You Have Smoke And Carbon Monoxide Detectors In Your Home? No [email or web address] Information not available 12/01/2021 How Much Tobacco Do You Smoke? No Information not available 09/09/2020 Do You Feel Stressed (tense, Restless, Nervous, Or Anxious, Or Unable To Sleep At Night)? [id number] [email or web address] Information not available 05/25/2024 Do You Use Any Illicit Or Recreational Drugs? No Information not available 09/09/2020 Do You Use Sunscreen Routinely? No Information not available 09/09/2020 Have You Used IV Drugs? No Information not available 09/09/2020 Sex: Unknown Functional Status Question Answer Note LastModified by Organizat ion Details LastModified Time Do you have difficulty walking or climbing stairs? No [email or web address] Information not available 03/09/2023 Are you able to walk? [email or web address] Information not available 09/09/2020 Are you able to care for yourself? Yes [email or web address] Information not available 03/09/2023 Do you have difficulty dressing or bathing? No [email or web address] Information not available 03/09/2023 What is your exercise level? Occasional [email or web address] Information not available 05/25/2024 Mental Status None recorded. Family History Relationship Description Onset Age of this Age Resolved Age Notes LastModified by Organization Details LastModified Time Maternal Aunt Seizure disorder [email or web address] Not available 2024 12:11:17 Mother Malignant tumor of colon [email or web address] Not available 2024 12:11:17 Mother Hypertensive disorder [email or web address] Not available 2024 12:11:17 Mother Blood coagulation disorder Not available 2024 12:11:17 Mother Heart disease [email or web address] Not available 2024 12:11:17 Mother Cyst of ovary [email or web address] Not available 2024 12:11:17 Mother Malignant tumor of colon [email or web address] Not available 2024 12:11:17 Mother Hypertensive disorder [email or web address] Not available 2024 12:11:17 Mother Heart disease Not available 2024 12:11:17 Mother Blood coagulation disorder Not available 2024 12:11:17 Paternal Aunt Diabetes mellitus [email or web address] Not available 2024 12:11:17 Paternal Aunt Diabetes mellitus [email or web address] Not available 2024 12:11:17 Sister Hypertensive disorder Not available 2024 12:11:17 Sister Cyst of ovary [email or web address] Not available 2024 12:11:17 Sister Hypertensive disorder [email or web address] Not available 2024 12:11:17 Medical History Condition Response Anxiety Disorder Y Depression/ depression Y Urinary Tract Infection Y Polycystic ovary syndrome Y Thyroid Problems Y Hypertension Y Gynecological History Statement/Question Response Abnormal Pap N Date of LMP On BCP's at Conception? N N Was last menstrual period normal Y STIs/STDs N HPV Vaccine N Current Control Method IUD Date of control 1984 Sexually Active? Y Menses Monthly N Age of first menstrual cycle 14 Date of Last Pap Smear 10/17/2018 Sexual Problems? Y LMP Unknown N Obstetrics History GPAL:G 0 P 0 0 0 0 Past Encounters Encounter ID Performer Location Encounter Start Date Encounter Closed Date Diagnosis/Indication Diagnosis SNOMED-CT Code Diagnosis ICD10 Code Diagnosis Note [id number] Julio César Rosado MD [facility] [address] [address] 2019 17:02:57 2019 17:12:11 Abscess of vulva 50922088 N76.4 incision and drainage of vulvar abscess was performed. She tolerated procedure well. She will start antibiotic s. We discussed concerns about her mood towards the end of her progestero ne only pill pack. She also has an IUD. We agreed to discontinu e the progestero ne only pill. To observe her for bleeding. She had a bleeding issue on the IUD. Progestero ne only pills were added. She gained control of her bleeding. [id number] Julio César Rosado MD [facility] [address] [address] 11/20/2019 16:04:55 11/20/2019 17:11:42 Abscess of vulva [id number] N76.4 this patient is a 34-year-ol d female who presents for follow-up on perineal abscess. It is well-heale d. It wthis patient is a 34-year-ol d female who presents for follow-up on perineal abscess. It is well-heale d. It was examined and appears to be well-heale d. She is completing her antibiotic s. 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 We agreed to daily Bactrim. We spent 15 minutes face-to-fa ce. We talked about the added approved gesture own that was previously used. It was discontinu ed. She had some mood issues in the interim. We agreed to continue without the progestero ne and observe. She will contact us if there is any further problems in that area.as examined and appears to be well-heale d. She is completing her antibiotic s. 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 We agreed to daily Bactrim. We spent 15 minutes face-to-fa ce. We talked about the added approved gesture own that was previously used. It was discontinu ed. She had some mood issues in the interim. We agreed to continue without the progestero ne and observe. She will contact us if there is any further problems in that area. [id number] Brianna Arorajurgen [facility] [address],[place] [address] 05/28/2020 10:14:28 05/28/2020 16:09:11 Urinary tract infectious disease [id number] N39.0 Urinary symptoms [id number] R39.9 [id number] Julio César Rosado MD [facility] [address],[place] [address] 09/09/2020 17:14:28 09/09/2020 18:31:09 Urinary tract infectious disease 19063707 N39.0 this patient is a 34-year-ol d female with dysuria, frequency, urgency. Low back pain. Discussed her history. She has a lengthy history of urinary tract infections . She has seen the urologist duran alvares. It sounds like she had urodynamic s and was treated with Botox. I do not have these records. I am not sure if she was evaluated for urinary tract abnormalit y. I think she should see Urology for recurrent urinary tract infection. We are going to treat her urinary tract infection today with Cipro. She has blood in her urine and leukocytes . We will send urine for culture as well. To refer to Dr. Whitaker [id number] Brianna Black [facility] [address] [place] [address] 02/03/2021 17:44:04 02/04/2021 09:40:13 Urinary symptoms [id number] R39.9 Urine dip normal. Will send for culture. Vaginitis [id number] N76.0 Discussed use of mild soap like dove or ivory, cotton underwear w/out dye, hypoallerg enic detergent, wipe from front to back, avoid tub baths, keep perineum clean and dry, d/c use of baby wipes. Encouraged daily intake of yogurt or womens health probiotic. Internal and external affirm collected. Vaginal odor. Cannot take flagyl d/t interactio n with citalopram . Declined std screen. Acute pelvic pain [id number] 005 R10.2 Discomfort seems to be more than a typical UTI. I would like a pelvic ultrasound and follow up to be scheduled. [id number] Karon Barraza [facility] [address],[place] [address] 02/04/2021 12:08:33 02/04/2021 13:05:44 Acute pelvic pain [id number] R10.2 [id number] Julio César Rosado MD [facility] [address],[place] [address] 05/02/2021 16:58:03 05/05/2021 12:53:32 Lesion of endometrium [id number] 9101 N85.9 This patient is a 35-year-ol d female who presents for follow-up on pelvic ultrasound . She has a hypoechoic lesion near the endometriu m. The endometriu m appears irregular. She has a normally placed IUD. She has no symptoms associated with this. She is satisfied with her IUD. She is not having any unusual bleeding. We agreed to follow lesion with a repeat ultrasound in 2 months. Patient again reports some urinary symptoms. She has frequency and urgency. She has some pain with a full bladder. She has previously been evaluated by Urology and treated the Botox. we are going to send her for another urology consultati on. Urinary bladder pain [id number] 77794 R39.82 [id number] Julio César Rosado MD [facility] [address],[facility] [place] [address] 06/20/2021 15:27:22 06/20/2021 16:44:23 Pain in pelvis [id number] R10.2 This patient is a 35-year-ol d female with pelvic pain. We have agreed to complete the evaluation with pelvic ultrasound . The patient will return after the pelvic ultrasound to discuss those findings and to develop a treatment plan. A comprehens abby history and physical exam was performed today. We spent over 35 minutes face-to-fa ce. The patient was given precaution s. She will contact clinic if pelvic pain increases in frequency or intensity. Also notify clinic of any new symptoms associated with pelvic pain. She does not appear to have an acute pelvic infection today, but was asked to contact us Immediatel y with nausea, vomiting, fever, chills. [id number] Cat Robin [facility] [address],[place] [address] 06/23/2021 13:56:22 06/23/2021 14:45:14 Pain in pelvis [id number] R10.2 This patient is a 35-year-ol d female with pelvic pain. We have agreed to complete the evaluation with pelvic ultrasound . The patient will return after the pelvic ultrasound to discuss those findings and to develop a treatment plan. A comprehens abby history and physical exam was performed today. We spent over 35 minutes face-to-fa ce. The patient was given precaution s. She will contact clinic if pelvic pain increases in frequency or intensity. Also notify clinic of any new symptoms associated with pelvic pain. She does not appear to have an acute pelvic infection today, but was asked to contact us Immediatel y with nausea, vomiting, fever, chills. [id number] DORI Phillips [facility] [address],[place] [address] 12/01/2021 14:04:19 12/01/2021 14:54:48 Furuncle of breast 56169856 N61.1 Furuncle/ abscess has already drained previously . Is now healing and scabbed over.We agreed to antibiotic therapy, rx sentApply OTC antibiotic ointment BID x 7 days as wellRTC if symptoms persist past treatment ED precaution s reviewed : Fevers/flu -like symptoms, worsening symptoms, pains, infection symptoms, etc. Time spent in visit is a total of 20 mins with at least 50% of visit consisting of counseling and review of plan of care. [id number] DORI Phillips [facility] [address],[place] [address] 05/13/2022 15:49:28 05/13/2022 18:19:17 Left without being seen [id number] 9102 Z53.21 [id number] DORI Phillips [facility] [address],[place] [address] 05/14/2022 13:42:51 05/14/2022 16:03:43 Urinary symptoms [id number] R39.9 UA normalCx sentUPT (-)STI endocervic al testing sentVagini tis panel sentVulvar care guidelines discussedE ncouraged increased water intake, limit caffieneRx sent for macrobid, discussed R/B of medication Urologist referral sent(+) IUD strings seen on examPelvic u/s ordered for further evaluatin of pelvic painED precaution s discussed / notify the office of any worsening or new symptoms Time spent in visit is a total of 30 mins with at least 50% of visit consisting of counseling and review of plan of care. Pain in pelvis [id number] R10.2 Contracept ion care management [id number] Z30.9 Venereal d isease screening [id number] Z11.3 [id number] [facility] [address],[place] [address] 05/18/2022 14:50:32 05/18/2022 17:45:06 Pain in pelvis 82593395 R10.2 This patient is a 35-year-ol d female with pelvic pain. We have agreed to complete the evaluation with pelvic ultrasound . The patient will return after the pelvic ultrasound to discuss those findings and to develop a treatment plan. A comprehens abby history and physical exam was performed today. We spent over 35 minutes face-to-fa ce. The patient was given precaution s. She will contact clinic if pelvic pain increases in frequency or intensity. Also notify clinic of any new symptoms associated with pelvic pain. She does not appear to have an acute pelvic infection today, but was asked to contact us Immediatel y with nausea, vomiting, fever, chills. [id number] Julio César Rosado MD [facility] [address],[place] [address] 05/20/2022 16:45:43 05/20/2022 17:56:11 Cyst of ovary [id number] N83.209 this patient is a 36-year-ol d female presents for follow-up on pelvic ultrasound . She has a 4.7 cm ovarian cyst. Is on the contralate ral side of her pain. She does have some pain. She is in a walker and has a boot on her left leg /Foot. She has left-sided pain. cyst is on the right side. It is a very simple cyst. We reviewed images together. We spent 20 minutes face-to-fa ce. More than 50% was counseling . We talked about treatment options. We agreed to observe the cyst and repeat ultrasound 6 weeks. [id number] Karon Barraza [facility] [address],[place] [address] 07/14/2022 13:47:17 07/14/2022 14:39:51 Cyst of right ovary [id number] N83.201 [id number] Julio César Rosado MD [facility] [address],[place] [address] 07/20/2022 13:53:49 07/20/2022 14:48:04 Cyst of ovary 04673323 N83.209 Abnormal u terine bleeding [id number] 9100 N93.9 this patient is a 36-year-ol d female who presents for follow-up on ovarian cyst. Repeat ultrasound performed. Her cyst is smaller. It looks very much benign. We agreed that we could observe her symptoms. No further imaging necessary. We talked about her IUD and some abnormal bleeding that she had. We spent over 20 minutes face-to-fa ce discussing abnormal uterine bleeding with IUD and ovarian cyst. Talked about the etiology, natural history, treatment ovarian cyst. We agreed she will return for a well-woman exam we will follow symptoms her bleeding. [id number] Julio César Rosado MD [facility] [address],[place] [address] 07/27/2022 14:45:37 07/27/2022 15:32:22 Gynecologic examination 60423590 Z01.419 Annual gynecologi maile exam performed. Patient will come back in a year unless there are new symptoms. Suggest Calcium with Vitamin D if not eating in diet. Patient advised to get annual flu shot. Recommend yearly physicals and perform monthly breast exams. Genetic testing is available for patients with family history of cancer. Engage in safe sexual practices, use condoms. Encouraged to have daily exercise. Avoid tobacco and illicit drugs, moderation of alcohol. If BMI greater than 25 dietary consult advised. If you have any questions please call or email. Alex renee - done Pap - today [id number] Mariangel Alcantara [facility] [address],[place] [address] 08/19/2022 15:05:23 08/19/2022 17:22:25 Vaginitis 30684666 N76.0 suspect yeastvagin itis panel sentSTI testing declinedvu lvar care guidelines discussed - encouraged changing out of sweaty clothing, sleep with no underwear, cotton underwear only, avoid tight clothingrx sent for yeast, R/B/A discussedU PT declined(+ ) IUD strings noted on examUA normalDisc ussed possible IC/PBS. Discussed triggers to avoid, decrease caffeine intake, increase water. Urology consult needed if symptoms persistpre cautions discussed Time spent in visit is a total of 30 mins with at least 50% of visit consisting of counseling and review of plan of care. Urinary symptoms [id number] 08 R39.9 [id number] Mariangel Alcantara [facility] [address],[place] [address] 09/30/2022 16:21:04 09/30/2022 18:19:44 Abscess of skin of breast [id number] 1518728 N61.1 cx sentrx sent for antibiotic course, R/B/A discussedn o current drainage or pinpoint area noted.warm compress TID until resolvedRT C if symptoms do not resolve after antibiotic courseprec autions discussed Time spent in visit is a total of 20 mins with at least 50% of visit consisting of counseling and review of plan of care. [id number] Mariangel Alcantara [facility] [address],[place] [address] 03/09/2023 15:09:56 03/10/2023 10:08:59 Abscess of vulva 74385051 N76.4 cx sentantibi otic rx sent, r/b/a reviewedwa rm compress to area TIDprecaut ions discussedR TC if symptoms persist for I&D if needed Time spent in visit is a total of 22 mins with at least 50% of visit consisting of counseling and review of plan of care. [id number] Mariangel Alcantara [facility] [address],[place] [address] 07/07/2023 12:29:50 07/07/2023 13:35:55 Urinary symptoms 715287611 R39.9 UA/cx sentencour aged adequate hydration/ water intake, decrease caffeine/c arbonation /juicesrx sent for macrobid - r/b/a reviewedBP precaution s reviewed, f/u with PCP Time spent in visit is a total of 18 mins with at least 50% of visit consisting of counseling and review of plan of care. [id number] Julio éCsar Rosado MD [facility] [address],[place] [address] 07/14/2023 12:01:42 07/28/2023 12:05:23 Acute urinary tract infection 821953296 N39.0 [id number] Cat [facility] [address],[place] [address] 09/20/2023 15:47:52 09/20/2023 16:35:42 Cyst of left ovary [id number] N83.292 R10.2 [id number] Julio César Rosado MD [facility] [address],[place] [address] 09/25/2023 09:44:54 09/27/2023 04:16:26 Cyst of left ovary [id number] N83.292 R10.2 37-year-ol d female with severely painful left ovarian cyst. We agreed to perform laparoscop ic left ovarian cystectomy . She understand s the procedure. It has been explained to her in detail. She understand s the risks, benefits, and alternativ es. She has completed the informed consent process and is ready to proceed. We spent over 40 minutes face-to-fa ce today. We made a decision to perform surgery. More than 0.5/50% of our meeting was counseling . [id number] Julio César Rosado MD [facility] [address],[place] [address] 10/05/2023 11:59:58 10/05/2023 12:29:31 Postoperative care 875214623 Z48.89 This patient is a 37-year-ol d female who presents for postop follow-up. She is 1 week postop from a laparoscop ic ovarian cystectomy . . Her incisions are clean dry and intact. She has no complaints . She is recovering normally. She will follow up as needed. [id number] Yuki Diop [facility] [address],[place] [address] 12/15/2023 15:55:06 12/15/2023 16:31:12 Urinary symptoms 844195449 R39.9 [id number] Yuki Diop [facility] [address],[place] [address] 02/10/2024 12:24:46 02/10/2024 12:57:07 Urinary symptoms 480163010 R39.9 Vaginal discharge 682169 006 N89.8 [id number] Mariangel Alcantara [facility] [place] [address],[place] [address] 03/09/2024 12:36:07 03/09/2024 15:18:50 Urinary symptoms 964815030 R39.9 urine cx sentdiscus sed lifestyle modificati ons (increase water intake and avoid large amounts of caffeine/c arbonation /citrus/sp icy foods)shonna mmended urology consult given frequent urinary symptoms Vaginitis 55889596 N76.0 rx sent for fluconazol e d/t her current antibiotic use Time spent in visit is a total of 20 mins with at least 50% of visit consisting of counseling and review of plan of care. [id number] Mariangel Alcantara [facility] [address],[place] [address] 05/25/2024 12:01:16 05/25/2024 13:37:31 Urinary symptoms 636562955 R39.9 UA/cx sentdiscus sed frequent urinary symptoms and suspect possible IC/painful bladder syndrome. We discussed this, IC network/av oiding triggers. Offered referral to new urologist for second opinion.rx sent for macrobid, r/b/a reviewedin crease water intake, decrease soda intakeques tions discussed, precaution s reviewed Time spent in visit is a total of 22 mins with at least 50% of visit consisting of counseling and review of plan of care. Vaginitis 47784463 N76.0 Health Concerns Section Related Observation LastModified by Organization Detai ls LastModified Time None Recorded Concern Status LastModified by Organization Details LastModified Time None Recorded Advance Directives Directive N: Payers Encounter Date Sequence Insurance Name Policy Number Policy Stuart Covered Member ID Stuart Member ID Guarantor Name 10/05/2023 1 [place] [facility] [employer] Dedra Pimentelky [id number] Dedra Tinonesky 12/15/2023 1 [place] [facility] [place] Dedra Tinonesky [id number] Dedra Krasnesky 02/10/2024 1 [facility] ON OR AFTER 10/03/20 (MEDICAID REPLACEMENT - HMO) Dedra Margaritoky [id number] Dedra Krasnesky 03/09/2024 1 [facility] - [facility] ON OR AFTER 20 (MEDICAID REPLACEMENT - HMO) Dedra Pimentelky [id number] Dedra Krasnesky 05/25/2024 1 [facility] - DOS ON OR AFTER 20 (MEDICAID REPLACEMENT - HMO) Dedra Pimentelky [id number] Dedra Pimentelky Notes Date Note Type Note Provider Name and Address Organization Details Recorded Time 10/05/2023 text/html This patient is a 37-year-old female who presents for postop follow-up. She is 1 week postop from a laparoscopic ovarian cystectomy. . Her incisions are clean dry and intact. She has no complaints. She is recovering normally. She will follow up as needed. Julio César Rosado MD [address], [place], [address], [facility] 10/05/2023 12:28:36 03/09/2024 text/html 38yopresents wit h urinary symptomsurinary frequency/odor for the past 1 monthneg flank pains, neg dysuriadrinking large amounts of soda lately on antibiotics for a sinus infection currently, worried she will get a yeast infection DORI Phillips [address], [place], [address], [facility] 03/09/2024 15:16:01 05/25/2024 text/html 38yopresents for urinary symptomsburning with urination, urinary pressure, frequent urinationhas been drinking increased amounts of mountain dewwent and saw urology last month - pt states they did not have any additional answers for her neg flank painsneg n/v/fneg flu-like symptomswill often get yeast infections with antibiotic use DORI Phillips [address], [place], [address], [facility] 05/25/2024 13:28:06 OBGyn Episode No OBEpisode recorded.
--- OUTSIDE RECORDS SUMMARY | 2024-07-31 18:45 | XMS_ITS | Encounter Summary ---
Author Organization [facility] Address [address] [place] [address] Care Team Providers Care Teacher Music Name Role Phone Faye Fox NP Primary Care Provider [phone] Encounter Details Date Type Department Care Team (Late st Contact Info) Description 02/26/2023 ZEALER Message Enc [facility] Orthopedic & Sports Medicine [address] [address] [facility] Provider Work comp Social History Tobacco Use Types Packs/Day Years Used Date Smoking Tobacco: Never Smokeless Tobacco: Never Alcohol Use Standard Drinks/Week Comments No 0 (1 standard drink = 0.6 oz pur e alcohol) Comments No Sex and Gender Information Value Date Recorded Sex Assigned at Female 02/22/2023 6:27 AM CANOPY INSPECTOR Legal Sex Female 1:13 AM CDT Gender Identity Female 02/22/2023 6:27 AM CANOPY INSPECTOR Sexual Orientation Straight 02/22/2023 6: 27 AM CANOPY INSPECTOR documented as of this encounter Functional Status * Calculated C-SSRS Risk Score (Lifetime/Recent) Answer Date of Assessment Author Status No Risk Indicated 02/26/2023 1:38 PM CANOPY INSPECTOR Link Reyes, RN Active * Dickens Suicide Severity Rating Scale (Screener/Recent Self-Report) Question Answer Date of Assessment Author Status 1. Wish to be (Past 1 Month) No 02/26/2023 1:38 PM CANOPY INSPECTOR Lauro Reyes RN Acti ve 2. Non-Specific Active Suicidal Thoughts (Past 1 Month) No 02/26/2023 1:38 PM CANOPY INSPECTOR Lauro Reyes, RN Acti ve 6. Suicidal Behavior (Lifetime) No 02/26/2023 1:38 PM CANOPY INSPECTOR Lauro Reyes, RN Acti ve documented as of this encounter Plan of Treatment Not on file documented as of this encounter Visit Diagnoses Not on filedocumented in this encounter Additional Health Concerns Infection Onset Date Last Indicated Resolved Time Influenza - Seasonal 02/19/2023 02/19/2023 023 12:32 AM CANOPY INSPECTOR documented as of this encounter Care Teams Teacher Music Relationship Specialty Start Date End Date Faye Fox NP [address] [facility] [address] [place] [address] PCP - General 06/30/16 documented as of this encounter
--- OUTSIDE RECORDS SUMMARY | 2024-07-31 18:45 | XMS_ITS | Encounter Summary ---
Author Organization [facility] Address 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
[2024-07-31 19:25] VITALS: BP 126/67; PULSE 63; PULSE 64; RESP 17; RESP 18; O2SAT 97
[2024-07-31] MEDS: LORazepam INJ (*CRX) 2 MG/ML VIAL 1 MG IV PUSH (20:01)
[2024-07-31 20:02] LABS: Basophils Absolute Auto 0.1 K/mm3 (0.0-0.1); Basophils Percent Auto 0.5 % (0.2-1.2); Eosinophils Absolute Auto 0.3 K/mm3 (0-0.3); Eosinophils Percent Auto 2.1 % (0-4.4); Hemoglobin 13.5 g/dL (12.0-15.0); Immature Granulocyte Absolute 0.05 K/mm3 (0.00-0.031); Immature Granulocyte Percent A 0.4 % (0-0.5); Lymphocytes Absolute Auto 2.91 K/mm3 (0.9-3.2); Lymphocytes Percent Auto 22.8 % (18.3-44.2); Mean Corpuscular HGB Conc 32.1 g/dl (32-36); Mean Corpuscular Hemoglobin 29.1 pg (26-34); Mean Corpuscular Volume 90.5 fl (80-100); Mean Platelet Volume 10.3 fl (7.4-10.4); Monocytes Absolute Auto 0.9 K/mm3 (0.1-0.6); Monocytes Percent Auto 6.8 % (2.6-8.5); Neutrophils Absolute Auto 8.6 K/mm3 (1.3-6.7); Neutrophils Percent Auto 67.4 % (45.5-73.1); Platelet Count Result 321 k/mm3 (150-375); Red Blood Count 4.64 M/mm3 (4.2-5.4); Red Cell Distribution Width 12.8 % (11.5-14.5); White Blood Count 12.7 K/mm3 (4.5-10.0)
--- OUTSIDE RECORDS SUMMARY | 2024-07-31 20:04 | XMS_ITS | Clinical Summary ---
Author Organization [facility] Address [address] [place] [address] Phone Care Team Providers Care Welfare Eligibility Worker Name Role Phone Regan Gale DPM Unavailable [phone] Faye Fox APRN Primary Care Provider [...] Department Care Team Description 07/16/2024 Results Follow-Up [facility] [address] [place] [address] Rachelle Cervantes APRN, CNP POCT UA AUTOMATED W/O MICRO, POC INFLUENZA A AND B BY MOLECULAR, POC SARS-COV-2 BY MOLECULAR, Additional followed-up results: 2 07/15/2024 11:55 AM CDT Urgent Care Visit [facility] [address] [place] [address] Rachelle Cervantes APRN, CNP Vaginal discharge (Primary Dx); Urinary frequency; Acute cough; Acute non-recurrent pansinusitis Discharge Disposition: Discharged to home or Selfcare 07/15/2024 Travel 05/25/2024 12:15 PM PRINT FINISHER Urgent Care Visit [facility] [address] [place] [address] Rachelle Cervantes APRN, CNP Acute non-recurrent maxillary [...] B BY MOLECULAR Routine 05/25/2024 1:14 PM PRINT FINISHER Acute cough POC SARS-COV-2 BY MOLECULAR Routine 05/25/2024 12:45 PM PRINT FINISHER Acute cough from Last 3 Months Results * (ABNORMAL) VAGINITIS SCREEN, MOLECULAR (07/15/2024 12:56 PM CDT) TRICHOMONAS NOT DETECTED NOT DETECTED 07/16/2024 12:53 AM CDT [facility] BACTERIAL VAGINOSIS NOT DETECTED NOT DETECTED 07/16/2024 12:53 AM CDT [facility] ALISA NOT DETECTED NOT DETECTED 07/16/2024 12:53 AM CDT [facility] Comment: Alisa group Not detected with the following possible Alisa species: Alisa albicans and/or Alisa tropicalis and/or Alisa parapsilosis and/or Alisa dubliniensis ALISA GLABRATA DETECTED(A) NOT DETECTED 07/16/2024 12:53 AM CDT [facility] ALISA KRUSEI NOT DETECTED NOT DETECTED 07/16/2024 12:53 AM CDT [facility] Other VAGINAL STRUCTURE / Unknown Non-Phlebotomy Collection / Unknown 07/15/2024 12:56 PM CDT 07/15/2024 12:56 PM CDT Rachelle Cervantes APRN, CNP MICROBIOLOGY - GEN ERAL ORDERABLES Final Result Performing Organization Address City/[facility] Co de Phone Number [facility] [address] [place] [address], [place] * CULTURE, URINE (07/15/2024 12:55 PM CDT) Pathologist [facility] CULTURE RESULTS COAGULASE-NEGATIVE STAPHYLOCOCCUS, NOT STAPHYLOCOCCUS SAPROPHYTICUS 07/16/2024 8:49 PM CDT [facility] Comment:ALSO MIXED GROWTH OF DISTAL URETHRA CONTAMINANTS. Culture URINE SPECIMEN OBTAINED BY CLEAN CATCH PROCEDURE / Unknown Non-Phlebotomy Collection / Unknown 07/15/2024 12:55 PM CDT 07/15/2024 12:55 PM CDT Rachelle Cervantes APRN, CNP MICROBIOLOGY - GEN ERAL ORDERABLES Final Result Performing Organization Address [facility] Co de Phone Number [facility] [address] [place] [address], [place] * (ABNORMAL) POCT UA AUTOMATED W/O [...] 12:2 0 PM CDT Rachelle Cervantes APRN, CATERERS HELPER POINT OF CARE TEST ING (MANUAL) Final Result * POC SARS-COV-2 BY MOLECULAR (07/15/2024 12:09 PM CDT) Only the most recent of2 resultswithin the time period is included. SARSCOV2 Negative Negative, INVALID PROCEDURE CONTROL Valid 07/15/2024 12:0 9 PM CDT Rachelle Cervantes APRN, CATERERS HELPER POINT OF CARE TEST ING (MANUAL) Final Result * POC GROUP A STREP BY MOLECULAR (07/15/2024 12:09 PM CDT) STREP A DNA Negative Negative, Invalid PROCEDURE CONTROL Valid 07/15/2024 12:0 9 PM CDT Rachelle Cervantes APRN, CATERERS HELPER POINT OF CARE TEST ING (MANUAL) Final Result * POC INFLUENZA A AND B BY MOLECULAR (07/15/2024 12:06 PM CDT) Only the most recent of2 resultswithin the time period is included. INFLUENZA A RNA Negative Negative, Invalid INFLUENZA B RNA Negative Negative, Invalid PROCEDURE CONTROL Valid 07/15/2024 12:0 6 PM CDT Rachelle Cervantes APRN, CATERERS HELPER POINT OF CARE TEST ING (MANUAL) Final Result from Last 3 Months Insurance MEDICAID [facility] Care Teams Welfare Eligibility Worker Relationship Specialty Start Date End Date Faye Fox APRN [address] [facility], [address] [place] [address] PCP - General Family Medicine 08/25/18 Regan Gale DPM Consulting Physician Podiatry 09/09/16
--- OUTSIDE RECORDS SUMMARY | 2024-07-31 20:04 | XMS_ITS | Encounter Summary ---
Author Organization [facility] Healthcare Address [address] [place] [address] Care Team Providers Care Power Saw Mechanic Name Role Phone Allyson Jason DPM Unavailable [phone] Faye Fox NP Primary Care Provider [phone] Encounter Details Date Type Department Care Team (Late st Contact Info) Description 07/28/2024 [facility] Post Discharge Follow up phone call [address] [address] Rosana Morales I., DELMI Social History Tobacco Use Types Packs/Day Years Used Date Smoking Tobacco: Never Passive Smoke Exposure: Past Smokeless Tobacco: Never Alcohol Use Standard Drinks/Week Comments No 0 (1 standard drink = 0.6 oz pur e alcohol) [facility] Utilities Answer Date Recorded In the past 12 months has [employer], gas, oil, or water [employer] threatened to shut off services in your [...] How often do you attend chur or rastafarian services? Never 07/24/2024 Do you belong to any clubs o r organizations such as taoist groups, unions, fraternal or athletic groups, or [...] any time in the past 12 m [facility], were you homeless or living in a usp (including now)? No 07/24/2024 Personal Safety Answer Date Recorded Have you ever been in or are you currently in a harmful physical or emotional relationship or is someone making you feel afraid or unsafe? 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:55 AM EVALUATOR TRANSFER STUDENTS Gender Identity Not on file Sexual Orientation Not on file documented as of this encounter Plan of Treatment Not on file documented as of this encounter Visit Diagnoses Not on filedocumented in this encounter Care Teams Power Saw Mechanic Relationship Specialty Start Date End Date Faye Fox NP [address] [place] [address] [address] [place] [address] PCP - General Nurse Practitioner 11/22/23 Allyson Jason DPM [address] [facility] [place] [address] Consulting Physician Foot and Ankle Surg 04/03/22 documented as of this encounter
--- OUTSIDE RECORDS SUMMARY | 2024-07-31 20:04 | XMS_ITS | Clinical Summary ---
Author Organization [facility] Molecular Detection Address [address] [facility] [place] [address] Care Team Providers Care Reservationist Name Role Phone Faye Fox ERICK-DISABILITY CASE MANAGER Primary Care Provider Source Comments [facility],non-owned Affiliates and Associated Physician Practices is amultiple site organization consisting of ambulatory clinics and hospital sitesin [place], [place], [place]. This disclosure is being madepursuant to the Care Everywhere program and may not contain all information available regarding this patient. Last updated 17.[facility] Allergies Active Allergy Reactions Criticality Noted Date [...] Active azelastine (Astelin) 0.1 % nasal spray [place] 1 (one) spray into each nostril 2 [...] (05/19/2023): Added automatically from request for surgery [id number] Calcaneal spur of left foot 03/09/202205/06 Overview (05/19/2023): Added automatically from request for surgery [id number] Plantar fascial fibromatosis 03/09/2022 Overview (05/19/2023): Added automatically from request for surgery [id number] Tendonitis, Achilles, left 03/09/202205/19 Overview (05/19/2023): Added automatically from request for surgery [id number] Urgency of urination 04/09/2019 05/19/2023 Overview (05/19/2023): [...] mmHg was 0 minute. Snoring Profile: Frequent, [id number]-gt-[id number] snoring was detected during this study. Periodic [...] Department Care Team Description 07/20/2024 Patient Outreach [facility] [address] [place] [address] Beth Sprague, RN 06/26/2024 Telephone [facility] GI [address] [place] [phone] Marcia Read RN Appointment 06/07/2024 3:00 PM FASHION DIRECTOR PARTY PLAN SALES Office Visit [facility] - GI [address] [place] [phone] Zhang Dior III, MD Morbid obesity with BMI of 60.0-69.9, adult (Primary Dx); MAYI (obstructive sleep apnea); Hypothyroidism, unspecified type; Major depressive disorder, remission status unspecified, unspecified whether recurrent 06/07/2024 Travel 06/01/2024 11:00 AM FASHION DIRECTOR PARTY PLAN SALES - 06/01/2024 11:30 AM FASHION DIRECTOR PARTY PLAN SALES Surgery [facility] [address] [place] [address] Sourav Morales MD Not Performed EGD with bx to rule out H pylori and aspirate to rule out SIBO 06/01/2024 10:10 AM FASHION DIRECTOR PARTY PLAN SALES - 06/01/2024 12:47 PM FASHION DIRECTOR PARTY PLAN SALES Hospital Encounter [facility] [address] [place] [address] Sourav Morales MD Surgery General Discharge Disposition: Home or Self Care 06/01/2024 Travel 05/29/2024 11:30 AM FASHION DIRECTOR PARTY PLAN SALES Office Visit [facility] - GI [address] [place] [phone] Yeni Gabriel, DETACHER-DISABILITY CASE MANAGER Gastroesophageal reflux disease, unspecified whether esophagitis present (Primary Dx) 05/29/2024 Travel 05/12/2024 11:40 AM FASHION DIRECTOR PARTY PLAN SALES Office Visit [facility] - Urology [facility], [place] [phone] Channing Springer PA Yeast infection of the [...] on file Legal Sex Female 9:41 AM FASHION DIRECTOR PARTY PLAN SALES Gender Identity Not on file Sexual Orientation Not on file 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 Not on file Not on file Not on file Last Filed Vital Signs Vital Sign Reading Time Taken Comments Blood Pressure 143/79 06/07/2024 3:22 PM FASHION DIRECTOR PARTY PLAN SALES Pulse 66 06/07/2024 3:22 PM FASHION DIRECTOR PARTY PLAN SALES Temperature 36.6 C (97.8 F) 06/07/2024 3:22 PM FASHION DIRECTOR PARTY PLAN SALES Respiratory Rate 21 06/01/2024 12:00 PM FASHION DIRECTOR PARTY PLAN SALES Oxygen Saturation 98% 06/07/2024 3:22 PM FASHION DIRECTOR PARTY PLAN SALES Inhaled Oxygen Concentration - - Weight 147.4 kg (325 lb) 06/07/2024 3:22 PM FASHION DIRECTOR PARTY PLAN SALES Height 157.5 cm (5' 2 ) 06/07/2024 3:22 PM FASHION DIRECTOR PARTY PLAN SALES Body Mass Index 59.44 06/07/2024 3:22 PM FASHION DIRECTOR PARTY PLAN SALES Plan of Treatment Upcoming Encounters Date Type Department Care Team (Latest Contact Info) Description 08/01/2024 11:15 AM CDT Office Visit [facility] - ENT [address] [place] [phone] Jeff Droman MD [address] [place] [address] [place] [address] 08/03/2024 1:30 PM CDT Office Visit [facility] - GI [address] [place] [address] [place] [phone] Zhang Dior III, MD [address] [place] [address] [address] [place] [phone] Lizbeth Fierro, PhD [address] [place] [address] 08/31/2024 10:00 AM CDT Hospital Encounter [facility] [address] [place] [phone] Sourav Morales MD [address] [place] [address] [address] [place] [address] Surgery General 08/31/2024 10:00 AM CDT - 08/31/2024 10:30 AM CDT Surgery [facility] [address] [place] [phone] Sourav Morales MD [address] [place] [address] [place] [address] EGD with bx to rule out H pylori and aspirate to rule out SIBO 09/18/2024 11:30 AM CDT Office Visit [facility] - GI [address] [place] [phone] Yeni Gabriel, DETACHER-DISABILITY CASE MANAGER [address] [place] [phone] 11/07/2024 10:30 AM CDT Office Visit [facility] - ENT [address] [place] [phone] Jeff Dorman MD [address] [place] [address] [place] [address] 11/10/2024 11:30 AM CDT Office Visit [facility] - GI [address], [place] [address] Savannah Castro PA-C [address] [facility] DEPT [place] [address] 03/14/2025 1:00 PM FASHION DIRECTOR PARTY PLAN SALES Office Visit [facility] - [address] [phone] Zhang Dior III, MD [address] [phone] Scheduled Procedures Name Priority Associated [...] Management General On track( 025 3:45 PM FASHION DIRECTOR PARTY PLAN SALES) Ayesha Sandoval RN Note: Expected end date: ongoing Interventions: Take all medications as prescribed Let your doctor know right away about any changes in your medications Make sure to request a refill of your medication at least one week prior to your last dose Procedures Procedure Name Priority Date/Time Associated Diagnosis Comments HCG URINE QUALITATIVE - POCT (IP) INTERFACED Routine 06/01/2024 10:32 AM FASHION DIRECTOR PARTY PLAN SALES HCG URINE QUAL POCT NOTIFICATION STAT 06/01/2024 10:29 AM FASHION DIRECTOR PARTY PLAN SALES Pre-op exam URINALYSIS AUTO - POINT OF CARE (AMB) [facility] Routine 05/12/2024 Yeast infection of the vagina from Last 3 Months Results * HCG URINE QUALITATIVE - POCT (IP) INTERFACED (06/01/2024 10:32 AM FASHION DIRECTOR PARTY PLAN SALES) HCG Qual Urine Negative Negative 06/01/2024 10:39 AM FASHION DIRECTOR PARTY PLAN SALES [facility] Urine URINE / Unknown 06/01/2024 1 0:32 AM FASHION DIRECTOR PARTY PLAN SALES 06/01/2024 10:39 AM FASHION DIRECTOR PARTY PLAN SALES us Sourav Morales MD LAB - POINT OF CARE ORDERABLES Final Result Performing Organization Address City/[facility]/ZIP Co de Phone Number [address] [address], [facility] [phone] * HCG URINE QUAL POCT NOTIFICATION (06/01/2024 10:29 AM FASHION DIRECTOR PARTY PLAN SALES) Comment Notification Label Only - See Separate Report 06/01/2024 11:30 AM FASHION DIRECTOR PARTY PLAN SALES [facility] Urine URINE / Unknown 06/01/2024 1 0:29 AM FASHION DIRECTOR PARTY PLAN SALES 06/01/2024 10:29 AM FASHION DIRECTOR PARTY PLAN SALES Sourav Morales MD LAB - URINALYSIS ORDERABLES Fi nal Result [facility] [address] [place] [address], [facility] [phone] * URINALYSIS AUTO - POINT OF CARE (AMB) [facility] (05/12/2024) Glucose UA - Bilirubin UA POCT - Ketones UA POCT - Specific [place] UA 1.020 Blood Urine POCT 1+ pH UA 6.0 Protein UA - Urobilinogen UA - Nitrite UA - WBC UA - Urine URINE / Unknown 05/12/2024 Channing Leblanc LAB - POINT OF CARE ORDERABLES F inal Result from Last 3 Months Insurance [facility] * Guarantor: DEDRA PRITCHARD Account Type Relation to Patient Date of Phone Billing Address Personal/Family 1985 [id number] [place] [phone] Advance Directives * Full Code (Latest Code Status on File) Date Activated Date Inactivated Comments 04/12/2015 3:43 AM 04/13/2015 12:28 PM Care Teams Reservationist Relationship Specialty Start Date End Date Faye Fox APRN-HECTOR [address] [facility] [address] [place], [place] [phone] PCP - General Nurse Practitioner Family 02/15/15
--- OUTSIDE RECORDS SUMMARY | 2024-07-31 20:04 | XMS_ITS | Encounter Summary ---
Author Organization [facility] Healthcare Address [address] [place] [address] Care Team Providers Care Thread Puller Name Role Phone Allyson Jason DPM Unavailable [phone] Faye Fox NP Primary Care Provider [phone] Encounter Details Date Type Department Care Team (Late st Contact Info) Description 07/31/2024 Telephone [facility] [address] [place] [address] [address] [place] [address] Preeti Wagner NP [address] [place] [address] [address] [place] [address] Social History Tobacco Use Types Packs/Day Years Used Date Smoking Tobacco: Never Passive Smoke Exposure: Past Smokeless Tobacco: Never Alcohol Use Standard Drinks/Week Comments No 0 (1 standard drink = 0.6 oz pur e alcohol) [facility] Utilities Answer Date Recorded In the past 12 months has [employer] electric, gas, oil, or water company threatened [...] week 07/24/2024 How often do you attend [facility] or orthodoxy services? Never 07/24/2024 Do you belong to any clubs o r organizations such as episcopalian groups, unions, fraternal or athletic groups, or [...] any time in the past 12 m [facility], were you homeless or living in a [...] on file Legal Sex Female 3:55 AM AIRCRAFT STRUCTURAL REPAIRER Gender Identity Not on file Sexual Orientation Not on file documented as of this encounter Miscellaneous Notes * Telephone Encounter - Ernestine Majano MA - 07/31/2024 1:45 PM CDT LVM * Telephone Encounter - Westley Macias - 07/31/2024 11:28 AM CDT Patient ([phone]) and significant other/Kavon called. Stated that [facility] cannot accept her insurance for the video EEG. Requested to speak with you about what can be done at this point to help her. Can be reached at [phone] and [phone]. documented in this encounter Plan of Treatment Not on file documented as of this encounter Visit Diagnoses Not on filedocumented in this encounter Care Teams Thread Puller Relationship Specialty Start Date End Date Faye Fox NP [address] [place] [address] [address] [place] [address] PCP - General Nurse Practitioner 11/22/23 Allyson Jason DPM [address] [facility] [place] [address] Consulting Physician Foot and Ankle Surg 04/03/22 documented as of this encounter
--- OUTSIDE RECORDS SUMMARY | 2024-07-31 20:04 | XMS_ITS | Encounter Summary ---
Author Organization [facility] Healthcare Address [address] [place] [address] Care Team Providers Care Cemetery Counselor Name Role Phone Allyson Jason DPM Unavailable [phone] Faye Fox NP Primary Care Provider [phone] Encounter Details Date Type Department Care Team (Late st Contact Info) Description 07/25/2024 Telephone [facility] [address] [place] [address] [address] [place] [address] Preeti Wagner NP [address] [place] [address] [address] [place] [address] Social History Tobacco Use Types Packs/Day Years Used Date Smoking Tobacco: Never Passive Smoke Exposure: Past Smokeless Tobacco: Never Alcohol Use Standard Drinks/Week Comments No 0 (1 standard drink = 0.6 oz pur e alcohol) [facility] Utilities Answer Date Recorded In the past 12 months has [employer] electric, gas, oil, or water company threatened [...] 07/24/2024 How often do you attend [facility] or yarsani services? Never 07/24/2024 Do you belong to any clubs o r organizations such as protestant groups, unions, fraternal or athletic groups, or [...] any time in the past 12 m [facility], were you homeless or living in a long term (including now)? No 07/24/2024 Personal Safety Answer Date Recorded Have you ever been in or are you currently in a harmful physical or emotional relationship or is someone making you feel afraid or unsafe? 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:[address] DESIGNER Gender Identity Not on file Sexual Orientation [...] on filedocumented in this encounter Care Teams Cemetery Counselor Relationship Specialty Start Date End Date Faye Fox NP [address] [place] [address] [address] [place] [address] PCP - General Nurse Practitioner 11/22/23 Allyson Jason DPM [address] [facility] [place] [address] Consulting Physician Foot and Ankle Surg 04/03/22 documented as of this encounter
--- OUTSIDE RECORDS SUMMARY | 2024-07-31 20:05 | XMS_ITS | Encounter Summary ---
Author Organization [facility] Address [address] [place] [address] Phone Care Team Providers Care Mucking Machine Operator Name Role Phone Regan Gale DPM Unavailable [phone] Faye Fox APRN Primary Care Provider [phone] Reason for Referral * PT/OT/ST (Routine) - Authorized Specialty Diagnoses / Procedures Referred By Pratima goss Referred To Contact Physical Therapy Diagnoses Low back pain, unspecified back pain laterality, unspecified chronicity, unspecified whether sciatica present Faye Fox APRN [address], [address] [place] [address] Phone: tel: [facility]: [facility] [address] [facility], [address] [address] Phone: tel: fax: Referral ID Status Reason Start Date Expiration Date V isits Requested Visits Authorized [id number] Authorized 11/15/2023 50 14 Scheduling Instructions Encounter Details Date Type Department Care Team (Latest Contact Info) Description 11/15/2023 Transcribe Orders [facility] [address] [place] [address] Faye FoxERICK [address] [facility], [address] [place] [address] Low back pain, unspecified back pain laterality, [...] Respiratory Rule-Out 05/25/2024 05/25/2024 025 1:28 PM PROJECT ACCOUNTANT COVID - 19 05/25/2024 05/25/2024 05/25/2024 1:00 PM PROJECT ACCOUNTANT Respiratory Rule-Out 07/15/2024 07/15/2024 025 12:20 PM CDT COVID - 19 07/15/2024 07/15/2024 07/15/2024 12:1 9 PM CDT documented as of this encounter Care Teams Mucking Machine Operator Relationship Specialty Start Date End Date Faye FoxERICK [address] [place] [address] PCP - General Family Medicine 08/25/18 Regan Gale DPM Consulting Physician Podiatry 09/09/16 documented as of this encounter
--- OUTSIDE RECORDS SUMMARY | 2024-07-31 20:05 | XMS_ITS | Clinical Summary ---
Author Organization [facility] Address [address] [place] [address] Phone Care Team Providers Care Tapering Machine Operator Name Role Phone Unavailable Primary Care Provider [...] tablet Take 150 mcg by mouth daily terminal operations manager. Active medroxyPROGESTERo ne (PROVERA) 10 mg Oral [...] on file Legal Sex Female 4:54 AM BABBITT SPINNER Gender Identity Not on file Sexual Orientation [...] this topic Medical Devices Implanted Type Area Dance Coach Device Identifier Shelf Expiration Date Model / Serial / Lot Sealant Floseal W/ Adptr 10ml [id number] - [id number] Implanted:Qty: 1 on 11/01/2012 at [facility] Sealant [employer] 12/04/2013 [id number] / / [id number] Insurance [facility] BLUE ACCESS CHOICE Advance Directives For more information, please contact: [phone] * Full Code (Latest Code Status on File) Date Activated Date Inactivated Comments 11/01/2012 8:36 AM 11/02/2012 5:19 PM
--- OUTSIDE RECORDS SUMMARY | 2024-07-31 20:05 | XMS_ITS | Encounter Summary ---
Author Organization [facility] Address [address] [facility] [address] Care Team Providers Care Registered Nurse Practitioner Name Role Phone Faye Fox DIESEL LOCOMOTIVE CRANE OPERATOR-VEHICLE OPERATOR TECHNICIAN Primary Care Provider Encounter Details Date Type Department Care Team (Late st Contact Info) Description 07/27/2019 Lab Requisition [facility] [address] [place] [address] Charan Rogel MD Social History Tobacco Use Types Packs/Day Years Used Date Smoking Tobacco: Never Smokeless Tobacco: Never Alcohol Use Standard Drinks/Week Comments No 0 (1 standard drink = 0.6 oz pure alcohol) past use on holiday/special events Comments No Sex and Gender Information Value Date Recorded Sex Assigned at Not on file Legal Sex Female 9:41 AM EXTRUDER OPERATOR MULTIPLE Gender Identity Not on file Sexual Orientation [...] Description 08/01/2024 11:15 AM CDT Office Visit [facility] - ENT [address] [place] [phone] Jeff Dorman MD [address] [place] [address] [place] [address] 08/03/2024 1:30 PM CDT Office Visit [facility] - GI [address] [place] [phone] Zhang Dior III, MD [address] [place] [address] [address] [place] [phone] Lizbeth Fierro, PhD [address] [place] [address] 08/31/2024 10:00 AM CDT Hospital Encounter [facility] [address] [place] [address] Sourav Morales MD [address] [place] [address] [address] [place] [address] Surgery General 08/31/2024 10:00 AM CDT - 08/31/2024 10:30 AM CDT Surgery [facility] [address] [place] [phone] Sourav Morales MD [address] [place] [address] [address] [place] [address] EGD with bx to rule out H pylori and aspirate to rule out SIBO 09/18/2024 11:30 AM CDT Office Visit [facility] - GI [address] [place] [phone] Yeni Gabriel, DIESEL LOCOMOTIVE CRANE OPERATOR-VEHICLE OPERATOR TECHNICIAN [address] [place] [phone] 11/07/2024 10:30 AM CDT Office Visit [facility] - ENT [address] [place] [phone] Jeff Dorman MD [address] [place] [address] [place] [address] 11/10/2024 11:30 AM CDT Office Visit [facility] - GI [address] [place] [phone] Savannah Castro PA-C [address] [facility] DEPT [place] [phone] 03/14/2025 1:00 PM EXTRUDER OPERATOR MULTIPLE Office Visit [facility] - GI [address] [place] [phone] Zhang Dior III, MD [address] [place] [address] [place] [phone] Scheduled Procedures Name Priority Associated Diagnoses Date/Ti oh ESOPHAGOGASTRODUODENOSCOPY ( EGD) DIAGNOSTIC Gastroesophageal reflux disease, unspecified whether esophagitis present 08/31/2024 10:00 AM CDT documented as of this encounter Goals Goal Patient Goal Type Associated Problems Recent Progress Patient-Stated? Author Medication Management General On track( 025 3:45 PM EXTRUDER OPERATOR MULTIPLE) Ayesha Sandoval RN Note: Expected end date: [...] Not detected, Invalid 07/27/2019 11:13 PM CDT [facility] Microbiology SPECIMEN FROM NASOPHARYNGEAL STRUCTURE / Unknown Collection / Unknown 07/27/2019 8:25 AM CDT 07/27/2019 1:18 PM CDT Narrative [facility] - 07/27/2019 11:13 PM CDT This Real Time RT-PCR assay was developed and its performance characteristics determined by [facility]. This test has been [...] MICROBIOLOGY [address] [place] [address], [facility] [phone] documented in this encounter Visit Diagnoses Not on filedocumented in this encounter Additional Health Concerns Infection Onset Date Last Indicated Resolved Time COVID-19 Under Investigation 04/29/2024 04/29/2024 04/29/2024 4:51 AM EXTRUDER OPERATOR MULTIPLE documented as of this encounter Care Teams Registered Nurse Practitioner Relationship Specialty Start Date End Date Faye Fox APRN-HECTOR [address] [place] [phone] PCP - General Nurse Practitioner Family 02/15/15 documented as of this encounter
--- OUTSIDE RECORDS SUMMARY | 2024-07-31 20:05 | XMS_ITS | Encounter Summary ---
Author Organization [facility] Address 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
--- OUTSIDE RECORDS SUMMARY | 2024-07-31 20:05 | XMS_ITS ---
Author Organization [facility] Address [address] [place] [address] Phone Care Team Providers Care Product Director Name Role Phone Regan Gale DPM Unavailable [phone] Faye Fox APRN Primary Care Provider [phone] [facility] Status:Enrolled (Active) Start date:05/03/2024 Enrollment date:05/03/2024 Related social drivers of health:Intimate Partner Violence, Social Connections, Alcohol Use, Financial Resource Strain, Depression, Stress, Physical Activity, Food Insecurity, Transportation Needs, Housing Stability, Utilities Continued Care and Services Coordination
--- OUTSIDE RECORDS SUMMARY | 2024-07-31 20:05 | XMS_ITS | Clinical Summary ---
Author Organization [facility] Address [address] [place] [address] Care Team Providers Care Mail Clerk Name Role Phone Allyson Jason DPM Unavailable [phone] Faye Fox NP Primary Care Provider [phone] Allergies Active Allergy Reactions Criticality Noted Date [...] hours as needed for pain Active vit C,E-Hp-zfdod-lute in-zeaxan 250-90-40-1 mg capsule Take 1 capsule by mouth 2 (two) times a day Active cranberry veop-L-warnkedk coag 250-30-15 mg tablet Take 1 capsule [...] 2024 Discontinued(S top Taking at Discharge) rizatriptan REHABILITATION CONSULTANT (MAXALT-REHABILITATION CONSULTANT) 10 mg disintegrating tabletIndications :Migraine Take 1 [...] (03/09/2022): Added automatically from request for surgery [id number] Plantar fascial fibromatosis 03/09/2022 Overview (03/09/2022): Added automatically from request for surgery [id number] Calcaneal spur of left foot 03/09/2022 Overview (03/09/2022): Added automatically from request for surgery [id number] Tendonitis, Achilles, left 03/09/2022 Overview (03/09/2022): Added automatically from request for surgery [id number] Upper respiratory tract infection 10/11/2017 Acute bronchospasm due to viral infection 2017 Acute maxillary sinusitis 06/07/2017 Acute bronchitis 06/07/2017 Acute bronchospasm 06/07/2017 Encounters Date Type Department Care Team Description 07/31/2024 Telephone [facility] [address] [place] [phone] Preeti Wagner NP 07/28/2024 [facility] Post Discharge Follow up phone call [facility] [address] [place] [address] Rosana Morales RN 07/25/2024 Orders Only [facility] [address] [place] [address] [address] [place] [address] Preeti Wagner NP Syncope and collapse (Primary Dx) 07/25/2024 Telephone [facility] [address] [place] [address] [address] [place] [phone] Preeti Wagner, [employer] 07/21/2024 3:12 PM CDT - 07/26/2024 1:39 PM CDT Hospital Encounter [facility] [address] [place] [address] Rich Rodgers MD Nikolic, Jelena, MD Quaizar, Huzaifa, MD Kheirkhahan, Nazanin, MD Breakthrough seizure (HCC) (Primary Dx); Psychogenic nonepileptic seizure; Seizure disorder, complex partial (HCC) Discharge Disposition: Discharge to home or self care 07/21/2024 2:49 PM CDT - 07/21/2024 11:59 PM CDT Hospital Encounter [facility] Emergency, Room R Discharge Disposition: Discharge to home or self care 07/21/2024 11:45 AM CDT - 07/21/2024 11:59 PM CDT Hospital Encounter [facility] [address] [place] [address] Syncope and collapse; Seizure disorder, complex partial (HCC) Discharge Disposition: Discharge to home or self care 07/20/2024 Telephone [facility] [address] [place] [address] Clementina Varma 07/20/2024 Telephone [facility] [address] [place] [address] Carlos A Humphreys MD 07/19/2024 Telephone [facility] [address] [place] [address] Carlos A Humphreys MD 06/20/2024 10:30 AM CDT Office Visit [facility] [address] [place] [address] Carlos A Humphreys MD Seizure disorder, complex partial (HCC) (Primary Dx); Syncope and collapse; Chronic migraine without aura without status migrainosus, not intractable 06/20/2024 Telephone [facility] [address] [place] [address] Carlos A Humphreys MD from Last 3 [...] drink = 0.6 oz pur e alcohol) [facility] Utilities Answer Date Recorded In the past 12 months has [employer], gas, oil, or water company threatened to [...] often do you attend chur ch or jainism services? 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 Gender Identity Not on file Sexual Orientation [...] this topic Medical Devices Implanted Type Area Sheep Herder Device Identifier Shelf Expiration Date Model / Serial / Lot [employer] S[employer] [place] Drill Guide Punch Tap Set Implant Achilles [id number] - [id number] Implanted:Qty: 1 on 04/03/2022 by Allyson Jason DPM at [facility] Left: Foot [employer] [id number] 12/03/2024 [id number] / / [id number] Procedures Procedure Name Priority Date/Time Associated Diagnosis [...] Fi nal Result [facility] ([place]) [address] [place] [address] * (ABNORMAL) Differential, auto (07/26/2024 6:27 AM [...] Fi nal Result [facility] ([place]) [address] [place] [address] * (ABNORMAL) CBC with auto differential (07/26/2024 [...] 33.5 32.3 - 35.7 g/dL [facility] ([place]) RDW CV 12.5 11.1 - 14.9 % [facility] ([place]) RDW SD 40.9 35.7 - 48.1 fL [facility] ([place]) NRBC abs 0.00 0.00 - 0.01 K/cumm [facility] ([place]) Blood 07/26/2024 6:27 AM CDT 07/26/2024 7:05 AM CDT us Alena Masters MD LAB BLOOD ORDERABLES Fi nal Result [facility] ([place]) [address] [place] [address] * Comprehensive metabolic panel (07/26/2024 6:27 AM [...] ORDERABLES Fi nal Result Performing Organization Address City/[facility] Co de Phone Number [facility] ([place]) [address] [facility] [place] [address] * eGFR (07/25/2024 9:22 AM CDT) eGFR [...] ORDERABLES Fi nal Result Performing Organization Address City/[facility] Co de Phone Number [facility] ([place]) [address] [place] [address] * (ABNORMAL) Differential, auto (07/25/2024 9:22 AM CDT) Neutrophil abs 8.44(H) 1.50 - 6.50 K/cumm Imm gran abs 0.05 0.00 - 0.10 K/cumm [facility] ([place]) Lymphocyte abs 2.45 0.80 - 3.30 K/cumm [...] Fi nal Result [facility] ([place]) [address] [facility] [place] [address] * (ABNORMAL) CBC with auto differential (07/25/2024 9:22 AM CDT) [facility] WBC 11.95(H) 3.80 - 9.90 K/cumm Hgb 13.5 11.9 - 15.5 g/dL [facility] ([place] Hct 40.6 35.6 - 45.5 % [facility] ([place] Plt 279 150 - 400 K/cumm [facility] ([place] MPV 10.8 9.1 - 12.3 fL [facility] ([place] RBC 4.53 3.90 - 5.20 M/cumm [facility] ([place] MCV 89.6 81.3 - 96.4 fL [facility] ([place] MCH 29.8 27.1 - 33.3 pg [facility] ([place] MCHC 33.3 32.3 - 35.7 g/dL [facility] RDW CV 12.6 11.1 - 14.9 % [facility] RDW SD 41.1 35.7 - 48.1 fL [facility] ([place] NRBC abs 0.00 0.00 - 0.01 K/cumm [facility] Blood 07/25/2024 9:22 AM CDT 07/25/2024 10:14 AM CDT us Alena Masters MD LAB BLOOD ORDERABLES nal Result [facility] ([place] [address] Department [place] [address] * (ABNORMAL) Comprehensive metabolic panel (07/25/2024 9:22 AM CDT) [facility] Sodium 140 135 - 145 mmol/L Potassium, pl 3.1(L) 3.3 - 4.9 mmol/L [facility] ([place]) Chloride 103 97 - 110 mmol/L [facility]) CO2 22 22 - 32 mmol/L [facility] ([place] Anion gap 15 2 - [...] MD LAB BLOOD ORDERABLES Fi nal Result [facility] ([place] [address] [place] [address] * EEG (07/24/2024 3:41 PM CDT) Anatomical Region Laterality Modality Other Narrative Procedure Note Ladan Elizondo MD - 07/21/2024 12:00 AM CDT REQUESTING Carlos A Humphreys MD. INDICATIONS Ms. David is a 38-year-old with chief complaints of episodes ofpossible seizure-like activity. EEG was obtained using Tkejwoccnzutl84/20 system of electrode placement. Background activity consisted ofbilateral, synchronous, posterior dominant alpha range activity. Recordshows spontaneous variability. Frequent muscle artifacts movement.Drowsiness with identified ocular signs and attenuation of background. Nofocal, lateralized, or epileptiform abnormalities were noted. IMPRESSION This EEG reveals evidence of normal wakefulness and drowsiness. Clinicalcourse recommended. Job ID/Internal Job ID: [id number] us Joann Mitchell MD NEUROLOGY ORDERABLES Susana [...] BLOOD ORDERABLES Fi nal Result [facility] [place]) [address] [place] [address] * (ABNORMAL) Differential, auto (07/24/2024 [...] Fi nal Result [facility] ([place]) [address] [facility] [place] [address] * (ABNORMAL) CBC with auto differential (07/24/2024 [...] Fi nal Result [facility] ([place]) [address] [facility] [place] [address] * (ABNORMAL) Comprehensive metabolic panel (07/24/2024 8:55 [...] Fi nal Result [facility] ([place]) [address] [place] [address] * MRI Brain W WO Contrast (07/24/2024 [...] Kip Crowe D.O. AP: AP Report ID: [id number] Reading Location: [id number] Procedure Note Kip Crowe, DO - 07/24/2024 [...] Kip Crowe D.O. AP: AP Report ID: [id number] Reading Location: [place] [address] Alena Masters MD IMG MRI PROCEDURES Susana l Result * ECG 12 lead (07/23/2024 8:02 PM CDT) 07/23/2024 8:02 PM CDT Narrative [facility] - 07/24/2024 6:41 AM CDT Vent Rate: 74 bpm RR Interval: 808 msec [place] Interval: 156 msec QRS Duration: 121 msec QT Interval: 398 msec QTC Interval: 425 msec P-R-T [place]: 43 - 78 - 33 degrees IMPRESSION: SINUS RHYTHM POSSIBLE LEFT ATRIAL ENLARGEMENT [-0.1mV P WAVE IN V1/V2] POSSIBLE RIGHT VENTRICULAR CONDUCTION DELAY [RSR (QR) IN V1/V2] INFERIOR MYOCARDIAL INFARCTION [40+ ms Q WAVE AND/OR ST/T ABNORMALITY IN II/aVF], OF INDETERMINATE AGE ABNORMAL ECG Electronically Signed By: Darwin Kingsley MD Alena Masters MD ECG ORDERABLES Final R esult [facility] * eGFR (07/23/2024 8:59 AM CDT) eGFR [...] us Alena Masters MD LAB BLOOD ORDERABLES [facility] Result [facility] ([place]) [address] Department of Laboratories [place], [place] [address] * Differential, auto (07/23/2024 8:59 AM CDT) [...] Neutrophil pct 62.9 % [facility] ([place]) Comment: Interpretive Data Percent cell count reference [...] BLOOD ORDERABLES Fi nal Result [facility] ([place]) [address] Department [place] [address] * CBC with auto differential (07/23/2024 8:59 AM CDT) WBC 8.89 3.80 - 9.90 K/cumm Hgb 13.1 11.9 - 15.5 g/dL [facility] ([place]) Hct 39.5 35.6 - 45.5 % [facility] ([place]) Plt 292 150 - 400 K/cumm [facility] ([place]) MPV 10.5 9.1 - 12.3 fL [facility] ([place]) RBC 4.41 3.90 - 5.20 M/cumm [facility] ([place]) MCV 89.6 81.3 - 96.4 fL [facility] ([place]) MCH 29.7 27.1 - 33.3 pg [facility] ([place]) MCHC 33.2 32.3 - 35.7 g/dL [facility] ([place]) RDW CV 12.7 11.1 - 14.9 % [facility] RDW SD 41.5 35.7 - 48.1 fL [facility] ([place]) NRBC abs 0.00 0.00 - 0.01 K/cumm [facility] ([place]) Blood 07/23/2024 8:59 AM CDT 07/23/2024 9:26 AM CDT us Alena Masters MD LAB BLOOD ORDERABLES [facility] Result [facility] ([place]) [address] [place] [address] * Comprehensive metabolic panel (07/23/2024 8:59 AM CDT) Sodium 140 135 - 145 mmol/L Potassium, pl 3.4 3.3 - 4.9 mmol/L [facility] ([place]) Chloride 104 97 - 110 mmol/L [facility] ([place]) CO2 23 22 - 32 mmol/L [facility] ([place]) Anion gap 13 2 - 15 mmol/L [facility] ([place] BUN 15 6 - 25 mg/dL [facility] ([place]) Creatinine 0.97 0.60 - 1.10 mg/dL [facility] ([place]) Glucose 118 70 - 199 mg/dL [facility] ([place]) Comment: Interpretive Data Fasting glucose [...] MD LAB BLOOD ORDERABLES Fi nal Result [facility] ([place]) [address] [place] [address] * Lactate (07/22/2024 2:12 PM CDT) Lactate 1.6 0.7 - 2.0 mmol/L Blood 07/22/2024 2:12 PM CDT 07/22/2024 2:17 PM CDT Ho Barraza MD LAB BLOOD ORDERABLES Final Re sult [facility] ([place]) [address] [facility] [place] [address] * eGFR (07/22/2024 7:53 AM CDT) eGFR [...] Masters MD LAB BLOOD ORDERABLES nal Result [facility] ([place]) [address] [place] [address] * Differential, auto (07/22/2024 7:53 AM CDT) [...] BLOOD ORDERABLES Fi nal Result [facility] ([place]) [address] [place] [address] * CBC with auto differential (07/22/2024 7:53 AM CDT) WBC 8.89 3.80 - 9.90 K/cumm Hgb 13.5 11.9 - 15.5 g/dL [facility] ([place]) Hct 39.8 35.6 - 45.5 % [facility] ([place]) Plt 302 150 - 400 K/cumm [facility] ([place]) MPV 10.3 9.1 - 12.3 fL [facility] ([place]) RBC 4.51 3.90 - 5.20 M/cumm [facility] ([place]) MCV 88.2 81.3 - 96.4 fL [facility] ([place]) MCH 29.9 27.1 - 33.3 pg [facility] ([place]) MCHC 33.9 32.3 - 35.7 g/dL [facility] ([place]) RDW CV 12.7 11.1 - 14.9 % [facility] ([place]) RDW SD 41.1 35.7 - 48.1 fL [facility] ([place]) NRBC abs 0.00 0.00 - 0.01 K/cumm [facility] ([place] Blood 07/22/2024 7:53 AM CDT 07/22/2024 8:27 AM CDT us Alena Masters MD LAB BLOOD ORDERABLES Fi nal Result [facility] ([place]) [address] [place] [address] * Prolactin (07/22/2024 7:53 AM CDT) Prolactin 16.8 4.8 - 23.3 ng/mL Comment:Testing performed by : [facility], [address] [place] [address]., [id number] Blood 07/22/2024 7:53 AM CDT 07/22/2024 5:11 PM CDT us Ho Barraza MD LAB BLOOD ORDERABLES Final Re sult [facility] ([place]) [address] [place] [address] * Magnesium (07/22/2024 7:53 AM CDT) Magnesium 2.0 1.4 - 2.5 mg/dL Blood 07/22/2024 7:53 AM CDT 07/22/2024 8:27 AM CDT us Alena Masters MD LAB BLOOD ORDERABLES nal Result [facility] ([place]) [address] [place] [address] * Comprehensive metabolic panel (07/22/2024 7:53 AM [...] 86 70 - 199 mg/dL [facility] ([place]) [...] BLOOD ORDERABLES Fi nal Result [facility] ([place]) [address] [place] [address] * Drugs of Abuse Screen, Urine with [...] Not Detected CutOff 50 ng/mL [facility] ([place]) Comment: Interpretive Data - Cannabinoids: [...] us Alena Masters MD LAB URINE ORDERABLES [facility] Result [facility] ([place]) [address] [place] [address] * Urinalysis reflex to microscopic and culture [...] tendency for uric acid stone formation. Source: [facility] [employer] Current Interpretive Data was last revised on [...] Alena Masters MD LAB MICROBIOLOGY - [facility] ORDERABLES Final Result [facility] ([place]) [address] [place] [address] * XR Chest 1 View (07/21/2024 11:15 [...] Channing Villanueva M.D. KT: COLTEN Report ID: [id number] Reading Location: [id number] Procedure Note Channing Villanueva MD - 07/22/2024 [...] Channing Villanueva M.D. KT: KT Report ID: [id number] Reading Location: [id number] Adryanfortino Stephen Masters MD IMG XR PROCEDURES [...] Eleazar Sequeira M.D. AT: AT Report ID: [id number] Reading Location: [id number] Procedure Note Eleazar Sequeira MD - 07/21/2024 [...] Eleazar Sequeira M.D. AT: AT Report ID: [id number] Reading Location: [id number] us Rich Rodgers MD IMG CT PROCEDURES Final Resu lt * Sepsis Lactate w/ Reflex (07/21/2024 3:48 PM CDT) Pathologist [facility] Sepsis Lactate 1.8 0.7 - 2.0 mmol/L Blood 07/21/2024 3:48 PM CDT 07/21/2024 3:52 PM CDT us Rich Rodgers MD LAB BLOOD ORDERABLES Final R esult [facility] [place] [address] [place] [address] * eGFR (07/21/2024 3:48 PM [...] MD LAB BLOOD ORDERABLES Final R esult [facility] ([place]) [address] Department of Laboratories [place] [id number] * (ABNORMAL) Differential, auto (07/21/2024 3:48 PM [...] BLOOD ORDERABLES Final R esult [facility] ([place]) [address] [place] [address] * (ABNORMAL) CBC with auto differential (07/21/2024 [...] ORDERABLES Final R esult Performing Organization Address [facility] Co de Phone Number [facility] ([place]) [address] [place] [address] * hCG, blood, quantitative (07/21/2024 3:48 PM [...] ORDERABLES Final R esult Performing Organization Address City/[facility]/ZIP Co de Phone Number [facility] ([place]) [address] [employer] [place] [address] * Magnesium (07/21/2024 3:48 PM CDT) Magnesium 1.9 1.4 - 2.5 mg/dL Blood 07/21/2024 3:48 PM CDT 07/21/2024 3:53 PM CDT Rich Rodgers MD LAB BLOOD ORDERABLES Final R esult [facility] ([place]) [address] [place] [address] * (ABNORMAL) Comprehensive metabolic panel (07/21/2024 3:48 PM CDT) Sodium 136 135 - 145 mmol/L Potassium, pl 3.7 3.3 - 4.9 mmol/L [facility] ([place]) Chloride 101 97 - 110 mmol/L [facility] ([place]) CO2 21(L) 22 - 32 mmol/L [facility] ([place]) Anion gap 13 2 - 15 mmol/L [facility] ([place]) BUN 15 6 - 25 mg/dL [facility] ([place]) Creatinine 0.83 0.60 - 1.10 [...] BLOOD ORDERABLES Final R esult [facility] ([place]) [address] [place] [address] * EEG (07/21/2024 1:15 PM CDT) Anatomical [...] correlation is recommended. Job ID/Internal Job ID: [id number] us Carlos A Humphreys MD NEUROLOGY ORDERABLES Fi nal Result from Last 3 Months Insurance [facility] WORKERS COMPENSATION [facility] Advance Directives For more information, please contact: [phone] * Full Code (Latest Code Status on File) Date Activated Date Inactivated Comments 07/21/2024 6:34 PM 07/26/2024 5:44 PM Care Teams Mail Clerk Relationship Specialty Start Date End Date Faye Fox NP [address] [place] [address] [address] [place] [address] PCP - General Nurse Practitioner 11/22/23 Allyson Jason DPM [address] [facility] [place] [address] Consulting Physician Foot and Ankle Surg 04/03/22
--- OUTSIDE RECORDS SUMMARY | 2024-07-31 20:05 | XMS_ITS | Encounter Summary ---
Author Organization [facility] Address [address] [place] [id number] Care Team Providers Care White Metal Caster Name Role Phone Faye Fox NP Primary Care Provider [phone] Encounter Details Date Type Department Care Team (Late st Contact Info) Description 02/26/2023 [employer] Message Enc [facility] Orthopedic & Sports Medicine [address] [address] [facility] Provider Work comp Social History Tobacco Use Types Packs/Day Years Used Date Smoking Tobacco: Never Smokeless Tobacco: Never Alcohol Use Standard Drinks/Week Comments No 0 (1 standard drink = 0.6 oz pur e alcohol) Comments No Sex and Gender Information Value Date Recorded Sex Assigned at Female 02/22/2023 6:27 AM HEAD OF ACQUISITIONS Legal Sex Female 1:13 AM CDT Gender Identity Female 02/22/2023 6:27 AM HEAD OF ACQUISITIONS Sexual Orientation Straight 02/22/2023 6: 27 AM HEAD OF ACQUISITIONS documented as of this encounter Functional Status * Calculated C-SSRS Risk Score (Lifetime/Recent) Answer Date of Assessment Author Status No Risk Indicated 02/26/2023 1:38 PM HEAD OF ACQUISITIONS Link Reyes, RN Active * [place] Suicide Severity Rating Scale (Screener/Recent Self-Report) Question Answer Date of Assessment Author Status 1. Wish to be (Past 1 Month) No 02/26/2023 1:38 PM HEAD OF ACQUISITIONS Lauro Reyes RN Acti ve 2. Non-Specific Active Suicidal Thoughts (Past 1 Month) No 02/26/2023 1:38 PM HEAD OF ACQUISITIONS Lauro Reyes, RN Acti ve 6. Suicidal Behavior (Lifetime) No 02/26/2023 1:38 PM HEAD OF ACQUISITIONS Lauro Reyes, RN Acti ve documented as of this encounter Plan of Treatment Not on file documented as of this encounter Visit Diagnoses Not on filedocumented in this encounter Additional Health Concerns Infection Onset Date Last Indicated Resolved Time Influenza - Seasonal 02/19/2023 02/19/2023 023 12:32 AM HEAD OF ACQUISITIONS documented as of this encounter Care Teams White Metal Caster Relationship Specialty Start Date End Date Faye Fox NP [address] [facility] [id number] [place] [address] PCP - General 06/30/16 documented as of this encounter
--- OUTSIDE RECORDS SUMMARY | 2024-07-31 20:05 | XMS_ITS | Clinical Summary ---
Author Organization [facility] Address [address] [place] [address] Care Team Providers Care Harp Regulator Name Role Phone Faye Fox NP Primary Care Provider [phone] Allergies Active Allergy Reactions Criticality Noted Date [...] the muscle. 12/23/2017 Active vitamin D2, ergocalciferol, 31809 UNITS capsule Take 50,000 Units by mouth. [...] 1 tablet by mouth daily. 05/05/2019 Active Colora 3 1000 MG Cap Take by mouth [...] Assigned at Female 02/22/2023 6:27 AM MANAGER [employer] Legal Sex Female 1:13 AM CDT Gender Identity Female 02/22/2023 6:27 AM [employer] Sexual Orientation Straight 02/22/2023 6: 27 AM [employer] Last Filed Vital Signs Vital Sign Reading Time Taken Comments Blood Pressure 166/88 04/22/2023 1:08 PM [employer] Pulse 86 04/22/2023 1:08 PM [employer] Temperature 36.4 C (97.6 F) 04/22/2023 1:08 PM [employer] Respiratory Rate 18 04/22/2023 1:08 PM [employer] Oxygen Saturation 99% 04/22/2023 1:08 PM [employer] Inhaled Oxygen Concentration - - Weight 153.8 kg (339 lb 1.1 oz) 04/22/2023 1:08 PM [employer] Height 160 cm (5' 3 ) 04/22/2023 1:08 PM [employer] Body Mass Index 60.06 04/22/2023 1:08 PM [employer] Plan of Treatment Health Maintenance Due Date [...] 03/12/2022, 06/30/2021, Additional history exists PHQ-2 (Physician [place]) 04/05/2024 DTaP, Tdap and Td Vaccines (2 [...] this topic Insurance [id number] [place] [id number] [employer] [employer] Care Teams Harp Regulator Relationship Specialty Start Date End Date Faye Fox NP [address] [facility] [address] [place] [address] PCP - General 06/30/16
--- OUTSIDE RECORDS SUMMARY | 2024-07-31 20:05 | XMS_ITS | Referral Summary ---
Author Organization [facility] Address [address] [place] [address] Care Team Providers Care Tailor Garment Fitter Name Role Phone Eren Allyson Dodson DPM Unavailable [phone] Faye Fox NP Primary Care Provider [phone] Encounters Date Type Department Care Team Description 07/31/[address] [facility] [address] [place] [address] Preeti Wagner NP 07/28/2024 [facility] Post Discharge Follow up phone call [address] [address] Rosana Morales RN 07/21/2024 3:12 PM CDT - 07/26/2024 1:39 PM CDT Hospital Encounter [address] [address] Rich Rodgers MD Nikolic, Jelena, MD Quaizar, Huzaifa, MD Kheirkhahan, Nazanin, MD Breakthrough seizure (HCC) (Primary Dx); Psychogenic nonepileptic seizure; Seizure disorder, complex partial (HCC) Discharge Disposition: Discharge to home or self care 07/25/[address] [facility] [address] [place] [address] Preeti Wagner NP Syncope and collapse (Primary Dx) 07/25/[address] [facility] [address] [place] [address] [address], [place] [address] Preeti Wagner NP 07/21/2024 2:49 PM CDT - 07/21/2024 11:59 PM CDT Hospital Encounter [facility] Emergency, Room R Discharge Disposition: Discharge to home or self care 07/21/2024 11:45 AM CDT - 07/21/2024 11:59 PM CDT Hospital Encounter [facility] Neurological Disorders Testing [address] [place] [address] Syncope and collapse; Seizure disorder, complex partial (HCC) Discharge Disposition: Discharge to home or self care 07/20/2024 Telephone [facility] [address] [place] [address] Clementina Varma 07/20/[address] [facility] [address] [place] [address] [address], [place] [address] Carlos A Humphreys MD 07/19/[address] [facility] [address] [place] [address] [address], [place] [address] Carlos A Humphreys MD 06/20/[address] [facility] [address] [place] [address] [address], [place] [address] Carlos A Humphreys MD 06/20/2024 10:30 AM CDT Office Visit [facility] [address] [place] [address] [address], [place] [address] Carlos A Humphreys MD Seizure disorder, complex [...] hours as needed for pain Active vit C,P-Mv-tgglz-lute in-zeaxan 250-90-40-1 mg capsule Take 1 capsule by mouth 2 (two) times a day Active cranberry ansc-Z-cxjpsgok coag 250-30-15 mg tablet Take 1 capsule [...] 2024 Discontinued(S top Taking at Discharge) rizatriptan INSTRUMENT MAKER (MAXALT-INSTRUMENT MAKER) 10 mg disintegrating tabletIndications :Migraine Take 1 [...] (03/09/2022): Added automatically from request for surgery [id number] Plantar fascial fibromatosis 03/09/2022 Overview (03/09/2022): Added automatically from request for surgery [id number] Calcaneal spur of left foot 03/09/2022 Overview (03/09/2022): Added automatically from request for surgery [id number] Tendonitis, Achilles, left 03/09/2022 Overview (03/09/2022): Added automatically from request for surgery [id number] Upper respiratory tract infection 10/11/2017 Acute bronchospasm due to viral infection 2017 Acute maxillary sinusitis 06/07/2017 Acute bronchitis 06/07/2017 Acute bronchospasm 06/07/2017 Social History Tobacco Use Types Packs/Day Years Used Date Smoking Tobacco: Never Passive Smoke Exposure: Past Smokeless Tobacco: Never Tobacco Cessation:Counseling Given: Not Answered Alcohol Use Standard Drinks/Week Comments No 0 (1 standard drink = 0.6 oz pur e alcohol) [facility] Utilities Answer Date Recorded In the past 12 months has [employer], gas, oil, or water [employer] threatened to shut off services in your [...] week 07/24/2024 How often do you attend [facility] or rastafari services? 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 Gender Identity Not on file Sexual Orientation [...] on file Medical Devices Implanted Type Area Manager Grocery Device Identifier Shelf Expiration Date Model / Serial / Lot [employer] [place] Drill Guide Punch Tap Set Implant Achilles [id number] - [id number] Implanted:Qty: 1 on 04/03/2022 by Allyson Jason DPM at [facility] Left: Foot [employer] [id number] 12/03/2024 [id number] / / [id number] Procedures Procedure Name Priority Date/Time Associated Diagnosis [...] BLOOD ORDERABLES Fi nal Result [facility] ([place] [address] [facility] [place] [address] * (ABNORMAL) Differential, auto (07/26/2024 6:27 AM [...] Fi nal Result [facility] ([place]) [address] [facility] [facility] [place] [address] * (ABNORMAL) CBC with auto differential (07/26/2024 [...] ([place]) MCH 29.8 27.1 - 33.3 pg [facility] ([place]) MCHC 33.5 32.3 - 35.7 g/dL [facility] ([place]) RDW CV 12.5 11.1 - 14.9 % [facility] ([place]) RDW SD 40.9 35.7 - 48.1 fL [facility] ([place]) NRBC abs 0.00 0.00 - 0.01 K/cumm [facility] ([place]) Blood 07/26/2024 6:27 AM CDT 07/26/2024 7:05 AM CDT us Alena Masters MD LAB BLOOD ORDERABLES nal Result [facility] ([place]) [address] [facility] [place] [address] * Comprehensive metabolic panel (07/26/2024 6:27 AM CDT) Sodium 140 135 - 145 mmol/L Potassium, pl 3.7 3.3 - 4.9 mmol/L [facility] ([place]) Chloride 103 97 - 110 mmol/L [facility]) CO2 25 22 - 32 mmol/L [facility] Anion gap 12 2 - 15 mmol/L [facility] ([place]) BUN 14 6 - 25 mg/dL [facility] Creatinine 0.88 0.60 - 1.10 mg/dL [facility]) Glucose 85 70 - 199 mg/dL [facility] ([place]) Comment: Interpretive Data Fasting glucose [...] 2022. Calcium 9.2 8.5 - 10.3 mg/dL [facility] ([place]) Bilirubin, total 0.2 0.1 - 1.2 mg/dL [facility] ([place]) Protein, pl 6.8 6.5 - 8.5 g/dL [facility] ([place]) Albumin 3.8 3.5 - 5.0 g/dL [facility] ([place]) Alk phos 86 40 - 130 Units/L [facility] ([place]) ALT 19 7 - 45 Units/L [facility] AST 18 10 - 45 Units/L [facility] ([place]) Comment:Slightly Hemolyzed S pecimen Blood 07/26/2024 6:27 AM CDT 07/26/2024 7:05 AM CDT us Alena Masters MD LAB BLOOD ORDERABLES Fi nal Result [facility] ([place]) [address] [place] [address] * eGFR (07/25/2024 9:22 AM CDT) eGFR [...] BLOOD ORDERABLES Fi nal Result [facility] [address] [facility] [facility] [place] [address] * (ABNORMAL) Differential, auto (07/25/2024 9:22 AM [...] us Alena Masters MD LAB BLOOD ORDERABLES Critical access hospital Result [facility]) [address] [facility] [place] [address] * (ABNORMAL) CBC with auto differential (07/25/2024 9:22 AM CDT) WBC 11.95(H) 3.80 - 9.90 K/cumm Hgb 13.5 11.9 - 15.5 g/dL [facility] ([place]) Hct 40.6 35.6 - 45.5 % [facility] ([place]) Plt 279 150 - 400 K/cumm [facility] ([place]) MPV 10.8 9.1 - 12.3 fL [facility] RBC 4.53 3.90 - 5.20 [...] ORDERABLES nal Result [facility] ([place]) [address] [facility] [facility] [place] [address] * (ABNORMAL) Comprehensive metabolic panel (07/25/2024 9:22 AM CDT) Sodium 140 135 - 145 mmol/L Potassium, pl 3.1(L) 3.3 - 4.9 mmol/L [facility] ([place]) Chloride 103 97 - 110 mmol/L [facility] [...] ORDERABLES Fi nal Result [facility]) [address] [place] [address] * EEG (07/24/2024 3:41 PM CDT) Anatomical Region Laterality Modality Other Narrative Procedure Note Ladan Elizondo MD - 07/21/2024 12:00 AM CDT REQUESTING Carlos A Humphreys MD. INDICATIONS Ms. David is a 38-year-old with chief complaints of episodes ofpossible seizure-like activity. EEG was obtained using Fugpmsvqbcyze92/20 system of electrode placement. Background activity consisted ofbilateral, synchronous, posterior dominant alpha range activity. Recordshows spontaneous variability. Frequent muscle artifacts movement.Drowsiness with identified ocular signs and attenuation of background. Nofocal, lateralized, or epileptiform abnormalities were noted. IMPRESSION This EEG reveals evidence of normal wakefulness and drowsiness. Clinicalcourse recommended. Job ID/Internal Job ID: [id number] Joann Mitchell MD NEUROLOGY ORDERABLES Susana l [...] LAB BLOOD ORDERABLES Fi nal Result [facility] ([place]) [address] [facility] [place] [address] * (ABNORMAL) Differential, auto (07/24/2024 8:55 AM [...] ORDERABLES nal Result [facility] [address] [facility] [place] [address] * (ABNORMAL) CBC with auto differential (07/24/2024 [...] RDW CV 12.5 11.1 - 14.9 % [facility] ([place]) RDW SD 40.1 35.7 - 48.1 fL [facility] ([place]) NRBC abs 0.00 0.00 - 0.01 K/cumm [facility] Blood 07/24/2024 8:55 AM CDT 07/24/2024 9:33 AM CDT us Alena Masters MD LAB BLOOD ORDERABLES nal Result [facility] [address] [facility] [facility] [place] [address] * (ABNORMAL) Comprehensive metabolic panel (07/24/2024 8:55 AM CDT) Sodium 139 135 - 145 mmol/L Potassium, pl 3.5 3.3 - 4.9 mmol/L [facility] ([place]) Chloride 102 97 - 110 mmol/L [facility] CO2 21(L) 22 - 32 mmol/L [facility] ([place]) Anion gap 16(H) 2 - 15 mmol/L [facility] ([place]) BUN 11 6 - 25 mg/dL [facility] ([place]) Creatinine 0.97 0.60 - 1.10 mg/dL [facility] ([place]) Glucose 120 70 - 199 mg/dL [facility]) Comment: Interpretive Data Fasting glucose [...] 2022. Calcium 9.0 8.5 - 10.3 mg/dL [facility]) Bilirubin, total <0.2 0.1 - [...] Fi nal Result [facility] ([place]) [address] [facility] [place] [address] * MRI Brain W WO Contrast (07/24/2024 [...] Kip Crowe D.O. AP: AP Report ID: [id number] Reading Location: [place] [address] Procedure Note Kip Crowe, DO - 07/24/2024 [...] Kip Crowe D.O. AP: LEILA Report ID: [id number] Reading Location: [id number] us Alena Masters MD IMG MRI PROCEDURES Susana l Result * ECG 12 lead (07/23/2024 8:02 PM CDT) 07/23/2024 8:02 PM CDT Narrative [facility] - 07/24/2024 6:41 AM CDT Vent Rate: 74 bpm RR Interval: 808 msec DE Interval: 156 msec QRS Duration: 121 msec QT Interval: 398 msec QTC Interval: 425 msec P-R-T [place]: 43 - 78 - 33 degrees IMPRESSION: SINUS RHYTHM POSSIBLE LEFT ATRIAL ENLARGEMENT [-0.1mV P WAVE IN V1/V2] POSSIBLE RIGHT VENTRICULAR CONDUCTION DELAY [RSR (QR) IN V1/V2] INFERIOR MYOCARDIAL INFARCTION [40+ ms Q WAVE AND/OR ST/T ABNORMALITY IN II/aVF], OF INDETERMINATE AGE ABNORMAL ECG Electronically Signed By: Darwin Kingsley MD us Alena Masters MD ECG ORDERABLES Final R esult [facility] * eGFR (07/23/2024 8:59 AM CDT) eGFR [...] BLOOD ORDERABLES Fi nal Result [facility] [place]) [address] [facility] [place] [address] * Differential, auto (07/23/2024 8:59 AM CDT) [...] Fi nal Result [facility] ([place] [address] [facility] [facility] [place] [address] * CBC with auto differential (07/23/2024 8:59 [...] 41.5 35.7 - 48.1 fL [facility] ([place]) NRBC abs 0.00 0.00 - 0.01 K/cumm [facility] ([place]) Blood 07/23/2024 8:59 AM CDT 07/23/2024 9:26 AM CDT us Alena Masters MD LAB BLOOD ORDERABLES Fi nal Result [facility] ([place] [address] [facility] [place] [address] * Comprehensive metabolic panel (07/23/2024 8:59 AM [...] Fi nal Result [facility] ([place]) [address] [facility] [facility] [place] [address] * Lactate (07/22/2024 2:12 PM CDT) [facility] Lactate 1.6 0.7 - 2.0 mmol/L Blood 07/22/2024 2:12 PM CDT 07/22/2024 2:17 PM CDT us Ho Barraza MD LAB BLOOD ORDERABLES Final Re sult [facility] [address] [place] [address] [place] [address] * eGFR (07/22/2024 7:53 AM CDT) [facility] eGFR 81 >=60 mL/min/1. 73 m2 Comment: [...] BLOOD ORDERABLES Fi nal Result [facility] [address] [facility] [place] [address] * Differential, auto (07/22/2024 7:53 AM CDT) [...] Fi nal Result [facility] ([place]) [address] [facility] [place] [address] * CBC with auto differential (07/22/2024 7:53 [...] Fi nal Result [facility] ([place]) [address] [facility] [place] [address] * Prolactin (07/22/2024 7:53 AM CDT) Prolactin 16.8 4.8 - 23.3 ng/mL Comment:Testing performed by : [facility], [address] [place] [address], [place]., [address] Blood 07/22/2024 7:53 AM CDT 07/22/2024 5:11 PM CDT Ho Barraza MD LAB BLOOD ORDERABLES Final Re sult [facility] 1 [facility] [place] [address] * Magnesium (07/22/2024 7:53 AM CDT) Magnesium 2.0 1.4 - 2.5 mg/dL Blood 07/22/2024 7:53 AM CDT 07/22/2024 8:27 AM CDT Alena Masters MD LAB BLOOD ORDERABLES Fi nal Result Performing Organization Address [facility]/ZIP Co de Phone Number [facility] [address] [facility] [place] [employer] [place] [address] * Comprehensive metabolic panel (07/22/2024 7:53 AM CDT) Sodium 137 135 - 145 mmol/L Potassium, pl 3.8 3.3 - 4.9 mmol/L [facility] ([place]) Chloride 102 97 - 110 mmol/L [facility] ([place]) CO2 24 22 - 32 mmol/L [facility] ([place]) Anion gap 11 2 - 15 mmol/L [facility] ([place]) BUN 14 6 - 25 mg/dL [facility] ([place]) Creatinine 0.92 0.60 - 1.10 mg/dL [facility] ([place]) Glucose 86 70 - 199 mg/dL [facility] ([place]) Comment: Interpretive Data Fasting glucose [...] Masters MD LAB BLOOD ORDERABLES nal Result [facility] ([place]) [address] [facility] [place] [address] * Drugs of Abuse Screen, Urine with Reflex Confirmation (07/22/2024 6:00 AM CDT) Pathologist [facility] Amphetamine, ur Not Detected CutOff 500ng/mL Comment: [...] Not Detected CutOff 25 ng/mL [facility] ([place]) Comment: Interpretive Data - Phencyclidine: Samples containing [...] CDT 07/22/2024 6:13 AM CDT Narrative [facility] ([place]) - 07/22/2024 7:01 AM CDT Drug of Abuse screening is performed by immunoassay for medical purposes only. This is not to be used for Pain Management purposes. If Detected, confirmation testing will be performed for Amphetamines, Cocaine, Fentanyl, Methadone, Opiates, Oxycodone or Phencyclidine. Alena Masters MD LAB URINE ORDERABLES Critical access hospital Result [facility] ([place]) [address] [facility] [place] [address] * Urinalysis reflex to microscopic and culture Urine (07/22/2024 6:00 AM CDT) Color, ur Yellow Yellow Clarity, ur Clear Clear [facility] ([place]) Specific gravity, ur 1.014 1.003 - 1.030 [facility] ([place]) pH, urine 6.5 [facility] ([place]) Comment: Interpretive Data U rine pH is affected by diet, medications, systemic acid-base disturbances, and renal tubular function. pH may affect urinary stone formation. For example, urine pH below 6.0 may help reduce the tendency for calcium phosphate stones and pH greater than 6.0 may reduce the tendency for uric acid stone formation. Source: [facility] [employer] Current Interpretive Data was last revised on [...] Alena Masters MD LAB MICROBIOLOGY - [facility] ORDERABLES Final Result [facility] ([place]) [address] [facility] [place] [address] * XR Chest 1 View (07/21/2024 11:15 [...] Channing Villanueva M.D. KT: COLTEN Report ID: [id number] Reading Location: [id number] Procedure Note Channing Villanueva MD - 07/22/2024 [...] Channing Villanueva M.D. KT: COLTEN Report ID: [id number] Reading Location: [id number] Alena Masters MD IMG XR PROCEDURES Final [...] Eleazar Sequeira M.D. AT: AT Report ID: [id number] Reading Location: [id number] Procedure Note Eleazar Sequeira MD - 07/21/2024 [...] Eleazar Sequeira M.D. AT: AT Report ID: [id number] Reading Location: [id number] us Rich Rodgers MD IMG CT PROCEDURES Final Resu lt * Sepsis Lactate w/ Reflex (07/21/2024 3:48 PM CDT) [facility] Sepsis Lactate 1.8 0.7 - 2.0 mmol/L Blood 07/21/2024 3:48 PM CDT 07/21/2024 3:52 PM CDT Rich Rodgers MD LAB BLOOD ORDERABLES Final R esult Performing Organization Address City/[facility]/ZIP Co de Phone Number [facility] ([place]) [address] [place] [address] [place] [address] * eGFR (07/21/2024 3:48 PM CDT) [facility] eGFR >90 >=60 mL/min/1. 73 m2 Comment: [...] BLOOD ORDERABLES Final R esult [facility] ([place]) [address] [facility] Department [place] [address] * (ABNORMAL) Differential, auto (07/21/2024 3:48 PM [...] Final R esult [facility] ([place]) [address] [facility] [place] [address] * (ABNORMAL) CBC with auto differential (07/21/2024 3:48 PM CDT) Pathologist [facility] WBC 11.51(H) 3.80 - 9.90 K/cumm Hgb [...] Final R esult [facility] ([place]) [address] [facility] [place] [address] * hCG, blood, quantitative (07/21/2024 3:48 PM CDT) Pathologist [facility] hCG, quant <5.0 0.0 - 5.0 IUnits/L [...] BLOOD ORDERABLES Final R esult [facility] ([place]) 1 [facility] [place] [address] * Magnesium (07/21/2024 3:48 PM CDT) Pathologist [facility] Magnesium 1.9 1.4 - 2.5 mg/dL Blood 07/21/2024 3:48 PM CDT 07/21/2024 3:53 PM CDT Rich Rodgers MD LAB BLOOD ORDERABLES Final R [facility] Performing Organization Address City/[facility]/ZIP Co de Phone Number [facility] ([place]) [address] [place] [address] * (ABNORMAL) Comprehensive metabolic panel (07/21/2024 3:48 PM CDT) Sodium 136 135 - 145 mmol/L Potassium, pl 3.7 3.3 - 4.9 mmol/L [facility] ([place]) Chloride 101 97 - 110 mmol/L [facility] ([place]) CO2 21(L) 22 - 32 mmol/L [facility] ([place]) Anion gap 13 2 - 15 mmol/L [facility] ([place]) BUN 15 6 - 25 mg/dL [facility] ([place]) Creatinine 0.83 0.60 - 1.10 mg/dL [facility] ([place]) Glucose 117 70 - 199 mg/dL [facility] ([place]) Comment: Interpretive Data Fasting glucose [...] MD LAB BLOOD ORDERABLES Final R esult [facility] ([place] [address] [facility] [place] [address] * EEG (07/21/2024 1:15 PM CDT) Anatomical [...] correlation is recommended. Job ID/Internal Job ID: [id number] Carlos A Humphreys MD NEUROLOGY ORDERABLES Fi nal Result from Last 3 Months Insurance [facility] WORKERS COMPENSATION GENERIC Advance Directives For more information, please contact: [phone] * Full Code (Latest Code Status on File) Date Activated Date Inactivated Comments 07/21/2024 6:34 PM 07/26/2024 5:44 PM Care Teams Tailor Garment Fitter Relationship Specialty Start Date End Date Faye Fox NP [address] [place] [address] [address] [place] [address] PCP - General Nurse Practitioner 11/22/23 Allyson Jason DPM [address] [place] [address] Consulting Physician Foot and Ankle Surg 04/03/22
--- OUTSIDE RECORDS SUMMARY | 2024-07-31 20:05 | XMS_ITS | Encounter Summary ---
Author Organization [facility] Address [address] [place] [address] Phone Care Team Providers Care Sustainable Systems Analyst Name Role Phone ShahlaRegan DPM Unavailable Faye Fox APRN Primary Care Provider Encounter Details Date Type Department Care Team (Late st Contact Info) Description 07/16/2024 Results Follow-Up [facility] - [facility] [address] [place] [address] Rachelle Cervantes APRN, [employer] [address] [place] [address] POCT UA AUTOMATED W/O MICRO, [...] on filedocumented in this encounter Care Teams Sustainable Systems Analyst Relationship Specialty Start Date End Date Faye Fox APRN [address] [facility], [address] [place] [address] PCP - General Family Medicine 08/25/18 Regan Gale DPM Consulting Physician Podiatry 09/09/16 documented as of this encounter
[2024-07-31 20:11] LABS: Alanine Aminotransferase 24 U/L (6-35); Albumin Level 4.5 g/dL (3.5-5.1); Alkaline Phosphatase 87 U/L (38-126); Anion Gap 5 mmol/L (4-12); Aspartate Amino Transferase 20 U/L (14-36); Bilirubin,Total 0.3 mg/dL (0.2-1.3); Blood Urea Nitrogen 15 mg/dL (7-17); Calcium 9.2 mg/dL (8.4-10.2); Carbon Dioxide 32 mmol/L (22-30); Chloride 101 mmol/L (98-107); Estimated Glomerular Filt Rate > 60; Glucose 85 mg/dL (65-110); Magnesium 2.1 mg/dL (1.6-2.3); Potassium 3.8 mmol/L (3.4-5.0); Sodium 138 mmol/L (137-145)
[2024-07-31 20:12] LABS: Lactic Acid Reflex 1.1 mmol/L (0.7-2.0)
--- NOTE | 2024-07-31 20:24 | ED.GENADULT ---
HPI - General Adult General Chief complaint: Unspecified Stated complaint: rx to Keppra for pseudoseizures Time Seen by Provider: 07/31/24 19:39 History of Present Illness HPI narrative: 38-year-old female presents to the emergency department for evaluation for concern for pseudo-seizure. 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 Patient states that she did have an extended stay at [facility] and did have an extensive workup involving neurologic visit and labs and imaging. Patient states she initially been started on Topamax for her headaches but began having worsening headaches and responses the patient was switched to Keppra. Patient states since starting the Keppra she has had increased emotional agitation and has had increased tremors. At time of initial evaluation patient had no tremors. Patient states that she does have history of anxiety and depression states this has worsened since starting the Keppra. In his system taking to secure follow-up with Dr. Humphreys Related Data Home Medications ?Medication ?Instructions ?Recorded ?Confirmed ?Last Taken ?Type levothyroxine 175 mcg tablet 175 mcg PO DAILY 03/10/19 11/27/23 09/29/23 09:00 History levonorgestrel (Mirena) 1 device intrauterine ONCE 07/06/20 11/27/23 Unknown History albuterol sulfate 90 mcg/actuation 2 puff inhalation QID PRN 08/30/22 11/27/23 Unknown History aerosol inhaler Shortness Of Breath Or Wheezing enalapril maleate 10 mg tablet 10 mg PO DAILY 08/30/22 11/27/23 Unknown History hydrochlorothiazide 25 mg tablet 25 mg PO DAILY 08/30/22 11/27/23 Unknown History tramadol 50 mg tablet 50 mg PO DAILY 08/30/22 11/27/23 Unknown History azelastine 137 mcg (0.1 %) nasal 1 spray intranasal HS 09/15/23 11/27/23 Unknown History spray escitalopram oxalate 10 mg tablet 10 mg PO QAM 09/15/23 11/27/23 09/29/23 09:00 History gabapentin 300 mg capsule 300 mg PO TID 09/15/23 11/27/23 09/29/23 09:00 History omeprazole 20 mg capsule,delayed 20 mg PO BID 09/15/23 11/27/23 Unknown History release trazodone 100 mg tablet 100 mg PO HS 09/15/23 11/27/23 Unknown History ascorbic acid (vitamin C) 1,000 mg 1 g PO BID 09/27/23 11/27/23 09/27/23 History tablet (Vitamin C) beclomethasone dipropionate 80 2 inh inhalation BID 09/27/23 11/27/23 Unknown History mcg/actuation HFA breath activated aerosol (Qvar RediHaler) cholecalciferol (vitamin D3) 50 100 mcg PO DAILY 09/27/23 11/27/23 09/27/23 History mcg (2,000 unit) capsule (Vitamin D3) cyanocobalamin (vitamin B-12) 5,000 mcg sublingual DAILY 09/27/23 11/27/23 09/27/23 History 5,000 mcg sublingual tablet (Vitamin B-12) epinephrine 0.3 mg/0.3 mL 0.3 mg IM Q4H PRN Allergic Reaction 09/27/23 11/27/23 Unknown History injection, auto-injector meloxicam 15 mg tablet 15 mg PO QPM 09/27/23 11/27/23 Unknown History multivitamin 1 tablet PO DAILY 09/27/23 11/27/23 09/27/23 History celecoxib 200 mg capsule 200 mg PO DAILY 11/27/23 11/27/23 Unknown History cetirizine 10 mg tablet 10 mg PO DAILY 11/27/23 11/27/23 Unknown History enalapril maleate 10 mg tablet 10 mg PO DAILY 11/27/23 11/27/23 Unknown History Allergies Allergy/AdvReac Type Severity Reaction Status Date / Time adhesive tape Allergy Intermediate skin turns Verified 07/31/24 18:27 red Sulfa (Sulfonamide Allergy Unknown hives Verified 07/31/24 18:27 Antibiotics) Review of Systems Review of Systems: All systems reviewed & are unremarkable except as noted in HPI and below PMFSH Past Medical History Medical History Anxiety Depression Hypothyroidism Musculoskeletal disorder Compression fracture L1-L2, right foot plantar fasciitis, bone spur Urinary tract infection Polycystic ovarian disease GERD (gastroesophageal reflux disease) Asthma Hypertension Seasonal allergies Surgical History Surgical History Hx of spinal surgery History of removal of ovarian cyst Family History Family History Mother Family history non-contributory Social History Social History Smoking status: Never smoker Substance use: never Living arrangements: with family Gender identity (if verbalized by the patient): Female Spiritual care concerns: No Exam Narrative: APPEARANCE: Well appearing, no pain, no distress, well-nourished. HEAD: normocephalic, atraumatic. EYES: PERRLA/EOMI, conjunctivae clear. NOSE: Normal no drainage EARS:TMS clear with good light reflex. THROAT: Pharynx clear, no exudate. NECK: Supple. No adenopathy, no masses. RESPIRATORY: Airway patent, respirations nonlabored. Clear to auscultation bilaterally, no rales, rhonchi, wheezing. CARDIOVASCULAR: Regular rate and rhythm without murmurs rubs or gallops. ABDOMINAL: Soft, nontender, nondistended, normal bowel sounds MUSCULOSKELETAL: Moves all extremities. Strength/ROM intact, No edema, No calf tenderness. NEURO: Alert. Cranial nerves II through XII intact. Good gait. Good coordination SKIN: Warm, dry. Normal Color Course Vital Signs Vital signs: Vital Signs Pulse Rate 63 07/31/24 19:25 Respiratory Rate 17 07/31/24 19:25 Blood Pressure 126/67 07/31/24 19:25 Pulse Oximetry 97 07/31/24 19:25 Pulse Rate 68 07/31/24 20:45 Respiratory Rate 15 07/31/24 20:45 Blood Pressure 141/76 H 07/31/24 20:45 Pulse Oximetry 99 07/31/24 20:45 Medical Decision Making MDM Narrative Medical decision making narrative: 38-year-old female presents emergency department for evaluation for increased tremor emotional agitation after starting Keppra. Patient is currently afebrile but does have a leukocytosis of 12.7 with normal hemoglobin of 13.5. No significant abnormalities on her CMP TSH was negative. Patient had no tremor at initial evaluation until we start talking about her anxiety and she did develop a mild baseline tremor that was resolved with Ativan. Patient was updated on results of her workup. Patient was encouraged to have follow-up with Urology as scheduled to discuss her side effects from the Keppra. All questions concerns were addressed patient was comfortable the plan for discharge and close follow-up. Differential Diagnosis Differential Diagnosis: Seizure, pseudo-seizure, nonepileptic seizure, anxiety, depression, adverse drug reaction Vital Signs Vital Signs: Vital Signs Pulse Rate 63 07/31/24 19:25 Respiratory Rate 17 07/31/24 19:25 Blood Pressure 126/67 07/31/24 19:25 Pulse Oximetry 97 07/31/24 19:25 Pulse Rate 68 07/31/24 20:45 Respiratory Rate 15 07/31/24 20:45 Blood Pressure 141/76 H 07/31/24 20:45 Pulse Oximetry 99 07/31/24 20:45 Lab Data Lab results reviewed: Yes I reviewed the patient's lab results. 07/31/24 19:56 07/31/24 19:56 Labs: Lab Results 07/31/24 Range/Units 19:56 WBC 12.7 H (4.5-10.0) K/mm3 RBC 4.64 (4.2-5.4) M/mm3 Hgb 13.5 (12.0-15.0) g/dL Hct 42.0 (37.0-47.0) % MCV 90.5 (80-100) fl MCH 29.1 (26-34) pg MCHC 32.1 (32-36) g/dl RDW 12.8 (11.5-14.5) % Plt Count 321 (150-375) k/mm3 MPV 10.3 (7.4-10.4) fl Immature Gran % (Auto) 0.4 (0-0.5) % Neut % (Auto) 67.4 (45.5-73.1) % Lymph % (Auto) 22.8 (18.3-44.2) % [place] % (Auto) 6.8 (2.6-8.5) % Eos % (Auto) 2.1 (0-4.4) % Baso % (Auto) 0.5 (0.2-1.2) % Lymph # (Auto) 2.91 (0.9-3.2) K/mm3 [place] # (Auto) 0.9 H (0.1-0.6) K/mm3 Eos # (Auto) 0.3 (0-0.3) K/mm3 Baso # (Auto) 0.1 (0.0-0.1) K/mm3 Abs Immat Gran (auto) 0.05 H (0.00-0.031) K/mm3 Absolute Neuts (auto) 8.6 H (1.3-6.7) K/mm3 Absolute Nucleated RBC 0.000 (0.0-0.012) K/mm3 Nucleated RBC % 0.0 (0.0-0.2) % Sodium 138 (137-145) mmol/L Potassium 3.8 (3.4-5.0) mmol/L Chloride 101 (98-107) mmol/L Carbon Dioxide 32 H (22-30) mmol/L Anion Gap 5 (4-12) mmol/L BUN 15 (7-17) mg/dL Creatinine 0.83 (0.7-1.0) mg/dL Estim Creat Clear Calc Not Reportable Estimated GFR > 60 (59 - ) Glucose 85 (65-110) mg/dL Lactic Acid 1.1 (0.7-2.0) mmol/L Calcium 9.2 (8.4-10.2) mg/dL Magnesium 2.1 (1.6-2.3) mg/dL Total Bilirubin 0.3 (0.2-1.3) mg/dL AST 20 (14-36) U/L ALT 24 (6-35) U/L Alkaline Phosphatase 87 (38-126) U/L Total Protein 8.0 (6.3-8.2) g/dL Albumin 4.5 (3.5-5.1) g/dL TSH (Reflex) 2.400 (0.465-4.68) uIU/mL Discharge Plan Discharge Clinical Impression: Adverse drug reaction, Agitation Patient Disposition: Home Condition: Stable Instructions: Antibiotic Form Additional Instructions: Continue have close follow-up with your neurologist as scheduled. Ativan as needed for anxiety and agitation worsening symptoms and please call or return to the emergency department. Patient Language: Jamaican Prescriptions: New lorazepam [Ativan] 0.5 mg tablet 0.5 mg PO BID PRN (Reason: agitation) 7 Days Qty: 14 0RF No Action levothyroxine 175 mcg tablet 175 mcg PO DAILY Mirena 20 mcg/24 hours (6 yrs) 52 mg Intrauterine Device 1 device INTRAUTERINE ONCE tramadol 50 mg tablet 50 mg PO DAILY enalapril maleate 10 mg tablet 10 mg PO DAILY hydrochlorothiazide 25 mg tablet 25 mg PO DAILY albuterol sulfate 90 mcg/actuation Hfa Aerosol Inhaler 2 puff INHALATION QID PRN (Reason: Shortness Of Breath Or Wheezing) trazodone 100 mg tablet 100 mg PO HS gabapentin 300 mg capsule 300 mg PO TID omeprazole 20 mg capsule,delayed release(DR/EC) 20 mg PO BID azelastine 137 mcg (0.1 %) aerosol,spray 1 spray INTRANASAL HS escitalopram oxalate 10 mg tablet 10 mg PO QAM cetirizine 10 mg tablet 10 mg PO DAILY enalapril maleate 10 mg tablet 10 mg PO DAILY celecoxib 200 mg capsule 200 mg PO DAILY (DME) [employer] Card Home Tst Kit See Rx Instructions .Route Qty: 1 0RF Rx Instructions: As directed fluticasone propionate [Flonase Allergy Relief] 50 mcg/actuation spray,suspension 2 spray intranasal DAILY Qty: 9.9 0RF Rx Instructions: administer into each nostril epinephrine 0.3 mg/0.3 mL Auto-Injector 0.3 mg IM Q4H PRN (Reason: Allergic Reaction) multivitamin Tablet 1 tablet PO DAILY ascorbic acid (vitamin C) [Vitamin C] 1,000 mg Tablet 1 g PO BID meloxicam 15 mg tablet 15 mg PO QPM cholecalciferol (vitamin D3) [Vitamin D3] 50 mcg (2,000 unit) Capsule 100 mcg PO DAILY cyanocobalamin (vitamin B-12) [Vitamin B-12] 5,000 mcg Tablet, Sublingual 5,000 mcg SUBLINGUAL DAILY Qvar RediHaler 80 mcg/actuation HFA aerosol breath activated 2 inh INHALATION BID methocarbamol 750 mg tablet 750 mg PO TID Qty: 14 0RF methylprednisolone [Medrol (Paco)] 4 mg tablets,dose pack See Rx Instructions PO .COMPLEX Qty: 21 0RF Rx Instructions: orally per package directions Follow-up/Referrals: Dominique,RONALD Mckinney [Primary Care Provider] -
[2024-07-31 20:45] VITALS: BP 141/76; PULSE 68; RESP 15; O2SAT 99
[2024-07-31 23:34] VITALS: BP 131/82; PULSE 67; RESP 17; O2SAT 95
== END 2024-07-31 23:34 | disposition home or self-care (01) ==
PROVIDERS: Emergency Provider Emergency Medicine; PCP Nurse Practitioner Family
DX: R45.1 Restlessness and agitation (principal); T42.6X5A Adverse effect of other antiepileptic and sedative-hypnotic drugs, initial encounter; R56.9 Unspecified convulsions; I10 Essential (primary) hypertension; E03.9 Hypothyroidism, unspecified; E28.2 Polycystic ovarian syndrome; J45.909 Unspecified asthma, uncomplicated; K21.9 Gastro-esophageal reflux disease without esophagitis; F41.9 Anxiety disorder, unspecified; F32.A Depression, unspecified; Z87.440 Personal history of urinary (tract) infections; Z97.5 Presence of (intrauterine) contraceptive device; Z79.899 Other long term (current) drug therapy
CPT/HCPCS: 36415; 80053; 83605; 83735; 84443; 85025; 96374; 99284; J2060

== ENCOUNTER 2024-10-03 12:19 | Outpatient (CLI) | payer OTHER, SELFPAY ==
--- OUTSIDE RECORDS SUMMARY | 2024-10-03 12:23 | XMS_ITS | Clinical Summary ---
Author Organization [facility] Address [address] [place] [address] Phone Care Team Providers Care Pillar Worker Name Role Phone Regan Gale DPM Unavailable [phone] Faye Fox APRN Primary Care Provider [...] DISP, 3 ML (B-D 3CC LUER-RACHID SYR 25GX5/8) 25G X 5/8 3 ML Misc Active [...] in 72 hours 2 Tablet 5 Active Active Problems No known active problems Encounters Date Type Department Care Team Description 09/20/2024 1:40 PM CDT Urgent Care Visit [facility] [address] [facility] [place] [address] Lauro Rojas PAC Acute cough (Primary Dx); Viral illness Discharge Disposition: Discharged to home or Selfcare 09/20/2024 Travel 07/16/2024 Results Follow-Up [facility] [address] [place] [address] Rachelle Cervantes APRN, HECTOR POCT UA AUTOMATED W/O MICRO, POC INFLUENZA A AND B BY MOLECULAR, POC SARS-COV-2 BY MOLECULAR, Additional followed-up results: 2 07/15/2024 11:55 AM CDT Urgent Care Visit [facility] [address] [facility] [place] [id number] Rachelle Cervantes APRN, HECTOR Vaginal discharge (Primary Dx); Urinary frequency; Acute cough; Acute non-recurrent pansinusitis Discharge Disposition: Discharged to home or Selfcare 07/15/2024 Travel from Last 3 Months Immunizations Immunization [...] drink = 0.6 oz pur e alcohol) Sexually Active Control Partners Comments Yes I.U.D. Comments No Sex and Gender Information Value Date Recorded Sex Assigned at Not on file Legal Sex Female 2:10 PM CDT Gender Identity Not on file Sexual Orientation Not on file Last Filed Vital Signs Vital Sign Reading Time Taken Comments Blood Pressure 140/76 09/20/2024 1:43 PM CDT Pulse 60 09/20/2024 1:43 PM CDT Temperature 36.6 C (97.9 F) 09/20/2024 1:43 PM CDT Respiratory Rate 17 09/20/2024 1:43 PM CDT Oxygen Saturation 98% 09/20/2024 1:43 PM CDT Inhaled Oxygen Concentration - - Weight 154.2 kg (340 lb) 12/02/2023 3:48 PM CDT Height 158.8 cm (5' 2.5) 12/02/2023 3:48 PM CDT Body Mass Index 61.2 12/02/2023 3:48 PM CDT Plan of Treatment Health Maintenance Due Date Last Done Comments Hepatitis C Virus (HCV) Screening 1984 Human Papillomavirus (HPV) Immunization (1 - 3-dose series) 11/09/1999 Pap Smear 2005 Cervical Cancer Screening (CCS) [...] complete this topic Influenza Immunization Completed , 01/19/2024, 01/22/2023, Additional history exists Meningococcal Immunization (ACWY) Aged Out No longer eligible based on patient's age to complete this topic Rotavirus Immunization Aged Out No lo nger eligible based on patient's age to complete this topic Procedures Procedure Name Priority Date/Time Associated Diagnosis Comments POC SARS-COV-2 BY MOLECULAR Routine 09/20/2024 1:59 PM CDT Acute cough VAGINITIS SCREEN, MOLECULAR Routine 07/15/2024 12:56 PM [...] Routine 07/15/2024 12:06 PM CDT Acute cough from Last 3 Months Results * POC SARS-COV-2 BY MOLECULAR (09/20/2024 1:59 PM CDT) Only the most recent of2 resultswithin the time period is included. SARSCOV2 Negative Negative, INVALID PROCEDURE CONTROL Valid 09/20/2024 1:59 PM CDT Lauro Rojas [facility] POINT OF CARE TESTING (MANUAL ) Final Result * (ABNORMAL) VAGINITIS SCREEN, MOLECULAR (07/15/2024 12:56 PM CDT) TRICHOMONAS NOT DETECTED NOT DETECTED 07/16/2024 12:53 AM CDT [facility] BACTERIAL VAGINOSIS NOT DETECTED NOT DETECTED 07/16/2024 12:53 AM CDT [facility] ALISA NOT DETECTED NOT DETECTED 07/16/2024 12:53 AM CDT [facility] Comment: Alisa group Not detected with the following possible Alisa species: Alisa albicans and/or Alisa tropicalis and/or Alisa parapsilosis and/or Alisa dubliniensis ALISA GLABRATA DETECTED(A) NOT DETECTED 07/16/2024 12:53 AM CDT [facility] ALISA KRUSEI NOT DETECTED NOT DETECTED 07/16/2024 12:53 AM CDT [facility] Other VAGINAL STRUCTURE / Unknown Non-Phlebotomy Collection / Unknown 07/15/2024 12:56 PM CDT 07/15/2024 12:56 PM CDT Rachelle Cervantes APRN, CONTAMINATED LAND CONSULTANT MICROBIOLOGY - GEN ERAL ORDERABLES Final Result Performing Organization Address [facility] Co de Phone Number [facility] [address] [place] [address], [place] * CULTURE, URINE (07/15/2024 12:55 PM CDT) CULTURE RESULTS COAGULASE-NEGATIVE STAPHYLOCOCCUS, NOT STAPHYLOCOCCUS SAPROPHYTICUS 07/16/2024 8:49 PM CDT [facility] Comment:ALSO MIXED GROWTH OF DISTAL URETHRA CONTAMINANTS. Culture URINE SPECIMEN OBTAINED BY CLEAN CATCH PROCEDURE / Unknown Non-Phlebotomy Collection / Unknown 07/15/2024 12:55 PM CDT 07/15/2024 12:55 PM CDT us Rachelle Cervantes APRN, CONTAMINATED LAND CONSULTANT MICROBIOLOGY - GEN ERAL ORDERABLES Final Result Performing Organization Address [facility] Co de Phone Number [facility] [address] [place] [address], [place] * (ABNORMAL) POCT UA AUTOMATED W/O [...] 12:2 0 PM CDT Rachelle Cervantes APRN, CONTAMINATED LAND CONSULTANT POINT OF CARE TEST ING (MANUAL) Final Result * POC GROUP A STREP BY MOLECULAR (07/15/2024 12:09 PM CDT) STREP A DNA Negative Negative, Invalid PROCEDURE CONTROL Valid 07/15/2024 12:0 9 PM CDT Rachelle Cervantes APRN, CONTAMINATED LAND CONSULTANT POINT OF CARE TEST ING (MANUAL) Final Result * POC INFLUENZA A AND B BY MOLECULAR (07/15/2024 12:06 PM CDT) INFLUENZA A RNA Negative Negative, Invalid INFLUENZA B RNA Negative Negative, Invalid PROCEDURE CONTROL Valid 07/15/2024 12:0 6 PM CDT Rachelle Cervantes APRN, CONTAMINATED LAND CONSULTANT POINT OF CARE TEST ING (MANUAL) Final Result from Last 3 Months Insurance MEDICAID [employer] [facility] Care Teams Pillar Worker Relationship Specialty Start Date End Date Faye Fox APRN [address], [address] [place] [address] PCP - General Family Medicine 08/25/18 Regan Gale DPM Consulting Physician Podiatry 09/09/16
--- OUTSIDE RECORDS SUMMARY | 2024-10-03 12:23 | XMS_ITS | Encounter Summary ---
Author Organization [facility] Address [address] [place] [address] Care Team Providers Care Costumer Name Role Phone Faye Fox NP Primary Care Provider [phone] Encounter Details Date Type Department Care Team (Late st Contact Info) Description 02/26/2023 [employer] Message Enc [facility] [address] [address] [employer] Provider Work comp Social History Tobacco Use Types Packs/Day Years Used Date Smoking Tobacco: Never Smokeless Tobacco: Never Alcohol Use Standard Drinks/Week Comments No 0 (1 standard drink = 0.6 oz pur e alcohol) Comments No Sex and Gender Information Value Date Recorded Sex Assigned at Female 02/22/2023 6:27 AM FORKLIFT TRUCK MECHANIC Legal Sex Female 1:13 AM CDT Gender Identity Female 02/22/2023 6:27 AM FORKLIFT TRUCK MECHANIC Sexual Orientation Straight 02/22/2023 6: 27 AM FORKLIFT TRUCK MECHANIC documented as of this encounter Functional Status * Calculated C-SSRS Risk Score (Lifetime/Recent) Answer Date of Assessment Author Status No Risk Indicated 02/26/2023 1:38 PM FORKLIFT TRUCK MECHANIC Link Reyes, RN Active * [place] Suicide Severity Rating Scale (Screener/Recent Self-Report) Question Answer Date of Assessment Author Status 1. Wish to be (Past 1 Month) No 02/26/2023 1:38 PM FORKLIFT TRUCK MECHANIC Lauro Reyes RN Acti ve 2. Non-Specific Active Suicidal Thoughts (Past 1 Month) No 02/26/2023 1:38 PM FORKLIFT TRUCK MECHANIC Lauro Reyes, RN Acti ve 6. Suicidal Behavior (Lifetime) No 02/26/2023 1:38 PM FORKLIFT TRUCK MECHANIC Lauro Reyes, RN Acti ve documented as of this encounter Plan of Treatment Not on file documented as of this encounter Visit Diagnoses Not on filedocumented in this encounter Additional Health Concerns Infection Onset Date Last Indicated Resolved Time Influenza - Seasonal 02/19/2023 02/19/2023 023 12:32 AM FORKLIFT TRUCK MECHANIC documented as of this encounter Care Teams Costumer Relationship Specialty Start Date End Date Faye Fox NP PCP - General 06/30/16 documented as of this encounter
--- OUTSIDE RECORDS SUMMARY | 2024-10-03 12:23 | XMS_ITS | Clinical Summary ---
Author Organization [facility] Address [address] [place] [address] Care Team Providers Care Manager Camp Name Role Phone Faye Fox NP Primary Care Provider [phone] Allergies Active Allergy Reactions Criticality Noted Date [...] the muscle. 12/23/2017 Active vitamin D2, ergocalciferol, 60633 UNITS capsule Take 50,000 Units by mouth. [...] 1 tablet by mouth daily. 05/05/2019 Active [place] 3 1000 MG Cap Take by mouth [...] Sex Assigned at Female 02/22/2023 6:27 AM BURGLAR ALARM OPERATOR Legal Sex Female 1:13 AM CDT Gender Identity Female 02/22/2023 6:27 AM BURGLAR ALARM OPERATOR Sexual Orientation Straight 02/22/2023 6: 27 AM BURGLAR ALARM OPERATOR Last Filed Vital Signs Vital Sign Reading Time Taken Comments Blood Pressure 166/88 04/22/2023 1:08 PM BURGLAR ALARM OPERATOR Pulse 86 04/22/2023 1:08 PM BURGLAR ALARM OPERATOR Temperature 36.4 C (97.6 F) 04/22/2023 1:08 PM BURGLAR ALARM OPERATOR Respiratory Rate 18 04/22/2023 1:08 PM BURGLAR ALARM OPERATOR Oxygen Saturation 99% 04/22/2023 1:08 PM BURGLAR ALARM OPERATOR Inhaled Oxygen Concentration - - Weight 153.8 kg (339 lb 1.1 oz) 04/22/2023 1:08 PM BURGLAR ALARM OPERATOR Height 160 cm (5' 3) 04/22/2023 1:08 PM BURGLAR ALARM OPERATOR Body Mass Index 60.06 04/22/2023 1:08 PM BURGLAR ALARM OPERATOR Plan of Treatment Health Maintenance Due Date [...] 03/12/2022, 06/30/2021, Additional history exists PHQ-2 (Physician [place]) 04/05/2024 DTaP, Tdap and Td Vaccines (2 [...] this topic Insurance [id number] [place] [id number] [employer] Care Teams Manager Camp Relationship Specialty Start Date End Date Faye Fox NP PCP - General 06/30/16
--- OUTSIDE RECORDS SUMMARY | 2024-10-03 12:23 | XMS_ITS | Encounter Summary ---
Author Organization [facility] Address [address] [place] [address] Phone Care Team Providers Care Mapping Specialist Name Role Phone Regan Gale DPM Unavailable [phone] Faye Fox APRN Primary Care Provider [phone] Reason for Referral * PT/OT/ST (Routine) - Authorized Specialty Diagnoses / Procedures Referred By Pratima goss Referred To Contact Physical Therapy Diagnoses Low back pain, unspecified back pain laterality, unspecified chronicity, unspecified whether sciatica present Faye Fox APRN [address], [address] [place] [address] Phone: tel: [facility]: [facility] [address] [facility], [address] [address] Phone: tel: fax: Referral ID Status Reason Start Date Expiration Date V isits Requested Visits Authorized [id number] Authorized 11/15/2023 50 14 Scheduling Instructions Encounter Details Date Type Department Care Team (Latest Contact Info) Description 11/15/2023 Transcribe Orders [facility] [address] [place] [address] Faye FoxERICK [address] [place] [address] Low back pain, unspecified back pain laterality, [...] Respiratory Rule-Out 05/25/2024 05/25/2024 025 1:28 PM TRANSPORTATION DISPATCH MANAGER COVID - 19 05/25/2024 05/25/2024 05/25/2024 1:00 PM TRANSPORTATION DISPATCH MANAGER Respiratory Rule-Out 07/15/2024 07/15/2024 025 12:20 PM CDT COVID - 19 07/15/2024 07/15/2024 07/15/2024 12:1 9 PM CDT COVID - 19 09/20/2024 09/20/2024 09/20/2024 2:15 PM CDT documented as of this encounter Care Teams Mapping Specialist Relationship Specialty Start Date End Date Faye Fox APRN [address], [address] [place] [address] PCP - General Family Medicine 08/25/18 Regan Gale DPM Consulting Physician Podiatry 09/09/16 documented as of this encounter
[2024-10-03 13:52] LABS: Free T4 Free Thyroxine. 1.03 ng/dL (0.78-2.19)
[2024-10-03 14:02] LABS: Thyroid Stimulating Hormone 0.761 uIU/mL (0.465-4.680)
== END 2024-10-03 12:20 | disposition home or self-care (01) ==
LOC: ANHLAB 12:22
PROVIDERS: PCP Nurse Practitioner Family; Visit Provider Nurse Practitioner Family
DX: E03.9 Hypothyroidism, unspecified (principal)
CPT/HCPCS: 36415; 84439; 84443

== ENCOUNTER 2024-11-08 19:20 | Emergency (ER) | payer OTHER, SELFPAY ==
--- NOTE | ~2024-11-08 | XR_ITS ---
HISTORY: R knee pn, numbness radiating distal to Lower leg COMPARISON: None TECHNIQUE: 3 views of the right knee were performed FINDINGS: No acute or subacute fracture. Medial tibiofemoral joint space narrowing is identified. Moderate suprapatellar joint effusion is identified. The infrapatellar joint space is clear. 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 No acute fracture. Reviewed, dictated and finalized at location A.
--- NOTE | ~2024-11-08 | US_ITS ---
EXAMINATION: US venous doppler LE RT DATE: 11/08/2024 20:13 INDICATION: Pain and swelling TECHNIQUE: Grayscale ultrasound images without and with compression and Doppler ultrasound images of the right lower extremity veins were obtained. COMPARISON: 11/15/2023 FINDINGS: The visualized portions of right common femoral vein, profunda (deep) femoral vein, femoral vein, pop liteal vein, peroneal veins, posterior tibial veins, and greater saphenous vein outflow are patent. Within the right popliteal fossa, no sonographic abnormality is present. IMPRESSION: 1. No deep venous thrombosis. Reviewed, dictated and finalized at location A.
--- OUTSIDE RECORDS SUMMARY | 2024-11-08 19:23 | XMS_ITS | Encounter Summary ---
Author Organization [facility] Address [address] [place] [address] Care Team Providers Care Single Stayer Operator Name Role Phone Faye Fox NP Primary Care Provider [phone] Encounter Details Date Type Department Care Team (Late st Contact Info) Description 02/26/2023 Suncore Message Enc [facility] Medical Group Orthopedic & Sports Medicine [address] [address] [facility], [facility] Provider Work comp Social History Tobacco Use Types Packs/Day Years Used Date Smoking Tobacco: Never Smokeless Tobacco: Never Alcohol Use Standard Drinks/Week Comments No 0 (1 standard drink = 0.6 oz pur e alcohol) Comments No Sex and Gender Information Value Date Recorded Sex Assigned at Female 02/22/2023 6:27 AM MEMORIAL COUNSELOR Legal Sex Female 1:13 AM CDT Gender Identity Female 02/22/2023 6:27 AM MEMORIAL COUNSELOR Sexual Orientation Straight 02/22/2023 6: 27 AM MEMORIAL COUNSELOR documented as of this encounter Functional Status * Calculated C-SSRS Risk Score (Lifetime/Recent) Answer Date of Assessment Author Status No Risk Indicated 02/26/2023 1:38 PM MEMORIAL COUNSELOR Patrick Reyes, RN Active * Isabella Suicide Severity Rating Scale (Screener/Recent Self-Report) Question Answer Date of Assessment Author Status 1. Wish to be (Past 1 Month) No 02/26/2023 1:38 PM MEMORIAL COUNSELOR Lauro Reyes, RN Acti ve 2. Non-Specific Active Suicidal Thoughts (Past 1 Month) No 02/26/2023 1:38 PM MEMORIAL COUNSELOR Lauro Reyes, RN Acti ve 6. Suicidal Behavior (Lifetime) No 02/26/2023 1:38 PM MEMORIAL COUNSELOR Lauro Reyes, RN Acti ve documented as of this encounter Plan of Treatment Not on file documented as of this encounter Visit Diagnoses Not on filedocumented in this encounter Additional Health Concerns Infection Onset Date Last Indicated Resolved Time Influenza - Seasonal 02/19/2023 02/19/2023 023 12:32 AM MEMORIAL COUNSELOR documented as of this encounter Care Teams Single Stayer Operator Relationship Specialty Start Date End Date Faye Fox NP PCP - General 06/30/16 documented as of this encounter
--- OUTSIDE RECORDS SUMMARY | 2024-11-08 19:23 | XMS_ITS | Encounter Summary ---
Author Organization [facility] Address [address] [place] [address] Phone Care Team Providers Care Peoplesoft Crm Developer Name Role Phone Regan Gale DPM Unavailable [phone] Faye Fox APRN Primary Care Provider [phone] Reason for Referral * PT/OT/ST (Routine) - Authorized Specialty Diagnoses / Procedures Referred By Pratima goss Referred To Contact Physical Therapy Diagnoses Low back pain, unspecified back pain laterality, unspecified chronicity, unspecified whether sciatica present Faye Fox APRN [address], [address] [place] [address] Phone: tel: fax: [facility] [address] [facility], [address] [address] Phone: tel: fax: Referral ID Status Reason Start Date Expiration Date V isits Requested Visits Authorized [id number] Authorized 11/15/2023 50 14 Scheduling Instructions Encounter Details Date Type Department Care Team (Latest Contact Info) Description 11/15/2023 Transcribe Orders [facility] [address] [place] [address] Faye FoxERICK [address] [place] [address] Low back pain, unspecified back pain laterality, [...] Respiratory Rule-Out 05/25/2024 05/25/2024 025 1:28 PM ELECTRIC MOTOR REPAIRMAN COVID - 19 05/25/2024 05/25/2024 05/25/2024 1:00 PM ELECTRIC MOTOR REPAIRMAN Respiratory Rule-Out 07/15/2024 07/15/2024 025 12:20 PM CDT COVID - 19 07/15/2024 07/15/2024 07/15/2024 12:1 9 PM CDT COVID - 19 09/20/2024 09/20/2024 09/20/2024 2:15 PM CDT documented as of this encounter Care Teams Peoplesoft Crm Developer Relationship Specialty Start Date End Date Faye Fox APRN [address], [address] [place] [address] PCP - General Family Medicine 08/25/18 Regan Gale DPM Consulting Physician Podiatry 09/09/16 documented as of this encounter
--- OUTSIDE RECORDS SUMMARY | 2024-11-08 19:23 | XMS_ITS | Clinical Summary ---
Author Organization [facility] Address [address] [place] [address] Care Team Providers Care Carbon Cleaner Name Role Phone Faye Fox NP Primary Care Provider [phone] Allergies Active Allergy Reactions Criticality Noted Date [...] the muscle. 12/23/2017 Active vitamin D2, ergocalciferol, 58165 UNITS capsule Take 50,000 Units by mouth. [...] 1 tablet by mouth daily. 05/05/2019 Active Williamson 3 1000 MG Cap Take by mouth [...] Sex Assigned at Female 02/22/2023 6:27 AM SALES AGENT CASUALTY INSURANCE Legal Sex Female 1:13 AM CDT Gender Identity Female 02/22/2023 6:27 AM SALES AGENT CASUALTY INSURANCE Sexual Orientation Straight 02/22/2023 6: 27 AM SALES AGENT CASUALTY INSURANCE Last Filed Vital Signs Vital Sign Reading Time Taken Comments Blood Pressure 166/88 04/22/2023 1:08 PM SALES AGENT CASUALTY INSURANCE Pulse 86 04/22/2023 1:08 PM SALES AGENT CASUALTY INSURANCE Temperature 36.4 C (97.6 F) 04/22/2023 1:08 PM SALES AGENT CASUALTY INSURANCE Respiratory Rate 18 04/22/2023 1:08 PM SALES AGENT CASUALTY INSURANCE Oxygen Saturation 99% 04/22/2023 1:08 PM SALES AGENT CASUALTY INSURANCE Inhaled Oxygen Concentration - - Weight 153.8 kg (339 lb 1.1 oz) 04/22/2023 1:08 PM SALES AGENT CASUALTY INSURANCE Height 160 cm (5' 3) 04/22/2023 1:08 PM SALES AGENT CASUALTY INSURANCE Body Mass Index 60.06 04/22/2023 1:08 PM SALES AGENT CASUALTY INSURANCE Plan of Treatment Health Maintenance Due Date Last Done Comments Cervical Cancer Screening Pap Smear (Age 30 to 64) Every 3 Years 1984 Annual Physical 11/09/1987 Hepatitis C 2002 Hepatitis B Vaccines (1 of 3 - 19+ 3-dose series) 11/09/2003 HPV Vaccines (1 - 3-dose SCDM series) 11/09/2011 Cervical Cancer Screening Pap with HPV Testing (Age 30 to 64) Every 5 Years 2014 Cervical Cancer Screening with HPV 2014 COVID-19 Vaccine ( season) 2023 01/22/2023, 03/12/2022, 06/30/2021, Additional history exists PHQ-2 (Physician [place]) 04/05/2024 DTaP, Tdap and Td Vaccines (2 [...] patient's age to complete this topic Insurance [employer] Care Teams Carbon Cleaner Relationship Specialty Start Date End Date Faye Fox NP PCP - General 06/30/16
--- OUTSIDE RECORDS SUMMARY | 2024-11-08 19:23 | XMS_ITS | Clinical Summary ---
Author Organization [facility] Address [address] [place] [address] Phone Care Team Providers Care Glass Etcher Helper Name Role Phone Regan Gale DPM Unavailable [phone] Faye Fox APRN Primary Care Provider [...] 09/20/2024 1:40 PM CDT [facility]gent [facility] Visit [facility] [address] [address] [place] [address] Lauro Rojas, PAC Acute cough (Primary Dx); Viral illness Discharge Disposition: Discharged to home or Selfcare 09/20/2024 Travel from Last 3 Months Immunizations Immunization [...] Virus (HCV) Screening 1984 Pap Smear 2005 Human Papillomavirus (HPV) Immunization (1 - 3-dose SCDM series) 11/09/2011 Cervical Cancer Screening (CCS) 2014 HPV/Cotest 2014 SARS-COV-2 Immunization ( season) 2023 01/22/2023, 03/12/2022, 06/30/2021, Additional history exists Influenza Immunization (#1) 2024 11/0 07/2023, 01/19/2024, 01/22/2023, Additional history exists Td Immunization Every 10 Years (Adults With 1 Tdap) 06/22/2029 06/23/2019, 08/05/1999 Respiratory Syncytial Virus (RSV) Immunization (Adult) (1 - 1-dose 75+ series) 11/09/2059 Hepatitis B Immunization Completed 000, 09/09/1999, 08/05/1999 DTaP/Tdap/Td Immunization Discontinued 2019, 08/05/1999, 05/11/1990, Additional history exists Pneumococcal Immunization Combined Aged Out 01/22/2023, 11/29/2014 No longer eligibl e based on patient's age to complete this topic Meningococcal Immunization (ACWY) Aged Out No longer eligible based on patient's age to complete this topic Rotavirus Immunization Aged Out No lo nger eligible based on patient's age to complete this topic Procedures Procedure Name Priority Date/Time Associated Diagnosis Comments POC SARS-COV-2 BY MOLECULAR Routine 09/20/2024 1:59 PM CDT Acute cough from Last 3 Months Results * POC SARS-COV-2 BY MOLECULAR (09/20/2024 1:59 PM CDT) SARSCOV2 Negative Negative, INVALID PROCEDURE CONTROL Valid 09/20/2024 1:59 PM CDT Lauro Rojas [facility] POINT OF CARE TESTING (MANUAL ) Final Result from Last 3 Months Insurance MEDICAID [employer] [facility] GENER[facility] Care Teams Glass Etcher Helper Relationship Specialty Start Date End Date Faye Fox APRN [address] [facility], [address] [place] [address] PCP - General Family Medicine 08/25/18 Regan Gale DPM Consulting Physician Podiatry 09/09/16
--- OUTSIDE RECORDS SUMMARY | 2024-11-08 19:23 | XMS_ITS | Clinical Summary ---
Author Organization [facility] Address [address] [place] [address] Phone Care Team Providers Care Director Of Retail Marketing Name Role Phone Unavailable Primary Care Provider [...] tablet Take 150 mcg by mouth daily fabric stretcher. Active medroxyPROGESTERo ne (PROVERA) 10 mg Oral [...] on file Legal Sex Female 4:54 AM SLEEVER Gender Identity Not on file Sexual Orientation [...] 8:47 AM CDT Height 160 cm (5' 3) 10/26/2012 2:48 PM CDT Body Mass Index 42.69 10/26/2012 2:48 PM CDT Plan of Treatment Health Maintenance Due Date Last Done Comments HPV VACCINES (1 - 3-dose series) 11/09/1999 DTAP/TDAP/TD VACCINES (1 - Tdap) 11/09/2003 HEPATITIS B VACCINES (1 of 3 - 19+ 3-dose series) 09/2003 HPV/Cotest (21-29) 2005 CERVICAL CANCER SCREENING 2014 HPV/Cotest (30-65) 2014 PAP SMEAR 2014 INFLUENZA VACCINE (#1) 2024 Medical Devices Implanted Type Area Dispatch Coordinator Device Identifier Shelf Expiration Date Model / Serial / Lot Sealant Floseal W/ Adptr 10ml [id number] - [id number] Implanted:Qty: 1 on 11/01/2012 at [facility] Sealant [employer] 12/04/2013 [id number] / / [id number] Insurance [facility] BLUE ACCESS CHOICE Advance Directives For more information, please contact: [phone] * Full Code (Latest Code Status on File) Date Activated Date Inactivated Comments 11/01/2012 8:36 AM 11/02/2012 5:19 PM
--- OUTSIDE RECORDS SUMMARY | 2024-11-08 19:23 | XMS_ITS | Continuity of Care Document ---
Author Organization [facility] Address [address] [place] [address] Phone Care Team Providers Care Junior Data Analyst Name Role Phone Carlos A Medina MD, MD Unavailable Unavaila ble Allergies, Adverse Reactions, Alerts Substance Reaction Status Criticality adhesive tape Active No Information Sulfa (Sulfonamide Antibiotics) Active No Information Medications Medication Instructions Dosage Effective Dates (start - stop) Status Comments tramadol 50 mg tablet take 1 - 2 (50MG) by oral route every 6 hours as needed 50 MG - No Longer Active hydrochlorothiazide 12.5 mg capsule take 1 capsule by oral route every day 12.5 MG - No Longer Active enalapril 10 mg-hydrochlorothiazide 25 mg tablet take 1 tablet by oral route every day 1.00 tablet - No Longer Active levothyroxine 175 mcg tablet take 1 tablet by oral route every day 175 MCG - No Longer Active famotidine 20 mg tablet take 1 tablet by oral route 2 times every day 20 MG - No Longer Active trazodone 100 mg tablet take 1 tablet by oral route 2 times every day after meals 100 MG - No Longer Active gabapentin 300 mg capsule take 1 capsule by oral route 3 times every day 300 MG - No Longer Active escitalopram 10 mg tablet take 1 tablet by oral route every day 10 MG - No Longer Active cetirizine 10 mg tablet take 1 tablet by oral route every day 10 MG - No Longer Active fluticasone propionate 50 mcg/actuation nasal spray,suspension inhale 1 spray by intranasal route every day in each nostril 50 MCG - No Longer Active albuterol sulfate 0.63 mg/3 mL solution for nebulization - No Longer Active azelastine 0.15 % (205.5 mcg) nasal spray spray 1 spray by intranasal route 2 times every day in each nostril 205.5 MCG - No Longer Active epinephrine 0.1 mg/mL injection syringe - No Longer Active ibuprofen 200 mg tablet take 1 tablet by oral route every 6 hours as needed with food 200 MG - No Longer Active acetaminophen 325 mg tablet take 1 tablet by oral route every 4 hours as needed 325 MG - No Longer Active Mirena 20 mcg/24 hours (5 yrs) 52 mg intrauterine device - No Longer Active meloxicam 15 mg tablet take 1 tablet by oral route every day 15 MG - No Longer Active celecoxib 200 mg capsule take 1 capsule by oral route 2 times every day as needed 200 MG - No Longer Active Probiotic 10 billion cell capsule - No Longer Active Vitamin C 1,000 mg tablet - No Longer Active One Daily 0.4 mg-600 mcg tablet - No Longer Active Vitamin B-12 50 mcg tablet - No Longer Active Vitamin D3 10 mcg (400 unit) tablet - No Longer Active Procedures Procedure Date X-ray exam both knees, standing 024 X-ray exam knee, 1 or 2 views 4 Independent Medical Examination ROSALVA Pre Payment Advance Directives Directive Yes / No Effective Date File Name No Information Encounters Encounter Description Practice Location Reason(s) For Visit Diagnoses Date Provider Providers Copied on Encounter Independent Medical Examination [facility], [address] [place] [address], [id number], [place] tel:[phone] [facility] right knee (chief complaint) Pain in right knee 2 4 Carol Strauss. [address], [address], [place], [place], [id number] , [place]. tel: [phone] [facility] [employer] [facility], [address], [place], [place], [id number], [place] tel:[phone] [facility] [employer] [facility] No Information 0 4 Carol Strauss. [address] [facility], [address], [place], [place], [id number] , [place]. tel: [phone] Family History Family Member Type Diagnosis Age At Onset Problem Family history of Arthritis Problem Family history of Cardiovasc ular disease Problem Family history of prostate c ancer Problem Family history of Mental ill ness Problem Family history of alcoholism Problem Family history of Diabetes m ellitus Problem Family history of cancer of colon Payers Payer name Insurance type Covered libertarian ID ethan thapa(s) Exam Works [id number] Social History Type Description Quantity Date Captured Comments Alcohol Use Details Caffeine Use Details Unknown Tobacco Use Status Current non-smoker Smoking Status Never smoker Non-Smoking Tobacco Use Details : No Details Available : No Details Available Sex Female Vital Signs Date / Time: Height Weight BMI Pulse Rate Blood Pressure Temperature Respiratory Rate Body Surface Area Head Circumference Head Circ. Percentile Wt./Bernardo. Percentile BMI percentile Pulse Ox Inhaled Ox 11:56 AM 63.00 in 154.221 kg (340.00 lbs) 60.2 3 kg/m eter (2) Chief Complaint And Reason For Visit From encounter dated '05/26/2023 12:00'. right knee (chief complaint). Description: Dedra presents to the office for right knee complaints. Reason For Referral Reason For Referral No Information Plan Of Treatment Date Type Action Status Referral Ordered: X-ray exam knee, 1 or 2 views RT ordered Referral Ordered: X-ray exam both knees, standing ordered History Of Present Illness Encounter Date Complaint History Of Prese nt Illness right knee Dedra presents to the office for right knee complaints. Functional Status Date Functional Assessmen t No Information Instructions Date Instruction Additional Infor mation No Information Assessments Type Assessment Date assessment Pain in right knee Patient Care Teams Name Effective Dates (start - stop) Status Members No Information
--- OUTSIDE RECORDS SUMMARY | 2024-11-08 19:23 | XMS_ITS | Encounter Summary ---
Author Organization [facility] Address [address] [place] [address] Care Team Providers Care Basketball Commentator Name Role Phone Petros Michelle MD Primary Care Prov ider Unavailable Encounter Details Date Type Department Care Team (Late st Contact Info) Description 12/14/2003 Outpatient Historical [facility] Internal Medicine [place] [address] [place] [id number] Carl Tsai MD Social History Tobacco Use Types Packs/Day Years Used Date Smoking Tobacco: Never Assessed Comments Unknown Sex and Gender Information Value Date Recorded Sex Assigned at Not on file Legal Sex Female 4:54 AM FOOD AND NUTRITION SERVICES SUPERVISOR Gender Identity Not on file Sexual Orientation Not on file documented as of this encounter Plan of Treatment Not on file documented as of this encounter Visit Diagnoses Not on filedocumented in this encounter Care Teams Basketball Commentator Relationship Specialty Start Date End Date Petros Michelle MD NO ADDRESS ON FILE PCP - General 06/02/12 10/25/12 documented as of this encounter
[2024-11-08 19:37] VITALS: BP 170/70; PULSE 69; RESP 18; TEMP 36.4; O2SAT 98
--- OUTSIDE RECORDS SUMMARY | 2024-11-08 23:05 | XMS_ITS | Clinical Summary ---
Author Organization [facility] Address [address] [place] [address] Phone Care Team Providers Care Road Roller Engineer Name Role Phone Unavailable Primary Care Provider [...] tablet Take 150 mcg by mouth daily orthotist. Active medroxyPROGESTERo ne (PROVERA) 10 mg Oral [...] on file Legal Sex Female 4:54 AM WASTEWATER TREATMENT ENGINEER Gender Identity Not on file Sexual Orientation [...] (#1) 2024 Medical Devices Implanted Type Area Process Validation Engineer Device Identifier Shelf Expiration Date Model / Serial / Lot Sealant Floseal W/ Adptr 10ml [id number] - [id number] Implanted:Qty: 1 on 11/01/2012 at [facility] Sealant [employer] 12/04/2013 [id number] / / [id number] Insurance [facility] BLUE ACCESS CHOICE Advance Directives For more information, please contact: [phone] * Full Code (Latest Code Status on File) Date Activated Date Inactivated Comments 11/01/2012 8:36 AM 11/02/2012 5:19 PM
--- OUTSIDE RECORDS SUMMARY | 2024-11-08 23:05 | XMS_ITS | Encounter Summary ---
Author Organization [facility] Address [address] [place] [address] Phone Care Team Providers Care Wire Bender Hand Name Role Phone Regan Gale DPM Unavailable [phone] Faye Fox APRN Primary Care Provider [phone] Reason for Referral * PT/OT/ST (Routine) - Authorized Specialty Diagnoses / Procedures Referred By Pratima goss Referred To Contact Physical Therapy Diagnoses Low back pain, unspecified back pain laterality, unspecified chronicity, unspecified whether sciatica present Faye Fox APRN [address], [address] [place] [address] Phone: tel: fax: [facility] [address] [facility], [address] [address] Phone: tel: fax: Referral ID Status Reason Start Date Expiration Date V isits Requested Visits Authorized [id number] Authorized 11/15/2023 50 14 Scheduling Instructions Encounter Details Date Type Department Care Team (Latest Contact Info) Description 11/15/2023 Transcribe Orders [facility] [address] [place] [address] Faye FoxERICK [address] [place] [address] Low back pain, unspecified back pain laterality, [...] Respiratory Rule-Out 05/25/2024 05/25/2024 025 1:28 PM GROUND SUPPORT AGENT COVID - 19 05/25/2024 05/25/2024 05/25/2024 1:00 PM GROUND SUPPORT AGENT Respiratory Rule-Out 07/15/2024 07/15/2024 025 12:20 PM CDT COVID - 19 07/15/2024 07/15/2024 07/15/2024 12:1 9 PM CDT COVID - 19 09/20/2024 09/20/2024 09/20/2024 2:15 PM CDT documented as of this encounter Care Teams Wire Bender Hand Relationship Specialty Start Date End Date Faye Fox APRN [address], [address] [place] [address] PCP - General Family Medicine 08/25/18 Regan Gale DPM Consulting Physician Podiatry 09/09/16 documented as of this encounter
--- OUTSIDE RECORDS SUMMARY | 2024-11-08 23:05 | XMS_ITS | Encounter Summary ---
Author Organization [facility] Address [address] [place] [address] Care Team Providers Care Pay Station Collector Name Role Phone Faye Fox NP Primary Care Provider [phone] Encounter Details Date Type Department Care Team (Late st Contact Info) Description 02/26/2023 [employer] Message Enc [facility] Medical Group Orthopedic & Sports Medicine [address] [address] [facility] Provider Work comp Social History Tobacco Use Types Packs/Day Years Used Date Smoking Tobacco: Never Smokeless Tobacco: Never Alcohol Use Standard Drinks/Week Comments No 0 (1 standard drink = 0.6 oz pur e alcohol) Comments No Sex and Gender Information Value Date Recorded Sex Assigned at Female 02/22/2023 6:27 AM CARGO BRACER Legal Sex Female 1:13 AM CDT Gender Identity Female 02/22/2023 6:27 AM CARGO BRACER Sexual Orientation Straight 02/22/2023 6: 27 AM CARGO BRACER documented as of this encounter Functional Status * Calculated C-SSRS Risk Score (Lifetime/Recent) Answer Date of Assessment Author Status No Risk Indicated 02/26/2023 1:38 PM CARGO BRACER Link Reyes, RN Active * [place] Suicide Severity Rating Scale (Screener/Recent Self-Report) Question Answer Date of Assessment Author Status 1. Wish to be (Past 1 Month) No 02/26/2023 1:38 PM CARGO BRACER Lauro Reyes RN Acti ve 2. Non-Specific Active Suicidal Thoughts (Past 1 Month) No 02/26/2023 1:38 PM CARGO BRACER Lauro Reyes, RN Acti ve 6. Suicidal Behavior (Lifetime) No 02/26/2023 1:38 PM CARGO BRACER Lauro Reyes, RN Acti ve documented as of this encounter Plan of Treatment Not on file documented as of this encounter Visit Diagnoses Not on filedocumented in this encounter Additional Health Concerns Infection Onset Date Last Indicated Resolved Time Influenza - Seasonal 02/19/2023 02/19/2023 023 12:32 AM CARGO BRACER documented as of this encounter Care Teams Pay Station Collector Relationship Specialty Start Date End Date Faye Fox NP PCP - General 06/30/16 documented as of this encounter
--- OUTSIDE RECORDS SUMMARY | 2024-11-08 23:05 | XMS_ITS | Continuity of Care Document ---
Author Organization [facility] Address [address] [place] [address] Phone Care Team Providers Care Carton Making Machinist Name Role Phone Carlos A Medina MD, [...] Providers Copied on Encounter Independent Medical Examination [facility], [address] [place] [address], [id number], [place] tel:[phone] Orth[facility] [place] right knee (chief complaint) Pain in right knee 2 4 Carol Strauss. [address] [facility] [address], [address], [place], [place], [id number] , [place]. tel: [phone] [facility], [address], [place], [place], [id number], [place] tel:[phone] [facility] [employer] [facility] No Information 0 4 Carol Strauss. [address], [address], [place], [place], [id number] , [place]. tel: [phone] Family History Family Member Type Diagnosis Age [...] Covered libertarian ID ethan thapa(s) Exam Works [id number] Social History Type Description Quantity Date Captured [...]
--- OUTSIDE RECORDS SUMMARY | 2024-11-08 23:05 | XMS_ITS | Encounter Summary ---
Author Organization [facility] Address [address] [place] [address] Care Team Providers Care Program Facilitator Name Role Phone Petros Michelle MD Primary Care Prov ider Unavailable Encounter Details Date Type Department Care Team (Late st Contact Info) Description 12/14/2003 Outpatient Historical [facility] Internal Medicine [place] [address] [place] [id number] Carl Tsai MD Social History Tobacco Use Types Packs/Day Years Used Date Smoking Tobacco: Never Assessed Comments Unknown Sex and Gender Information Value Date Recorded Sex Assigned at Not on file Legal Sex Female 4:54 AM CATEGORY ANALYST Gender Identity Not on file Sexual Orientation Not on file documented as of this encounter Plan of Treatment Not on file documented as of this encounter Visit Diagnoses Not on filedocumented in this encounter Care Teams Program Facilitator Relationship Specialty Start Date End Date Petros Michelle MD NO ADDRESS ON FILE PCP - General 06/02/12 10/25/12 documented as of this encounter
--- OUTSIDE RECORDS SUMMARY | 2024-11-08 23:05 | XMS_ITS | Clinical Summary ---
Author Organization [facility] Address [address] [place] [address] Phone Care Team Providers Care Commercial Loan Closer Name Role Phone Regan Gale DPM Unavailable [phone] Faye Fox APRN Primary Care Provider [...] PM CDT Urgent Care Visit [facility] [place] [address] [place] [address] Lauro Rojas, PAC Acute cough [...] Valid 09/20/2024 1:59 PM CDT Lauro Rojas [facility] POINT OF CARE TESTING (MANUAL ) Final Result from Last 3 Months Insurance MEDICAID [employer] [facility] Care Teams Commercial Loan Closer Relationship Specialty Start Date End Date Faye Fox APRN [address] [facility] [facility] [facility], [address] [place] [address] PCP - General Family Medicine 08/25/18 Regan Gale DPM Consulting Physician Podiatry 09/09/16
--- OUTSIDE RECORDS SUMMARY | 2024-11-08 23:05 | XMS_ITS | Clinical Summary ---
Author Organization [facility] Address [address] [place] [address] Care Team Providers Care Compensation Coordinator Name Role Phone Faye Fox NP Primary Care Provider [phone] Allergies Active Allergy Reactions Criticality Noted Date [...] the muscle. 12/23/2017 Active vitamin D2, ergocalciferol, 35139 UNITS capsule Take 50,000 Units by mouth. [...] 1 tablet by mouth daily. 05/05/2019 Active [place] 3 1000 MG Cap Take by mouth [...] Sex Assigned at Female 02/22/2023 6:27 AM TELEVISION REPAIRMAN Legal Sex Female 1:13 AM CDT Gender Identity Female 02/22/2023 6:27 AM TELEVISION REPAIRMAN Sexual Orientation Straight 02/22/2023 6: 27 AM TELEVISION REPAIRMAN Last Filed Vital Signs Vital Sign Reading Time Taken Comments Blood Pressure 166/88 04/22/2023 1:08 PM TELEVISION REPAIRMAN Pulse 86 04/22/2023 1:08 PM TELEVISION REPAIRMAN Temperature 36.4 C (97.6 F) 04/22/2023 1:08 PM TELEVISION REPAIRMAN Respiratory Rate 18 04/22/2023 1:08 PM TELEVISION REPAIRMAN Oxygen Saturation 99% 04/22/2023 1:08 PM TELEVISION REPAIRMAN Inhaled Oxygen Concentration - - Weight 153.8 kg (339 lb 1.1 oz) 04/22/2023 1:08 PM TELEVISION REPAIRMAN Height 160 cm (5' 3) 04/22/2023 1:08 PM TELEVISION REPAIRMAN Body Mass Index 60.06 04/22/2023 1:08 PM TELEVISION REPAIRMAN Plan of Treatment Health Maintenance Due Date [...] 03/12/2022, 06/30/2021, Additional history exists PHQ-2 (Physician Circle) 04/05/2024 DTaP, Tdap and Td Vaccines (2 [...] MEDICAID [employer] Care Teams Compensation Coordinator Relationship Specialty Start Date End Date Faye Fox NP PCP - General 06/30/16
[2024-11-09 00:05] VITALS: BP 141/79; PULSE 61; RESP 16; O2SAT 99
--- NOTE | 2024-11-09 00:46 | ED_ITS ---
HPI - Extremity Problem General Chief complaint: Extremity Problem,Nontraumatic Stated complaint: right knee pain Time Seen by Provider: 11/08/24 22:29 Source: patient and family Mode of arrival: ambulatory Limitations: no limitations History of Present Illness HPI Narrative: Patient presents with right knee pain that is constant. Has been going on for x1 week although longer than that in reality. Previously had been receivign injections, last one approximately 1 year ago. Had discussed surgery spproximately 1 year ago with sports medicine but was told not a good surgical candidate until loses weight, no goal weight/BMI given per patient. Confirms she has a PCP ([facility] [facility]). Also has an upcomign appt to see sports med again 11/16. PCP Rx Tramadol BID. No traumatic injury. Feels like there is a bump behing her kne e/proximal calf. Had been told she had a torn meniscus so the PT that she had been doing stopped because of the diagnosis. Also experiences numbness along anterolateral lower leg. Currently told to DC meloxicam by GI due to an ulcer. She will experience popping and clicking, only occasional instability. Related Data Home Medications ?Medication ?Instructions ?Recorded ?Confirmed ?Last Taken ?Type levothyroxine 175 mcg tablet 175 mcg PO DAILY 03/10/19 11/27/23 09/29/23 09:00 History levonorgestrel (Mirena) 1 device intrauterine ONCE 07/06/20 11/27/23 Unknown History albuterol sulfate 90 mcg/actuation 2 puff inhalation QID PRN 08/30/22 11/27/23 Unknown History aerosol inhaler Shortness Of Breath Or Wheezing enalapril maleate 10 mg tablet 10 mg PO DAILY 08/30/22 11/27/23 Unknown History hydrochlorothiazide 25 mg tablet 25 mg PO DAILY 08/30/22 11/27/23 Unknown History tramadol 50 mg tablet 50 mg PO DAILY 08/30/22 11/27/23 Unknown History azelastine 137 mcg (0.1 %) nasal 1 spray intranasal HS 09/15/23 11/27/23 Unknown History spray escitalopram oxalate 10 mg tablet 10 mg PO QAM 09/15/23 11/27/23 09/29/23 09:00 History gabapentin 300 mg capsule 300 mg PO TID 09/15/23 11/27/23 09/29/23 09:00 History omeprazole 20 mg capsule,delayed 20 mg PO BID 09/15/23 11/27/23 Unknown History release trazodone 100 mg tablet 100 mg PO HS 09/15/23 11/27/23 Unknown History ascorbic acid (vitamin C) 1,000 mg 1 g PO BID 09/27/23 11/27/23 09/27/23 History tablet (Vitamin C) beclomethasone dipropionate 80 2 inh inhalation BID 09/27/23 11/27/23 Unknown History mcg/actuation HFA breath activated aerosol (Qvar RediHaler) cholecalciferol (vitamin D3) 50 100 mcg PO DAILY 09/27/23 11/27/23 09/27/23 History mcg (2,000 unit) capsule (Vitamin D3) cyanocobalamin (vitamin B-12) 5,000 mcg sublingual DAILY 09/27/23 11/27/23 09/27/23 History 5,000 mcg sublingual tablet (Vitamin B-12) epinephrine 0.3 mg/0.3 mL 0.3 mg IM Q4H PRN Allergic Reaction 09/27/23 11/27/23 Unknown History injection, auto-injector meloxicam 15 mg tablet 15 mg PO QPM 09/27/23 11/27/23 Unknown History multivitamin 1 tablet PO DAILY 09/27/23 11/27/23 09/27/23 History celecoxib 200 mg capsule 200 mg PO DAILY 11/27/23 11/27/23 Unknown History cetirizine 10 mg tablet 10 mg PO DAILY 11/27/23 11/27/23 Unknown History enalapril maleate 10 mg tablet 10 mg PO DAILY 11/27/23 11/27/23 Unknown History Allergies Allergy/AdvReac Type Severity Reaction Status Date / Time adhesive tape Allergy Intermediate skin turns Verified 11/08/24 19:21 red Sulfa (Sulfonamide Allergy Unknown hives Verified 11/08/24 19:21 Antibiotics) levetiracetam (From Keppra) Allergy Seizure Verified 11/08/24 19:21 [facility] Past Medical History Medical History Morbid obesity Anxiety Depression Hypothyroidism Musculoskeletal disorder Compression fracture L1-L2, right foot plantar fasciitis, bone spur Urinary tract infection Polycystic ovarian disease GERD (gastroesophageal reflux disease) Asthma Hypertension Seasonal allergies Surgical History Surgical History Hx of spinal surgery History of removal of ovarian cyst Family History Family History Mother Family history non-contributory Social History Social History Smoking status: Never smoker Substance use: never Living arrangements: with family Occupation/Education: occupation Additional occupation/education comments: [employer] Gender identity (if verbalized by the patient): Female Spiritual care concerns: No Exam Narrative: GENERAL: Well-appearing, well-nourished, and in no acute distress. HEAD: Normocephalic, atraumatic. EYES: Non injected, non icteric ENT: Nares clear, no rhinorrhea or epistaxis. Gross auditory acuity intact. NECK: Supple. No meningismus. CHEST: Speaking in full sentences. No respiratory distress. HEART: Regular rate and rhythm. . ABDOMEN: Morbid obeisty but Soft, nondistended. No rigidity or guarding. Not peritoneal EXTREMITIES: Normal range of motion. No lower extremity edema. No significant laxity with anterior drawer or posterior drawer but limited assessment. Posterior calf is palpated without appreciable palpable cord. No erythema. No rony mass/lesion identified. Mild TTP lateral joint line though patella moves freely. 5/5 strength bilateral ankle dorsiflexion/plantarflexion and knee flexion/extension. Can not reproduce pops/clicks with ROM . SKIN: Warm, dry, no rash. NEURO: No focal deficits. Alert and oriented. Answering questions. Following commands. Normal speech without aphasia or dysarthria. Patient is observed ambulating and she is mildly antalgic doing so though without foot drop PSYCH: Normal mood and affect. Course Vital Signs Vital signs: Vital Signs Temperature 97.5 F L 11/08/24 19:37 Pulse Rate 69 11/08/24 19:37 Respiratory Rate 18 11/08/24 19:37 Blood Pressure 170/70 H 11/08/24 19:37 Pulse Oximetry 98 11/08/24 19:37 Oxygen Delivery Room Air 11/08/24 19:37 Temperature 97.5 F L 11/08/24 19:37 Pulse Rate 61 11/09/24 00:05 Respiratory Rate 16 11/09/24 00:05 Blood Pressure 141/79 H 11/09/24 00:05 Pulse Oximetry 99 11/09/24 00:05 Oxygen Delivery Room Air 11/08/24 19:37 MDM - Extremity (Nontraumatic) MDM Narrative Medical decision making narrative: Patient presents with R knee pain. X1 week though technically longer as told has torn ligament. Not a surgical candidate based on BMI. In the emergency department she is afebrile with vital signs notable for hypertension. The distribution of her intermittent paresthesias are consistent with superficial peroneal nerve Although patient is not to take NSAIDs given her GI issues, 1 time intramuscular doses given. Advised to keep upcoming f/u appointment with Sports Med on 11/16. Differential Diagnosis Differential diagnosis: Likely gout, cellulitis, superficial thrombophlebitis, lower extremity edema, deep vein thrombosis of lower extremity and other (internal derangement of knee (OA, meniscus, ligament)) Imaging Data Radiologist's impression: Impressions Venous Doppler Study 11/08/24 20:27 IMPRESSION: 1. No deep venous thrombosis. Knee X-Ray 11/08/24 20:55 IMPRESSION: Moderate suprapatellar joint effusion with degenerative disease. No acute fracture. Discharge Plan Discharge Clinical Impression: Suprapatellar effusion of knee, Right knee DJD, Disorder of superficial peroneal nerve, Knee pain, right, Paresthesia of right lower extremity Patient Disposition: Home Condition: Stable Instructions: Antibiotic Form, Paresthesia (ED), Swollen Knee Joint (ED), Knee Pain (ED), Mediterranean Diet (DC) Additional Instructions: Acetaminophen/Tylenol (maximum 4000 mg per day) is safe to take . Patient Language: Cymro Prescriptions: New acetaminophen 500 mg capsule 1,000 mg PO Q6H PRN (Reason: pain) Qty: 30 0RF No Action levothyroxine 175 mcg tablet 175 mcg PO DAILY Mirena 20 mcg/24 hours (6 yrs) 52 mg Intrauterine Device 1 device INTRAUTERINE ONCE tramadol 50 mg tablet 50 mg PO DAILY enalapril maleate 10 mg tablet 10 mg PO DAILY hydrochlorothiazide 25 mg tablet 25 mg PO DAILY albuterol sulfate 90 mcg/actuation Hfa Aerosol Inhaler 2 puff INHALATION QID PRN (Reason: Shortness Of Breath Or Wheezing) trazodone 100 mg tablet 100 mg PO HS gabapentin 300 mg capsule 300 mg PO TID omeprazole 20 mg capsule,delayed release(DR/EC) 20 mg PO BID azelastine 137 mcg (0.1 %) aerosol,spray 1 spray INTRANASAL HS escitalopram oxalate 10 mg tablet 10 mg PO QAM cetirizine 10 mg tablet 10 mg PO DAILY enalapril maleate 10 mg tablet 10 mg PO DAILY celecoxib 200 mg capsule 200 mg PO DAILY (DME) [employer] Card Home Tst Kit See Rx Instructions .Route Qty: 1 0RF Rx Instructions: As directed fluticasone propionate [Flonase Allergy Relief] 50 mcg/actuation spray,suspension 2 spray intranasal DAILY Qty: 9.9 0RF Rx Instructions: administer into each nostril epinephrine 0.3 mg/0.3 mL Auto-Injector 0.3 mg IM Q4H PRN (Reason: Allergic Reaction) multivitamin Tablet 1 tablet PO DAILY ascorbic acid (vitamin C) [Vitamin C] 1,000 mg Tablet 1 g PO BID meloxicam 15 mg tablet 15 mg PO QPM cholecalciferol (vitamin D3) [Vitamin D3] 50 mcg (2,000 unit) Capsule 100 mcg PO DAILY cyanocobalamin (vitamin B-12) [Vitamin B-12] 5,000 mcg Tablet, Sublingual 5,000 mcg SUBLINGUAL DAILY Qvar RediHaler 80 mcg/actuation HFA aerosol breath activated 2 inh INHALATION BID methocarbamol 750 mg tablet 750 mg PO TID Qty: 14 0RF lorazepam [Ativan] 0.5 mg tablet 0.5 mg PO BID PRN (Reason: agitation) 7 Days Qty: 14 0RF methylprednisolone [Medrol (Paco)] 4 mg tablets,dose pack See Rx Instructions PO .COMPLEX Qty: 21 0RF Rx Instructions: orally per package directions Follow-up/Referrals: Dominique,RONALD Mckinney [Primary Care Provider] - Stand Alone Forms: Work/School Release IP Time of Disposition: 01:10
[2024-11-09] MEDS: HYDROcodone/acetaminophen (*CRX) 5-325 MG TABLET 1 TAB PO (01:10)
[2024-11-09] MEDS: ACETAMINOPHEN 325 MG TABLET 650 MG PO (01:11)
[2024-11-09] MEDS: KETOROLAC (*BKC) 60 MG/2 ML VIAL IM (01:11)
== END 2024-11-09 01:45 | disposition home or self-care (01) ==
PROVIDERS: Emergency Provider Student in an Organized Health Care Education/Training Program; PCP Nurse Practitioner Family
DX: M17.11 Unilateral primary osteoarthritis, right knee (principal); G57.31 Lesion of lateral popliteal nerve, right lower limb; I10 Essential (primary) hypertension; J45.909 Unspecified asthma, uncomplicated; E03.9 Hypothyroidism, unspecified; E28.2 Polycystic ovarian syndrome; E66.01 Morbid (severe) obesity due to excess calories; K21.9 Gastro-esophageal reflux disease without esophagitis; F32.A Depression, unspecified; F41.9 Anxiety disorder, unspecified; Z97.5 Presence of (intrauterine) contraceptive device; Z87.440 Personal history of urinary (tract) infections; Z79.899 Other long term (current) drug therapy
CPT/HCPCS: 73562; 93971; 96372; 99284; A9270; J1885

== ENCOUNTER 2025-03-12 14:40 | Emergency (ER) | payer OTHER, SELFPAY ==
--- NOTE | ~2025-03-12 | CT_ITS ---
EXAMINATION: CT abdomen pelvis w con DATE: 03/12/2025 17:36 INDICATION: Abdominal pain. TECHNIQUE: Computed tomography (CT) of the abdomen and pelvis was performed with 100 cc intravenous contrast. Automated exposure control and iterative reconstruction technique were employed. The dose-length product was 1536.62 mGy-cm. COMPARISON: None. FINDINGS: Lung bases do not show acute findings. Hepatomegaly without focal lesions of the liver. 2 cm cyst of the central right lobe of the liver. Normal size spleen. Gallbladder shows no acute findings. Pancreas shows no acute findings. Adrenal kidneys are unremarkable. No calculi are obstruction. No retroperitoneal adenopathy. No evidence of small bowel obstruction. Normal size appendix. Mild fecal impaction of the colon. IUD is noted in place within the uterus. No adnexal mass or fluid collections. Severe degenerative disc disease at L4-5 level. IMPRESSION: 1. No acute findings in the upper abdomen and pelvis. 2. Mild diffuse fecal impaction of the colon. 3. IUD noted within the uterus. 4 degenerative disc disease at L4-5 level Reviewed, dictated and finalized at location T. [facility]
[2025-03-12 14:53] VITALS: BP 140/92; PULSE 77; RESP 16; TEMP 36.5; O2SAT 99
--- NOTE | 2025-03-12 16:39 | ED.GENADULT ---
HPI - General Adult General Chief complaint: Urogenital-Female <JAIRO Kan - Last Filed: 03/13/25 21:47> Stated complaint: low back pain, bladder pain <JAIRO Kan - Last Filed: 03/13/25 21:47> Time Seen by Provider: 03/12/25 17:05 <JAIRO Kan - Last Filed: 03/13/25 21:47> Focused HPI: 39 year old female presenting with concerns for dysuria, lower abdominal, and lower back pain ongoing for the last week. She reports a significant history of UTIs. States she was diagnosed with a yeast infection about one week ago and was treated stating that the pruritus has improved but that there is still a bad odor. Denies any history of trauma, nausea/vomiting/diarrhea, or chest pain/shortness of breath. GENERAL: No acute distress. HEAD: Normocephalic, atraumatic. CHEST: Clear to auscultation. ?No respiratory distress. HEART: Regular rate and rhythm.? ABDOMEN: Diffuse lower abdominal TTP. NEURO: ?Alert and oriented x3. Patient screened in triage and initial orders placed.? ?Additional care and disposition to be based upon?diagnostic testing and treatment. <JAIRO Kan - Last Filed: 03/13/25 21:47> History of Present Illness HPI narrative: per HPI <Josiane De Luna MD - Last Filed: 03/13/25 20:13> Related Data Home medications: Home Medications ?Medication ?Instructions ?Recorded ?Confirmed ?Last Taken ?Type levothyroxine 175 mcg tablet 175 mcg PO DAILY 03/10/19 11/27/23 09/29/23 09:00 History levonorgestrel (Mirena) 1 device intrauterine ONCE 07/06/20 11/27/23 Unknown History albuterol sulfate 90 mcg/actuation 2 puff inhalation QID PRN 08/30/22 11/27/23 Unknown History aerosol inhaler Shortness Of Breath Or Wheezing enalapril maleate 10 mg tablet 10 mg PO DAILY 08/30/22 11/27/23 Unknown History hydrochlorothiazide 25 mg tablet 25 mg PO DAILY 08/30/22 11/27/23 Unknown History tramadol 50 mg tablet 50 mg PO DAILY 08/30/22 11/27/23 Unknown History azelastine 137 mcg (0.1 %) nasal 1 spray intranasal HS 09/15/23 11/27/23 Unknown History spray escitalopram oxalate 10 mg tablet 10 mg PO QAM 09/15/23 11/27/23 09/29/23 09:00 History gabapentin 300 mg capsule 300 mg PO TID 09/15/23 11/27/23 09/29/23 09:00 History omeprazole 20 mg capsule,delayed 20 mg PO BID 09/15/23 11/27/23 Unknown History release trazodone 100 mg tablet 100 mg PO HS 09/15/23 11/27/23 Unknown History ascorbic acid (vitamin C) 1,000 mg 1 g PO BID 09/27/23 11/27/23 09/27/23 History tablet (Vitamin C) beclomethasone dipropionate 80 2 inh inhalation BID 09/27/23 11/27/23 Unknown History mcg/actuation HFA breath activated aerosol (Qvar RediHaler) cholecalciferol (vitamin D3) 50 100 mcg PO DAILY 09/27/23 11/27/23 09/27/23 History mcg (2,000 unit) capsule (Vitamin D3) cyanocobalamin (vitamin B-12) 5,000 mcg sublingual DAILY 09/27/23 11/27/23 09/27/23 History 5,000 mcg sublingual tablet (Vitamin B-12) epinephrine 0.3 mg/0.3 mL 0.3 mg IM Q4H PRN Allergic Reaction 09/27/23 11/27/23 Unknown History injection, auto-injector meloxicam 15 mg tablet 15 mg PO QPM 09/27/23 11/27/23 Unknown History multivitamin 1 tablet PO DAILY 09/27/23 11/27/23 09/27/23 History celecoxib 200 mg capsule 200 mg PO DAILY 11/27/23 11/27/23 Unknown History cetirizine 10 mg tablet 10 mg PO DAILY 11/27/23 11/27/23 Unknown History enalapril maleate 10 mg tablet 10 mg PO DAILY 11/27/23 11/27/23 Unknown History <JAIRO Kan - Last Filed: 03/13/25 21:47> Allergies/adverse reactions: Allergies Allergy/AdvReac Type Severity Reaction Status Date / Time adhesive tape Allergy Intermediate skin turns Verified 11/08/24 19:21 red Sulfa (Sulfonamide Allergy Unknown hives Verified 11/08/24 19:21 Antibiotics) levetiracetam (From Keppra) Allergy Seizure Verified 11/08/24 19:21 <JAIRO Kan - Last Filed: 03/13/25 21:47> Review of Systems Review of Systems: All systems reviewed & are unremarkable except as noted in HPI and below <Josiane De Luna MD - Last Filed: 03/13/25 20:13> [facility] Past Medical History Medical History: Medical History Morbid obesity Anxiety Depression Hypothyroidism Musculoskeletal disorder Compression fracture L1-L2, right foot plantar fasciitis, bone spur Urinary tract infection Polycystic ovarian disease GERD (gastroesophageal reflux disease) Asthma Hypertension Seasonal allergies <JAIRO Kan - Last Filed: 03/13/25 21:47> Surgical History Surgical History: Surgical History Hx of spinal surgery History of removal of ovarian cyst <JAIRO Kan - Last Filed: 03/13/25 21:47> Family History Family History: Family History Mother Family history non-contributory <JAIRO Kan - Last Filed: 03/13/25 21:47> Social History Social History: Social History Smoking status: Never smoker Substance use: never Living arrangements: with family Occupation/Education: occupation Additional occupation/education comments: [employer], Gender identity (if verbalized by the patient): Female Spiritual care concerns: No <JAIRO Kan - Last Filed: 03/13/25 21:47> Exam Narrative: EXAMINATION OF ORGAN SYSTEMS/BODY AREAS: Constitutional: Vital signs per nursing GENERAL:No acute distress, non-toxic appearing. HEAD: Normal with no signs of head trauma. EYES: EOMI, conjunctiva normal ENT: Hearing grossly intact LUNGS: Nonlabored breathing. HEART: Regular rate and rhythm ABD: Soft, nontender to palpation BACK: Minimal tenderness to lower back bilaterally EXT: Normal range of motion SKIN: No rashes or lesions. NEURO: Alert. No gross focal sensory or strength deficits. PSYCH: Normal affect <Josiane De Luna MD - Last Filed: 03/13/25 20:13> Course Vital Signs Vital signs: Vital Signs Temperature 97.7 F 03/12/25 14:53 Pulse Rate 77 03/12/25 14:53 Respiratory Rate 16 03/12/25 14:53 Blood Pressure 140/92 H 03/12/25 14:53 Pulse Oximetry 99 03/12/25 14:53 Oxygen Delivery Room Air 03/12/25 14:53 Temperature 97.7 F 03/12/25 14:53 Pulse Rate 61 03/12/25 16:44 Respiratory Rate 18 03/12/25 16:44 Blood Pressure 141/85 H 03/12/25 16:44 Pulse Oximetry 97 03/12/25 16:44 Oxygen Delivery Room Air 03/12/25 14:53 <JAIRO Kan - Last Filed: 03/13/25 21:47> Vital Signs Temperature 97.7 F 03/12/25 14:53 Pulse Rate 77 03/12/25 14:53 Respiratory Rate 16 03/12/25 14:53 Blood Pressure 140/92 H 03/12/25 14:53 Pulse Oximetry 99 03/12/25 14:53 Oxygen Delivery Room Air 03/12/25 14:53 Temperature 97.7 F 03/12/25 14:53 Pulse Rate 61 03/12/25 16:44 Respiratory Rate 18 03/12/25 16:44 Blood Pressure 141/85 H 03/12/25 16:44 Pulse Oximetry 97 03/12/25 16:44 Oxygen Delivery Room Air 03/12/25 14:53 <Josiane De Luna MD - Last Filed: 03/13/25 20:13> [facility] MDM Narrative Medical decision making narrative: ED COURSE AND MEDICAL DECISION MAKINF with acute back pain. Normal motor and sensory exam. Patient able to ambulate. No evidence of acute cord compression, osteomyelitis/discitis or cauda equina without saddle anesthesia, urinary retention/incontinence, numbness/tingling in lower extremities, fever, history of IV drug use, cancer or immunosuppression. Doubt AAA or aortic dissection without severe pain/discomfort or any neurovascular deficits. [Ketorolac 15mg IV] given for symptomatic relief. Labs within acceptable limits including normal urinalysis. CT without acute abnormality per Radiology interpretation, large stool burden On reevaluation, the symptoms are improved. Patient is able to rest more comfortably. Ambulating without difficulty. I discussed the findings with the patient, she has stool softeners at home she can take, will trial steroids for back pain and follow-up to possible spine surgeon for her chronic back pain. Patient is given return precautions and instructed to come back at any point in time for worsening pain, fevers, weakness, difficulty walking, urinary or fecal incontinence. Patient expressed understanding of instructions. <Josiane De Luna MD - Last Filed: 03/13/25 20:13> Differential Diagnosis Differential Diagnosis: UTI, acute on chronic back pain, arthritis, etc. <Josiane De Luna MD - Last Filed: 03/13/25 20:13> Lab Data Result diagrams: 03/12/25 16:53 03/12/25 16:53 <JAIRO Kan - Last Filed: 03/13/25 21:47> Labs: Lab Results 03/12/25 03/12/25 03/12/25 Range/Units 16:41 16:44 16:53 WBC 9.1 (4.5-10.0) K/mm3 RBC 4.37 (4.2-5.4) M/mm3 Hgb 13.2 (12.0-15.0) g/dL Hct 39.0 (37.0-47.0) % MCV 89.2 (80-100) fl MCH 30.2 (26-34) pg MCHC 33.8 (32-36) g/dl RDW 12.6 (11.5-14.5) % Plt Count 292 (150-375) k/mm3 MPV 10.6 H (7.4-10.4) fl Immature Gran % (Auto) 0.3 (0-0.5) % Neut % (Auto) 61.2 (45.5-73.1) % Lymph % (Auto) 28.3 (18.3-44.2) % [place] % (Auto) 7.1 (2.6-8.5) % Eos % (Auto) 2.4 (0-4.4) % Baso % (Auto) 0.7 (0.2-1.2) % Lymph # (Auto) 2.57 (0.9-3.2) K/mm3 [place] # (Auto) 0.6 (0.1-0.6) K/mm3 Eos # (Auto) 0.2 (0-0.3) K/mm3 Baso # (Auto) 0.1 (0.0-0.1) K/mm3 Abs Immat Gran (auto) 0.03 (0.00-0.031) K/mm3 Absolute Neuts (auto) 5.6 (1.3-6.7) K/mm3 Absolute Nucleated RBC 0.000 (0.0-0.012) K/mm3 Nucleated RBC % 0.0 (0.0-0.2) % Sodium 134 L (137-145) mmol/L Potassium 3.7 (3.4-5.0) mmol/L Chloride 101 (98-107) mmol/L Carbon Dioxide 27 (22-30) mmol/L Anion Gap 6 (4-12) mmol/L BUN 18 H (7-17) mg/dL Creatinine 0.73 (0.7-1.0) mg/dL Estim Creat Clear Calc 125 ml/min Estimated GFR > 60 (59 - ) Glucose 83 (65-110) mg/dL Calcium 9.0 (8.4-10.2) mg/dL Total Bilirubin 0.9 (0.2-1.3) mg/dL AST 29 (14-36) U/L ALT 23 (6-35) U/L Alkaline Phosphatase 76 (38-126) U/L Total Protein 7.6 (6.3-8.2) g/dL Albumin 4.4 (3.5-5.1) g/dL Lipase 59 (23-300) U/L Urine Color Yellow (Yellow) Urine Appearance Clear (Clear) Urine pH 6.5 (5.0-9.0) Ur Specific [place] 1.011 (1.001-1.035) Urine Protein Negative (Negative) mg/dL Urine Glucose (UA) Negative (Negative) mg/dL Urine Ketones Negative (Negative) mg/dL Ur Blood (Man) Negative (Negative) Urine Nitrate Negative (Negative) Urine Bilirubin Negative (Negative) Urine Urobilinogen 0.2 (<2.0) mg/dL Leukocyte Esterase Rfl Negative (Negative) ESTHER/UL POC Urine HCG, Qual Negative (Negative) <JAIRO Kan - Last Filed: 03/13/25 21:47> Lab Results 03/12/25 03/12/25 03/12/25 Range/Units 16:41 16:44 16:53 WBC 9.1 (4.5-10.0) K/mm3 RBC 4.37 (4.2-5.4) M/mm3 Hgb 13.2 (12.0-15.0) g/dL Hct 39.0 (37.0-47.0) % MCV 89.2 (80-100) fl MCH 30.2 (26-34) pg MCHC 33.8 (32-36) g/dl RDW 12.6 (11.5-14.5) % Plt Count 292 (150-375) k/mm3 MPV 10.6 H (7.4-10.4) fl Immature Gran % (Auto) 0.3 (0-0.5) % Neut % (Auto) 61.2 (45.5-73.1) % Lymph % (Auto) 28.3 (18.3-44.2) % [place] % (Auto) 7.1 (2.6-8.5) % Eos % (Auto) 2.4 (0-4.4) % Baso % (Auto) 0.7 (0.2-1.2) % Lymph # (Auto) 2.57 (0.9-3.2) K/mm3 [place] # (Auto) 0.6 (0.1-0.6) K/mm3 Eos # (Auto) 0.2 (0-0.3) K/mm3 Baso # (Auto) 0.1 (0.0-0.1) K/mm3 Abs Immat Gran (auto) 0.03 (0.00-0.031) K/mm3 Absolute Neuts (auto) 5.6 (1.3-6.7) K/mm3 Absolute Nucleated RBC 0.000 (0.0-0.012) K/mm3 Nucleated RBC % 0.0 (0.0-0.2) % Sodium 134 L (137-145) mmol/L Potassium 3.7 (3.4-5.0) mmol/L Chloride 101 (98-107) mmol/L Carbon Dioxide 27 (22-30) mmol/L Anion Gap 6 (4-12) mmol/L BUN 18 H (7-17) mg/dL Creatinine 0.73 (0.7-1.0) mg/dL Estim Creat Clear Calc 125 ml/min Estimated GFR > 60 (59 - ) Glucose 83 (65-110) mg/dL Calcium 9.0 (8.4-10.2) mg/dL Total Bilirubin 0.9 (0.2-1.3) mg/dL AST 29 (14-36) U/L ALT 23 (6-35) U/L Alkaline Phosphatase 76 (38-126) U/L Total Protein 7.6 (6.3-8.2) g/dL Albumin 4.4 (3.5-5.1) g/dL Lipase 59 (23-300) U/L Urine Color Yellow (Yellow) Urine Appearance Clear (Clear) Urine pH 6.5 (5.0-9.0) Ur Specific [place] 1.011 (1.001-1.035) Urine Protein Negative (Negative) mg/dL Urine Glucose (UA) Negative (Negative) mg/dL Urine Ketones Negative (Negative) mg/dL Ur Blood (Man) Negative (Negative) Urine Nitrate Negative (Negative) Urine Bilirubin Negative (Negative) Urine Urobilinogen 0.2 (<2.0) mg/dL Leukocyte Esterase Rfl Negative (Negative) ESTHER/UL POC Urine HCG, Qual Negative (Negative) <Josiane De Luna MD - Last Filed: 03/13/25 20:13> Imaging Data Radiologist's impression: ITS Impressions Abdomen/Pelvis CT 03/12/25 17:37 IMPRESSION: 1. No acute findings in the upper abdomen and pelvis. 2. Mild diffuse fecal impaction of the colon. 3. IUD noted within the uterus. 4 degenerative disc disease at L4-5 level <JAIRO Kan - Last Filed: 03/13/25 21:47> ITS Impressions Abdomen/Pelvis CT 03/12/25 17:37 IMPRESSION: 1. No acute findings in the upper abdomen and pelvis. 2. Mild diffuse fecal impaction of the colon. 3. IUD noted within the uterus. 4 degenerative disc disease at L4-5 level <Josiane De Luna MD - Last Filed: 03/13/25 20:13> Discharge Plan Discharge Clinical Impression: Low back pain, Constipation <JAIRO Kan - Last Filed: 03/13/25 21:47> Patient Disposition: Home <JAIRO Kan - Last Filed: 03/13/25 21:47> Condition: Stable <JAIRO Kan - Last Filed: 03/13/25 21:47> Instructions: Chronic Back Pain (DC) <JAIRO Kan - Last Filed: 03/13/25 21:47> Additional Instructions: Please follow up with the spine doctor; you can always return to the ER if symptoms worsen. Try the meds as prescribed and take stool softeners at home. <JAIRO Kan - Last Filed: 03/13/25 21:47> Patient Language: Mongolian <JAIRO Kan - Last Filed: 03/13/25 21:47> Prescriptions: New prednisone 20 mg tablet 40 mg PO DAILY 4 Days Qty: 8 0RF No Action levothyroxine 175 mcg tablet 175 mcg PO DAILY Mirena 20 mcg/24 hours (6 yrs) 52 mg Intrauterine Device 1 device INTRAUTERINE ONCE tramadol 50 mg tablet 50 mg PO DAILY enalapril maleate 10 mg tablet 10 mg PO DAILY hydrochlorothiazide 25 mg tablet 25 mg PO DAILY albuterol sulfate 90 mcg/actuation Hfa Aerosol Inhaler 2 puff INHALATION QID PRN (Reason: Shortness Of Breath Or Wheezing) trazodone 100 mg tablet 100 mg PO HS gabapentin 300 mg capsule 300 mg PO TID omeprazole 20 mg capsule,delayed release(DR/EC) 20 mg PO BID azelastine 137 mcg (0.1 %) aerosol,spray 1 spray INTRANASAL HS escitalopram oxalate 10 mg tablet 10 mg PO QAM cetirizine 10 mg tablet 10 mg PO DAILY enalapril maleate 10 mg tablet 10 mg PO DAILY celecoxib 200 mg capsule 200 mg PO DAILY (DME) [employer] Home Tst Kit See Rx Instructions .Route Qty: 1 0RF Rx Instructions: As directed fluticasone propionate [Flonase Allergy Relief] 50 mcg/actuation spray,suspension 2 spray intranasal DAILY Qty: 9.9 0RF Rx Instructions: administer into each nostril epinephrine 0.3 mg/0.3 mL Auto-Injector 0.3 mg IM Q4H PRN (Reason: Allergic Reaction) multivitamin Tablet 1 tablet PO DAILY ascorbic acid (vitamin C) [Vitamin C] 1,000 mg Tablet 1 g PO BID meloxicam 15 mg tablet 15 mg PO QPM cholecalciferol (vitamin D3) [Vitamin D3] 50 mcg (2,000 unit) Capsule 100 mcg PO DAILY cyanocobalamin (vitamin B-12) [Vitamin B-12] 5,000 mcg Tablet, Sublingual 5,000 mcg SUBLINGUAL DAILY Qvar RediHaler 80 mcg/actuation HFA aerosol breath activated 2 inh INHALATION BID methocarbamol 750 mg tablet 750 mg PO TID Qty: 14 0RF lorazepam [Ativan] 0.5 mg tablet 0.5 mg PO BID PRN (Reason: agitation) 7 Days Qty: 14 0RF methylprednisolone [Medrol (Paco)] 4 mg tablets,dose pack See Rx Instructions PO .COMPLEX Qty: 21 0RF Rx Instructions: orally per package directions acetaminophen 500 mg capsule 1,000 mg PO Q6H PRN (Reason: pain) Qty: 30 0RF <JAIRO Kan - Last Filed: 03/13/25 21:47> Follow-up/Referrals: Dominique,RONALD Mckinney [Primary Care Provider, Unknown] Berto Harris MD [Physician, Neurosurgery] - 3 Days <JAIRO Kan - Last Filed: 03/13/25 21:47>
[2025-03-12 16:44] VITALS: BP 141/85; PULSE 61; RESP 18; O2SAT 97
[2025-03-12 16:46] LABS: BEDSIDEPREGUCG Negative (Negative)
[2025-03-12 16:47] LABS: Add Urine Microscopic? NO; Appearance Urine Clear (Clear); Glucose Urine UA Negative (Negative); Leukocyte Esterase Ur Negative LEU/UL (Negative); Nitrate Urine Negative (Negative); Specific Grav Ur 1.011 (1.001-1.035)
[2025-03-12 17:08] LABS: Hematocrit 39.0 % (37.0-47.0); Hemoglobin 13.2 g/dL (12.0-15.0); Immature Granulocyte Percent A 0.3 % (0-0.5); Lymphocytes Absolute Auto 2.57 K/mm3 (0.9-3.2); Mean Corpuscular HGB Conc 33.8 g/dl (32-36); Mean Corpuscular Hemoglobin 30.2 pg (26-34); Mean Corpuscular Volume 89.2 fl (80-100); Nucleated Red Blood Cells Absolute Auto 0.000 K/mm3 (0.0-0.012); Nucleated Red Blood Cells Perc 0.0 % (0.0-0.2); Platelet Count Result 292 k/mm3 (150-375); Red Blood Count 4.37 M/mm3 (4.2-5.4); White Blood Count 9.1 K/mm3 (4.5-10.0)
[2025-03-12 17:20] LABS: Alanine Aminotransferase 23 U/L (6-35); Albumin Level 4.4 g/dL (3.5-5.1); Alkaline Phosphatase 76 U/L (38-126); Anion Gap 6 mmol/L (4-12); Aspartate Amino Transferase 29 U/L (14-36); Bilirubin,Total 0.9 mg/dL (0.2-1.3); Blood Urea Nitrogen 18 mg/dL (7-17); Calcium 9.0 mg/dL (8.4-10.2); Carbon Dioxide 27 mmol/L (22-30); Chloride 101 mmol/L (98-107); Estimated CRCL calculation 125 ml/min; Estimated Glomerular Filt Rate > 60; Glucose 83 mg/dL (65-110); Lipase 59 U/L (23-300); Potassium 3.7 mmol/L (3.4-5.0); Sodium 134 mmol/L (137-145); Total Protein 7.6 g/dL (6.3-8.2)
[2025-03-12] MEDS: dexAMETHasone SOD PHOS INJ 10 MG/ML 1 ML VIAL IV PUSH (18:28)
[2025-03-12] MEDS: KETOROLAC 15 MG/ML VIAL (*BKC) IV PUSH (18:28)
== END 2025-03-12 18:34 | disposition home or self-care (01) ==
PROVIDERS: Emergency Provider Emergency Medicine; PCP Nurse Practitioner Family
DX: M54.50 Low back pain, unspecified (principal); K59.00 Constipation, unspecified; Z97.5 Presence of (intrauterine) contraceptive device; F41.9 Anxiety disorder, unspecified; F32.A Depression, unspecified; E03.9 Hypothyroidism, unspecified; Z87.440 Personal history of urinary (tract) infections; K21.9 Gastro-esophageal reflux disease without esophagitis; J45.909 Unspecified asthma, uncomplicated; I10 Essential (primary) hypertension
CPT/HCPCS: 36415; 74177; 80053; 81003; 81025; 83690; 85025; 96374; 96375; 99284; J1100; J1885; Q9967